=== PATIENT | female | born 1950 | race Caucasian/White ===

== ENCOUNTER 2020-06-02 14:26 | Outpatient (CLI) | payer MEDICARE, SELFPAY ==
--- NOTE | ~2020-06-02 | MM_ITS ---
EXAMINATION: MM screening [facility] BI w jose juan HISTORY: Screening mammogram TECHNIQUE: Craniocaudal and mediolateral oblique 3-D tomosynthesis images were obtained and synthetic 2-D images were generated. CAD analysis was submitted and interpreted. COMPARISON: 05/19/2019, 05/05/2019, 10/03/2016, 07/28/2015 BREAST PARENCHYMAL COMPOSITION: There are scattered areas of fibroglandular density. FINDINGS: There is no evidence of suspicious mass, calcification, or architectural distortion to sugg est malignancy in either breast. There has been no suspicious interval change. IMPRESSION: 1. No mammographic evidence of malignancy. 2. Recommend routine screening mammography in one year. BI-RADS Category 1: Negative Reviewed, dictated and finalized at location A.
== END 2020-06-02 14:27 | disposition home or self-care (01) ==
PROVIDERS: PCP Nurse Practitioner Family; Visit Provider Nurse Practitioner Family
DX: Z12.31 Encounter for screening mammogram for malignant neoplasm of breast (principal)
CPT/HCPCS: 77063; 77067

== ENCOUNTER 2020-10-05 09:13 | Outpatient (CLI) | payer MEDICARE, SELFPAY ==
--- NOTE | ~2020-10-05 | DEXA_ITS ---
Bone Density Report Name: Rosa Elena Fisher Age: 69 Sex: Female Ethnicity: White Date of : 1950 Indication: postmenopausal; height loss; Referring Provider: Peyton, Desiree Wallis Study: Bone densitometry was performed. Exam Date: October 05, 2020 Accession number: [id number] Bone Density: Region BMD T-score Z-score Classification AP Spine (L1-L4) 0.729 -2.9 -0.8 Osteoporosis Femoral Neck (Left) 0.504 -3.1 -1.3 Osteoporosis Total Hip (Left) 0.584 -2.9 -1.4 Osteoporosis Total Hip Bilateral Avg 0.593 -2.9 -1.4 Osteoporosis Femoral Neck (Right) 0.540 -2.8 -1.0 Osteoporosis Total Hip (Right) 0.600 -2.8 -1.3 Osteoporosis World Health Organization criteria for BMD impression classify patients as: Normal (T-score at or above -1.0), Osteopenia (T-score between -1.0 and -2.5), or Osteoporosis (T-score at or below -2.5). 10-year Fracture Risk: FRAX not reported because: Some T-score for Spine Total or Hip Total or Femoral Neck at or below -2.5 Clinical Information Provided by Patient: Smokes Has used the following medications: Calcium Patient maximum height was 66 Menopause Age: 50 Drinks caffeinated beverages Onset of menses at age 11 Number of children 2 Impression: The patient has osteoporosis, based on the Left Femoral Neck T-score. The patient has risk factors, including: smoking. Discussion: INCREASED RISK OF FRACTURE. BONE DENSITY IS UNDESIRABLY LOW AT ONE OR MORE SKELETAL SITES, CONSISTENT WITH POSTMENOPAUSAL OSTEOPOROSIS. This patient's lowest T-score meets the World Health Organization's (WHO) criteria for osteoporosis at one or more sites (T-score -2.5 or below). In untreated patients, the risk of osteoporotic fracture increases approximately two-fold for each 1.0 SD decrease in T-score. Low bone density is not the only risk factor for fracture; also consider factors such as patient's age, frailty or poor health, risk of falling, risk of injury, previous osteoporotic fracture, family history of osteoporosis, cigarette smoking, low body weight, etc. Not everyone with low bone mineral density has osteoporosis; osteomalacia and other metabolic bone disorders should also be considered. Patients who have osteoporosis should be evaluated for specific diseases and conditions (secondary causes) that may cause or contribute to bone loss. The [place] [employer] Endocrinologists (AACE) and National Osteoporosis Foundation (NOF) recommend pharmacologic intervention for all postmenopausal women whose T-score is in this range. The patient should follow a healthful lifestyle (good nutrition with adequate calcium and vitamin D, and appropriate weight-bearing exercise). Follow-Up: Consider a repeat BMD and Vertebral Fracture Assessment (VFA) exam in 2 years or sooner if medically necessary, to reassess this patien
== END 2020-10-05 09:14 | disposition home or self-care (01) ==
PROVIDERS: PCP Nurse Practitioner Family; Visit Provider Nurse Practitioner Family
DX: Z13.820 Encounter for screening for osteoporosis (principal); M81.0 Age-related osteoporosis without current pathological fracture
CPT/HCPCS: 77080

== ENCOUNTER 2020-10-07 01:51 | Outpatient (CLI) | payer MEDICARE, SELFPAY ==
[2020-10-07 21:19] LABS: SARS-CoV-2 RNA PCR Negative
== END 2020-10-07 01:52 | disposition home or self-care (01) ==
LOC: ANHCOVIDDT 01:52
PROVIDERS: PCP Nurse Practitioner Family; Visit Provider Internal Medicine Gastroenterology
DX: Z01.812 Encounter for preprocedural laboratory examination (principal); Z20.828 Contact with and (suspected) exposure to other viral communicable diseases
CPT/HCPCS: 87635; C9803; U0003

== ENCOUNTER 2020-10-11 01:26 | Day surgery (SDC) | payer MEDICARE, SELFPAY ==
[2020-10-06 11:51] VITALS: BMI 23.5
[2020-10-11 08:36] VITALS: BP 122/54; PULSE 77; RESP 21; TEMP 36.2; O2SAT 98; BMI 22.9
[2020-10-11] MEDS: LACTATED RINGERS 1,000 ML 150 ML IV CONT (08:45)
[2020-10-11 08:49] LABS: Glucose Point of Care 190 (65-105)
--- NOTE | 2020-10-11 08:55 | WPDGICN ---
Assessment and Plan Assessment and plan (1) Positive colorectal cancer screening using Cologuard test: Code(s): R19.5 - Other fecal abnormalities Status: Acute Assessment and Plan: [facility] guard test was positive, for this reason colonoscopy will be performed today. GI Consult Note Consult date/time: 10/11/20 08:55 HPI: Rosa Elena Fisher is a 69 year old female Seen in evaluation at the request of MANAGER PHARMACEUTICAL Desiree Todd. patient recently found to have positive colo guard test. for this reason patient presents for screening colonoscopy. Her current weight appetite bowel movements are normal. She denies abdominal pain. She has had no bleeding. Her family history is no known history of colon or rectal disease. Review of Systems Review of Systems: All systems reviewed & are unremarkable except as noted in HPI and below PMFSH Family History Family History (System 01/12/20 @ 09:47 by Ginger Tello) Father Diabetes mellitus Hypertension Family history of alcoholism Social History Social History (System 01/12/20 @ 09:47 by Ginger Tello) Smoking packs per day: 6 Smoking cigarettes per day: 120.0 Years smoked: 30 Smoking pack-years: 180.00 Smoking status: Light tobacco smoker Tobacco type: cigarettes Second hand tobacco smoke exposure: No Alcohol intake: never Substance use: never Substance use type: does not use Living arrangements: alone Spiritual care concerns: No Meds Home Medications and Allergies Home Medications Medication Instructions Recorded Confirmed Type aspirin 81 mg PO DAILY 10/06/20 10/06/20 History empagliflozin [Jardiance] 25 mg PO DAILY 10/06/20 10/06/20 History exenatide microspheres [Bydureon 2 mg SUBCUT WEEKLY 10/06/20 10/06/20 History BCise] insulin aspart U-100 [Novolog 20 unit SUBCUT DAILY 10/06/20 10/06/20 History Flexpen U-100 Insulin] simvastatin 40 mg PO DAILY 10/06/20 10/06/20 History sitagliptin-metformin [Janumet XR] 1 tablet PO BID 10/06/20 10/06/20 History Allergies Allergy/AdvReac Type Severity Reaction Status Date / Time Penicillins Allergy Intermediate Hives Verified 10/11/20 08:35 Sulfa (Sulfonamide Allergy Intermediate Hives Verified 10/11/20 08:35 Antibiotics) tree nut Allergy Intermediate Hives Verified 10/11/20 08:35 walnut Allergy Intermediate Hives Verified 10/11/20 08:35 Vital Signs Vital Signs - 24 hr 10/11/20 08:36 Temperature 97.1 F L Pulse Rate 77 Respiratory Rate 21 H Blood Pressure 122/54 L Pulse Oximetry 98 Exam Narrative: Exam Narrative: Physical exam reveals patient to be alert. Vital signs stable. HEENT exam unremarkable. Patient is anicteric. Lungs are clear to auscultation and percussion. Heart is without murmur or extra sounds. Abdominal exam bowel sounds are present soft nontender with no organomegaly. Digital external rectal exam is normal.
--- NOTE | 2020-10-11 08:55 | WPDANESEPPF ---
Anes - Initial Pre Proc Eval Procedure: Operation Date: 10/11/20 10:00 Proposed Procedures p Colonoscopy - Fredis Kennedy MD Date/Time: 10/11/20 08:55 Surgeon: Fredis Kennedy MD Pre Op Diagnosis: positive cologuard Patient Data Age: 69 Gender: F Height: 1.68 m Weight: 64.6 kg Last Vital Signs Temp 36.2 C L 10/11/20 08:36 Pulse 77 10/11/20 08:36 Resp 21 H 10/11/20 08:36 BP 122/54 L 10/11/20 08:36 Pulse Ox 98 10/11/20 08:36 Allergies Allergy/AdvReac Type Severity Reaction Status Date / Time Penicillins Allergy Intermediate Hives Verified 10/11/20 08:35 Sulfa (Sulfonamide Allergy Intermediate Hives Verified 10/11/20 08:35 Antibiotics) tree nut Allergy Intermediate Hives Verified 10/11/20 08:35 walnut Allergy Intermediate Hives Verified 10/11/20 08:35 Home Medications Medication Instructions Recorded Confirmed Type aspirin 81 mg PO DAILY 10/06/20 10/06/20 History empagliflozin [Jardiance] 25 mg PO DAILY 10/06/20 10/06/20 History exenatide microspheres [Bydureon 2 mg SUBCUT WEEKLY 10/06/20 10/06/20 History BCise] insulin aspart U-100 [Novolog 20 unit SUBCUT DAILY 10/06/20 10/06/20 History Flexpen U-100 Insulin] simvastatin 40 mg PO DAILY 10/06/20 10/06/20 History sitagliptin-metformin [Janumet XR] 1 tablet PO BID 10/06/20 10/06/20 History Laboratory Tests 10/11/20 08:44 POC Capillary Glucose 190 mg/dl H mg/dl (65-105) Patient hx anesthesia problems: none Family hx anesthesia problems: none PMFSH Past Medical History Medical History (Updated 10/11/20 @ 08:58 by Mack Angelo MD) Diabetes DVT (deep venous thrombosis) Hypercholesterolemia Family History Family History (System 01/12/20 @ 09:47 by Ginger Tello) Father Diabetes mellitus Hypertension Family history of alcoholism Social History Social History (System 01/12/20 @ 09:47 by Ginger Tello) Smoking packs per day: 6 Smoking cigarettes per day: 120.0 Years smoked: 30 Smoking pack-years: 180.00 Smoking status: Light tobacco smoker Tobacco type: cigarettes Second hand tobacco smoke exposure: No Alcohol intake: never Substance use: never Substance use type: does not use Living arrangements: alone Spiritual care concerns: No Anes - Eval Final PreProcedure Day of Procedure 10/11/20 08:55 Patient weight: normal Heart: regular rate and rhythm Lungs: clear to auscultation and normal air movement Airway: Mallampati scale class II Neurological: alert and oriented Last oral intake: >/= 8 hours ASA classification: III Emergent: no Anesthetic plan: proceed Anesthesia type and monitoring: general GIVS Informed Consent: The patient's anesthetic plan and its attendant risks and benefits were discussed with the patient/family/POA. Questions were solicited and answers provided to the satisfaction of the patient/family/POA.
[2020-10-11 09:56] VITALS: BP 102/53; PULSE 80; RESP 13; O2SAT 97
[2020-10-11 10:06] VITALS: BP 115/59; PULSE 78; RESP 21; O2SAT 99
[2020-10-11 10:06] LABS: Glucose Point of Care 168 (65-105)
[2020-10-11 10:16] VITALS: BP 115/65; PULSE 75; RESP 15; O2SAT 100
== END 2020-10-11 10:30 | disposition home or self-care (01) ==
PROVIDERS: PCP Nurse Practitioner Family; Visit Provider Internal Medicine Gastroenterology
PROC: 0DJD8ZZ Inspection of Lower Intestinal Tract, Via Natural or Artificial Opening Endoscopic (ICD-10-PCS; CPT 45378; principal; 2020-10-11 10:00)
DX: Z12.11 Encounter for screening for malignant neoplasm of colon (principal); K64.8 Other hemorrhoids; R19.5 Other fecal abnormalities; E11.9 Type 2 diabetes mellitus without complications; E78.00 Pure hypercholesterolemia, unspecified; F17.210 Nicotine dependence, cigarettes, uncomplicated; Z79.84 Long term (current) use of oral hypoglycemic drugs; Z79.82 Long term (current) use of aspirin; Z79.4 Long term (current) use of insulin; Z86.718 Personal history of other venous thrombosis and embolism
CPT/HCPCS: G0121; J2704; J7120

== ENCOUNTER 2021-02-22 11:47 | Outpatient (CLI) | payer MEDICARE, OTHER, SELFPAY | END 2021-02-22 11:48 | disposition home or self-care (01) | LOC: ANHAUDIO 11:50 | PROVIDERS: PCP Nurse Practitioner Family; Visit Provider Nurse Practitioner Family | DX: H90.3 Sensorineural hearing loss, bilateral (principal) | CPT/HCPCS: 92557; 92567 ==

== ENCOUNTER 2021-06-04 14:57 | Outpatient (CLI) | payer MEDICARE, OTHER, SELFPAY ==
--- NOTE | ~2021-06-04 | MM_ITS ---
EXAMINATION: MM screening [facility] [place] BI w jose juan HISTORY: Screening mammogram TECHNIQUE: Craniocaudal and mediolateral oblique 3-D tomosynthesis images were obtained and synthetic 2-D images were generated. CAD analysis was submitted and interpreted. COMPARISON: 06/02/2020, 05/19/2019, 05/05/2019 BREAST PARENCHYMAL COMPOSITION: There are scattered areas of fibroglandular density. FINDINGS: Scattered benign-appearing calcifications are present. There is no evidence of suspicious m ass, calcification, or architectural distortion to suggest malignancy in either breast. There has bee n no suspicious interval change. IMPRESSION: 1. No mammographic evidence of malignancy. 2. Recommend routine screening mammography in one year. BI-RADS Category 2: Benign finding(s). Reviewed, dictated and finalized at location A.
== END 2021-06-04 14:58 | disposition home or self-care (01) ==
PROVIDERS: PCP Nurse Practitioner Family; Visit Provider Nurse Practitioner Family
DX: Z12.31 Encounter for screening mammogram for malignant neoplasm of breast (principal)
CPT/HCPCS: 77063; 77067

== ENCOUNTER 2022-01-07 09:05 | Emergency (ER) | payer MEDICARE, OTHER, SELFPAY ==
--- NOTE | ~2022-01-07 | XR_ITS ---
EXAMINATION: XR hand RT min 3V INDICATION: Right hand pain TECHNIQUE: Three views of the right hand are obtained. COMPARISON: None available FINDINGS: Deformity of the fifth metacarpal has the appearance of healed fracture. No acute fracture is identified. 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 The soft tissues are unremarkable. IMPRESSION: 1. No acute osseous abnormality. Reviewed, dictated and finalized at location A. [employer]ATOR
[2022-01-07 09:09] VITALS: BP 147/41; PULSE 72; RESP 20; TEMP 36.5; O2SAT 97
--- NOTE | 2022-01-07 10:19 | ED.GENADULT ---
HPI - General Adult General Chief complaint: Extremity Injury, Upper Stated complaint: R hand injury Time Seen by Provider: 01/07/22 09:25 Source: patient and RN notes reviewed Mode of arrival: ambulatory Limitations: no limitations History of Present Illness HPI narrative: Patient is 71-year-old female who presents to emergency department for evaluation of right hand pain noting that she tripped fell yesterday injuring the right hand also noted mild left knee pain on arrival she is in the room nondistressed pain is worse with activity and movement localized to the second through fourth MCP joints she denies any decreased range of motion or strength does note bruising and swelling has not taken anything for her symptoms Related Data Home Medications Medication Instructions Recorded Confirmed aspirin 81 mg PO DAILY 10/06/20 10/06/20 empagliflozin [Jardiance] 25 mg PO DAILY 10/06/20 10/06/20 exenatide microspheres [Bydureon 2 mg SUBCUT WEEKLY 10/06/20 10/06/20 BCise] insulin aspart U-100 [Novolog 20 unit SUBCUT DAILY 10/06/20 10/06/20 Flexpen U-100 Insulin] simvastatin 40 mg PO DAILY 10/06/20 10/06/20 sitagliptin-metformin [Janumet XR] 1 tablet PO BID 10/06/20 10/06/20 Allergies Allergy/AdvReac Type Severity Reaction Status Date / Time Penicillins Allergy Intermediate Hives Verified 01/07/22 09:12 Sulfa (Sulfonamide Allergy Intermediate Hives Verified 01/07/22 09:12 Antibiotics) tree nut Allergy Intermediate Hives Verified 01/07/22 09:12 walnut Allergy Intermediate Hives Verified 01/07/22 09:12 Review of Systems Review of Systems: CONSTITUTIONAL: Denies fever, chills MUSCULOSKELETAL: Denies any decreased range of motion or strength NEUROLOGIC: Denies numbness, or weakness. [facility] Past Medical History Medical History Diabetes DVT (deep venous thrombosis) Hypercholesterolemia Family History Family History (System 01/12/20 @ 09:47 by Ginger Tello) Father Diabetes mellitus Hypertension Family history of alcoholism Social History Social History Smoking packs per day: 6 Smoking cigarettes per day: 120.0 Years smoked: 30 Smoking pack-years: 180.00 Smoking status: Light tobacco smoker Tobacco type: cigarettes Second hand tobacco smoke exposure: No Alcohol intake: never Substance use: never Substance use type: does not use Spiritual care concerns: No Exam Narrative: GENERAL: Well-appearing, well-nourished, and in no acute distress. HEAD: Normocephalic, atraumatic. EYES: PERRLA and EOMI. ENT: Nares clear, no rhinorrhea or epistaxis. Mucous membranes moist. EXTREMITIES: Normal range of motion. No edema. Bruising over the second through fourth MCP joints of the right hand no other deformities noted SKIN: Warm, dry, no rash. NEURO: No focal deficits. Alert and oriented x3. Neurovascularly intact PSYCH: Normal mood and affect. Course Course Emergency Course: Patient presented with hand injury negative radiographs Danial wrap applied will be discharged home with outpatient follow-up given indications for return ABCs and vital signs intact Vital Signs Vital signs: Vital Signs Temperature 97.7 F 01/07/22 09:09 Pulse Rate 72 01/07/22 09:09 Respiratory Rate 20 01/07/22 09:09 Blood Pressure 147/41 H 01/07/22 09:09 Pulse Oximetry 97 01/07/22 09:09 Temperature 97.7 F 01/07/22 09:09 Pulse Rate 72 01/07/22 09:09 Respiratory Rate 20 01/07/22 09:09 Blood Pressure 147/41 H 01/07/22 09:09 Pulse Oximetry 97 01/07/22 09:09 Medical Decision Making MDM Narrative Medical decision making narrative: Patients injury or pain is consistent with musculoskeletal etiology. No signs of neurological or vascular compromise on exam. Compartments and tisues are soft without signs of compartment syndrome. Pain is felt appropriate for further evaluation
== END 2022-01-07 10:32 | disposition home or self-care (01) ==
PROVIDERS: Emergency Provider Emergency Medicine; PCP Nurse Practitioner Family
DX: S60.221A Contusion of right hand, initial encounter (principal); E11.9 Type 2 diabetes mellitus without complications; E78.00 Pure hypercholesterolemia, unspecified; Z86.718 Personal history of other venous thrombosis and embolism; Z79.82 Long term (current) use of aspirin; Z79.4 Long term (current) use of insulin; F17.210 Nicotine dependence, cigarettes, uncomplicated; W01.0XXA Fall on same level from slipping, tripping and stumbling without subsequent striking against object, initial encounter
CPT/HCPCS: 73130; 99283

== ENCOUNTER 2022-07-03 14:55 | Outpatient (CLI) | payer MEDICARE, OTHER, SELFPAY ==
--- NOTE | ~2022-07-03 | MM_ITS ---
EXAMINATION: MM screening [facility] BI w jose juan HISTORY: Screening mammogram TECHNIQUE: Craniocaudal and mediolateral oblique 3-D tomosynthesis images were obtained and synthetic 2-D images were generated. CAD analysis was submitted and interpreted. COMPARISON: 06/04/2021, 06/02/2020, 05/05/2019 BREAST PARENCHYMAL COMPOSITION: The breasts are heterogeneously dense, which may obscure small masses . FINDINGS: There is no suspicious mass, calcification, or architectural distortion to suggest malignan cy in either breast. There has been no suspicious interval change. IMPRESSION: 1. No mammographic evidence of malignancy. 2. Recommend routine screening mammography in one year. BI-RADS Category 1: Negative Reviewed, dictated and finalized at location A.
== END 2022-07-03 14:56 | disposition home or self-care (01) ==
PROVIDERS: PCP Nurse Practitioner Family; Visit Provider Nurse Practitioner Family
DX: Z12.31 Encounter for screening mammogram for malignant neoplasm of breast (principal)
CPT/HCPCS: 77063; 77067

== ENCOUNTER 2023-08-20 13:31 | Outpatient (CLI) | payer MEDICARE, OTHER, SELFPAY ==
--- NOTE | ~2023-08-20 | MM_ITS ---
EXAMINATION: MM screening [facility] BI w jose juan HISTORY: Screening mammogram TECHNIQUE: Craniocaudal and mediolateral oblique 3-D tomosynthesis images were obtained and synthetic 2-D images were generated. CAD analysis was submitted and interpreted. COMPARISON: 07/03/2022, 06/04/2021, 06/02/2020 bilateral screening mammogram examinations BREAST PARENCHYMAL COMPOSITION: The breasts are heterogeneously dense, which may obscure small masses . FINDINGS: There is no evidence of suspicious mass, calcification, or architectural distortion to sugg est malignancy in either breast. There has been no suspicious interval change. IMPRESSION: 1. No mammographic evidence of malignancy. 2. Recommend routine screening mammography in one year. BI-RADS Category 1: Negative Reviewed, dictated and finalized at location A.
== END 2023-08-20 13:32 | disposition home or self-care (01) ==
LOC: ANHIMG 13:34
PROVIDERS: PCP Nurse Practitioner Family; Visit Provider Nurse Practitioner Family
DX: Z12.31 Encounter for screening mammogram for malignant neoplasm of breast (principal)
CPT/HCPCS: 77063; 77067

== ENCOUNTER 2024-04-12 16:38 | Emergency (ER) | payer MEDICARE, OTHER, SELFPAY ==
[2024-04-12 16:58] VITALS: BP 117/49; PULSE 67; RESP 18; TEMP 36.7; O2SAT 97
--- NOTE | 2024-04-12 17:06 | ED.SKABFB ---
HPI - Skin/Abscess/Foreign Bdy General Chief complaint: Skin/Abscess/Foreign Body Stated complaint: left foot and toe swollen Source: patient Mode of arrival: ambulatory Limitations: no limitations History of Present Illness HPI narrative: 73-year-old female with history of diabetes presented for complaint of wound to the left great toe. She is accompanied by daughter who states the staff at [facility] noted the toe to be red and swollen with some yellow pus, and the foot has some swelling to the ankle. Plans to establish with a cell manager. Reports normal sensation in feet. Related Data Home Medications Medication Instructions Recorded Confirmed aspirin 81 mg tablet,delayed 81 mg PO DAILY 10/06/20 04/12/24 release empagliflozin 25 mg tablet 25 mg PO DAILY 10/06/20 04/12/24 (Jardiance) insulin aspart U-100 100 unit/mL 20 unit subcut DAILY 10/06/20 04/12/24 (3 mL) subcutaneous pen (Novolog FlexPen U-100 Insulin aspart) simvastatin 40 mg tablet 40 mg PO DAILY 10/06/20 04/12/24 sitagliptin phos 50 mg-metformin 1 tablet PO BID 10/06/20 04/12/24 ER 1,000 mg tablet,extend rel 24h mp (Janumet XR) donepezil 10 mg tablet mg 04/12/24 insulin glargine 100 unit/mL (3 unit subcut 04/12/24 mL) subcutaneous pen (Lantus Solostar U-100 Insulin) losartan 25 mg tablet mg 04/12/24 memantine 10 mg tablet mg 04/12/24 Allergies Allergy/AdvReac Type Severity Reaction Status Date / Time Penicillins Allergy Intermediate Hives Verified 04/12/24 17:08 Sulfa (Sulfonamide Allergy Intermediate Hives Verified 04/12/24 17:08 Antibiotics) tree nut Allergy Intermediate Hives Verified 04/12/24 17:08 walnut Allergy Intermediate Hives Verified 04/12/24 17:08 Review of Systems Review of Systems: CONSTITUTIONAL: Denies body aches, fever, chills, or sweats. CARDIOVASCULAR: Denies chest pain, palpitations, or edema. RESPIRATORY: Denies cough or dyspnea. GASTROINTESTINAL: Denies abdominal pain, nausea, vomiting, or diarrhea. SKIN: Reports redness and swelling to the left great toe MUSCULOSKELETAL: Denies back pain, joint pain, or myalgia. NEUROLOGIC: Denies headache, numbness, tingling, or weakness. [facility] Past Medical History Medical History Diabetes DVT (deep venous thrombosis) Hypercholesterolemia Family History Family History Father Diabetes mellitus Hypertension Family history of alcoholism Social History Social History (Updated 04/12/24 @ 17:31 by Oralia Pittman APRN) Smoking packs per day: 0.25 Smoking cigarettes per day: 5.0 Years smoked: 30 Smoking pack-years: 7.50 Smoking status: Light tobacco smoker Tobacco type: cigarettes Second hand tobacco smoke exposure: No Alcohol intake: never Substance use: never Substance use type: does not use Living arrangements: alone Spiritual care concerns: No Comments At time of signature, I have reviewed and agree with nursing past medical, surgical, social and family history unless otherwise noted. Please see nursing chart for further information. There is no relevant family history pertinent to the presenting complaint Exam Narrative: GENERAL: Well-appearing ENT: Mucous membranes moist. Oropharynx without edema, erythema or lesions. CHEST: Clear to auscultation. HEART: Regular rate and rhythm. SKIN: Warm, dry. Left great toe with paronychia to lateral/distal aspect of nail, erythema and swelling extending the lateral aspect of the toe, mild tenderness. No callus. Sensation intact. No ingrown nail noted. NEURO: Alert and oriented x3. Course Course Emergency Course: Patient is aware of diagnosis, understands and agrees to treatment plan. Anticipatory guidance given. Patient agrees to follow-up as directed and is aware of reasons to seek care at the emergency department. Portions of this record may have
== END 2024-04-12 17:28 | disposition home or self-care (01) ==
PROVIDERS: Emergency Provider Nurse Practitioner Family; PCP Family Medicine
DX: L03.032 Cellulitis of left toe (principal); F17.210 Nicotine dependence, cigarettes, uncomplicated; E11.9 Type 2 diabetes mellitus without complications; Z79.4 Long term (current) use of insulin; Z79.84 Long term (current) use of oral hypoglycemic drugs; E78.00 Pure hypercholesterolemia, unspecified; Z86.718 Personal history of other venous thrombosis and embolism; Z79.82 Long term (current) use of aspirin
CPT/HCPCS: 99213; G0463

== ENCOUNTER 2024-06-25 09:27 | Emergency (ER) | payer MEDICARE, OTHER, SELFPAY ==
[2024-06-25] VITALS (15 sets, daily range): BP systolic 105–110; BP diastolic 42–63; PULSE 62–68; RESP 13–18; TEMP 36.6–37.2; O2SAT 94–100
--- NOTE | ~2024-06-25 | CT_ITS ---
EXAMINATION: CT brain wo con DATE: 06/25/2024 10:47 INDICATION: Weakness. TECHNIQUE: Computed tomography (CT) of the head was performed without intravenous contrast. The mA wa s adjusted according to patient size. Iterative reconstruction technique was employed. The dose-lengt h product was 605.33 mGy-cm. COMPARISON: None FINDINGS: There is no intracranial hemorrhage, acute infarction, or abnormal intracranial mass lesion . There are scattered areas of low attenuation in the cerebral white matter. The ventricles are sindy l in size. There are likely changes of ocular lens replacement surgeries. There is mucosal thickening in the paranasal sinuses. There are small bilateral mastoid effusions. IMPRESSION: 1. Mild nonspecific cerebral white matter disease, which likely represents chronic small vessel ische marguerite disease. Reviewed, dictated and finalized at location A. IMPRESSION: 1. Mild nonspecific cerebral white matter disease, which likely represents caseworker protective services karol small vessel ischemic disease.
--- NOTE | ~2024-06-25 | XR_ITS ---
EXAMINATION: XR chest 1V DATE: 06/25/2024 10:54 INDICATION: Cough. Weakness. TECHNIQUE: A single frontal view of the chest was obtained. COMPARISON: Chest 2 views 03/04/2014 FINDINGS: There are airspace opacities in the lower lung zones with volume loss, consistent with atel ectasis versus scarring. No pleural effusion or pneumothorax. The heart size is normal. There are sut ure anchors in right humeral head. IMPRESSION: 1. Atelectasis versus scarring in the lower lung zones. Reviewed, dictated and finalized at location A.
--- NOTE | 2024-06-25 09:37 | PC.NURSE ---
Per family, patient was found on the floor this morning by staff at facility. unsure of injury. patient denies fall
--- NOTE | 2024-06-25 09:49 | ED.GENADULT ---
HPI - General Adult General Chief complaint: Weakness Stated complaint: increased weakness, COVID+ 8/ Time Seen by Provider: 06/25/24 09:37 History of Present Illness HPI narrative: 73 y/o female presents via ems from assisted living with increased weakness and falls that started yesterday. associated cough and sneezing. patient tested + for covid yesterday. patient has had a decrease in appetite. patient had a ground level fall today but denies pain. fall was unwitnessed. no other complaints. Onset (ago): day(s) (2) Associated symptoms: confusion, malaise and weakness Related Data Home Medications Medication Instructions Recorded Confirmed aspirin 81 mg tablet,delayed 81 mg PO DAILY 10/06/20 04/12/24 release empagliflozin 25 mg tablet 25 mg PO DAILY 10/06/20 04/12/24 (Jardiance) insulin aspart U-100 100 unit/mL 20 unit subcut DAILY 10/06/20 04/12/24 (3 mL) subcutaneous pen (Novolog FlexPen U-100 Insulin aspart) simvastatin 40 mg tablet 40 mg PO DAILY 10/06/20 04/12/24 sitagliptin phos 50 mg-metformin 1 tablet PO BID 10/06/20 04/12/24 ER 1,000 mg tablet,extend rel 24h mp (Janumet XR) donepezil 10 mg tablet mg 04/12/24 insulin glargine 100 unit/mL (3 unit subcut 04/12/24 mL) subcutaneous pen (Lantus Solostar U-100 Insulin) losartan 25 mg tablet mg 04/12/24 memantine 10 mg tablet mg 04/12/24 Allergies Allergy/AdvReac Type Severity Reaction Status Date / Time Penicillins Allergy Intermediate Hives Verified 06/25/24 10:18 Sulfa (Sulfonamide Allergy Intermediate Hives Verified 06/25/24 10:18 Antibiotics) tree nut Allergy Intermediate Hives Verified 06/25/24 10:18 walnut Allergy Intermediate Hives Verified 06/25/24 10:18 Review of Systems Review of Systems: All systems reviewed & are unremarkable except as noted in HPI and below Constitutional: Constitutional: Reports fatigue and Denies fever(s) Neurologic: Reports confusion PMFSH Past Medical History Medical History Diabetes DVT (deep venous thrombosis) Hypercholesterolemia Family History Family History Father Diabetes mellitus Hypertension Family history of alcoholism Social History Social History (Updated 04/12/24 @ 17:31 by Oralia Pittman APRN) Smoking packs per day: 0.25 Smoking cigarettes per day: 5.0 Years smoked: 30 Smoking pack-years: 7.50 Smoking status: Light tobacco smoker Tobacco type: cigarettes Second hand tobacco smoke exposure: No Alcohol intake: never Substance use: never Substance use type: does not use Living arrangements: alone Spiritual care concerns: No Exam Const: General: no acute distress and alert Orientation/consciousness: patient oriented x3 HENMT: Head: normal to inspection Ears: external ears normal Eyes: Conjunctivae: conjunctivae normal EOM: EOMs intact bilaterally Neck: Neck: normal visual inspection Chest: Chest palpation & inspection: normal inspection of the chest Resp: Effort & Inspection: normal respiratory effort Cardio: Rate: regular rate GI: GI Palp: Yes Soft to palpation and No Tenderness to palpation present (GI) Back/Spine/Pelvis: Back: no CVA tenderness Skin: General skin exam: normal color Neuro: General: patient oriented x3 and moves all extremities Extrem: General: normal to inspection Course Course Emergency Course: labs, cxr, ct brain, iv fluids Reevaluation(s) Reevaluation #1: patient feeling better. Date: 06/25/24 Time: 11:33 Vital Signs Vital signs: Vital Signs Temperature 37.1 C 06/25/24 09:24 Pulse Rate 66 06/25/24 09:24 Respiratory Rate 13 06/25/24 09:24 Blood Pressure 109/47 L 06/25/24 09:24 Pulse Oximetry 97 06/25/24 09:24 Oxygen Delivery Room Air 06/25/24 09:24 Temperature 37.1 C 06/25/24 09:24 Pulse Rate 66 06/25/24 09:24 Respiratory Rate 13
--- NOTE | 2024-06-25 09:54 | ECG_ITS ---
Test Date: 2024-06-25 10:11:37 Measurements Intervals [place] Rate: 66 P: 11 FL: 227 QRS: 39 QRSD: 93 T: 30 QT: 411 QTc: 431 Interpretive Statements SINUS RHYTHM WITH FIRST DEGREE AV BLOCK POOR R-WAVE PROGRESSION ABNORMAL ECG No previous ECG available for comparison Electronically Signed On 06-25-2024 11:36:38 CDT by Renzo Paniagua M.D.
[2024-06-25] MEDS: SODIUM CHLORIDE 0.9% IV 1,000 ML 999 ML IV CONT (10:18)
[2024-06-25 10:21] LABS: Basophils Percent Auto 0.4 % (0.2-1.2); Eosinophils Percent Auto 0.3 % (0-4.4); Hemoglobin 10.5 g/dL (12.0-15.0); Immature Granulocyte Absolute 0.05 K/mm3 (0.00-0.031); Immature Granulocyte Percent A 0.5 % (0-0.5); Lymphocytes Absolute Auto 1.04 K/mm3 (0.9-3.2); Lymphocytes Percent Auto 9.4 % (18.3-44.2); Mean Corpuscular HGB Conc 31.8 g/dl (32-36); Mean Corpuscular Hemoglobin 27.6 pg (26-34); Mean Corpuscular Volume 86.8 fl (80-100); Mean Platelet Volume 11.6 fl (7.4-10.4); Monocytes Percent Auto 9.4 % (2.6-8.5); Neutrophils Absolute Auto 8.9 K/mm3 (1.3-6.7); Platelet Count Result 256 k/mm3 (150-375); White Blood Count 11.1 K/mm3 (4.5-10.0)
[2024-06-25 10:35] LABS: Alanine Aminotransferase 20 U/L (6-35); Albumin Level 4.2 g/dL (3.5-5.1); Alkaline Phosphatase 76 U/L (38-126); Anion Gap 6 mmol/L (4-12); Aspartate Amino Transferase 26 U/L (14-36); Bilirubin,Total 0.3 mg/dL (0.2-1.3); Blood Urea Nitrogen 16 mg/dL (7-17); Calcium 9.1 mg/dL (8.4-10.2); Carbon Dioxide 27 mmol/L (22-30); Chloride 105 mmol/L (98-107); Estimated CRCL calculation 66 ml/min; Estimated Glomerular Filt Rate > 60; Glucose 145 mg/dL (65-110); Magnesium 2.2 mg/dL (1.6-2.3); Sodium 138 mmol/L (137-145)
[2024-06-25 10:52] LABS: Troponin I < 0.012 ng/mL (0.000-0.034)
[2024-06-25 11:46] LABS: Add Urine Microscopic? NO; Appearance Urine Clear (Clear); Bilirubin Urine Negative (Negative); Blood Urine Negative (Negative); Color Urine Yellow (Yellow); Glucose Urine UA 3+ mg/dL (Negative); Ketones Urine Negative (Negative); Leukocyte Esterase Ur Negative LEU/UL (Negative); Nitrate Urine Negative (Negative); Protein Urine Negative (Negative); Specific Grav Ur 1.039 (1.001-1.035)
--- NOTE | 2024-06-25 12:03 | PC.NURSE ---
Discussed transport home after discharge with daughter. Daughter is concerned with weakness and after fluids finish infusing we will attempt to walk the patient around and ensure that she will be capable to ambulate to the car and from the car upon discharge. patient daughter also voiced questions about getting a walker or wheelchair for temporary help while the patient is sick and feeling weak. Care coordination contacted and will be coming to the room to talk with the patient and family member.
--- NOTE | 2024-06-25 14:25 | PCCCNOTE ---
CC called to the ED for resources to DME equipment. Pt's daughter, , given a list of providers. She denied any further needs.
== END 2024-06-25 13:26 ==
PROVIDERS: Emergency Provider Nurse Practitioner Family; PCP Family Medicine
DX: U07.1 COVID-19 (principal); R53.1 Weakness; E11.9 Type 2 diabetes mellitus without complications; E78.00 Pure hypercholesterolemia, unspecified; F17.210 Nicotine dependence, cigarettes, uncomplicated; Z86.718 Personal history of other venous thrombosis and embolism; Z79.82 Long term (current) use of aspirin; Z79.4 Long term (current) use of insulin; Z79.84 Long term (current) use of oral hypoglycemic drugs; Z79.899 Other long term (current) drug therapy
CPT/HCPCS: 36415; 70450; 71045; 80053; 81003; 83735; 84484; 85025; 93005; 96360; 99284; J7030

== ENCOUNTER 2024-11-16 08:36 | Inpatient (IN) | payer MEDICARE, OTHER, SELFPAY ==
[2024-11-16] VITALS (20 sets, daily range): BP systolic 103–124; BP diastolic 42–82; PULSE 76–84; RESP 14–19; TEMP 36.4–37.4; O2SAT 92–100; BMI 25.7
--- NOTE | ~2024-11-16 | CT_ITS ---
EXAMINATION: CT brain wo con DATE: 11/16/2024 09:30 INDICATION: Altered mental status. TECHNIQUE: Computed tomography (CT) of the head was performed without intravenous contrast. The mA wa s adjusted according to patient size. Iterative reconstruction technique was employed. The dose-lengt h product was 681.00 mGy-cm. COMPARISON: Head CT 06/25/2024 FINDINGS: There are scattered areas of low attenuation in the cerebral white matter, which is within normal limits for the patient's age. There is no intracranial hemorrhage, acute infarction, or abnorm al intracranial mass lesion. The ventricles are normal in size. There are likely changes of ocular le ns replacement surgeries. There are trace bilateral mastoid effusions. The paranasal sinuses are rocío r. IMPRESSION: 1. Stable mild nonspecific cerebral white matter disease, which likely represents chronic small vesse l ischemic disease. Reviewed, dictated and finalized at location A. SOFTWARE TESTER IMPRESSION: 1. Stable mild nonspecific cerebral white matter disease, which likely represen ts chronic small vessel ischemic disease.
--- NOTE | ~2024-11-16 | XR_ITS ---
EXAMINATION: XR chest 2V DATE: 11/16/2024 09:33 INDICATION: Weakness. TECHNIQUE: Frontal and lateral views of the chest were obtained. COMPARISON: Chest single view 06/25/2024 FINDINGS: There is mild atelectasis versus scarring in the lower lung zones. No pleural effusion or p neumothorax. The heart size is normal. There are suture anchors in right humeral head. IMPRESSION: 1. Stable mild atelectasis versus scarring in the lower lung zones. Reviewed, dictated and finalized at location A. L INSTALLER
--- NOTE | 2024-11-16 08:50 | ECG_ITS ---
Test Date: 2024-11-16 08:57:07 Measurements Intervals [place] Rate: 86 P: 52 WI: 209 QRS: 66 QRSD: 93 T: 31 QT: 373 QTc: 446 Interpretive Statements SINUS RHYTHM POSSIBLE INFERIOR MYOCARDIAL INFARCTION , PROBABLY OLD [30 ms Q WAVE IN II/aVF] Compared to ECG 06/25/2024 10:11:37 Myocardial infarct finding now present First degree AV block no longer present Poor R-wave progression no longer present Electronically Signed On 11-16-2024 14:51:45 CHOPPER GUN OPERATOR by Edna Rivas M.D.
[2024-11-16 09:04] LABS: Basophils Absolute Auto 0.1 K/mm3 (0.0-0.1); Basophils Percent Auto 0.5 % (0.2-1.2); Eosinophils Percent Auto 0.3 % (0-4.4); Hematocrit 33.5 % (37.0-47.0); Hemoglobin 10.4 g/dL (12.0-15.0); Immature Granulocyte Absolute 0.06 K/mm3 (0.00-0.031); Immature Granulocyte Percent A 0.5 % (0-0.5); Lymphocytes Absolute Auto 1.34 K/mm3 (0.9-3.2); Mean Corpuscular Hemoglobin 26.7 pg (26-34); Mean Corpuscular Volume 86.1 fl (80-100); Mean Platelet Volume 11.6 fl (7.4-10.4); Monocytes Absolute Auto 1.2 K/mm3 (0.1-0.6); Monocytes Percent Auto 10.1 % (2.6-8.5); Neutrophils Absolute Auto 9.4 K/mm3 (1.3-6.7); Neutrophils Percent Auto 77.6 % (45.5-73.1); Platelet Count Result 234 k/mm3 (150-375); Red Blood Count 3.89 M/mm3 (4.2-5.4); Red Cell Distribution Width 16.1 % (11.5-14.5); White Blood Count 12.2 K/mm3 (4.5-10.0)
--- NOTE | 2024-11-16 09:14 | ED_ITS ---
HPI - Weakness General Chief complaint: Weakness <Aguilar Gates PA-C - Last Filed: 11/16/24 17:15> Stated complaint: weakness, increased AMS <Aguilar Gates PA-C - Last Filed: 11/16/24 17:15> Time Seen by Provider: 11/16/24 08:54 <Aguilar Gates PA-C - Last Filed: 11/16/24 17:15> Source: patient <Aguilar Gates PA-C - Last Filed: 11/16/24 17:15> Mode of arrival: ambulatory <Aguilar Gates PA-C - Last Filed: 11/16/24 17:15> Limitations: no limitations <Aguilar Gates PA-C - Last Filed: 11/16/24 17:15> History of Present Illness HPI Narrative: This is a 74-year-old female who presents to the ED with her daughter via private vehicle from [facility] for chief complaint of increased weakness over the past couple of days. Nursing facility staff for reporting patient has lethargy and disorientation above her baseline dementia. Reports that she is alert oriented x2 which is standard for her but she has been a little bit more confused lately. Daughter reports the staff stated she had been doing strange things such as sitting in their break room and responding questions inappropriately. States that yesterday and today she became much more weak and was having trouble getting out of bed. States that she is normally ambulatory without assistance and a little more mentally sharp. Daughter notes that she has had urinary incontinence that has been increasing and they are concerned for possible UTI/dehydration. Patient has no complaints although history from patient is quite limited due to dementia. <Aguilar Gates PA-C - Last Filed: 11/16/24 17:15> Related Data Home medications: Home Medications ?Medication ?Instructions ?Recorded ?Confirmed ?Last Taken ?Type aspirin 81 mg tablet,delayed 81 mg PO DAILY 10/06/20 11/16/24 11/15/24 History release empagliflozin 25 mg tablet 25 mg PO BID 10/06/20 11/16/24 11/15/24 History (Jardiance) insulin aspart U-100 100 unit/mL 2 unit subcut DAILY 10/06/20 11/16/24 11/15/24 History (3 mL) subcutaneous pen (Novolog FlexPen U-100 Insulin aspart) simvastatin 40 mg tablet 40 mg PO DAILY 10/06/20 11/16/24 11/15/24 History sitagliptin phos 50 mg-metformin 1 tablet PO BID 10/06/20 11/16/24 11/15/24 History ER 1,000 mg tablet,extend rel 24h mp (Janumet XR) donepezil 10 mg tablet 10 mg PO DAILY 04/12/24 11/16/24 11/15/24 History insulin glargine 100 unit/mL (3 See Rx Instructions subcut HS 04/12/24 11/16/24 11/15/24 History mL) subcutaneous pen (Lantus Solostar U-100 Insulin) losartan 25 mg tablet 25 mg PO DAILY 04/12/24 11/16/24 11/16/24 History memantine 10 mg tablet 10 mg PO BID 04/12/24 11/16/24 11/15/24 History <Aguilar Gates PA-C - Last Filed: 11/16/24 17:15> Allergies/Adverse reactions: Allergies Allergy/AdvReac Type Severity Reaction Status Date / Time Penicillins Allergy Intermediate Hives Verified 11/16/24 08:38 Sulfa (Sulfonamide Allergy Intermediate Hives Verified 11/16/24 08:38 Antibiotics) tree nut Allergy Intermediate Hives Verified 11/16/24 08:38 walnut Allergy Intermediate Hives Verified 11/16/24 08:38 <Aguilar Gates PA-C - Last Filed: 11/16/24 17:15> Review of Systems 2 Review of Systems: All systems as dictated in HPI <Aguilar Gates PA-C - Last Filed: 11/16/24 17:15> [facility] Past Medical History Medical History: Medical History Dementia Hyperlipidemia Hypertension Insulin dependent type 2 diabetes mellitus <Aguilar Gates PA-C - Last Filed: 11/16/24 17:15> Surgical History Surgical History: Surgical History History of tubal ligation History of vein stripping History of cataract extraction <Aguilar Gates PA-C - Last Filed: 11/16/24 17:15> Family History Family History: Family History Father Diabetes mellitus Hypertension Family history of alcoholism <Aguilar Gates PA-C - Last Filed: 11/16/24 17:15> Social History Social History: Social History Social History: Surrogate medical decision maker: Jennifer Robertson, daughter. Code status: Full code. Smoking packs per day: 0.25 Smoking cigarettes per day: 5.0 Years smoked: 30 Smoking pack-years: 7.50 Smoking status: Never smoker Tobacco type: cigarettes Second hand tobacco smoke exposure: No Alcohol intake: never Substance use: never Substance use type: does not use Do You Feel Safe in your Home?: Yes Lack of Transportation: No Lack of Food: Never True Current Housing: I Have Housing Concerned About Future Housing: No Difficulty Paying Gas/Electric Bills: No Difficulty Paying for Meds: No Currently Unemployed: No Education: Don't Know Difficulty w/ Childcare or Family Care: No [place] [facility] [facility] Additional living arrangements comments: [facility] in [place]. Spiritual care concerns: No <Aguilar Gates PA-C - Last Filed: 11/16/24 17:15> Exam 2 Narrative: GENERAL: Appears elderly and frail HEAD: Normocephalic, atraumatic. EYES: PERRLA and EOMI. ENT: Nares clear, no rhinorrhea or epistaxis. Mucous membranes moist. Oropharynx without tonsillar hypertrophy exudate or other lesions. NECK: Supple. No adenopathy or masses. CHEST: No respiratory distress. Clear to auscultation. No wheezes rales or rhonchi HEART: Regular rate and rhythm. No murmur heard. Normal peripheral pulses. ABDOMEN: Soft, nontender, nondistended, normal active bowel sounds. MSK: Normal range of motion. No edema. SKIN: Warm, dry, no rash. NEURO: Alert and oriented x2. No focal deficits. PSYCH: Normal mood and affect. <Aguilar Gates PA-C - Last Filed: 11/16/24 17:15> Course CURRICULUM AND ASSESSMENT DIRECTOR/PA Physician Supervision Patient's HPI, Exam, and MDM were reviewed and I agreed with the workup and disposition done in the emergency department by the MLP. I was available for consultation, but was not directly involved with patient's care nor did I evaluate the patient. <Edmundo Rosas MD - Last Filed: 11/16/24 16:53> Vital Signs Vital signs: Vital Signs Temperature 97.5 F L 11/16/24 08:38 Pulse Rate 83 11/16/24 08:38 Respiratory Rate 16 11/16/24 08:38 Blood Pressure 116/50 L 11/16/24 08:38 Pulse Oximetry 99 11/16/24 08:38 Oxygen Delivery Room Air 11/16/24 08:38 Temperature 97.5 F L 11/16/24 08:38 Pulse Rate 78 11/16/24 12:01 Respiratory Rate 15 11/16/24 12:01 Blood Pressure 122/59 L 11/16/24 12:01 Pulse Oximetry 100 11/16/24 11:32 Oxygen Delivery Room Air 11/16/24 15:47 <Aguilar Gates PA-C - Last Filed: 11/16/24 17:15> Vital Signs Temperature 97.5 F L 11/16/24 08:38 Pulse Rate 83 11/16/24 08:38 Respiratory Rate 16 11/16/24 08:38 Blood Pressure 116/50 L 11/16/24 08:38 Pulse Oximetry 99 11/16/24 08:38 Oxygen Delivery Room Air 11/16/24 08:38 Temperature 97.5 F L 11/16/24 08:38 Pulse Rate 78 11/16/24 12:01 Respiratory Rate 15 11/16/24 12:01 Blood Pressure 122/59 L 11/16/24 12:01 Pulse Oximetry 100 11/16/24 11:32 Oxygen Delivery Room Air 11/16/24 15:47 <Edmundo Rosas MD - Last Filed: 11/16/24 16:53> MDM - Weakness MDM Narrative Medical decision making narrative: This is a 4-year-old female who presents to the ED from assisted living for increased weakness and altered mental status. Vitals are normal. Exam remarkable for the above. Lab work shows elevated white count of 12.2 with mild anemia with hemoglobin of 10.4. CMP shows elevated glucose at 2:52 a.m. but is otherwise unremarkable. Urinalysis is showing nitrite positive UTI, culture is pending. Viral swabs are negative. Chest x-ray and head CT are unremarkable. Patient will be admitted for IV antibiotics and rehydration in the setting of acute UTI causing potential disorientation. Started on Rocephin here. Family is understanding and agreeable with this plan. Discussed with Dr. Jaeger who agrees to admit the patient to medical floor for obs <Aguilar Gates PA-C - Last Filed: 11/16/24 17:15> Lab Data Result diagrams: 11/16/24 08:59 11/16/24 08:59 <Aguilar Gates PA-C - Last Filed: 11/16/24 17:15> Labs: Lab Results 11/16/24 11/16/24 11/16/24 Range/Units 08:59 09:04 09:22 WBC 12.2 H (4.5-10.0) K/mm3 RBC 3.89 L (4.2-5.4) M/mm3 Hgb 10.4 L (12.0-15.0) g/dL Hct 33.5 L (37.0-47.0) % MCV 86.1 (80-100) fl MCH 26.7 (26-34) pg MCHC 31.0 L (32-36) g/dl RDW 16.1 H (11.5-14.5) % Plt Count 234 (150-375) k/mm3 MPV 11.6 H (7.4-10.4) fl Immature Gran % (Auto) 0.5 (0-0.5) % Neut % (Auto) 77.6 H (45.5-73.1) % Lymph % (Auto) 11.0 L (18.3-44.2) % Wilkinson % (Auto) 10.1 H (2.6-8.5) % Eos % (Auto) 0.3 (0-4.4) % Baso % (Auto) 0.5 (0.2-1.2) % Lymph # (Auto) 1.34 (0.9-3.2) K/mm3 Wilkinson # (Auto) 1.2 H (0.1-0.6) K/mm3 Eos # (Auto) 0.0 (0-0.3) K/mm3 Baso # (Auto) 0.1 (0.0-0.1) K/mm3 Abs Immat Gran (auto) 0.06 H (0.00-0.031) K/mm3 Absolute Neuts (auto) 9.4 H (1.3-6.7) K/mm3 Absolute Nucleated RBC 0.000 (0.0-0.012) K/mm3 Nucleated RBC % 0.0 (0.0-0.2) % Sodium 137 (137-145) mmol/L Potassium 4.3 (3.4-5.0) mmol/L Chloride 106 (98-107) mmol/L Carbon Dioxide 24 (22-30) mmol/L Anion Gap 7 (4-12) mmol/L BUN 12 (7-17) mg/dL Creatinine 0.60 L (0.7-1.0) mg/dL Estim Creat Clear Calc 65 ml/min Estimated GFR > 60 (59 - ) Glucose 252 H (65-110) mg/dL Hemoglobin A1c 7.7 H (<5.7) % Calcium 8.9 (8.4-10.2) mg/dL Total Bilirubin 0.5 (0.2-1.3) mg/dL AST 25 (14-36) U/L ALT 23 (6-35) U/L Alkaline Phosphatase 88 (38-126) U/L Total Protein 7.0 (6.3-8.2) g/dL Albumin 4.0 (3.5-5.1) g/dL Urine Color Yellow (Yellow) Urine Appearance Clear (Clear) Urine pH 5.0 (5.0-9.0) Ur Specific Tiff 1.034 (1.001-1.035) Urine Protein Trace (Negative) mg/dL Urine Glucose (UA) 3+ H (Negative) mg/dL Urine Ketones Negative (Negative) mg/dL Ur Blood (Man) 2+ H (Negative) Urine Nitrate Positive H (Negative) Urine Bilirubin Negative (Negative) Urine Urobilinogen 0.2 (<2.0) mg/dL Add Ur Microanalysis Reviewed Leukocyte Esterase Rfl Negative (Negative) MEAGHAN/UL Urine RBC 6-10 H (0-2) /hpf Urine WBC 21-50 H (0-3) /hpf Ur Squamous Epith Cells None seen (Few) /hpf Urine Bacteria 4+ H /hpf Urine Casts 0-2 Influenza A (RT-PCR) Negative (Negative) Influenza B (RT-PCR) Negative (Negative) RSV (RT-PCR) Negative (Negative) SARS-CoV-2 RNA (RT-PCR) Negative (Negative) <Aguilar Gates PA-C - Last Filed: 11/16/24 17:15> Lab Results 11/16/24 11/16/24 11/16/24 Range/Units 08:59 09:04 09:22 WBC 12.2 H (4.5-10.0) K/mm3 RBC 3.89 L (4.2-5.4) M/mm3 Hgb 10.4 L (12.0-15.0) g/dL Hct 33.5 L (37.0-47.0) % MCV 86.1 (80-100) fl MCH 26.7 (26-34) pg MCHC 31.0 L (32-36) g/dl RDW 16.1 H (11.5-14.5) % Plt Count 234 (150-375) k/mm3 MPV 11.6 H (7.4-10.4) fl Immature Gran % (Auto) 0.5 (0-0.5) % Neut % (Auto) 77.6 H (45.5-73.1) % Lymph % (Auto) 11.0 L (18.3-44.2) % Wilkinson % (Auto) 10.1 H (2.6-8.5) % Eos % (Auto) 0.3 (0-4.4) % Baso % (Auto) 0.5 (0.2-1.2) % Lymph # (Auto) 1.34 (0.9-3.2) K/mm3 Wilkinson # (Auto) 1.2 H (0.1-0.6) K/mm3 Eos # (Auto) 0.0 (0-0.3) K/mm3 Baso # (Auto) 0.1 (0.0-0.1) K/mm3 Abs Immat Gran (auto) 0.06 H (0.00-0.031) K/mm3 Absolute Neuts (auto) 9.4 H (1.3-6.7) K/mm3 Absolute Nucleated RBC 0.000 (0.0-0.012) K/mm3 Nucleated RBC % 0.0 (0.0-0.2) % Sodium 137 (137-145) mmol/L Potassium 4.3 (3.4-5.0) mmol/L Chloride 106 (98-107) mmol/L Carbon Dioxide 24 (22-30) mmol/L Anion Gap 7 (4-12) mmol/L BUN 12 (7-17) mg/dL Creatinine 0.60 L (0.7-1.0) mg/dL Estim Creat Clear Calc 65 ml/min Estimated GFR > 60 (59 - ) Glucose 252 H (65-110) mg/dL Hemoglobin A1c 7.7 H (<5.7) % Calcium 8.9 (8.4-10.2) mg/dL Total Bilirubin 0.5 (0.2-1.3) mg/dL AST 25 (14-36) U/L ALT 23 (6-35) U/L Alkaline Phosphatase 88 (38-126) U/L Total Protein 7.0 (6.3-8.2) g/dL Albumin 4.0 (3.5-5.1) g/dL Urine Color Yellow (Yellow) Urine Appearance Clear (Clear) Urine pH 5.0 (5.0-9.0) Ur Specific Tiff 1.034 (1.001-1.035) Urine Protein Trace (Negative) mg/dL Urine Glucose (UA) 3+ H (Negative) mg/dL Urine Ketones Negative (Negative) mg/dL Ur Blood (Man) 2+ H (Negative) Urine Nitrate Positive H (Negative) Urine Bilirubin Negative (Negative) Urine Urobilinogen 0.2 (<2.0) mg/dL Add Ur Microanalysis Reviewed Leukocyte Esterase Rfl Negative (Negative) MEAGHAN/UL Urine RBC 6-10 H (0-2) /hpf Urine WBC 21-50 H (0-3) /hpf Ur Squamous Epith Cells None seen (Few) /hpf Urine Bacteria 4+ H /hpf Urine Casts 0-2 Influenza A (RT-PCR) Negative (Negative) Influenza B (RT-PCR) Negative (Negative) RSV (RT-PCR) Negative (Negative) SARS-CoV-2 RNA (RT-PCR) Negative (Negative) <Edmundo Rosas MD - Last Filed: 11/16/24 16:53> Discharge Plan Discharge Clinical Impression: Acute UTI <Aguilar Gates PA-C - Last Filed: 11/16/24 17:15> Patient Disposition: Still a Patient <Aguilar Gates PA-C - Last Filed: 11/16/24 17:15> Condition: Stable <Aguilar Gates PA-C - Last Filed: 11/16/24 17:15>
[2024-11-16 09:15] LABS: Alanine Aminotransferase 23 U/L (6-35); Alkaline Phosphatase 88 U/L (38-126); Anion Gap 7 mmol/L (4-12); Aspartate Amino Transferase 25 U/L (14-36); Bilirubin,Total 0.5 mg/dL (0.2-1.3); Blood Urea Nitrogen 12 mg/dL (7-17); Calcium 8.9 mg/dL (8.4-10.2); Carbon Dioxide 24 mmol/L (22-30); Chloride 106 mmol/L (98-107); Estimated CRCL calculation 65 ml/min; Estimated Glomerular Filt Rate > 60; Glucose 252 mg/dL (65-110); Potassium 4.3 mmol/L (3.4-5.0); Sodium 137 mmol/L (137-145)
[2024-11-16 09:22] LABS: Add Urine Microscopic? YES; Appearance Urine Clear (Clear); Bacteria Urine 4+ /hpf; Bilirubin Urine Negative (Negative); Blood Urine 2+ (Negative); Color Urine Yellow (Yellow); Glucose Urine UA 3+ mg/dL (Negative); Ketones Urine Negative (Negative); Leukocyte Esterase Ur Negative LEU/UL (Negative); Need Manual Microscopic Reviewed; Nitrate Urine Positive (Negative); Non Pathogenic Casts 0-2; Protein Urine Trace mg/dL (Negative); Specific Grav Ur 1.034 (1.001-1.035); Squamous Epithelial Cell Urine None Seen /hpf (Few); Urobilinogen Urine 0.2 mg/dL (<2.0); WBC Urine 21-50 /hpf (0-3)
[2024-11-16 10:14] LABS: Influenza A QL RT-PCR Negative (Negative); Influenza B QL RT-PCR Negative (Negative); RSV RNA, RT-PCR Negative (Negative); SARS-CoV-2 RNA PCR Negative (Negative)
[2024-11-16] MEDS: SODIUM CHLORIDE 0.9% IV 1,000 ML 999 ML IV CONT (10:30)
--- NOTE | 2024-11-16 12:50 | P.HP_ITS ---
H&P: HPI History of Present Illness Date/Time: 11/16/24 12:50 Chief Complaint: Weakness and lethargy. Narrative: This is a 74-year-old female with dementia, hypertension, hyperlipidemia, and type 2 diabetes mellitus who presented to the emergency department via EMS from a long term facility for evaluation of weakness and lethargy. She was sent to the ER today for evaluation of increasing confusion and lethargy for the last couple of days. Staff at her facility report that she has been wandering into their break room and answering questions inappropriately and she has also required more assistance. Today she had difficulties getting out of bed and she was sent in for evaluation. Daughter notes the patient has had urinary incontinence and is concerned for possible urinary tract infection. The patient herself voices no complaints at the time of my evaluation she denies fever, cold and flu symptoms, chest pain, shortness a breath, cough, abdominal pain, back pain, nausea, vomiting, diarrhea, and dysuria. In the ED: She was afebrile arrival with stable vital signs. Labs were significant for a WBC count of 12.2, hemoglobin 10.4, glucose 125. Urinalysis was positive for 3+ glucose, 2+ blood, and nitrates. 6 to 10 RBC, 21 to 50 WBC, and 4+ bacteria were seen on microscopy. Respiratory panel was negative. Head CT showed stable findings and nothing acute. Chest x-ray was pretty unremarkable. S he was given ceftriaxone 1 g and is being admitted in this setting for further treatment. Review of Systems Review of Systems: Limited due to her dementia. Negative except for as per HPI. [facility] Past Medical History Medical History Dementia Hyperlipidemia Hypertension Insulin dependent type 2 diabetes mellitus Surgical History Surgical History History of tubal ligation History of vein stripping History of cataract extraction Family History Family History Father Diabetes mellitus Hypertension Family history of alcoholism Social History Social History Social History: Surrogate medical decision maker: Jennifer Armendarizjoana, daughter. Code status: Full code. Smoking packs per day: 0.25 Smoking cigarettes per day: 5.0 Years smoked: 30 Smoking pack-years: 7.50 Smoking status: Never smoker Tobacco type: cigarettes Second hand tobacco smoke exposure: No Alcohol intake: never Substance use: never Substance use type: does not use Do You Feel Safe in your Home?: Yes Lack of Transportation: No Lack of Food: Never True Current Housing: I Have Housing Concerned About Future Housing: No Difficulty Paying Gas/Electric Bills: No Difficulty Paying for Meds: No Currently Unemployed: No Education: Don't Know Difficulty w/ Childcare or Family Care: No Living arrangements: halfway village Additional living arrangements comments: [facility] in [place]. Spiritual care concerns: No Meds Home Medications and Allergies Home Medications ?Medication ?Instructions ?Recorded ?Confirmed ?Type aspirin 81 mg tablet,delayed 81 mg PO DAILY 10/06/20 11/16/24 History release empagliflozin 25 mg tablet 25 mg PO BID 10/06/20 11/16/24 History (Jardiance) insulin aspart U-100 100 unit/mL 2 unit subcut DAILY 10/06/20 11/16/24 History (3 mL) subcutaneous pen (Novolog FlexPen U-100 Insulin aspart) simvastatin 40 mg tablet 40 mg PO DAILY 10/06/20 11/16/24 History sitagliptin phos 50 mg-metformin 1 tablet PO BID 10/06/20 11/16/24 History ER 1,000 mg tablet,extend rel 24h mp (Janumet XR) donepezil 10 mg tablet 10 mg PO DAILY 04/12/24 11/16/24 History insulin glargine 100 unit/mL (3 See Rx Instructions subcut HS 04/12/24 11/16/24 History mL) subcutaneous pen (Lantus Solostar U-100 Insulin) losartan 25 mg tablet 25 mg PO DAILY 04/12/24 11/16/24 History memantine 10 mg tablet 10 mg PO BID 04/12/24 11/16/24 History ascorbate calcium (vitamin C) 500 500 mg PO BID #14 tabs 06/25/24 11/16/24 Rx mg tablet Allergies Allergy/AdvReac Type Severity Reaction Status Date / Time Penicillins Allergy Intermediate Hives Verified 11/16/24 08:38 Sulfa (Sulfonamide Allergy Intermediate Hives Verified 11/16/24 08:38 Antibiotics) tree nut Allergy Intermediate Hives Verified 11/16/24 08:38 walnut Allergy Intermediate Hives Verified 11/16/24 08:38 Vital Signs Vital Signs - 24 hr 11/16/24 08:38 11/16/24 09:01 11/16/24 09:16 Temperature 97.5 F L Pulse Rate 83 82 81 Respiratory Rate 16 15 16 Blood Pressure 116/50 L 121/54 L 123/58 L Pulse Oximetry 99 98 100 Oxygen Delivery Room Air 11/16/24 09:36 11/16/24 09:46 11/16/24 10:01 Temperature Pulse Rate 83 80 84 Respiratory Rate 18 18 19 Blood Pressure 109/48 L 103/52 L 106/58 L Pulse Oximetry 95 99 96 Oxygen Delivery 11/16/24 10:34 11/16/24 10:45 11/16/24 10:46 Temperature Pulse Rate 78 80 81 Respiratory Rate 14 16 18 Blood Pressure 122/58 L Pulse Oximetry 94 98 Oxygen Delivery 11/16/24 11:02 11/16/24 11:03 11/16/24 11:15 Temperature Pulse Rate 81 82 80 Respiratory Rate 19 18 19 Blood Pressure 106/51 L Pulse Oximetry 100 100 95 Oxygen Delivery 11/16/24 11:16 11/16/24 11:31 11/16/24 11:32 Temperature Pulse Rate 81 78 77 Respiratory Rate 18 15 17 Blood Pressure 116/82 124/58 L Pulse Oximetry 96 100 Oxygen Delivery 11/16/24 11:46 11/16/24 11:47 11/16/24 12:00 Temperature Pulse Rate 78 76 80 Respiratory Rate 17 14 17 Blood Pressure 120/57 L Pulse Oximetry Oxygen Delivery 11/16/24 12:01 Temperature Pulse Rate 78 Respiratory Rate 15 Blood Pressure 122/59 L Pulse Oximetry Oxygen Delivery Exam Narrative: General: Nontoxic-appearing female in the semi-Vuong position in bed. Weight: 72.5 kg. BMI: 25.8. HEENT: PERRL, EOMI. Sclera anicteric. Tacky mucous membranes. Neck: Supple. Respiratory: Lungs are clear to auscultation bilaterally. Cardiovascular: Regular rate and rhythm with S1-S2. Gastrointestinal: Abdomen is soft, nontender, and nondistended with positive bowel sounds. No guarding or rebound tenderness. Skin: Warm and dry. No rash or lesions on limited exam. Extremities: No cyanosis, clubbing, or edema. Radial and pedal pulses intact. Neurological: Alert to name and date of . Cranial nerves 2-12 are grossly intact. Speech is clear. No facial asymmetry. No gross focal deficits to casual conversation. Psychiatric: Cooperative with appropriate mood and flat affect. H&P: Results Labs Labs: Short CBC 11/16/24 Range/Units 08:59 WBC 12.2 H (4.5-10.0) K/mm3 Hgb 10.4 L (12.0-15.0) g/dL Hct 33.5 L (37.0-47.0) % Plt Count 234 (150-375) k/mm3 BMP 11/16/24 08:59 Sodium 137 Potassium 4.3 Chloride 106 Carbon Dioxide 24 BUN 12 Creatinine 0.60 L Glucose 252 H Calcium 8.9 Liver Function 11/16/24 Range/Units 08:59 Total Bilirubin 0.5 (0.2-1.3) mg/dL AST 25 (14-36) U/L ALT 23 (6-35) U/L Alkaline Phosphatase 88 (38-126) U/L Albumin 4.0 (3.5-5.1) g/dL Urine 11/16/24 Range/Units 09:04 Urine Color Yellow (Yellow) Urine Appearance Clear (Clear) Urine pH 5.0 (5.0-9.0) Ur Specific [place] 1.034 (1.001-1.035) Urine Protein Trace (Negative) mg/dL Urine Glucose (UA) 3+ H (Negative) mg/dL Imaging Head CT 11/16/24 09:31 IMPRESSION: 1. Stable mild nonspecific cerebral white matter disease, which likely represents chronic small vessel ischemic disease. Chest X-Ray 11/16/24 09:35 IMPRESSION: 1. Stable mild atelectasis versus scarring in the lower lung zones. Assessment and Plan Assessment and plan (1) Urinary tract infection: Code(s): N39.0 - Urinary tract infection, site not specified Status: Acute (2) Normocytic anemia: Code(s): D64.9 - Anemia, unspecified Status: Acute (3) Dementia: Code(s): F03.90 - Unspecified dementia, unspecified severity, without behavioral disturbance, psychotic disturbance, mood disturbance, and anxiety Status: Acute (4) Insulin dependent type 2 diabetes mellitus: Code(s): E11.9 - Type 2 diabetes mellitus without complications; Z79.4 - intermediate (current) use of insulin Status: Acute (5) Hypertension: Code(s): I10 - Essential (primary) hypertension Status: Acute Plan The patient presented to the emergency department for evaluation of increasing confusion, weakness, and lethargy over the past couple of days as detailed in HPI. Labs, imaging, EKG, and all reports were personally reviewed. She has urinary tract infection has been started on ceftriaxone, pending urine culture. I suspect her increasing confusion is related to the underlying infection; her neurologic exam is nonfocal. If no improvement over the next couple of days, a further workup can be pursued. Check iron studies, B12, and folate for evaluation of normocytic anemia. Blood pressures were reviewed and they are stable. Continue basal insulin and check hemoglobin A1c; her random glucose was 252. Initiate sliding scale insulin, Accu-Cheks, and hypoglycemic protocol. Vital signs were reviewed and they are stable. Her home medications will be reviewed and resumed as appropriate. Findings and treatment plan were discussed with the patient. Questions were solicited and answered to satisfaction. The patient's medical management will be taken over by the hospitalist team in a.m. Quality VTE Prophylaxis VTE prophylaxis: pharmacologic ordered The patient has been admitted under observation status. Hospitalist [facility] Advance Care Plan I have confirmed that the patient's Advanced Care Plan is present, code status is documented, or surrogate decision maker is listed in patient medical record.: Yes Medication Reconciliation I have utilized all available resources to obtain, update and review the patients current medications (includes all prescriptions, OTC, herbals, cannabis, and nutritional supplements).: Yes
[2024-11-16 14:12] LABS: Hemoglobin A1C 7.7 % (<5.7)
[2024-11-16 17:42] LABS: Glucose Point of Care 149 mg/dl (65-105)
[2024-11-16] MEDS: SODIUM CHLORIDE 0.9% IV 1,000 ML 75 ML IV CONT (18:19)
[2024-11-16] MEDS: MEMANTINE 10 MG TABLET PO (18:22)
[2024-11-16] MEDS: EMPAGLIFLOZIN 25 MG TABLET PO (18:22)
[2024-11-16] MEDS: metFORMIN HCL XR 500 MG TAB.SR.24H 1000 MG PO (18:22)
[2024-11-16] MEDS: SITagliptin PHOSPHATE 50 MG TABLET PO (18:23)
[2024-11-16] MEDS: ASCORBIC ACID 500 MG TABLET PO (18:23)
[2024-11-16 19:51] LABS: Glucose Point of Care 127 mg/dl (65-105)
[2024-11-16] MEDS: INSULIN GLARGINE (*BKC) 100 UNITS/ML 12 UNITS SUB-Q (20:59)
[2024-11-17 06:00] VITALS: BP 146/56; PULSE 76; RESP 14; TEMP 36.8; O2SAT 92
[2024-11-17 06:30] LABS: Hematocrit 30.1 % (37.0-47.0); Hemoglobin 9.5 g/dL (12.0-15.0); Mean Corpuscular HGB Conc 31.6 g/dl (32-36); Mean Corpuscular Hemoglobin 26.8 pg (26-34); Mean Corpuscular Volume 84.8 fl (80-100); Mean Platelet Volume 10.6 fl (7.4-10.4); Platelet Count Result 205 k/mm3 (150-375); Red Blood Count 3.55 M/mm3 (4.2-5.4); Red Cell Distribution Width 16.1 % (11.5-14.5)
[2024-11-17 06:50] LABS: Iron 11 ug/dL (37-170)
[2024-11-17 06:55] LABS: Anion Gap 2 mmol/L (4-12); Blood Urea Nitrogen 12 mg/dL (7-17); Calcium 8.3 mg/dL (8.4-10.2); Carbon Dioxide 24 mmol/L (22-30); Chloride 112 mmol/L (98-107); Estimated CRCL calculation 77 ml/min; Estimated Glomerular Filt Rate > 60; Glucose 82 mg/dL (65-110); Potassium 3.8 mmol/L (3.4-5.0); Sodium 138 mmol/L (137-145)
[2024-11-17 06:59] LABS: Percent Iron Saturation 3 % (20-50)
[2024-11-17 07:22] LABS: Thyroid Stimulating Hormone Reflex 0.541 uIU/mL (0.465-4.68)
[2024-11-17 07:30] LABS: Glucose Point of Care 91 mg/dl (65-105)
[2024-11-17 08:04] LABS: Folic Acid > 20.0 ng/mL (2.76->20)
[2024-11-17] MEDS: SIMVASTATIN 20 MG TABLET 40 MG PO (08:53)
[2024-11-17] MEDS: ASPIRIN 81 MG ENTERIC TABLET PO (08:54)
[2024-11-17] MEDS: SITagliptin PHOSPHATE 50 MG TABLET PO ×2 (08:54→16:40)
[2024-11-17] MEDS: ACETAMINOPHEN 325 MG TABLET 650 MG PO (08:54)
[2024-11-17] MEDS: ASCORBIC ACID 500 MG TABLET PO ×2 (08:54→16:40)
[2024-11-17] MEDS: MEMANTINE 10 MG TABLET PO ×2 (08:54→16:40)
[2024-11-17] MEDS: DONEPEZIL HCL 10 MG TABLET PO (08:54)
[2024-11-17] MEDS: metFORMIN HCL XR 500 MG TAB.SR.24H 1000 MG PO ×2 (08:54→16:40)
[2024-11-17] MEDS: EMPAGLIFLOZIN 25 MG TABLET PO ×2 (08:54→16:40)
[2024-11-17] MEDS: LOSARTAN POTASSIUM 25 MG TABLET PO (08:54)
[2024-11-17] MEDS: INSULIN GLARGINE (*BKC) 100 UNITS/ML 10 UNITS SUB-Q (08:56)
[2024-11-17] MEDS: ENOXAPARIN 40 MG/0.4 ML SYRINGE SUB-Q (08:56)
[2024-11-17] MEDS: IRON SUCROSE COMPLEX 400 MG, IRON SUCROSE COMPLEX 100 MG in SODIUM CHLORIDE 0.9% IV 250 ML 78 MG IVPB (08:57)
--- NOTE | 2024-11-17 10:16 | PC.NURSE ---
Pt's daughter, , called wanting an update. Upon returning her call, I informed her of pt's vitals and lab results and answered her questions. She stated that she would be visiting later in the day and wanted further updates at that time.
--- NOTE | 2024-11-17 11:17 | PM.IMPN ---
Progress Note: A&P Assessment and Plan (1) Urinary tract infection: Code(s): N39.0 - Urinary tract infection, site not specified Status: Acute (2) Normocytic anemia: Code(s): D64.9 - Anemia, unspecified Status: Acute (3) Dementia: Code(s): F03.90 - Unspecified dementia, unspecified severity, without behavioral disturbance, psychotic disturbance, mood disturbance, and anxiety Status: Acute (4) Insulin dependent type 2 diabetes mellitus: Code(s): E11.9 - Type 2 diabetes mellitus without complications; Z79.4 - senior care (current) use of insulin Status: Acute (5) Hypertension: Code(s): I10 - Essential (primary) hypertension Status: Acute Plan UTI Monitor urine culture Continue Rocephin. Iron deficiency anemia Ferritin 15.5, i-STAT 3, hemoglobin 9.5. Occult blood stool ordered. Start IV iron 500/1000mg Monitor. Hyperlipidemia Continue home medications. Hypertension Continue home medications. Insulin-dependent type 2 diabetes Continue sliding scale insulin with Accu-Cheks and adjust with clinical course. Dementia Baseline patient is alert oriented x1. Monitor DVT prophylaxis subQ Lovenox. Subjective Date/time seen: 11/17/24 11:17 Interval history: Patient comfortable at bedside Review of Systems Review of Systems: Limited due to her dementia. Negative except for as per HPI. Exam Narrative: General: Nontoxic-appearing female in the semi-Vuong position in bed. Weight: 72.5 kg. BMI: 25.8. HEENT: PERRL, EOMI. Sclera anicteric. Tacky mucous membranes. Neck: Supple. Respiratory: Lungs are clear to auscultation bilaterally. Cardiovascular: Regular rate and rhythm with S1-S2. Gastrointestinal: Abdomen is soft, nontender, and nondistended with positive bowel sounds. No guarding or rebound tenderness. Skin: Warm and dry. No rash or lesions on limited exam. Extremities: No cyanosis, clubbing, or edema. Radial and pedal pulses intact. Neurological: Alert to name and date of . Cranial nerves 2-12 are grossly intact. Speech is clear. No facial asymmetry. No gross focal deficits to casual conversation. Psychiatric: Cooperative with appropriate mood and flat affect. Objective Data Vital Signs Vital Signs: Vital Signs - 24 hr 11/16/24 11:31 11/16/24 11:32 11/16/24 11:46 Temperature Pulse Rate 78 77 78 Respiratory Rate 15 17 17 Blood Pressure 124/58 L 120/57 L Pulse Oximetry 96 100 Oxygen Delivery 11/16/24 11:47 11/16/24 12:00 11/16/24 12:01 Temperature Pulse Rate 76 80 78 Respiratory Rate 14 17 15 Blood Pressure 122/59 L Pulse Oximetry Oxygen Delivery 11/16/24 15:47 11/16/24 20:50 11/17/24 06:00 Temperature 99.3 F 98.2 F Pulse Rate 80 76 Respiratory Rate 17 14 Blood Pressure 117/42 L 146/56 H Pulse Oximetry 92 92 Oxygen Delivery Room Air 11/17/24 08:00 Temperature Pulse Rate Respiratory Rate Blood Pressure Pulse Oximetry Oxygen Delivery Room Air Intake/Output Intake/Output: Intake & Output 11/14/24 11/15/24 11/16/24 11/17/24 23:59 23:59 23:59 23:59 Intake Total 1840 60 Output Total 300 Balance 1840 -240 Meds/Results Medications: Active Medications Generic Name Dose Route Start Last Admin Trade Name Freq PRN Reason Stop Dose Admin Acetaminophen 650 mg 11/16/24 13:14 11/17/24 08:54 Acetaminophen 325 Mg Tablet PO 650 mg Q6H PRN Administration Mild Pain (1-3) or Fever Ascorbic Acid 500 mg 11/16/24 17:00 11/17/24 08:54 Ascorbic Acid 500 Mg Tablet PO 500 mg BID MATTHEW Administration Aspirin 81 mg 11/17/24 09:00 11/17/24 08:54 Aspirin 81 Mg Enteric Tablet PO 81 mg DAILY MATTHEW Administration Dextrose 12.5 gm 11/16/24 13:14 Dextrose 50% 25 Gm/50 Ml Syringe IV PUSH PRN PRN Hypoglycemia Protocol Donepezil HCl 10 mg 11/17/24 09:00 11/17/24 08:54 Donepezil Hcl 10 Mg Tablet PO 10 mg DAILY MATTHEW Administration Empagliflozin 25 mg 11/16/24 17:00 11/17/24 08:54 Empagliflozin 25 Mg Tablet PO 25 mg BID MATTHEW Administration Enoxaparin Sodium 40 mg 11/17/24 09:00 11/17/24 08:56 Enoxaparin 40 Mg/0.4 Ml Syringe SUB-Q 40 mg DAILY MATTHEW Administration Glucagon 1 mg 11/16/24 13:14 Glucagon For Inj 1 Mg Vial IM PRN PRN Hypoglycemia Protocol Glucose 15 gm 11/16/24 13:14 Glucose Oral Gel 15 Gm Of Glucse In 37.5 Gm Tube PO PRN PRN Hypoglycemia Protocol Ceftriaxone Sodium 1 gm in 50 mls @ 100 mls/hr 11/17/24 09:00 11/17/24 08:56 Rocephin 1 Gm/Ns 50 Ml IVPB 100 mls/hr Q24H MATTHEW Administration Dextrose 1,000 mls @ 100 mls/hr 11/16/24 13:14 Dextrose 5% 1,000 Ml IVPB PRN PRN Hypoglycemia Protocol Iron Sucrose 400 mg/ Iron 275 mls @ 78.571 mls/hr 11/17/24 09:00 11/17/24 08:57 Sucrose 100 mg/ Sodium IVPB 11/17/24 12:29 0 mls/hr Chloride ONCE ONE Infusion Insulin Aspart 1 - 3 units 11/16/24 21:00 11/16/24 21:00 Insulin Aspart (*Bkc) 100 Units/Ml SUB-Q Not Given HS MATTHEW Protocol Insulin Aspart 3 - 6 units 11/16/24 17:00 11/17/24 07:55 Insulin Aspart (*Bkc) 100 Units/Ml SUB-Q Not Given TIDWM MATTHEW Protocol Insulin Glargine 12 units 11/16/24 21:00 11/16/24 20:59 Insulin Glargine (*Bkc) 100 Units/Ml SUB-Q 12 units HS MATTHEW Administration Insulin Glargine 10 units 11/17/24 09:00 11/17/24 08:56 Insulin Glargine (*Bkc) 100 Units/Ml SUB-Q 10 units QAM MATTHEW Administration Losartan Potassium 25 mg 11/17/24 09:00 11/17/24 08:54 Losartan Potassium 25 Mg Tablet PO 25 mg DAILY MATTHEW Administration Memantine 10 mg 11/16/24 17:00 11/17/24 08:54 Memantine 10 Mg Tablet PO 10 mg BID MATTHEW Administration Metformin HCl 1,000 mg 11/16/24 17:00 11/17/24 08:54 Metformin Hcl Xr 500 Mg Tab.Sr.24h PO 1,000 mg BID MATTHEW Administration Ondansetron HCl 4 mg 11/16/24 10:09 Ondansetron Inj 4 Mg/2 Ml Vial IV PUSH Q4H PRN Nausea Simvastatin 40 mg 11/17/24 09:00 11/17/24 08:53 Simvastatin 20 Mg Tablet PO 40 mg DAILY MATTHEW Administration Sitagliptin Phosphate 50 mg 11/16/24 17:00 11/17/24 08:54 Sitagliptin Phosphate 50 Mg Tablet PO 50 mg BID MATTHEW Administration Radiology Results: ITS Impressions Head CT 11/16/24 09:31 IMPRESSION: 1. Stable mild nonspecific cerebral white matter disease, which likely represents chronic small vessel ischemic disease. Chest X-Ray 11/16/24 09:35 IMPRESSION: 1. Stable mild atelectasis versus scarring in the lower lung zones. Labs Labs: Laboratory Results - last 24 hr 11/16/24 11/16/24 11/16/24 08:59 17:40 19:18 WBC RBC Hgb Hct MCV MCH MCHC RDW Plt Count MPV Sodium Potassium Chloride Carbon Dioxide Anion Gap BUN Creatinine Estim Creat Clear Calc Estimated GFR Glucose POC Capillary Glucose 149 H 127 H Hemoglobin A1c 7.7 H Calcium Iron TIBC % Saturation Ferritin Vitamin B12 Folate TSH (Reflex) 11/17/24 11/17/24 06:13 07:18 WBC 8.0 RBC 3.55 L Hgb 9.5 L Hct 30.1 L MCV 84.8 MCH 26.8 MCHC 31.6 L RDW 16.1 H Plt Count 205 MPV 10.6 H Sodium 138 Potassium 3.8 Chloride 112 H Carbon Dioxide 24 Anion Gap 2 L BUN 12 Creatinine 0.50 L Estim Creat Clear Calc 77 Estimated GFR > 60 Glucose 82 POC Capillary Glucose 91 Hemoglobin A1c Calcium 8.3 L Iron 11 L TIBC 347 % Saturation 3 L Ferritin 15.50 Vitamin B12 231.0 L Folate > 20.0 H TSH (Reflex) 0.541 Quality VTE Prophylaxis VTE prophylaxis: pharmacologic ordered
[2024-11-17 11:44] LABS: Glucose Point of Care 103 mg/dl (65-105)
[2024-11-17 14:00] VITALS: BP 103/44; PULSE 62; RESP 15; TEMP 36.3; O2SAT 93
[2024-11-17 16:29] LABS: Glucose Point of Care 194 mg/dl (65-105)
[2024-11-17 20:25] VITALS: BP 121/91; PULSE 76; RESP 18; TEMP 37.3; O2SAT 92
[2024-11-17 21:25] LABS: Glucose Point of Care 166 mg/dl (65-105)
[2024-11-17] MEDS: INSULIN GLARGINE (*BKC) 100 UNITS/ML 12 UNITS SUB-Q (21:37)
[2024-11-18 05:05] VITALS: BP 116/55; PULSE 66; RESP 20; TEMP 36.2; O2SAT 97
[2024-11-18 07:03] LABS: Basophils Percent Auto 0.7 % (0.2-1.2); Eosinophils Absolute Auto 0.2 K/mm3 (0-0.3); Eosinophils Percent Auto 2.7 % (0-4.4); Hematocrit 31.5 % (37.0-47.0); Immature Granulocyte Absolute 0.03 K/mm3 (0.00-0.031); Immature Granulocyte Percent A 0.5 % (0-0.5); Lymphocytes Absolute Auto 1.67 K/mm3 (0.9-3.2); Lymphocytes Percent Auto 27.8 % (18.3-44.2); Mean Corpuscular HGB Conc 31.7 g/dl (32-36); Mean Corpuscular Hemoglobin 26.9 pg (26-34); Mean Corpuscular Volume 84.7 fl (80-100); Mean Platelet Volume 11.2 fl (7.4-10.4); Monocytes Absolute Auto 0.9 K/mm3 (0.1-0.6); Monocytes Percent Auto 14.7 % (2.6-8.5); Neutrophils Absolute Auto 3.2 K/mm3 (1.3-6.7); Neutrophils Percent Auto 53.6 % (45.5-73.1); Platelet Count Result 194 k/mm3 (150-375); Red Blood Count 3.72 M/mm3 (4.2-5.4); Red Cell Distribution Width 16.1 % (11.5-14.5)
[2024-11-18 07:55] LABS: Alanine Aminotransferase 30 U/L (6-35); Albumin Level 3.4 g/dL (3.5-5.1); Alkaline Phosphatase 84 U/L (38-126); Anion Gap 3 mmol/L (4-12); Aspartate Amino Transferase 40 U/L (14-36); Bilirubin,Total 0.3 mg/dL (0.2-1.3); Blood Urea Nitrogen 10 mg/dL (7-17); Calcium 8.8 mg/dL (8.4-10.2); Carbon Dioxide 25 mmol/L (22-30); Chloride 112 mmol/L (98-107); Estimated CRCL calculation 77 ml/min; Estimated Glomerular Filt Rate > 60; Glucose 78 mg/dL (65-110); Magnesium 2.2 mg/dL (1.6-2.3); Potassium 3.7 mmol/L (3.4-5.0); Sodium 140 mmol/L (137-145)
[2024-11-18 08:10] LABS: Glucose Point of Care 80 mg/dl (65-105)
[2024-11-18] MEDS: SIMVASTATIN 20 MG TABLET 40 MG PO (09:22)
[2024-11-18] MEDS: ASPIRIN 81 MG ENTERIC TABLET PO (09:22)
[2024-11-18] MEDS: EMPAGLIFLOZIN 25 MG TABLET PO ×2 (09:22→16:56)
[2024-11-18] MEDS: LOSARTAN POTASSIUM 25 MG TABLET PO (09:22)
[2024-11-18] MEDS: SITagliptin PHOSPHATE 50 MG TABLET PO ×2 (09:22→16:56)
[2024-11-18] MEDS: MEMANTINE 10 MG TABLET PO ×2 (09:22→16:56)
[2024-11-18] MEDS: metFORMIN HCL XR 500 MG TAB.SR.24H 1000 MG PO ×2 (09:22→16:56)
[2024-11-18] MEDS: ENOXAPARIN 40 MG/0.4 ML SYRINGE SUB-Q (09:23)
[2024-11-18] MEDS: DONEPEZIL HCL 10 MG TABLET PO (09:23)
[2024-11-18] MEDS: ASCORBIC ACID 500 MG TABLET PO ×2 (09:23→16:56)
[2024-11-18] MEDS: IRON SUCROSE COMPLEX 400 MG, IRON SUCROSE COMPLEX 100 MG in SODIUM CHLORIDE 0.9% IV 250 ML 78.57 MG IVPB (11:30)
[2024-11-18 11:46] LABS: Glucose Point of Care 163 mg/dl (65-105)
[2024-11-18 14:00] VITALS: BP 120/54; PULSE 67; RESP 16; TEMP 36.2; O2SAT 95
--- NOTE | 2024-11-18 14:14 | PM.IMPN ---
Progress Note: A&P Assessment and Plan (1) Urinary tract infection: Code(s): N39.0 - Urinary tract infection, site not specified Status: Acute (2) Normocytic anemia: Code(s): D64.9 - Anemia, unspecified Status: Acute (3) Dementia: Code(s): F03.90 - Unspecified dementia, unspecified severity, without behavioral disturbance, psychotic disturbance, mood disturbance, and anxiety Status: Acute (4) Insulin dependent type 2 diabetes mellitus: Code(s): E11.9 - Type 2 diabetes mellitus without complications; Z79.4 - alf (current) use of insulin Status: Acute (5) Hypertension: Code(s): I10 - Essential (primary) hypertension Status: Acute Plan UTI Urine culture growing E coli Continue Rocephin. Iron deficiency anemia Ferritin 15.5, i-STAT 3, hemoglobin 10 Occult blood stool ordered. Start IV iron 1000/1000mg Monitor. Hyperlipidemia Continue home medications. Hypertension Continue home medications. Insulin-dependent type 2 diabetes Continue sliding scale insulin with Accu-Cheks and adjust with clinical course. Dementia Baseline patient is alert oriented x1. Monitor DVT prophylaxis subQ Lovenox. Subjective Date/time seen: 11/18/24 14:14 Interval history: Patient comfortable at bedside Urine culture positive for E coli awaiting sensitivity Review of Systems Review of Systems: Limited due to her dementia. Negative except for as per HPI. Exam Narrative: General: Nontoxic-appearing female in the semi-Vuong position in bed. Weight: 72.5 kg. BMI: 25.8. HEENT: PERRL, EOMI. Sclera anicteric. Tacky mucous membranes. Neck: Supple. Respiratory: Lungs are clear to auscultation bilaterally. Cardiovascular: Regular rate and rhythm with S1-S2. Gastrointestinal: Abdomen is soft, nontender, and nondistended with positive bowel sounds. No guarding or rebound tenderness. Skin: Warm and dry. No rash or lesions on limited exam. Extremities: No cyanosis, clubbing, or edema. Radial and pedal pulses intact. Neurological: Alert to name and date of . Cranial nerves 2-12 are grossly intact. Speech is clear. No facial asymmetry. No gross focal deficits to casual conversation. Psychiatric: Cooperative with appropriate mood and flat affect. Objective Data Vital Signs Vital Signs: Vital Signs - 24 hr 11/17/24 20:25 11/18/24 05:05 Temperature 99.1 F 97.1 F L Pulse Rate 76 66 Respiratory Rate 18 20 Blood Pressure 121/91 H 116/55 L Pulse Oximetry 92 97 Intake/Output Intake/Output: Intake & Output 11/15/24 11/16/24 11/17/24 11/18/24 23:59 23:59 23:59 23:59 Intake Total 1840 670 980 Output Total 1200 500 Balance 1840 -530 480 Meds/Results Medications: Active Medications Generic Name Dose Route Start Last Admin Trade Name Freq PRN Reason Stop Dose Admin Acetaminophen 650 mg 11/16/24 13:14 11/17/24 08:54 Acetaminophen 325 Mg Tablet PO 650 mg Q6H PRN Administration Mild Pain (1-3) or Fever Ascorbic Acid 500 mg 11/16/24 17:00 11/18/24 09:23 Ascorbic Acid 500 Mg Tablet PO 500 mg BID MATTHEW Administration Aspirin 81 mg 11/17/24 09:00 11/18/24 09:22 Aspirin 81 Mg Enteric Tablet PO 81 mg DAILY MATTHEW Administration Dextrose 12.5 gm 11/16/24 13:14 Dextrose 50% 25 Gm/50 Ml Syringe IV PUSH PRN PRN Hypoglycemia Protocol Donepezil HCl 10 mg 11/17/24 09:00 11/18/24 09:23 Donepezil Hcl 10 Mg Tablet PO 10 mg DAILY MATTHEW Administration Empagliflozin 25 mg 11/16/24 17:00 11/18/24 09:22 Empagliflozin 25 Mg Tablet PO 25 mg BID MATTHEW Administration Enoxaparin Sodium 40 mg 11/17/24 09:00 11/18/24 09:23 Enoxaparin 40 Mg/0.4 Ml Syringe SUB-Q 40 mg DAILY MATTHEW Administration Glucagon 1 mg 11/16/24 13:14 Glucagon For Inj 1 Mg Vial IM PRN PRN Hypoglycemia Protocol Glucose 15 gm 11/16/24 13:14 Glucose Oral Gel 15 Gm Of Glucse In 37.5 Gm Tube PO PRN PRN Hypoglycemia Protocol Ceftriaxone Sodium 1 gm in 50 mls @ 100 mls/hr 11/17/24 09:00 11/18/24 09:23 Rocephin 1 Gm/Ns 50 Ml IVPB 100 mls/hr Q24H MATTHEW Administration Dextrose 1,000 mls @ 100 mls/hr 11/16/24 13:14 Dextrose 5% 1,000 Ml IVPB PRN PRN Hypoglycemia Protocol Iron Sucrose 400 mg/ Iron 275 mls @ 78.571 mls/hr 11/18/24 11:00 Sucrose 100 mg/ Sodium IVPB 11/18/24 14:29 Chloride ONCE ONE Insulin Aspart 1 - 3 units 11/16/24 21:00 11/17/24 21:36 Insulin Aspart (*Bkc) 100 Units/Ml SUB-Q Not Given HS MATTHEW Protocol Insulin Aspart 3 - 6 units 11/16/24 17:00 11/18/24 09:26 Insulin Aspart (*Bkc) 100 Units/Ml SUB-Q Not Given TIDWM MATTHEW Protocol Insulin Glargine 12 units 11/16/24 21:00 11/17/24 21:37 Insulin Glargine (*Bkc) 100 Units/Ml SUB-Q 12 units HS MATTHEW Administration Insulin Glargine 10 units 11/17/24 09:00 11/17/24 08:56 Insulin Glargine (*Bkc) 100 Units/Ml SUB-Q 10 units QAM MATTHEW Administration Losartan Potassium 25 mg 11/17/24 09:00 11/18/24 09:22 Losartan Potassium 25 Mg Tablet PO 25 mg DAILY MATTHEW Administration Memantine 10 mg 11/16/24 17:00 11/18/24 09:22 Memantine 10 Mg Tablet PO 10 mg BID MATTHEW Administration Metformin HCl 1,000 mg 11/16/24 17:00 11/18/24 09:22 Metformin Hcl Xr 500 Mg Tab.Sr.24h PO 1,000 mg BID MATTHEW Administration Ondansetron HCl 4 mg 11/16/24 10:09 Ondansetron Inj 4 Mg/2 Ml Vial IV PUSH Q4H PRN Nausea Simvastatin 40 mg 11/17/24 09:00 11/18/24 09:22 Simvastatin 20 Mg Tablet PO 40 mg DAILY MATTHEW Administration Sitagliptin Phosphate 50 mg 11/16/24 17:00 11/18/24 09:22 Sitagliptin Phosphate 50 Mg Tablet PO 50 mg BID MATTHEW Administration Radiology Results: ITS Impressions Head CT 11/16/24 09:31 IMPRESSION: 1. Stable mild nonspecific cerebral white matter disease, which likely represents chronic small vessel ischemic disease. Chest X-Ray 11/16/24 09:35 IMPRESSION: 1. Stable mild atelectasis versus scarring in the lower lung zones. Labs Labs: Laboratory Results - last 24 hr 11/17/24 11/17/24 11/18/24 16:26 20:30 06:37 WBC 6.0 RBC 3.72 L Hgb 10.0 L Hct 31.5 L MCV 84.7 MCH 26.9 MCHC 31.7 L RDW 16.1 H Plt Count 194 MPV 11.2 H Immature Gran % (Auto) 0.5 Neut % (Auto) 53.6 Lymph % (Auto) 27.8 [place] % (Auto) 14.7 H Eos % (Auto) 2.7 Baso % (Auto) 0.7 Lymph # (Auto) 1.67 [place] # (Auto) 0.9 H Eos # (Auto) 0.2 Baso # (Auto) 0.0 Abs Immat Gran (auto) 0.03 Absolute Neuts (auto) 3.2 Absolute Nucleated RBC 0.000 Nucleated RBC % 0.0 Sodium 140 Potassium 3.7 Chloride 112 H Carbon Dioxide 25 Anion Gap 3 L BUN 10 Creatinine 0.50 L Estim Creat Clear Calc 77 Estimated GFR > 60 Glucose 78 POC Capillary Glucose 194 H 166 H Calcium 8.8 Magnesium 2.2 Total Bilirubin 0.3 AST 40 H ALT 30 Alkaline Phosphatase 84 Total Protein 7.0 Albumin 3.4 L 11/18/24 11/18/24 08:02 11:18 WBC RBC Hgb Hct MCV MCH MCHC RDW Plt Count MPV Immature Gran % (Auto) Neut % (Auto) Lymph % (Auto) [place] % (Auto) Eos % (Auto) Baso % (Auto) Lymph # (Auto) [place] # (Auto) Eos # (Auto) Baso # (Auto) Abs Immat Gran (auto) Absolute Neuts (auto) Absolute Nucleated RBC Nucleated RBC % Sodium Potassium Chloride Carbon Dioxide Anion Gap BUN Creatinine Estim Creat Clear Calc Estimated GFR Glucose POC Capillary Glucose 80 163 H Calcium Magnesium Total Bilirubin AST ALT Alkaline Phosphatase Total Protein Albumin Quality VTE Prophylaxis VTE prophylaxis: pharmacologic ordered
[2024-11-18 16:48] LABS: Glucose Point of Care 106 mg/dl (65-105)
[2024-11-18 18:20] LABS: IFOB Positive Control Positive; Immunochemical Fecal Occult Bl Negative (N)
[2024-11-18 20:50] VITALS: BP 120/43; PULSE 76; RESP 18; TEMP 36.3; O2SAT 92
[2024-11-18 21:18] LABS: Glucose Point of Care 202 mg/dl (65-105)
[2024-11-18] MEDS: INSULIN GLARGINE (*BKC) 100 UNITS/ML 12 UNITS SUB-Q (21:30)
[2024-11-18] MEDS: INSULIN ASPART (*BKC) 100 UNITS/ML SUB-Q (21:30)
[2024-11-19 05:25] VITALS: BP 122/54; PULSE 69; RESP 18; TEMP 35.7; O2SAT 96
[2024-11-19 07:41] LABS: Glucose Point of Care 106 mg/dl (65-105)
[2024-11-19 07:52] LABS: Basophils Absolute Auto 0.1 K/mm3 (0.0-0.1); Basophils Percent Auto 0.6 % (0.2-1.2); Eosinophils Absolute Auto 0.2 K/mm3 (0-0.3); Eosinophils Percent Auto 2.9 % (0-4.4); Hematocrit 32.1 % (37.0-47.0); Hemoglobin 9.9 g/dL (12.0-15.0); Immature Granulocyte Absolute 0.06 K/mm3 (0.00-0.031); Immature Granulocyte Percent A 0.7 % (0-0.5); Lymphocytes Absolute Auto 1.66 K/mm3 (0.9-3.2); Lymphocytes Percent Auto 20.3 % (18.3-44.2); Mean Corpuscular HGB Conc 30.8 g/dl (32-36); Mean Corpuscular Hemoglobin 26.7 pg (26-34); Mean Corpuscular Volume 86.5 fl (80-100); Mean Platelet Volume 11.6 fl (7.4-10.4); Monocytes Absolute Auto 1.1 K/mm3 (0.1-0.6); Monocytes Percent Auto 13.2 % (2.6-8.5); Neutrophils Absolute Auto 5.1 K/mm3 (1.3-6.7); Neutrophils Percent Auto 62.3 % (45.5-73.1); Nucleated Red Blood Cells Perc 0.2 % (0.0-0.2); Platelet Count Result 230 k/mm3 (150-375); Red Blood Count 3.71 M/mm3 (4.2-5.4); Red Cell Distribution Width 16.1 % (11.5-14.5); White Blood Count 8.2 K/mm3 (4.5-10.0)
[2024-11-19 08:05] LABS: Alanine Aminotransferase 29 U/L (6-35); Albumin Level 3.3 g/dL (3.5-5.1); Alkaline Phosphatase 83 U/L (38-126); Anion Gap 4 mmol/L (4-12); Aspartate Amino Transferase 36 U/L (14-36); Bilirubin,Total 0.2 mg/dL (0.2-1.3); Blood Urea Nitrogen 8 mg/dL (7-17); Calcium 8.9 mg/dL (8.4-10.2); Carbon Dioxide 24 mmol/L (22-30); Chloride 112 mmol/L (98-107); Estimated CRCL calculation 77 ml/min; Estimated Glomerular Filt Rate > 60; Glucose 98 mg/dL (65-110); Magnesium 2.1 mg/dL (1.6-2.3); Sodium 140 mmol/L (137-145)
[2024-11-19] MEDS: metFORMIN HCL XR 500 MG TAB.SR.24H 1000 MG PO (08:42)
[2024-11-19] MEDS: ASPIRIN 81 MG ENTERIC TABLET PO (08:42)
[2024-11-19] MEDS: ASCORBIC ACID 500 MG TABLET PO (08:42)
[2024-11-19] MEDS: MEMANTINE 10 MG TABLET PO (08:42)
[2024-11-19] MEDS: DONEPEZIL HCL 10 MG TABLET PO (08:42)
[2024-11-19] MEDS: LOSARTAN POTASSIUM 25 MG TABLET PO (08:42)
[2024-11-19] MEDS: SIMVASTATIN 20 MG TABLET 40 MG PO (08:42)
[2024-11-19] MEDS: SITagliptin PHOSPHATE 50 MG TABLET PO (08:42)
[2024-11-19] MEDS: EMPAGLIFLOZIN 25 MG TABLET PO (08:42)
[2024-11-19] MEDS: INSULIN GLARGINE (*BKC) 100 UNITS/ML 10 UNITS SUB-Q (08:45)
[2024-11-19] MEDS: ENOXAPARIN 40 MG/0.4 ML SYRINGE SUB-Q (08:48)
[2024-11-19 11:23] LABS: Glucose Point of Care 165 mg/dl (65-105)
--- NOTE | 2024-11-19 12:06 | PM.DS ---
DS: Admitting Diagnosis Discharge Date 11/19/24 Admitting Diagnosis Weakness and lethargy. DS: Discharge Diagnosis Discharge Diagnosis (1) Acute UTI: Code(s): N39.0 - Urinary tract infection, site not specified Status: Acute (2) Normocytic anemia: Code(s): D64.9 - Anemia, unspecified Status: Acute DS: Summary Hospital Course Hospital Course: This is a 74-year-old female who presents to the ED with her daughter via private vehicle from [facility] for chief complaint of increased weakness over the past couple of days. Nursing facility staff for reporting patient has lethargy and disorientation above her baseline dementia. Reports that she is alert oriented x2 which is standard for her but she has been a little bit more confused lately. Daughter reports the staff stated she had been doing strange things such as sitting in their break room and responding questions inappropriately. States that yesterday and today she became much more weak and was having trouble getting out of bed. States that she is normally ambulatory without assistance and a little more mentally sharp. Daughter notes that she has had urinary incontinence that has been increasing and they are concerned for possible UTI/dehydration. Patient was started on Rocephin and urine culture obtained. Urine culture grew E coli pansensitive. Latoyan was on Rocpehin and discharged on Cipro for 2 more days. mental state is at baseline, Alert and oriented x1. PT/OT evaluated and patient was discharged to Assisted living facility. F/u with PCP in 3-5 days. Time Spent with Patient Time attestation: Total time spent providing and/or coordinating discharge services: DS: Data Data Completed and Pending Labs on day of discharge: Labs from last 24 hours 11/19/24 11/19/24 11/19/24 11:18 07:34 07:14 WBC 8.2 RBC 3.71 L Hgb 9.9 L Hct 32.1 L MCV 86.5 MCH 26.7 MCHC 30.8 L RDW 16.1 H Plt Count 230 MPV 11.6 H Immature Gran % (Auto) 0.7 H Neut % (Auto) 62.3 Lymph % (Auto) 20.3 [place] % (Auto) 13.2 H Eos % (Auto) 2.9 Baso % (Auto) 0.6 Lymph # (Auto) 1.66 [place] # (Auto) 1.1 H Eos # (Auto) 0.2 Baso # (Auto) 0.1 Abs Immat Gran (auto) 0.06 H Absolute Neuts (auto) 5.1 Absolute Nucleated RBC 0.020 H Nucleated RBC % 0.2 Sodium 140 Potassium 4.0 Chloride 112 H Carbon Dioxide 24 Anion Gap 4 BUN 8 Creatinine 0.50 L Estim Creat Clear Calc 77 Estimated GFR > 60 Glucose 98 POC Capillary Glucose 165 H 106 H Calcium 8.9 Magnesium 2.1 Total Bilirubin 0.2 AST 36 ALT 29 Alkaline Phosphatase 83 Total Protein 7.0 Albumin 3.3 L Stl Occult Blood (IFOB) 11/18/24 11/18/24 11/18/24 20:51 17:57 16:42 WBC RBC Hgb Hct MCV MCH MCHC RDW Plt Count MPV Immature Gran % (Auto) Neut % (Auto) Lymph % (Auto) [place] % (Auto) Eos % (Auto) Baso % (Auto) Lymph # (Auto) [place] # (Auto) Eos # (Auto) Baso # (Auto) Abs Immat Gran (auto) Absolute Neuts (auto) Absolute Nucleated RBC Nucleated RBC % Sodium Potassium Chloride Carbon Dioxide Anion Gap BUN Creatinine Estim Creat Clear Calc Estimated GFR Glucose POC Capillary Glucose 202 H 106 H Calcium Magnesium Total Bilirubin AST ALT Alkaline Phosphatase Total Protein Albumin Stl Occult Blood (IFOB) Negative Discharge Plan Discharge Attending physician on discharge: Mayelin Lilly Discharging Clinician: Mayelin Lilly Anticipated Discharge Date/Time: 11/19/24 11:57 Patient Disposition: [facility] Activity: as tolerated Diet: as tolerated Patient Instructions: Antibiotic Form Patient Language: Amharic Stand Alone Forms: General Discharge Information Discharge Medications: New ciprofloxacin HCl 250 mg tablet 250 mg PO Q12H 2 Days Qty: 4 0RF Continued donepezil 10 mg tablet 10 mg PO DAILY losartan 25 mg tablet 25 mg PO DAILY memantine 10 mg tablet 10 mg PO BID insulin glargine [Lantus Solostar U-100 Insulin] 100 unit/mL (3 mL) insulin pen See Rx Instructions SUBCUT HS Rx Instructions: 12 subcutaneously bedtime; 10 units subcutaneously at breakfast aspirin 81 mg tablet,delayed release (DR/EC) 81 mg PO DAILY simvastatin 40 mg tablet 40 mg PO DAILY insulin aspart U-100 [Novolog FlexPen U-100 Insulin] 100 unit/mL (3 mL) insulin pen 2 unit SUBCUT DAILY Rx Instructions: with breakfast and lunch Janumet XR 50-1,000 mg tablet, ER multiphase 24 hr 1 tablet PO BID Jardiance 25 mg tablet 25 mg PO BID ascorbate calcium (vitamin C) 500 mg tablet 500 mg PO BID Qty: 14 0RF Date of admission: 11/18/24 09:53 Primary Care Provider: Artemio,[facility] Admitting Provider: Jeff Jaeger Attending physician on admission: Jeff Jaeger Condition: Stable
--- NOTE | 2024-11-19 14:16 | PC.NURSE ---
RN gave report to JORDAN Aragon at [facility]. Alecia had no questions about the plan was informed a copy of discharge will be going with the pt as well.
--- OUTSIDE RECORDS SUMMARY | 2024-11-23 09:20 | XMS_ITS | Encounter Summary ---
Author Organization [facility] Address [address] [facility][note 3] [address] [place] [address] Care Team Providers Care Community Outreach Director Name Role Phone Desiree Todd CORPORATE DEVELOPMENT INTERN Primary Care Provider + Reason for Visit * Reason Onset Date Comments Med Refill 06/16/2023 Encounter Details Date Type Department Care Team (Late st Contact Info) Description 06/16/2023 Telephone [facility] Specialists [facility] [id number] [place] [address] [address], [place] [address] [place], [place] [id number] [place] [address] [address], [place] [address] Med Refill Social History Tobacco Use Types Packs/Day Years Used Date Smoking Tobacco: Every Day Smokeless Tobacco: Never Comments Unknown Sex and Gender Information Value Date Recorded Sex Assigned at Not on file Legal Sex Female 3:23 PM CDT Gender Identity Not on file Sexual Orientation Straight 07/15/2024 9: 50 AM CDT documented as of this encounter Ordered Prescriptions Prescription Sig Dispense Quantity Refills Last Filled Start Date End Date donepeziL (ARICEPT) 10 mg tabletIndications: Mild to Moderate Alzheimer's Type Dementia Take 1 tablet (10 mg total) by mouth nightly 90 tablet 06/19/2023 3 memantine (NAMENDA) 10 mg tabletIndications: Moderate to Severe Alzheimer's Type Dementia Take 1 tablet (10 mg total) by mouth 2 (two) times a day 180 tablet 06/19/2023 3 documented in this encounter Miscellaneous Notes * Telephone Encounter - Kate Chaparro - 06/19/2023 12:04 PM CDT LV: 12/17/22 NV: 07/09/23 Noted daughter in c/o patient following up on previous call Explained to her that script was sent today for both Donepezil and Memantine by CY * Addendum Note - Kaylynn Nam II, MD - 06/19/2023 10:43 AM CDTAddended by: KAYLYNN NAM on: 06/19/2023 10:43 AM Modules accepted: Orders * Telephone Encounter - Jung Abdul - 06/18/2023 2:57 PM CDT Follow Up Call Caller/Ph#: /[phone] Reason for call: The patient's daughter called the office stating that the pharmacy didn't receive any rx's for the patient. She is requesting a call back and to have the rx's sent. The patient is out of the medication as of today. * Telephone Encounter - Ana Sosa CMA - 06/16/2023 9:30 AM CDT Spoke with patients daughter informed her I will send a [address] [facility] patients followup visit she verbalized her understanding * Telephone Encounter - Jung Abdul - 06/16/2023 8:24 AM CDT Refill Request LV: 12/17/22 CMY NV: 07/09/23 CMY The office has received a request for the prescription(s) listed below: Requestor: /[phone] Rx(s): donepeziL (ARICEPT) 10 mg tablet Sig: Take 1 tablet (10 mg total) by mouth nightly memantine (NAMENDA) 10 mg tablet Sig: Take 1 tablet (10 mg total) by mouth 2 (two) times a day Out of Rx(s): yes day: rx Pharm/Ph#: [phone] documented in this encounter Plan of Treatment Not on file documented as of this encounter Visit Diagnoses Not on filedocumented in this encounter Discontinued Medications Medication Sig Discontinue Reason Start Date End Da te donepeziL (ARICEPT) 10 mg tabletIndications:Mild to Moderate Alzheimer's Type Dementia Take 1 tablet (10 mg total) by mouth nightly Reorder 12/17/2022 06/19/2023 memantine (NAMENDA) 10 mg tabletIndications:Modera te to Severe Alzheimer's Type Dementia Take 1 tablet (10 mg total) by mouth 2 (two) times a day Reorder 12/17/2022 06/19/2023 documented as of this encounter Care Teams Community Outreach Director Relationship Specialty Start Date End Date Desiree Todd NP [address] [facility] [place] [address] PCP - General Nurse Practitioner 08/29/21 07/14/24 documented as of this encounter
--- OUTSIDE RECORDS SUMMARY | 2024-11-23 09:20 | XMS_ITS | Encounter Summary ---
Author Organization [facility] Address [address] [facility] [address] [place] [address] Care Team Providers Care Semiconductor Wafers Saw Operator Name Role Phone Desiree Todd ENGLISH DRAWER Primary Care Provider + Reason for Visit * Reason Onset Date Comments New Patient Appointment 08/29/2021 Encounter Details Date Type Department Care Team (Late st Contact Info) Description 08/29/2021 Telephone [place] [facility] [address] [facility] [address] [address] [place] [address] [facility] [address] [place] [address] New Patient Appointment Social History Tobacco Use Types Packs/Day Years Used Date Smoking Tobacco: Never Assessed Comments Unknown Sex and Gender Information Value Date Recorded Sex Assigned at Not on file Legal Sex Female 3:23 PM CDT Gender Identity Not on file Sexual Orientation Straight 07/15/2024 9: 50 AM CDT documented as of this encounter Miscellaneous Notes * Telephone Encounter - Ashanti Santamaria - 08/29/2021 4:32 PM CDT This encounter was created in error. documented in this encounter Plan of Treatment Not on file documented as of this encounter Visit Diagnoses Not on filedocumented in this encounter Care Teams Semiconductor Wafers Saw Operator Relationship Specialty Start Date End Date Desiree Todd, MATT [address] [facility] [place] [address] PCP - General Nurse Practitioner 08/29/21 07/14/24 documented as of this encounter
--- OUTSIDE RECORDS SUMMARY | 2024-11-23 09:20 | XMS_ITS | Encounter Summary ---
Author Organization [facility] Address [address] [place] [address] Care Team Providers Care Application Systems Engineer Name Role Phone Desiree Todd PROPELLANT ASSEMBLER Primary Care Provider + Reason for Referral * MRI/CAT/PET Scan (Routine) - Closed Specialty Diagnoses / Procedures Referred By Contac t Referred To Contact Radiology Diagnoses Alzheimer's disease (HCC) Procedures [place] [address] [address] [address] Phone: tel: fax: [address] [phone] Referral ID Status Reason Start Date Expiration Date Visits Re quested Visits Authorized [id number] Closed 10/24/2021 11/23/2022 1 1 NG MACHINE OPERATOR Reason for Visit * MRI/CAT/PET Scan (Routine) - Closed Specialty Diagnoses / Procedures Referred By Contac t Referred To Contact Radiology Diagnoses Alzheimer's disease (HCC) Procedures [place] [address] [address] [address] Phone: tel: fax: [address] [phone] Referral ID Status Reason Start Date Expiration Date Visits Re quested Visits Authorized [id number] Closed 10/24/2021 11/23/2022 1 1 Encounter Details Date Type Department Care Team (Latest Contact Info) Description 11/06/2021 8:32 AM FUSING MACHINE OPERATOR - 11/06/2021 11:59 PM FUSING MACHINE OPERATOR Hospital Encounter [facility] MRI [address] [place] [address] Alzheimer's disease (HCC) Discharge Disposition: Discharge to home or self care Social History Tobacco Use Types Packs/Day Years Used Date Smoking Tobacco: Every Day Smokeless Tobacco: Never Comments Unknown Sex and Gender Information Value Date Recorded Sex Assigned at Not on file Legal Sex Female 3:23 PM CDT Gender Identity Not on file Sexual Orientation Straight 07/15/2024 9: 50 AM CDT documented as of this encounter Medications at Time of Discharge alendronate (FOSAMAX) 70 mg tablet alendronate 70 mg tablet aspirin 81 MG oral suspension losartan (COZAAR) 25 mg tablet 09/18/2021 simvastatin (ZOCOR) 40 mg tablet 09/18/2021 donepeziL (ARICEPT) 5 mg tablet Take 1 tablet (5 mg total) by mouth nightly 30 tablet 5 10/24/2021 2 insulin aspart (NovoLOG) 100 unit/mL (3 mL) pen for injection 3 Units Once a day at Lunch. 4 SITagliptin-metf ormin (Janumet XR) 50-1,000 mg tablet, ER multiphase 24 hr Janumet XR 50 mg-1,000 mg tablet,extended release 2 documented as of this encounter Discharge Disposition Disposition Code Departure Means Destination Discharge to home or self care documented in this encounter Plan of Treatment Not on file documented as of this encounter Procedures Procedure Name Priority Date/Time Associated Diagnosis Comments MRI BRAIN WO CONTRAST Schedule Routine, Read Routine (OP Routine) 11/06/2021 9:46 AM FUSING MACHINE OPERATOR Alzheimer's disease (HCC) documented in this encounter Results * MRI Brain WO Contrast (11/06/2021 9:46 AM FUSING MACHINE OPERATOR) Anatomical Region Laterality Modality Head and Neck N/A Magnetic Resonan ce 11/06/2021 12:3 6 PM FUSING MACHINE OPERATOR Narrative 11/06/2021 12:44 PM FUSING MACHINE OPERATOR EXAM DESCRIPTION: ?? MRI BRAIN WO CONTRAST REASON FOR STUDY: ?? Memory Loss ?? Memory impairment x several years, worsening x 3-4 months ?? TECHNIQUE: Multiplanar imaging includes non-contrasted T1, T2, FLAIR, and diffusion with ADC map sequences. Additional sequence(s) sensitive to blood products. Images stored on PACS. ? COMPARISON: ?? None available FINDINGS: CEREBRUM: ?? No hemorrhage, edema, or mass effect. ?? WHITE MATTER: ?? Minimal nonspecific white matter FLAIR hyperintensity likely related to chronic microvascular ischemia which is within normal limits for expected age related change. POSTERIOR FOSSA: ?? Brainstem and cerebellum appear unremarkable. DIFFUSION IMAGING: ?? No recent infarction. EXTRAAXIAL SPACES: ?? No extra-axial fluid collection or mass. ?? No hydrocephalus. BRAIN VOLUME: ?? Mild cerebral volume loss. PITUITARY: ?? Unremarkable. VASCULATURE: ?? No flow disturbance identified. ORBITS: ?? No significant abnormality. PARANASAL SINUSES AND MASTOIDS: ?? No significant sinus disease. ??Trace bilateral mastoid effusions, reactive/inflammatory with no definite middle ear fluid present. OTHER: ?? No other significant finding. IMPRESSION: ?? 1. ?? No acute intracranial abnormality or significant white matter disease for age. ?? 2. ?? Mild diffuse cerebral volume loss with subjective predilection for the parietal and temporal lobes. THIS IS AN ELECTRONICALLY VERIFIED FINAL REPORT 11/06/2021 12:44 PM - Electronically signed by ??Omar Vasquez M.D. AG D: ??11/06/2021 12:44 PM T: Report ID: [id number] Reading Location: ??[id number] Procedure Note Omar Vasquez MD - 11/06/2021 EXAM DESCRIPTION: MRI BRAIN WO CONTRAST REASON FOR STUDY: Memory Loss Memory impairment x several years, worsening x 3-4 months TECHNIQUE: Multiplanar imaging includes non-contrasted T1, T2, FLAIR, and diffusion with ADC map sequences. Additional sequence(s) sensitive toblood products. Images stored on PACS. COMPARISON: None available FINDINGS: CEREBRUM: No hemorrhage, edema, or mass effect. WHITE MATTER: Minimal nonspecific white matter FLAIR hyperintensitylikely related to chronic microvascular ischemia which is within normal limitsfor expected age related change. POSTERIOR FOSSA: Brainstem and cerebellum appear unremarkable. DIFFUSION IMAGING: No recent infarction. EXTRAAXIAL SPACES: No extra-axial fluid collection or mass. No hydrocephalus. BRAIN VOLUME: Mild cerebral volume loss. PITUITARY: Unremarkable. VASCULATURE: No flow disturbance identified. ORBITS: No significant abnormality. PARANASAL SINUSES AND MASTOIDS: No significant sinus disease. Trace bilateral mastoid effusions, reactive/inflammatory with no definite middleear fluid present. OTHER: No other significant finding. IMPRESSION: 1. No acute intracranial abnormality or significant white matter diseasefor age. 2. Mild diffuse cerebral volume loss with subjective predilection forthe parietal and temporal lobes. THIS IS AN ELECTRONICALLY VERIFIED FINAL REPORT 11/06/2021 12:44 PM - Electronically signed by Omar Vasquez M.D. AG T: Report ID: [id number] Reading Location: [place] [address] Yossi Nam II, MD IMG MRI PROCEDURES Final Res ult documented in this encounter Visit Diagnoses Diagnosis Alzheimer's disease (HCC) Alzheimer's disease documented in this encounter Care Teams Application Systems Engineer Relationship Specialty Start Date End Date Desiree Todd NP [address] [place] [address] [place] [address] PCP - General Nurse Practitioner 08/29/21 07/14/24 documented as of this encounter
--- OUTSIDE RECORDS SUMMARY | 2024-11-23 09:20 | XMS_ITS | Referral Summary ---
Author Organization [facility] Physician Office Building [address] [place] [id number] Care Team Providers Care Client Business Manager Name Role Phone Kvng Ulloa MD Primary Care Provider [phone] Encounters Date Type Department Care Team Description 10/26/2024 Orders Only [facility] Diabetes and Endocrinology [address] [place] [phone] Mary Alice Muro NP Type 2 diabetes mellitus with hyperglycemia, with long-term current use of insulin (HCC) (Primary Dx) 10/20/2024 11:27 AM JOB MOLDER - 10/20/2024 11:59 PM JOB MOLDER Hospital Encounter [address] [address] Type 2 diabetes mellitus with hyperglycemia, with long-term current use of insulin (HCC); Hypertension associated with type 2 diabetes mellitus (HCC); Hyperlipidemia associated with type 2 diabetes mellitus (HCC) Discharge Disposition: Discharge to home or self care 10/20/2024 Telephone [facility] Diabetes and Endocrinology [address] [place] [phone] Mary Alice Muro NP 10/20/2024 12:15 PM JOB MOLDER Lab [facility] Outpatient Lab at [address] [phone] Hyperlipidemia associated with type 2 diabetes mellitus (HCC) (Primary Dx); Bilateral hearing loss; Essential hypertension 10/20/2024 11:30 AM JOB MOLDER Office Visit [facility] Diabetes and Endocrinology [address] [place] [phone] Mary Alice Muro, TACK CLEANER Type 2 diabetes mellitus with hyperglycemia, with long-term current use of insulin (HCC) (Primary Dx); Hypertension associated with type 2 diabetes mellitus (HCC); Hyperlipidemia associated with type 2 diabetes mellitus (HCC) from Last 3 Months Allergies Active Allergy Reactions Criticality Noted Date Comments Tree Nut Hives,Itching,Rash,Swelling Medium 10/24/20 21 [place] Rash Medium 10/24/2021 Medications simvastatin (ZOCOR) 40 mg tablet 1 Active losartan (COZAAR) 25 mg tablet 1 Active aspirin 81 MG oral suspension Acti ve alendronate (FOSAMAX) 70 mg tablet alendronate 70 mg tablet Active Dexcom G6 Director Of Career Resources misc USE DIRECTED TO MONITOR GLUCOSE 2 Active Dexcom G6 Sensor device USE DIRECTED TO TEST GLUCOSE 2 Active Dexcom G6 Transmitter device as directed 2 Active BD Elva 2nd Gen Pen Needle 32 gauge x 5/32 needle USE DIRECTED WITH LANTUS AND NOVOLOG 3 Active donepeziL (ARICEPT) 10 mg tabletIndication s:Mild to Moderate Alzheimer's Type Dementia Take 1 tablet (10 mg total) by mouth nightly 90 tablet 3 4 Active memantine (NAMENDA) 10 mg tabletIndication s:Moderate to Severe Alzheimer's Type Dementia Take 1 tablet (10 mg total) by mouth 2 (two) times a day 60 tablet 3 4 Active carbamide peroxide (Ear Drops, carbamide peroxide,) 6.5 % otic solution INSTILL 5 DROPS INTO AFFECTED right EAR(S) BY OTIC ROUTE 2 TIMES PER DAY for 10 days Active influenza quadrivalent [id number] (FLULAVAL,FLUARI X,FLUZONE) 60 mcg (15 mcg x 4)/0.5 mL syringe Active pneumococcal 23-valent (Pneumovax-23) 25 mcg/0.5 mL vaccine ADM 0.5ML IM UTD Active sod picosulf-mag ox-citric ac (Clenpiq) 10 mg-3.5 gram- 12 gram/160 mL solution Active triamcinolone (KENALOG) 0.1 % cream APPLY A THIN LAYER TO THE AFFECTED AREA(S) BY TOPICAL ROUTE 2 TIMES PER DAY to areas on arms/legs Active empagliflozin (JARDIANCE) 25 mg tabletIndication s:Type 2 diabetes mellitus with hyperglycemia, with long-term current use of insulin ([facility]) Take 1 tablet (25 mg total) by mouth virtual classroom manager before breakfast 90 tablet 2 4 Active Janumet XR 50-1,000 mg tablet, ER multiphase 24 hrIndications:Ty pe 2 diabetes mellitus with hyperglycemia, with long-term current use of insulin ([facility]) Take 50-1,000 mg by mouth 2 (two) times a day 180 tablet 2 4 Active insulin aspart (NovoLOG) 100 unit/mL (3 mL) pen for injectionIndicat ions:Type 2 diabetes mellitus with hyperglycemia, with long-term current use of insulin ([facility]) Inject 3 Units under the skin 2 (two) times a day with meals 15 mL 6 4 Active LANTUS 100 unit/mL (3 mL) pen for injectionIndicat ions:Type 2 diabetes mellitus with hyperglycemia, with long-term current use of insulin ([facility]) Inject 14 Units under the skin virtual classroom manager before breakfast 15 mL 6 4 Active zinc acetate (Galzin) 25 mg (zinc) capsule Take 1 capsule by mouth daily Active Active Problems Problem Noted Date Diagnosed Date Hypertension associated with type 2 diabetes rayray osman 10/19/2024 Assessment & Plan (10/20/2024 11:54 AM JOB MOLDER): Chronic problem. Controlled on current losartan 25mg daily. Will update labs. Verified that she uses mychart. Aware to check results/results letter in [employer]. Will contact by phone if needed. Hyperlipidemia associated with type 2 diabetes chapo guerin 10/19/2024 Assessment & Plan (10/20/2024 11:53 AM JOB MOLDER): Chronic problem. No labs on file. Currently taking Simvastatin 40mg daily Will update labs. Verified that she uses mychart. Aware to check results/results letter in [employer]. Will contact by phone if needed. COVID-19 09/29/2023 Dyslipidemia 05/10/2022 Type 2 diabetes mellitus 05/10/2022 Assessment & Plan (10/20/2024 12:10 PM JOB MOLDER): Chronic problem. A1c near goal but worsened from 6.6% 07/15/24 to now 7.3%. Reviewed Dexcom download with Rosa Elena & daughter. Will add breakfast at 2 units & decrease lunch/dinner to 2 units to make it easier to dose. Current medications: Janumet XR 50-1000mg twice daily with meals Jardiance 25mg daily Lantus 14 units every morning Novolog 2 units before each meal DM eye exam: never. To call to schedule. Will update labs. Verified that she uses [facility]. Aware to check results/results letter in [facility]. Will contact by phone if needed. Discussed with Rosa Elena Fisher: Strive for regular exercise (30min most days) and diet (get at least 4-5 servings of fruit and veggies daily, avoid processed foods, increase lean protein intake and decrease carb portions as well as fruit juices, regular soda & desserts). Watch carbs and simple sugars. Check the blood sugar: Dexcom G6. Check the feet daily for skin breakdown and infection. Assessment & Plan (07/15/2024 12:37 PM CDT): Chronic, with some hypoglycemia and hyperglycemia in the evening. Goal of treatment is glucoses in the range of 120 to 160, in a patient with the main Avoiding any hypoglycemia is of paramount importance. Medications adjusted as follows : Stop Lantus at night Lantus, 14 units in the morning only Novolog 3 units before Lunch and before dinner Continue Jardiance 25 mg daily and Janumet twice a day Continue CGM with Dexcom Alzheimer's disease 12/03/2021 Overview (07/15/2024): seeing neuro [facility] Memory impairment 08/28/2021 Bilateral hearing loss 02/05/2021 Osteoporosis 10/04/2020 Impacted cerumen of right ear 01/11/2020 Hyperlipidemia 01/11/2020 Fatigue 01/11/2020 Essential hypertension 01/11/2020 Resolved Problems Problem Noted Date Diagnosed Date Resolved Date Type 2 diabetes mellitus wit hout complication ([facility]) 06/15/2021 10/19/2024 Type 1 diabetes mellitus 01/11/2020 Immunizations Name Administration Dates Next Due Influenza, Quadrivalent, Hig h Dose, Preservative Free, Intrr 07/17/2021 Influenza, Quadrivalent, Spl it, Preservative Free, Intramuscular 08/23/2020 Influenza, Trivalent, High D ose, Split, Preservative Free, Intramuscular 09/13/2019 Influenza, Unspecified 09/09/2022,09/13/2019 Pneumococcal Polysaccharide PPV23 03/14/2021, Sars-CoV-2, Unspecified 08/24/2021,02/06/2021, Tdap 01/12/2020 ZOSTER Recombinant 12/25/2020,12/07/2020, 020 Social History Tobacco Use Types Packs/Day Years Used Date Smoking Tobacco: Former Cigarettes Smokeless Tobacco: Never Tobacco Cessation:Counseling Given: Not Answered AUDIT-C Answer Date Recorded Q1: How often do you have a drink containing alcohol? Never 07/15/2024 Q2: How many drinks containi ng alcohol do you have on a typical day when you are drinking? Patient does not drink Q3: How often do you have si x or more drinks on one occasion? Never 07/15/2024 PHQ-2 Answer Date Recorded PHQ-2 Total Score (If total score is 3 or more points, staff should administer the PHQ-9) 0 07/15/2024 Comments Unknown Sex and Gender Information Value Date Recorded Sex Assigned at Not on file Legal Sex Female 3:23 PM CDT Gender Identity Not on file Sexual Orientation Straight 07/15/2024 9: 50 AM CDT Last Filed Vital Signs Vital Sign Reading Time Taken Comments Blood Pressure 104/64 10/20/2024 11:27 AM JOB MOLDER Pulse 70 10/20/2024 11:27 AM JOB MOLDER Temperature - - Respiratory Rate 16 10/20/2024 11:27 AM JOB MOLDER Oxygen Saturation 96% 01/14/2024 10:16 AM JOB MOLDER Inhaled Oxygen Concentration - - Weight 68.5 kg (151 lb) 10/20/2024 11:27 AM JOB MOLDER Height 165.1 cm (5' 5 ) 10/20/2024 11:27 AM JOB MOLDER Body Mass Index 25.13 10/20/2024 11:27 AM JOB MOLDER Plan of Treatment Not on file Procedures Procedure Name Priority Date/Time Associated Diagnosis Comments EGFR Routine 10/20/2024 12:22 PM JOB MOLDER Type 2 diabetes mellitus with hyperglycemia, with long-term current use of insulin (HCC) Hypertension associated with type 2 diabetes mellitus (HCC) LIPID PANEL Routine 10/20/2024 12:22 PM JOB MOLDER Type 2 diabetes mellitus with hyperglycemia, with long-term current use of insulin (HCC) Hyperlipidemia associated with type 2 diabetes mellitus (HCC) COMPREHENSIVE METABOLIC PANEL Routine 10/20/2024 12:22 PM JOB MOLDER Type 2 diabetes mellitus with hyperglycemia, with long-term current use of insulin (HCC) Hypertension associated with type 2 diabetes mellitus (HCC) POCT GLUCOSE Routine 10/20/2024 11:31 AM JOB MOLDER Type 2 diabetes mellitus with hyperglycemia, with long-term current use of insulin (HCC) POCT HEMOGLOBIN A1C Routine 10/20/2024 1 1:31 AM JOB MOLDER Type 2 diabetes mellitus with hyperglycemia, with long-term current use of insulin (HCC) from Last 3 Months Results * eGFR (10/20/2024 12:22 PM JOB MOLDER) [facility] eGFR >90 >=60 mL/min/1. 73 m2 Comment: Interpretive Data Reference Interval Normal ?>/= 90 mL/min/1.73m2 Mildly decreased* ? 60 - 89 mL/min/1.73m2 Mildly to moderately decreased ?45 - 59 mL/min/1.73m2 Moderately to severely decreased ??30 - 44 mL/min/1.73m2 Severely decreased ?15 - 29 mL/min/1.73m2 Kidney Failure ?< 15 ??mL/min/1.73m2 *Relative to young adult level Estimated glomerular filtration rate is determined by the 2020 CKD-EPI equation recommended by the National Kidney Foundation (A Unifying Approach to GFR Estimation: Recommendations of the NKF-ASK Task Force on Reassessing the Inclusion of Race in Diagnosing Kidney Disease, JASN 2020). The CKD-EPI equation should not be used for patients with unstable renal function and has not been validated in children and those over 70. Current interpretive data was last reviewed 2021. Blood 10/20/2024 12:2 2 PM JOB MOLDER 10/20/2024 8:10 PM JOB MOLDER us Mary Alice Muro NP LAB BLOOD ORDERABLES [place] Result [facility] [id number] [place] [address] * (ABNORMAL) Lipid panel (10/20/2024 12:22 PM JOB MOLDER) Cholesterol 138 30 - 199 mg/dL Comment: Interpretive Data Ages < or = 19 years ??Acceptable: ? <170 mg/dL ??Borderline high: ??170-199 mg/dL ??High: ? >or= 200 mg/dL Ages > or = 20 years ??Desirable: ?<200 mg/dL ??Borderline high: ??200-239 mg/dL ??High: ? >or= 240 mg/dL Literature References: 1. Expert Panel on Integrated Guidelines for Cardiovascular Health and Risk Reduction in Children and Adolescents. Pediatrics 2011;128:S213 2. NCEP Expert Panel. Circulation 2004;110:227 Current Interpretive Data was last revised on 2018. Triglycerides 162(H) <=149 mg/dL [facility] Comment: Interpretive Data Ages < or = 9 years ??Acceptable: ? <75 mg/dL ??Borderline high: ??75-99 mg/dL ??High: ? >or= 100 mg/dL Ages 10 to 20 years ??Acceptable: ? <90 mg/dL ??Borderline high: ??90-129 mg/dL ??High: ? >or= 130 mg/dL Ages > or = 20 years ??Desirable: ?<150 mg/dL ??Borderline high: ??150-199 mg/dL ??High: ? 200-499 mg/dL ?Very high: ?? >or= 499 mg/dL Literature References: 1. Expert Panel on Integrated Guidelines for Cardiovascular Health and Risk Reduction in Children and Adolescents. Pediatrics 2011;128:S213 2. NCEP Expert Panel. Circulation 2004;110:227 Current Interpretive Data was last revised on 2018. HDL 63 >=40 mg/dL [facility] Comment: Interpretive Data Ages < or = 19 years ??Acceptable: ? >45 mg/dL ??Borderline low: ?? 40-45 mg/dL ??Low: ? <40 mg/dL Ages > or = 20 years ??Desirable: ?>or= 60 mg/dL ??Low: ? <40 mg/dL Literature References: 1. Expert Panel on Integrated Guidelines for Cardiovascular Health and Risk Reduction in Children and Adolescents. Pediatrics 2011;128:S213 2. NCEP Expert Panel. Circulation 2004;110:227 Current Interpretive Data was last revised on 2018. LDL, calculated 48 <=129 mg/dL [facility] Comment: Interpretive Data Ages < or = 19 years ??Acceptable: ? <110 mg/dL ??Borderline high: ??110-129 mg/dL ??High: ?>or= 130 mg/dL Ages > or = 20 years ??Optimal: ? <100 mg/dL ??Near optimal: ?100-129 mg/dL ??Borderline high: ?? 130-159 mg/dL ??High: ?>160 mg/dL Calculated using the Carbone LDL-C estimating equation. This equation was implemented on 2024. Prior to this date LDL-C was estimated using the Friedewald equation. Literature References: 1. Expert Panel on Integrated Guidelines for Cardiovascular Health and Risk Reduction in Children and Adolescents. Pediatrics 2011;128:S213 2. NCEP Expert Panel. Circulation 2004;110:227 3. Raf Weir et al. EDGAR Cardiol. 2019March 24;5(5):540-548. doi: 10.1001/jamacardio.2020.0013 Current Interpretive Data was last revised on 2024. Non-HDL Cholesterol 75 mg/dL [facility] Comment: Interpretive Data Ages < or = 19 years ??Acceptable: ?<120 mg/dL ??Borderline high: ??120-144 mg/dL ??High: ?>145 mg/dL Ages > or = 20 years ??When triglycerides are >200 mg/dL, Non-HDL cholesterol is a secondary target of ? therapy with treatment goals that are 30 mg/dL greater than the LDL cholesterol target. ? Literature References: 1. Expert Panel on Integrated Guidelines for Cardiovascular Health and Risk Reduction in Children and Adolescents. Pediatrics 2011;128:S213 2. NCEP Expert Panel. Circulation 2004;110:227 Current Interpretive Data was last revised on 2018. Chol/HDL ratio 2 [facility] Blood 10/20/2024 12:2 2 PM JOB MOLDER 10/20/2024 8:10 PM JOB MOLDER us Mary Alice Muro TACK CLEANER LAB BLOOD ORDERABLES [place] Result [facility] [id number] [place] [address] * Comprehensive metabolic panel (10/20/2024 12:22 PM JOB MOLDER) Sodium 140 135 - 145 mmol/L Potassium, pl 4.7 3.3 - 4.9 mmol/L [facility] Chloride 101 97 - 110 mmol/L [facility] CO2 24 22 - 32 mmol/L [facility] Anion gap 15 2 - 15 mmol/L [facility] BUN 15 6 - 25 mg/dL [facility] Creatinine 0.60 0.60 - 1.10 mg/dL [facility] Glucose 146 70 - 199 mg/dL [facility] Comment: Interpretive Data Fasting glucose >/= 126 mg/dl is diagnostic for diabetes. ?? Fasting is defined as no caloric intake for at least 8 hours. Fasting glucose between 100 mg/dl to 125 mg/dl is diagnostic of prediabetes. In a patient with classic symptoms of hyperglycemia or hyperglycemic crisis, a random glucose >/= 200 mg/dl is diagnostic for diabetes. In the absence of unequivocal hyperglycemia, results should be confirmed by repeat testing. The classification and Diagnosis of Diabetes Diabetes Care 2021; 46: S19-S40. Current interpretive data was last revised 2022. Calcium 9.9 8.5 - 10.3 mg/dL [facility] Bilirubin, total 0.2 0.1 - 1.2 mg/dL [facility] Protein, pl 7.7 6.5 - 8.5 g/dL [facility] Albumin 4.2 3.5 - 5.0 g/dL [facility] Alk phos 99 40 - 130 Units/L [facility] ALT 26 7 - 45 Units/L [facility] AST 33 10 - 45 Units/L [facility] Blood 10/20/2024 12:2 2 PM JOB MOLDER 10/20/2024 8:10 PM JOB MOLDER Mary Alice Muro NP LAB BLOOD ORDERABLES Sandra l Result [facility] [id number] Department [place] [address] * (ABNORMAL) POCT hemoglobin A1c (10/20/2024 11:31 AM JOB MOLDER) Hemoglobin A1C, POC 7.3 4.0 - 5.6 % Blood 10/20/2024 11:3 1 AM JOB MOLDER Mary Alice Muro NP POINT OF CARE TEST ORDERA BLES Final Result * (ABNORMAL) POCT glucose (10/20/2024 11:31 AM JOB MOLDER) Glucose Blood, POC 179 mg/dL Blood 10/20/2024 11:3 1 AM JOB MOLDER Mary Alice Muro TACK CLEANER POINT OF CARE TEST ORDERA BLES Final Result from Last 3 Months Insurance MEDICARE [employer] Care Teams Client Business Manager Relationship Specialty Start Date End Date Kvng Ulola MD [facility] [phone] PCP - General Family Medicine 07/15/24
--- OUTSIDE RECORDS SUMMARY | 2024-11-23 09:20 | XMS_ITS | Encounter Summary ---
Author Organization [facility] Address [address] [place] [address] Care Team Providers Care Supervisor Laundry Name Role Phone Desiree Todd ATHLETIC COACH Primary Care Provider + Encounter Details Date Type Department Care Team (Late st Contact Info) Description 11/30/2021 Tele[place] [facility] [place] [facility] [address] [address] [place] [address] [place] [address] [facility] [address] [place], [place] [id number] Social History Tobacco Use Types Packs/Day Years Used Date Smoking Tobacco: Every Day Smokeless Tobacco: Never Comments Unknown Sex and Gender Information Value Date Recorded Sex Assigned at Not on file Legal Sex Female 3:23 PM CDT Gender Identity Not on file Sexual Orientation Straight 07/15/2024 9: 50 AM CDT documented as of this encounter Miscellaneous Notes * Telephone Encounter - Jung Abdul - 11/30/2021 11:[address] Nam prepared a letter for the patient and her dtr and it was given to the daughter before they left the office per daughter. CHING MACHINE SET UP OPERATOR documented in this encounter Plan of Treatment Not on file documented as of this encounter Visit Diagnoses Not on filedocumented in this encounter Care Teams Supervisor Laundry Relationship Specialty Start Date End Date Desiree Todd NP [address] [place] [address] PCP - General Nurse Practitioner 08/29/21 07/14/24 documented as of this encounter
--- OUTSIDE RECORDS SUMMARY | 2024-11-23 09:20 | XMS_ITS | Encounter Summary ---
Author Organization [facility] Healthcare Address [address] [place] [address] Care Team Providers Care Calibration Specialist Name Role Phone Kvng Ulloa MD Primary Care Provider [phone] Encounter Details Date Type Department Care Team (Latest Contact Info) Description 10/20/2024 11:27 AM KEY SANDER - 10/20/2024 11:59 PM [facility] Hospital Encounter [address] [id number] Type 2 diabetes mellitus with hyperglycemia, with long-term current use of insulin (HCC); Hypertension associated with type 2 diabetes mellitus (HCC); Hyperlipidemia associated with type 2 diabetes mellitus (HCC) Discharge Disposition: Discharge to home or self care Social History Tobacco Use Types Packs/Day Years Used Date Smoking Tobacco: Former Cigarettes Smokeless Tobacco: Never AUDIT-C Answer Date Recorded Q1: How often [...] mg tablet aspirin 81 MG oral suspension BD Elva 2nd Gen Pen Needle 32 gauge x needle USE DIRECTED WITH LANTUS AND NOVOLOG 06/15/2023 carbamide peroxide (Ear Drops, carbamide peroxide,) 6.5 % otic solution INSTILL 5 DROPS INTO AFFECTED right EAR(S) BY OTIC ROUTE 2 TIMES PER DAY for 10 days Dexcom G6 Recorder Gravity Prospecting misc USE DIRECTED TO MONITOR GLUCOSE 03/12/2022 Dexcom G6 Sensor device USE DIRECTED TO TEST GLUCOSE 05/06/2022 Dexcom G6 Transmitter device as directed 03/12/2022 empagliflozin (JARDIANCE) 25 mg tabletIndications: Type 2 diabetes mellitus with hyperglycemia, with long-term current use of insulin (HCC) Take 1 tablet (25 mg total) by mouth lead engineer before breakfast 90 tablet 2 07/15/2024 influenza quadrivalent [id number] (FLULAVAL,FLUARIX, FLUZONE) 60 mcg (15 mcg x 4)/0.5 mL syringe insulin aspart (NovoLOG) 100 unit/mL (3 mL) pen for injectionIndicatio ns:Type 2 diabetes mellitus with hyperglycemia, with long-term current use of insulin ([facility]) Inject 3 Units under the skin 2 (two) times a day with meals 15 mL 6 07/15/2024 Janumet XR 50-1,000 mg tablet, ER multiphase 24 hrIndications:Type 2 diabetes mellitus with hyperglycemia, with long-term current use of insulin (HCC) Take 50-1,000 mg by mouth 2 (two) times a day 180 tablet 2 07/15/2024 LANTUS 100 unit/mL (3 mL) pen for injectionIndicatio ns:Type 2 diabetes mellitus with hyperglycemia, with long-term current use of insulin ([facility]) Inject 14 Units under the skin lead engineer before breakfast 15 mL 6 07/16/2024 losartan (COZAAR) 25 mg tablet 09/18/2021 pneumococcal 23-valent (Pneumovax-23) 25 mcg/0.5 mL vaccine ADM 0.5ML IM UTD simvastatin (ZOCOR) 40 mg tablet 09/18/2021 sod picosulf-mag ox-citric ac (Clenpiq) 10 mg-3.5 gram- 12 gram/160 mL solution triamcinolone (KENALOG) 0.1 % cream APPLY A THIN LAYER TO THE AFFECTED AREA(S) BY TOPICAL ROUTE 2 TIMES PER DAY to areas on arms/legs zinc acetate (Galzin) 25 mg (zinc) capsule Take 1 capsule by mouth daily documented as of this encounter Discharge Disposition Disposition Code Departure Means Destination Discharge to home or self care documented in this encounter Miscellaneous Notes * Result Encounter Note - Mary Alice Muro NP - 10/20/2024 11:59 PM KEY SANDER Dear Rosa Elena Fisher, The lab results were faxed to Dr Ulloa also. Please check your [employer] account; in the letters section. Your recent test results have been sent to your [employer] account. If any questions, please call. Thank you, Jaxon Bates SANDER * Result Encounter Note - Mary Alice Muro NP - 10/20/2024 11:59 PM KEY SANDER Please mail 10/20/24 lab result letter. Per chart: was not viewed in [employer]. Thank you Mary Alice SANDER documented in this encounter Plan of Treatment Not on file documented as of this encounter Procedures Procedure Name Priority Date/Time Associated Diagnosis Comments EGFR Routine 10/20/2024 12:22 PM KEY SANDER Type 2 diabetes mellitus with hyperglycemia, with long-term current use of insulin (HCC) Hypertension associated with type 2 diabetes mellitus (HCC) LIPID PANEL Routine 10/20/2024 12:22 PM KEY SANDER Type 2 diabetes mellitus with hyperglycemia, with long-term current use of insulin (HCC) Hyperlipidemia associated with type 2 diabetes mellitus (HCC) COMPREHENSIVE METABOLIC PANEL Routine 10/20/2024 12:22 PM KEY SANDER Type 2 diabetes mellitus with hyperglycemia, with long-term current use of insulin (HCC) Hypertension associated with type 2 diabetes mellitus (HCC) documented in this encounter Results * eGFR (10/20/2024 12:22 PM KEY SANDER) eGFR >90 >=60 mL/min/1. 73 m2 Comment: [...] reviewed 2021. Blood 10/20/2024 12:2 2 PM KEY SANDER 10/20/2024 8:10 PM KEY SANDER us Mary Alice Muro ADMISSIONS [facility] BLOOD ORDERABLES Sandra l Result YASEMIN [id number] Department [place] [address] * (ABNORMAL) Lipid panel (10/20/2024 12:22 PM KEY SANDER) Cholesterol 138 30 - 199 mg/dL Comment: [...] mg/dL ??High: ?>160 mg/dL Calculated using the Raf LDL-C estimating equation. This equation was implemented on 2024. Prior to this date LDL-C was estimated using the Friedewald equation. Literature References: 1. Expert Panel on Integrated Guidelines for Cardiovascular Health and Risk Reduction in Children and Adolescents. Pediatrics 2011;128:S213 2. NCEP Expert Panel. Circulation 2004;110:227 3. Raf Weir et al. EDGAR Cardiol. 2020 March 24;5(5):540-548. doi: 10.1001/jamacardio.2020.0013 Current Interpretive Data was last revised on 2024. Non-HDL Cholesterol 75 mg/dL YASEMIN OSWALD Comment: Interpretive Data Ages [...] CERNER CH Blood 10/20/2024 12:2 2 PM KEY SANDER 10/20/2024 8:10 PM KEY SANDER us Mary Alice Muro ADMISSIONS [facility] [place] [id number] [address] Department [place] [address] * Comprehensive metabolic panel (10/20/2024 12:22 PM KEY SANDER) Sodium 140 135 - 145 mmol/L Potassium, pl 4.7 3.3 - 4.9 mmol/L C[facility] Chloride 101 97 - 110 mmol/L [facility] CO2 24 22 - 32 mmol/L [facility] Anion gap 15 2 - 15 mmol/L [facility] BUN 15 6 - 25 mg/dL [facility] Creatinine 0.60 0.60 - 1.10 mg/dL C[facility] Glucose 146 70 - 199 mg/dL CERN[facility] Comment: Interpretive Data Fasting glucose >/= 126 [...] 2022. Calcium 9.9 8.5 - 10.3 mg/dL [facility] Bilirubin, total 0.2 0.1 - 1.2 mg/dL [facility] Protein, pl 7.7 6.5 - 8.5 g/dL [facility] Albumin 4.2 3.5 - 5.0 g/dL [facility] Alk phos 99 40 - 130 Units/L [facility] ALT 26 7 - 45 Units/L [facility] AST 33 10 - 45 Units/L [facility] Blood 10/20/2024 12:2 2 PM KEY SANDER 10/20/2024 8:10 PM KEY SANDER Mary Alice Muro ADMISSIONS [facility] BLOOD ORDERABLES Sandra l Result YASEMIN OSWALD [address] Department [place] [address] documented in this encounter Visit Diagnoses Diagnosis Type 2 diabetes mellitus with hyperglycemia, with long-term current use of insulin (HCC) Hypertension associated with type 2 diabetes mellitus (HCC) Hyperlipidemia associated with type 2 diabetes mellitus (HCC) documented in this encounter Care Teams Calibration Specialist Relationship Specialty Start Date End Date Kvng Ulloa MD [address] [place] [address] PCP - General Family Medicine 07/15/24 documented as of this encounter
--- OUTSIDE RECORDS SUMMARY | 2024-11-23 09:20 | XMS_ITS | Encounter Summary ---
Author Organization [facility] Healthcare Address [address] [place] [address] Care Team Providers Care Certified Registered Nurse Practitioner Name Role Phone Kvng Ulloa MD Primary Care Provider Encounter Details Date Type Department Care Team (Late st Contact Info) Description 10/26/2024 Orders Only [facility] Medical Group Diabetes and Endocrinology [facility] [place] [address] Mary Alice Muro, MACHINE STAMPER [address] [facility] [address] [place] [address] Type 2 diabetes mellitus with hyperglycemia, with long-term current use of insulin (HCC) (Primary Dx) Social History Tobacco Use Types Packs/Day Years [...] AM CDT documented as of this encounter Plan of Treatment Scheduled Orders Name Type Priority Associated Diagnoses Orde r Schedule Albumin Creatinine Ratio, Urine Lab Routine Type 2 diabetes mellitus with hyperglycemia, with long-term current use of insulin (HCC) Expected: 2024, Expires: 10/26/2025 documented as of this encounter Visit Diagnoses Diagnosis Type 2 diabetes mellitus with hyperglycemia, with long-term current use of insulin (HCC)- Primary documented in this encounter Care Teams Certified Registered Nurse Practitioner Relationship Specialty Start Date End Date Kvng Ulloa MD [address] [place] [place] [address] PCP - General Family Medicine 07/15/24 documented as of this encounter
--- OUTSIDE RECORDS SUMMARY | 2024-11-23 09:20 | XMS_ITS | Encounter Summary ---
Author Organization [facility] Address [address] [facility] [facility] [address] [place] [address] Care Team Providers Care Spanish Interpreter Name Role Phone Desiree Todd NP Primary Care Provider + Reason for Visit * Reason Comments Alzheimer's Disease Encounter Details Date Type Department Care Team (Late st Contact Info) Description 05/30/2022 2:15 PM CDT Office Visit [facility] Specialists [facility] [id number] [place] [address] [address], [place] [address] [place], [place] [id number] [place] [address] [address] [place] [address] Alzheimer's disease (HCC) (Primary Dx) Social History Tobacco Use Types Packs/Day Years Used Date Smoking Tobacco: Every Day Smokeless Tobacco: Never Comments Unknown Sex and Gender Information Value Date Recorded Sex Assigned at Not on file Legal Sex Female 3:23 PM CDT Gender Identity Not on file Sexual Orientation Straight 07/15/2024 9: 50 AM CDT documented as of this encounter Last Filed Vital Signs Vital Sign Reading Time Taken Comments Blood Pressure 100/46 05/30/2022 2:21 PM CDT Pulse 81 05/30/2022 2:21 PM CDT Temperature - - Respiratory Rate 16 05/30/2022 2:21 PM CDT Oxygen Saturation - - Inhaled Oxygen Concentration - - Weight 72.3 kg (159 lb 6.4 oz) 05/30/2022 2:21 P M CDT Height 165.1 cm (5' 5 ) 05/30/2022 2:21 PM CDT Body Mass Index 26.53 05/30/2022 2:21 PM CDT documented in this encounter Ordered Prescriptions Prescription Sig Dispense Quantity Refills Last Filled Start Date End Date memantine (NAMENDA) 5 mg tabletIndications: Moderate to Severe Alzheimer's Type Dementia Take 1 tablet (5 mg total) by mouth 2 (two) times a day 180 tablet 1 05/30/2022 3 donepeziL (ARICEPT) 10 mg tabletIndications: Mild to Moderate Alzheimer's Type Dementia Take 1 tablet (10 mg total) by mouth nightly 90 tablet 1 05/30/2022 3 documented in this encounter Progress Notes * Yossi Nam II, MD - 05/30/2022 2:15 PM CDT Subjective: Patient ID: Rosa Elena Fisher is a 71 y.o. female with dementia of the Alzheimer's type. HPI The patient returns today for re-evaluation and follow-up. She is accompanied by her daughter. She has now moved to independent living and during that phase where she was moving to that facility she felt a little down and depressed but this is no longer an issue. She is socially active she remains physically active. Her daughter does not feel that she has progressed. She remains independent in her self-care and gait she has a good appetite she sleeps well at night when she wakes up in the morning she feels refreshed. No incontinence of bladder or bowel is reported no falls have been reported.There is no stomach upset diarrhea headache or agitation to report no side effects from memantine or donepezil is reported. There are no new physical or new neurological symptoms to report. She is doing well and her daughter agrees. Review of Systems Constitutional: Negative for activity change and fever. HENT: Negative for hearing loss, tinnitus and trouble swallowing. Eyes: Negative for visual disturbance. Respiratory: Negative for cough. Cardiovascular: Negative for palpitations. Gastrointestinal: Negative for constipation. Neurological: Negative. Negative for dizziness, tremors, seizures, syncope, facial asymmetry, speech difficulty, weakness, light-headedness, numbness and headaches. Psychiatric/Behavioral: Negative for agitation, behavioral problems and dysphoric mood. Objective: Neurological Exam Mental Status Awake and alert. Oriented only to person, place and time. Recalls 3 of 3 objects immediately. At 3 minutes recalls 2 of 3 objects. Recalls 3 of 3 objects with prompting. Speech is normal. Language isfluent with no aphasia. Difficulty spelling words backwards. 3/5 spelling the word world in reverse. Cranial Nerves CN II: Visual allen full to confrontation. CN III, IV, : Extraocular movements intact bilaterally. Normal lids and orbits bilaterally. Pupils equal round and reactive to light bilaterally. CN V: Facial sensation is normal. CN VII: Full and symmetric facial movement. CN VIII: Hearing is normal. CN IX, X: Palate elevates symmetrically. Normal gag reflex. CN XI: Shoulder shrug strength is normal. CN XII: Tongue midline without atrophy or fasciculations. Motor Strength is 5/5 throughout all four extremities. Sensory Sensation is intact to light touch, pinprick, vibration and proprioception in all four extremities. Reflexes Deep tendon reflexes are 2+ and symmetric in all four extremities. Coordination [id number], rapid alternating movements and [id number]-[id number] normal bilaterally without dysmetria. Gait Casual gait is normal including stance, stride, and arm swing. Physical Exam Constitutional: General: She is awake. Appearance: She is well-developed. HENT: Head: Normocephalic and atraumatic. Eyes: General: Lids are normal. Extraocular Movements: Extraocular movements intact. Conjunctiva/sclera: Conjunctivae normal. Pupils: Pupils are equal, round, and reactive to light. Cardiovascular: Rate and Rhythm: Normal rate and regular rhythm. Pulmonary: Effort: Pulmonary effort is normal. Abdominal: Palpations: Abdomen is soft. Musculoskeletal: General: Normal range of motion. Cervical back: Normal range of motion. Right lower leg: No edema. Left lower leg: No edema. Skin: General: Skin is warm. Neurological: Mental Status: She is alert. Coordination: Coordination is intact. Deep Tendon Reflexes: Strength normal and reflexes are normal and symmetric. Psychiatric: Speech: Speech normal. Assessment/Plan: Dementia of the Alzheimer's type the condition has not progressed she will continue with current doses of donepezil 10 mg at bedtime and memantine 5 mg twice a day with a follow-up planned in 6 months. Medications Current Outpatient Medications: ??? alendronate (FOSAMAX) 70 mg tablet, alendronate 70 mg tablet, Disp: , Rfl: ??? aspirin 81 MG oral suspension, , Disp: , Rfl: ??? Bydureon BCise 2 mg/0.85 mL auto-injector, , Disp: , Rfl: ??? Dexcom G6 Shactor misc, USE DIRECTED TO MONITOR GLUCOSE, Disp: , Rfl: ??? Dexcom G6 Sensor device, USE DIRECTED TO TEST GLUCOSE, Disp: , Rfl: ??? Dexcom G6 Transmitter device, as directed, Disp: , Rfl: ??? donepeziL (ARICEPT) 10 mg tablet, Take 1 tablet (10 mg total) by mouth nightly, Disp: 90 tablet, Rfl: 1 ??? insulin aspart (NovoLOG) 100 unit/mL (3 mL) pen for injection, Novolog Flexpen U-100 Insulin aspart 100 unit/mL (3 mL) subcutaneous, Disp: , Rfl: ??? Janumet XR 50-1,000 mg tablet, ER multiphase 24 hr, , Disp: , Rfl: ??? LANTUS 100 unit/mL (3 mL) pen for injection, , Disp: , Rfl: ??? losartan (COZAAR) 25 mg tablet, , Disp: , Rfl: ??? memantine (NAMENDA) 5 mg tablet, Take 1 tablet (5 mg total) by mouth 2 (two) times a day, Disp:60 tablet, Rfl: 5 ??? simvastatin (ZOCOR) 40 mg tablet, , Disp: , Rfl: History History reviewed. No pertinent family history. Active Ambulatory Problems Diagnosis Date Noted ??? Alzheimer's disease, unspecified (HCC) 02/21/2022 Resolved Ambulatory Problems Diagnosis Date Noted ??? No Resolved Ambulatory Problems Past Medical History: Diagnosis Date ??? Diabetes mellitus (HCC) ??? Hypertension Social History Tobacco Use ??? Smoking status: Current Every Day Smoker ??? Smokeless tobacco: Never Used Substance and Sexual Activity ??? Drug use: None ??? Sexual activity: None Alcohol Use: Not on file documented in this encounter Plan of Treatment Not on file documented as of this encounter Visit Diagnoses Diagnosis Alzheimer's disease (HCC)- Primary Alzheimer's disease documented in this encounter Discontinued Medications Medication Sig Discontinue Reason Start Date End Da te donepeziL (ARICEPT) 10 mg tabletIndications:Mild to Moderate Alzheimer's Type Dementia Take 1 tablet (10 mg total) by mouth nightly Reorder 11/29/2021 05/30/2022 memantine (NAMENDA) 5 mg tabletIndications:Modera te to Severe Alzheimer's Type Dementia Take 1 tablet (5 mg total) by mouth 2 (two) times a day Reorder 02/21/2022 05/30/2022 documented as of this encounter Historical Medications * This list may reflect changes made after this encounter. Dexcom G6 Transmitter device as directed 03/12/2022 Dexcom G6 Sensor device USE DIRECTED TO TEST GLUCOSE 05/06/2022 Dexcom G6 Shactor misc USE DIRECTED TO MONITOR GLUCOSE 03/12/2022 Janumet XR 50-1,000 mg tablet, ER multiphase 24 hr 04/13/2022 07/15/20 2 4 LANTUS 100 unit/mL (3 mL) pen for injection Twice a day. Morning & Night. 10 Units am & Units pm 05/10/2022 4 added in this encounter Care Teams Spanish Interpreter Relationship Specialty Start Date End Date Desiree Todd NP [address] [facility] [place] [address] PCP - General Nurse Practitioner 08/29/21 07/14/24 documented as of this encounter
--- OUTSIDE RECORDS SUMMARY | 2024-11-23 09:20 | XMS_ITS | Encounter Summary ---
Author Organization [facility] Healthcare Address [address] [place] [address] Care Team Providers Care Statistical Methods Professor Name Role Phone Desiree Todd CREDIT DIRECTOR Primary Care Provider + Reason for Visit * Reason Onset Date Comments Med Refill 09/17/2023 Encounter Details Date Type Department Care Team (Late st Contact Info) Description 09/17/2023 Telephone [facility] Specialists [facility] [id number] [place] [address] [place], [place] [id number] [place] [address] Med Refill Social History Tobacco Use [...] Filled Start Date End Date memantine (NAMENDA) 10 mg tabletIndications: Moderate to Severe Alzheimer's Type Dementia Take 1 tablet (10 mg total) by mouth 2 (two) times a day 180 tablet 1 09/19/2023 4 donepeziL (ARICEPT) 10 mg tabletIndications: Mild to Moderate Alzheimer's Type Dementia Take 1 tablet (10 mg total) by mouth nightly 90 tablet 1 09/19/2023 4 documented in this encounter Miscellaneous Notes * Addendum Note - Neena Feliciano MA - 09/19/2023 10:23 AM CDTAddended by: NEENA FELICIANO on: 09/19/2023 10:23 AM Modules accepted: Orders * Telephone Encounter - Neena Feliciano MA - 09/19/2023 10:12 AM CDT Last Office Visit: 07/09/2023 (NAMENDA) Next Office Visit: 01/14/2024 Last Refill: 07/09/2023 Quantity: 180 Refills:1 Last Office Visit: 07/09/2023 (ARICEPT) Next Office Visit: 01/14/2024 Last Refill: Quantity: 90 Refills: 1 * Telephone Encounter - Jung Abdul - 09/17/2023 2:52 PM CDT Refill Request The office has received a request for the information listed below. The previous rx's are no longerin the system of [facility]. Requestor: [phone] Rx(s): donepeziL (ARICEPT) 10 mg tablet Sig: Take 1 tablet (10 mg total) by mouth nightly memantine (NAMENDA) 10 mg tablet Sig: Take 1 tablet (10 mg total) by mouth 2 (two) times a day Out of Rx(s): day rx: rx Pharmacy/Ph#: [facility] documented in this encounter Plan of Treatment Not on file documented as of this encounter Visit Diagnoses Diagnosis Alzheimer's disease (HCC)- Primary Alzheimer's disease documented in this encounter Discontinued Medications Medication Sig Discontinue Reason Start Date End Da te donepeziL (ARICEPT) 10 mg tabletIndications:Mild to Moderate Alzheimer's Type Dementia Take 1 tablet (10 mg total) by mouth nightly Reorder 07/09/2023 09/19/2023 memantine (NAMENDA) 10 mg tabletIndications:Modera te to Severe Alzheimer's Type Dementia Take 1 tablet (10 mg total) by mouth 2 (two) times a day Reorder 07/09/2023 09/19/2023 documented as of this encounter Care Teams Statistical Methods Professor Relationship Specialty Start Date End Date Desiree Todd NP [address] [place] [address] PCP - General Nurse Practitioner 08/29/21 07/14/24 documented as of this encounter
--- OUTSIDE RECORDS SUMMARY | 2024-11-23 09:20 | XMS_ITS | Clinical Summary ---
Author Organization [facility] Physician Office Building [address] [place] [id number] Care Team Providers Care Director Camp Name Role Phone Kvng Ulloa MD Primary Care Provider [phone] Allergies Active Allergy Reactions Criticality Noted Date Comments Tree Nut Hives,Itching,Rash,Swelling Medium 10/24/20 21 Echola Rash Medium 10/24/2021 Medications simvastatin (ZOCOR) 40 mg tablet 1 Active losartan (COZAAR) 25 mg tablet 1 Active aspirin 81 MG oral suspension Acti ve alendronate (FOSAMAX) 70 mg tablet alendronate 70 mg tablet Active Dexcom G6 On Call Pharmacy Technician misc USE DIRECTED TO MONITOR GLUCOSE 2 [...] DAY for 10 days Active influenza quadrivalent [id number] (FLULAVAL,FLUARI X,FLUZONE) 60 mcg (15 mcg x [...] 1 tablet (25 mg total) by mouth stage manager before breakfast 90 tablet 2 4 [...] hyperglycemia, with long-term current use of insulin ([facility]) Inject 3 Units under the skin 2 (two) times a day with meals 15 mL 6 4 Active LANTUS 100 unit/mL (3 mL) pen for injectionIndicat ions:Type 2 diabetes mellitus with hyperglycemia, with long-term current use of insulin ([facility]) Inject 14 Units under the skin stage manager before breakfast 15 mL 6 4 Active zinc acetate (Galzin) 25 mg (zinc) capsule Take 1 capsule by mouth daily Active Active Problems Problem Noted Date Diagnosed Date Hypertension associated with type 2 diabetes rayray litus 10/19/2024 Assessment & Plan (10/20/2024 11:54 AM ENERGY OPERATIONS VICE PRESIDENT): Chronic problem. Controlled on current losartan 25mg daily. Will update labs. Verified that she uses [employer]. Aware to check results/results letter in mychart. Will contact by phone if needed. Hyperlipidemia associated with type 2 diabetes chapo guerin 10/19/2024 Assessment & Plan (10/20/2024 11:53 AM ENERGY OPERATIONS VICE PRESIDENT): Chronic problem. No labs on file. Currently taking Simvastatin 40mg daily Will update labs. Verified that she uses mychart. Aware to check results/results letter in [employer]. Will contact by phone if needed. COVID-19 09/29/2023 Dyslipidemia 05/10/2022 Type 2 diabetes mellitus 05/10/2022 Assessment & Plan (10/20/2024 12:10 PM ENERGY OPERATIONS VICE PRESIDENT): Chronic problem. A1c near goal but worsened [...] mychart. Aware to check results/results letter in [employer]. Will contact by phone if needed. Discussed with Rosa Elena Washington Phillip: Strive for regular exercise (30min most days) [...] Alzheimer's disease 12/03/2021 Overview (07/15/2024): seeing neuro [facility] Memory impairment 08/28/2021 Bilateral hearing loss 02/05/2021 Osteoporosis 10/04/2020 Impacted cerumen of right ear 01/11/2020 Hyperlipidemia 01/11/2020 Fatigue 01/11/2020 Essential hypertension 01/11/2020 Resolved Problems Problem Noted Date Diagnosed Date Resolved Date Type 2 diabetes mellitus wit hout complication (CMS/HCC) 06/15/2021 10/19/2024 Type 1 diabetes mellitus 01/11/2020 Encounters Date Type Department Care Team Description 10/26/2024 Orders Only [facility] Medical [facility] Diabetes and Endocrinology [address] [place] [phone] Mary Alice Muro NP Type 2 diabetes mellitus with hyperglycemia, with long-term current use of insulin (HCC) (Primary Dx) 10/20/2024 12:15 PM ENERGY OPERATIONS VICE PRESIDENT Lab [facility] Outpatient Lab at [address] [phone] Hyperlipidemia associated with type 2 diabetes mellitus (HCC) (Primary Dx); Bilateral hearing loss; Essential hypertension 10/20/2024 11:30 AM ENERGY OPERATIONS VICE PRESIDENT Office Visit [facility] Diabetes and Endocrinology [address] [place] [phone] Mary Alice Muro NP Type 2 diabetes mellitus with hyperglycemia, with long-term current use of insulin (HCC) (Primary Dx); Hypertension associated with type 2 diabetes mellitus (HCC); Hyperlipidemia associated with type 2 diabetes mellitus (HCC) 10/20/2024 11:27 AM ENERGY OPERATIONS VICE PRESIDENT - 10/20/2024 11:59 PM ENERGY OPERATIONS VICE PRESIDENT Hospital Encounter [address] [address] Type 2 diabetes mellitus with hyperglycemia, with long-term current use of insulin (HCC); Hypertension associated with type 2 diabetes mellitus (HCC); Hyperlipidemia associated with type 2 diabetes mellitus (HCC) Discharge Disposition: Discharge to home or self care 10/20/2024 Telephone [facility] Medical [facility] Diabetes and Endocrinology [address] [place] [phone] Schleeper, Mary Alice R., HAT FINISHER from Last 3 Months Immunizations Name Administration Dates Next Due Influenza, Quadrivalent, Hig h Dose, Preservative Free, Intrr 07/17/2021 Influenza, Quadrivalent, Spl it, Preservative Free, Intramuscular 08/23/2020 Influenza, Trivalent, High D ose, Split, Preservative Free, Intramuscular 09/13/2019 Influenza, Unspecified 09/09/2022,09/13/2019 Pneumococcal Polysaccharide PPV23 03/14/2021, Sars-CoV-2, Unspecified 08/24/2021,02/06/2021, Tdap 01/12/2020 ZOSTER Recombinant 12/25/2020,12/07/2020, 020 Medical History Medical History Date Comments Hypertension Diabetes mellitus (HCC) Social History Tobacco Use Types Packs/Day Years [...] Orientation Straight 07/15/2024 9: 50 AM CDT Obstetrics History Last Filed Vital Signs Vital Sign Reading Time Taken Comments Blood Pressure 104/64 10/20/2024 11:27 AM ENERGY OPERATIONS VICE PRESIDENT Pulse 70 10/20/2024 11:27 AM ENERGY OPERATIONS VICE PRESIDENT Temperature - - Respiratory Rate 16 10/20/2024 11:27 AM ENERGY OPERATIONS VICE PRESIDENT Oxygen Saturation 96% 01/14/2024 10:16 AM ENERGY OPERATIONS VICE PRESIDENT Inhaled Oxygen Concentration - - Weight 68.5 kg (151 lb) 10/20/2024 11:27 AM ENERGY OPERATIONS VICE PRESIDENT Height 165.1 cm (5' 5 ) 10/20/2024 11:27 AM ENERGY OPERATIONS VICE PRESIDENT Body Mass Index 25.13 10/20/2024 11:27 AM ENERGY OPERATIONS VICE PRESIDENT Plan of Treatment Health Maintenance Due Date Last Done Comments Albumin Creatinine Ratio, Urine 1950 Breast Cancer Screening-Mammogram 1950 Colon Cancer Screening-Colonoscopy 1950 Hepatitis C Screening 1950 Osteoporosis Screening-Bone Density Scan 1950 Dilated Eye Exam 1950 Hepatitis B Screening 1968 Well Visit 65+ 2015 Pneumococcal vaccine 65+ (2 of 2 - PCV) 03/14/2022 03/14/2021, 10/17/2020 Covid-19 Vaccine (2023-2 5 season) 2024 09/28/2021, 08/24/2021, 02/06/2021, Additional history exists Influenza Vaccine (#1) 2024 , 07/17/2021, 08/23/2020, Additional history exists Hemoglobin A1C 04/19/2025 10/20/2024, 07/15/2024 Depression Screening 07/15/2025 07/15/2024 Fall Risk Assessment 07/15/2025 07/15/2024, 07/09/2023, 12/17/2022 Foot Exam 10/20/2025 10/20/2024 Lipid Panel 10/20/2025 10/20/2024 eGFR 10/20/2025 10/20/2024 DTaP/Tdap/Td Vaccine (2 - Td or Tdap) 01/12/2030 01/12/2020 Zoster Vaccine Completed 12/25/2020, 11/24, 10/27/2020 Procedures Procedure Name Priority Date/Time Associated Diagnosis Comments EGFR Routine 10/20/2024 12:22 PM ENERGY OPERATIONS VICE PRESIDENT Type 2 diabetes mellitus with hyperglycemia, with long-term current use of insulin (HCC) Hypertension associated with type 2 diabetes mellitus (HCC) LIPID PANEL Routine 10/20/2024 12:22 PM ENERGY OPERATIONS VICE PRESIDENT Type 2 diabetes mellitus with hyperglycemia, with long-term current use of insulin (HCC) Hyperlipidemia associated with type 2 diabetes mellitus (HCC) COMPREHENSIVE METABOLIC PANEL Routine 10/20/2024 12:22 PM ENERGY OPERATIONS VICE PRESIDENT Type 2 diabetes mellitus with hyperglycemia, with long-term current use of insulin (HCC) Hypertension associated with type 2 diabetes mellitus (HCC) POCT GLUCOSE Routine 10/20/2024 11:31 AM ENERGY OPERATIONS VICE PRESIDENT Type 2 diabetes mellitus with hyperglycemia, with long-term current use of insulin (HCC) POCT HEMOGLOBIN A1C Routine 10/20/2024 1 1:31 AM ENERGY OPERATIONS VICE PRESIDENT Type 2 diabetes mellitus with hyperglycemia, with long-term current use of insulin ([facility]) from Last 3 Months Results * eGFR (10/20/2024 12:22 PM ENERGY OPERATIONS VICE PRESIDENT) [facility] eGFR >90 >=60 mL/min/1. 73 m2 Comment: [...] of Race in Diagnosing Kidney Disease, JASN 202). The CKD-EPI equation should not be used for patients with unstable renal function and has not been validated in children and those over 70. Current interpretive data was last reviewed 2021. Blood 10/20/2024 12:2 2 PM ENERGY OPERATIONS VICE PRESIDENT 10/20/2024 8:10 PM ENERGY OPERATIONS VICE PRESIDENT us Mary Alice Muro HAT FINISHER LAB BLOOD ORDERABLES Sandra washington Result [facility] [address] [facility] Department [place] [address] * (ABNORMAL) Lipid panel (10/20/2024 12:22 PM ENERGY OPERATIONS VICE PRESIDENT) Cholesterol 138 30 - 199 mg/dL Comment: [...] NCEP Expert Panel. Circulation 2004;110:227 3. Raf Aparicio al. EDGAR Cardiol. 2020 March 24;5(5):540-548. doi: [...] revised on 2018. Chol/HDL ratio 2 CERNER Blood 10/20/2024 12:2 2 PM ENERGY OPERATIONS VICE PRESIDENT 10/20/2024 8:10 PM ENERGY OPERATIONS VICE PRESIDENT us Mary Alice Muro HAT FINISHER LAB BLOOD ORDERABLES Sandra washington Result [facility] [address] Department [place] [address] * Comprehensive metabolic panel (10/20/2024 12:22 PM ENERGY OPERATIONS VICE PRESIDENT) Sodium 140 135 - 145 mmol/L Potassium, pl 4.7 3.3 - 4.9 mmol/L [facility] Chloride 101 97 - 110 mmol/L [facility] CO2 24 22 - 32 mmol/L [facility] Anion gap 15 2 - 15 mmol/L [facility] BUN 15 6 - 25 mg/dL [facility] Creatinine 0.60 0.60 - 1.10 mg/dL [facility] Glucose 146 70 - 199 mg/dL [facility] Comment: Interpretive Data Fasting glucose >/= 126 [...] CERNER CH Blood 10/20/2024 12:2 2 PM ENERGY OPERATIONS VICE PRESIDENT 10/20/2024 8:10 PM ENERGY OPERATIONS VICE PRESIDENT us Mary Alice Muro HAT FINISHER LAB BLOOD ORDERABLES Sandra l Result [facility] [address] [address] Department [place] [address] * (ABNORMAL) POCT hemoglobin A1c (10/20/2024 11:31 AM ENERGY OPERATIONS VICE PRESIDENT) Hemoglobin A1C, POC 7.3 4.0 - 5.6 % Blood 10/20/2024 11:3 1 AM ENERGY OPERATIONS VICE PRESIDENT us Mary Alice Muro NP POINT OF CARE TEST ORDERA BLES Final Result * (ABNORMAL) POCT glucose (10/20/2024 11:31 AM ENERGY OPERATIONS VICE PRESIDENT) Glucose Blood, POC 179 mg/dL Blood 10/20/2024 11:3 1 AM ENERGY OPERATIONS VICE PRESIDENT us Mary Alice Muro NP POINT OF CARE TEST ORDERA BLES Final Result from Last 3 Months Insurance MEDICARE FOR LIFE Care Teams Director Camp Relationship Specialty Start Date End Date Kvng Ulloa MD 9 [facility] DEPT FAMILY MEDICINE [place] [id number] PCP - General Family Medicine 07/15/24
--- OUTSIDE RECORDS SUMMARY | 2024-11-23 09:20 | XMS_ITS | Encounter Summary ---
Author Organization [facility] Healthcare Address [address] [place] [address] Care Team Providers Care Occupational Health Physician Name Role Phone Kvng Ulloa MD Primary Care Provider [phone] Encounter Details Date Type Department Care Team (Late st Contact Info) Description 10/20/2024 Telephone [facility] Medical Group Diabetes and Endocrinology [facility] [place] [address] Mary Alice Muro, CRYOGENICS ENGINEER [address] [facility] [address] [place] [address] Social History Tobacco Use Types Packs/Day Years [...] encounter Miscellaneous Notes * Telephone Encounter - Joanie Chatman MA - 10/20/2024 12:22 PM CST Pt was in to see Mary Alice today and requested that her office note be faxed to [facility]. Office note faxed through faxcom to [phone] ALS WRITER documented in this encounter Plan of Treatment Not on file documented as of this encounter Visit Diagnoses Not on filedocumented in this encounter Care Teams Occupational Health Physician Relationship Specialty Start Date End Date Kvng Ulloa MD [address] [facility] [place] [address] PCP - General Family Medicine 07/15/24 documented as of this encounter
--- OUTSIDE RECORDS SUMMARY | 2024-11-23 09:20 | XMS_ITS | Encounter Summary ---
Author Organization [facility] Medical Group Address [address] [facility] [address] [place] [address] Care Team Providers Care Buyer Agent Name Role Phone Desiree Todd NP Primary Care Provider + Reason for Visit * Reason Comments Alzheimer's Disease Encounter Details Date Type Department Care Team (Late st Contact Info) Description 07/09/2023 10:15 AM CDT Office Visit [facility] Specialists [facility] [id number] [place] [address] [address], [place] [address] [place], [place] [id number] [place] [address] [address], [place] [address] Alzheimer's disease (HCC) (Primary Dx) Social History Tobacco Use Types Packs/Day Years Used Date Smoking Tobacco: Every Day Smokeless Tobacco: Never Tobacco Cessation:Ready to Q uit: Not Asked; Counseling Given: Not Answered Comments Unknown Sex and Gender Information Value Date Recorded Sex Assigned at Not on file Legal Sex Female 3:23 PM CDT Gender Identity Not on file Sexual Orientation Straight 07/15/2024 9: 50 AM CDT documented as of this encounter Last Filed Vital Signs Vital Sign Reading Time Taken Comments Blood Pressure 110/60 07/09/2023 10:09 AM CDT Pulse 77 07/09/2023 10:09 AM CDT Temperature - - Respiratory Rate 17 07/09/2023 10:09 AM CDT Oxygen Saturation 96% 07/09/2023 10:09 AM CDT Inhaled Oxygen Concentration - - Weight 73.5 kg (162 lb 0.6 oz) 07/09/2023 10:09 AM CDT Height 165.1 cm (5' 5 ) 07/09/2023 10:09 AM CDT Body Mass Index 26.96 07/09/2023 10:09 AM CDT documented in this encounter Ordered Prescriptions Prescription Sig Dispense Quantity Refills Last Filled Start Date End Date memantine (NAMENDA) 10 mg tabletIndications: Moderate to Severe Alzheimer's Type Dementia Take 1 tablet (10 mg total) by mouth 2 (two) times a day 180 tablet 1 07/09/2023 3 donepeziL (ARICEPT) 10 mg tabletIndications: Mild to Moderate Alzheimer's Type Dementia Take 1 tablet (10 mg total) by mouth nightly 90 tablet 1 07/09/2023 3 documented in this encounter Progress Notes * Yossi Nam II, MD - 07/09/2023 10:15 AM CDT Subjective: Patient ID: Rosa Elena Fisher is a 72 y.o. female with a dementia of the Alzheimer's type. Memory Loss The patient is seen today for re-evaluation and follow-up. The patient is accompanied by her daughter. The patient has since been moved to assisted living in [facility]. The patient has no complaints she feels that she is doing well. The daughter indicates that the patient has progressed and hashad a further decline in overall cognitive function. She is to be reminded to change her clothes orreminded to take a shower. Her memory loss continues to progress. No incontinence of bladder or bowel is reported at this time. No aggressive behavior or agitated behavior has been reported. No hallucinations have been reported. No new health issues are reported as well. Review of Systems Constitutional: Negative for activity [...] Status Awake and alert. Oriented only to person. Recalls 3 of 3 objects immediately. At 3 minutes recalls 0 of 3 objects. Recalls 0 of 3 objects with prompting. Unable to copy figure. Speech is normal. Ableto name objects, name parts of objects, repeat, read and write. Unable to follow commands. Difficulty spelling words backwards. MMSE score: 13. Does not know name of the hospital and what floor. She knows she is in [place] but thought she was in [place]. Does not know month date or year, or day of the week. She thinks it is winter. Unableto spell world backwards.. Cranial Nerves CN II: Visual allen full [...] and symmetric in all four extremities. Coordination Cmdhns-[id number], rapid alternating movements and tkmw-[id number] normal bilaterally without dysmetria. Gait Casual gait is normal including stance, stride, and arm swing. Physical Exam Vitals reviewed. Constitutional: General: She is awake. Appearance: Normal appearance. HENT: Head: Normocephalic and atraumatic. Nose: Nose normal. Eyes: General: Lids are normal. Extraocular Movements: Extraocular movements intact. Pupils: Pupils are equal, round, and reactive to light. Cardiovascular: Rate and Rhythm: Normal rate and regular rhythm. Pulmonary: Effort: Pulmonary effort is normal. Abdominal: Palpations: Abdomen is soft. Musculoskeletal: Cervical back: Normal range of motion. Right lower leg: No edema. Left lower leg: No edema. Skin: General: Skin is warm. Findings: No rash. Neurological: Mental Status: She is alert. Motor: Motor strength is normal. Coordination: Coordination is intact. Deep Tendon Reflexes: Reflexes are normal and symmetric. Psychiatric: Speech: Speech normal. Assessment/Plan: 1. Alzheimer's disease the patient's condition has continued to progress. On her last visit her MMSE was 19/30 today it was 13/30. The patient will be maintained on donepezil 10 mg per day and memantine 10 mg b.i.d. I did discuss the new medication Lecanumab with the patient's daughter unfortunately she would not be a candidate for this medication. She was encouraged to remain physically and socially active. She will be seen on follow-up in 6 months. Medications Current Outpatient Medications: alendronate (FOSAMAX) 70 mg tablet, alendronate 70 mg tablet, Disp: , Rfl: aspirin 81 MG oral suspension, , Disp: , Rfl: BD Elva 2nd Gen Pen Needle 32 gauge x 5/32 needle, USE DIRECTED WITH LANTUS AND NOVOLOG, Disp: , Rfl: Dexcom G6 Network Security Administrator misc, USE DIRECTED TO MONITOR GLUCOSE, Disp: , Rfl: Dexcom G6 Sensor device, USE DIRECTED TO TEST GLUCOSE, Disp: , Rfl: Dexcom G6 Transmitter device, as directed, Disp: , Rfl: donepeziL (ARICEPT) 10 mg tablet, Take 1 tablet (10 mg total) by mouth nightly, Disp: 90 tablet, Rfl: 0 insulin aspart (NovoLOG) 100 unit/mL (3 mL) pen for injection, Novolog Flexpen U-100 Insulin [id number] unit/mL (3 mL) subcutaneous, Disp: , Rfl: Jardiance 10 mg tablet, Take 1 tablet (10 mg total) by mouth every morning, Disp: , Rfl: LANTUS 100 unit/mL (3 mL) pen for injection, , Disp: , Rfl: losartan (COZAAR) 25 mg tablet, , Disp: , Rfl: memantine (NAMENDA) 10 mg tablet, Take 1 tablet (10 mg total) by mouth 2 (two) times a day, Disp: 180 tablet, Rfl: 0 simvastatin (ZOCOR) 40 mg tablet, , Disp: , Rfl: Bydureon BCise 2 mg/0.85 mL auto-injector, , Disp: , Rfl: Janumet XR 50-1,000 mg tablet, ER multiphase 24 hr, , Disp: , Rfl: History History reviewed. No pertinent family history. Active Ambulatory Problems Diagnosis Date Noted Alzheimer's disease, unspecified (HCC) 02/21/2022 Resolved Ambulatory Problems Diagnosis Date Noted No Resolved Ambulatory Problems Past Medical History: Diagnosis Date Diabetes mellitus (HCC) Hypertension Social History Tobacco Use Smoking status: Every Day Smokeless tobacco: Never Substance and Sexual Activity Drug use: None Sexual activity: None Alcohol Use: Not on file T ADMINISTRATOR documented in this encounter Plan of Treatment Not on file documented as of this encounter Visit Diagnoses Diagnosis Alzheimer's disease (HCC)- Primary Alzheimer's disease documented in this encounter Discontinued Medications Medication Sig Discontinue Reason Start Date End Da te memantine (NAMENDA) 10 mg tabletIndications:Modera te to Severe Alzheimer's Type Dementia Take 1 tablet (10 mg total) by mouth 2 (two) times a day Reorder 06/19/2023 07/09/2023 donepeziL (ARICEPT) 10 mg tabletIndications:Mild to Moderate Alzheimer's Type Dementia Take 1 tablet (10 mg total) by mouth nightly Reorder 06/19/2023 07/09/2023 documented as of this encounter Historical Medications * This list may reflect changes made after this encounter. BD Elva 2nd Gen Pen Needle 32 gauge x /32 needle USE DIRECTED WITH LANTUS AND NOVOLOG 06/15/2023 Jardiance 10 mg tablet Take 2.5 tablets (25 mg total) by mouth every morning 06/21/2023 07/15/2024 added in this encounter Care Teams Buyer Agent Relationship Specialty Start Date End Date eDsiree Todd NP 9 [facility] [place] [address] PCP - General Nurse Practitioner 08/29/21 07/14/24 documented as of this encounter
--- OUTSIDE RECORDS SUMMARY | 2024-11-23 09:20 | XMS_ITS | Encounter Summary ---
Author Organization [facility] Medical Group Address [address] [facility] [address] [place] [address] Care Team Providers Care Manufacturing Applications Engineer Name Role Phone Desiree Todd FEATHER CURLING MACHINE OPERATOR Primary Care Provider + Reason for Visit * Reason Comments Alzheimer's Disease Encounter Details Date Type Department Care Team (Late st Contact Info) Description 02/21/2022 11:00 AM CDT Office Visit [facility] [place] [facility] Specialists [facility] [address] [place] [address] [address], [place] [address] [place], [place] [id number] [place] [address] [address] [place] [address] Alzheimer's disease, unspecified (HCC) Social History Tobacco Use Types Packs/Day [...] Sign Reading Time Taken Comments Blood Pressure 120/58 02/21/2022 10:50 AM CDT Pulse 72 02/21/2022 10:50 AM CDT Temperature - - Respiratory Rate 12 02/21/2022 10:50 AM CDT Oxygen Saturation - - Inhaled Oxygen Concentration - - Weight 66 kg (145 lb 8.1 oz) 02/21/2022 10:50 AM CDT Height 157.5 cm (5' 2 ) 02/21/2022 10:50 AM CDT Body Mass Index 26.61 02/21/2022 10:50 AM CDT documented in this encounter Ordered Prescriptions Prescription Sig Dispense Quantity Refills Last Filled Start Date End Date memantine (NAMENDA) 5 mg tabletIndications: Moderate to Severe Alzheimer's Type Dementia Take 1 tablet (5 mg total) by mouth 2 (two) times a day 60 tablet 5 02/21/2022 05/30/2022 documented in this encounter Progress Notes * Yossi Nam II, MD - 02/21/2022 11:00 AM CDT Subjective: Patient ID: Rosa Elena Fisher is a 71 y.o. female with dementia of the Alzheimer's type. HPI The patient is seen today for a follow-up accompanied by her daughter. She is here for an earlier than scheduled follow-up. Sometime in December she had left her residence because she thought she wasgoing for an appointment that was not until the next day they found her she was 2 hours away from her residence. They also noted that she may have been forgetting to take her medications. They are moving her to a usp facility at this time and she is happy about going to that usp community. She otherwise has no other complaints. The daughter reports that she has good days and she hasbad days. No side effects from donepezil is reported she is currently on 10 mg per day and she has good appetite and denies abdominal pain diarrhea or constipation. Review of Systems Constitutional: Negative for activity change and fever. HENT: Negative for hearing loss, tinnitus and trouble swallowing. Eyes: Negative for visual disturbance. Respiratory: Negative for cough. Cardiovascular: Negative for palpitations. Gastrointestinal: Negative for constipation. Musculoskeletal: Negative for gait problem. Neurological: Negative. Negative for dizziness, tremors, seizures, syncope, facial asymmetry, speech difficulty, weakness, light-headedness, numbness and headaches. Psychiatric/Behavioral: Negative for agitation, behavioral problems and dysphoric mood. Objective: Neurological Exam Mental Status Awake and alert. Oriented only to person. Recalls 3 of 3 objects immediately. At 3 minutes recalls 1 of 3 objects. Recalls 1 of 3 objects with prompting. Speech is normal. Follows three-step commands. Difficulty spelling words backwards. The patient was unable to spell the word world backwards. Three-stage command was intact she did not know she was in [place] miguel could not give me the name of the hospital she was in or what floor she was in but she knew she was in a doctor's office. She knew it was January 2022 but did not know the date the day of the week. She knew it was spring.. Cranial Nerves CN II: Visual allen full [...] and symmetric in all four extremities. Coordination Aovxti-sl-zphe, rapid alternating movements and puph-ew-iypt normal bilaterally without dysmetria. Gait Casual gait is normal including stance, stride, and arm swing. Physical Exam Vitals reviewed. Constitutional: General: She is awake. Appearance: Normal appearance. She is well-developed. HENT: Head: Normocephalic and [...] Dementia of the Alzheimer's type the condition is progressing she will continue with donepezil 10 mg per day and she will be started on memantine 5 mg b.i.d. and if tolerated titrated to a dose of 10mg b.i.d. the potential side effects of headache agitation allergies stomach upset diarrhea and constipation were discussed. She will keep her appointment is scheduled for May of 2022. Medications Current Outpatient Medications: ??? alendronate (FOSAMAX) 70 mg tablet, alendronate 70 mg tablet, Disp: , Rfl: ??? aspirin 81 MG oral suspension, , Disp: , Rfl: ??? Bydureon BCise 2 mg/0.85 mL auto-injector, , Disp: , Rfl: ??? donepeziL (ARICEPT) 10 mg tablet, Take 1 tablet (10 mg total) by mouth nightly, Disp: 90 tablet, Rfl: 1 ??? insulin aspart (NovoLOG) 100 unit/mL (3 mL) pen for injection, Novolog Flexpen U-100 Insulin aspart 100 unit/mL (3 mL) subcutaneous, Disp: , Rfl: ??? losartan (COZAAR) 25 mg tablet, , Disp: , Rfl: ??? simvastatin (ZOCOR) 40 mg tablet, , Disp: , Rfl: History History reviewed. No pertinent family history. Active Ambulatory Problems Diagnosis Date Noted ??? No Active Ambulatory Problems Resolved Ambulatory Problems Diagnosis Date Noted ??? No Resolved Ambulatory Problems Past Medical History: Diagnosis Date ??? Diabetes mellitus (HCC) ??? Hypertension Social History Socioeconomic History ??? Marital status: Spouse name: Not on file ??? Number of children: Not on file ??? Years of education: Not on file ??? Highest education level: Not on file Occupational History ??? Not on file Tobacco Use ??? Smoking status: Current Every Day Smoker ??? Smokeless tobacco: Never Used Substance and Sexual Activity ??? Alcohol use: Not on file ??? Drug use: Not on file ??? Sexual activity: Not on file Other Topics Concern ??? Not on file Social History Narrative ??? Not on file Social Determinants of Health Financial Resource Strain: Not on file Food Insecurity: Not on file Transportation Needs: Not on file Physical Activity: Not on file Stress: Not on file Social Connections: Not on file Intimate Partner Violence: Not on file Housing Stability: Not on file documented in this encounter Plan of Treatment Not on file documented as of this encounter Visit Diagnoses Diagnosis Alzheimer's disease, unspecified (HCC) documented in this encounter Discontinued Medications Medication Sig Discontinue Reason Start Date End Da te SITagliptin-metformin (Janumet XR) 50-1,000 mg tablet, ER multiphase 24 hr Janumet XR 50 mg-1,000 mg tablet,extended release Alternate therapy 02/21/2022 documented as of this encounter Historical Medications * This list may reflect changes made after this encounter. Medication Sig Dispense Quantity Refills Last Filled Start D ate End Date Bydureon BCise 2 mg/0.85 mL auto-injector 01/09/2022 07/15/2024 added in this encounter Care Teams Manufacturing Applications Engineer Relationship Specialty Start Date End Date Desiree Todd NP [address] [facility] [place] [address] PCP - General Nurse Practitioner 08/29/21 07/14/24 documented as of this encounter
--- OUTSIDE RECORDS SUMMARY | 2024-11-23 09:20 | XMS_ITS | Encounter Summary ---
Author Organization [facility] Healthcare Address [address] [place] [address] Care Team Providers Care Agency Legal Counsel Name Role Phone Desiree Todd NP Primary Care Provider + Reason for Referral * Consultation (Routine) - Closed Specialty Diagnoses / Procedures Referred By Contac t Referred To Contact Endocrinology Diagnoses Alzheimer's disease (HCC) Yossi Nam II, MD [address] [place] [address] Phone: tel: fax: Sav Akins MD [address] [place], [place] [id number] Phone: tel: fax: Referral ID Status Reason Start Date Expiration Date V isits Requested Visits Authorized [id number] Closed Specialty Services Required 01/14/2024 02/12/2025 1 1 Question Answer Please select the performing region: [facility] Medical Group [[id number]] Please select the performing department: [facility] [[id number]] To provider: SAV AKINS [[id number]] # of visits: 1 Comments Wants to be seen in [place] BOTOMIST SUPERVISOR/INSTRUCTOR Reason for Visit * Reason Comments Alzheimer's disease (HCC) Encounter Details Date Type Department Care Team ([facility] Contact Info) Description 01/14/2024 10:15 AM PHLEBOTOMIST SUPERVISOR/INSTRUCTOR Office [place] [facility] [id number] [place] [phone] [place] [address] [facility] [address] [place] [address] Alzheimer's disease (HCC) (Primary Dx) Social History [...] Sign Reading Time Taken Comments Blood Pressure 120/50 01/14/2024 10:16 AM PHLEBOTOMIST SUPERVISOR/INSTRUCTOR Pulse 71 01/14/2024 10:16 AM PHLEBOTOMIST SUPERVISOR/INSTRUCTOR Temperature - - Respiratory Rate 17 01/14/2024 10:16 AM PHLEBOTOMIST SUPERVISOR/INSTRUCTOR Oxygen Saturation 96% 01/14/2024 10:16 AM PHLEBOTOMIST SUPERVISOR/INSTRUCTOR Inhaled Oxygen Concentration - - Weight 70.5 kg (155 lb 8.6 oz) 01/14/2024 10:16 AM PHLEBOTOMIST SUPERVISOR/INSTRUCTOR Height 165.1 cm (5' 5 ) 01/14/2024 10:16 AM PHLEBOTOMIST SUPERVISOR/INSTRUCTOR Body Mass Index 25.88 01/14/2024 10:16 AM PHLEBOTOMIST SUPERVISOR/INSTRUCTOR documented in this encounter Ordered Prescriptions Prescription Sig Dispense Quantity Refills Last Filled Start Date End Date donepeziL (ARICEPT) 10 mg tabletIndications: Mild to Moderate Alzheimer's Type Dementia Take 1 tablet (10 mg total) by mouth nightly 90 tablet 3 01/14/2024 memantine (NAMENDA) 10 mg tabletIndications: Moderate to Severe Alzheimer's Type Dementia Take 1 tablet (10 mg total) by mouth 2 (two) times a day 180 tablet 3 01/14/2024 4 documented in this encounter Progress Notes * Yossi Nam II, MD - 01/14/2024 10:15 AM CST Subjective: Patient ID: Rosa Elena Fisher is a 73 y.o. female with dementia of the Alzheimer's type. HPI The patient is seen for her scheduled follow-up visit. She was accompanied by her daughter. She is living in assisted living. The patient has no complaints. She indicates that she sleeps well her appetite is good. Her daughter reports that she is requiring more care she needs to be reminded to takea shower staff has to make sure that she is changing her clothes on a regular basis. So far there is no incontinence of bladder or bowel. She is otherwise independent in her gait. She is active in social activities at assisted living. She remains on memantine and donepezil without any side effects.There is no stomach upset diarrhea or loss of appetite there has been no reports of syncope there is no reports of agitation hallucinations paranoid ideations or wandering. Review of Systems Constitutional: Negative for activity [...] figure. Speech is normal. Ableto name objects, repeat, read and write. Follows one-step commands. MMSE score: 7. Disoriented to place and time. Unable to spell words correctly. Unable to do serial 7s. Cranial Nerves CN III, IV, : Extraocular movements intact bilaterally. Pupils equal round and reactive to light bilaterally. Physical Exam Vitals reviewed. Constitutional: General: She is awake. Appearance: Normal appearance. HENT: Head: Normocephalic and atraumatic. Nose: Nose normal. Eyes: Extraocular Movements: Extraocular movements intact. Pupils: Pupils [...] rash. Neurological: Mental Status: She is alert. Psychiatric: Speech: Speech normal. Assessment/Plan: 1. Dementia of the Alzheimer's type the condition is slowly progressing she will continue with memantine and donepezil and will be seen for a follow-up in 1 year. The patient's daughter has been instructed to call the office if there are new neurological issues that develop. All questions and concerns were answered on this visit. The daughter agrees with the current treatment plan. Medications Current Outpatient Medications: alendronate (FOSAMAX) 70 mg tablet, alendronate 70 mg tablet, Disp: , Rfl: aspirin 81 MG oral suspension, , Disp: , Rfl: BD Elva 2nd Gen Pen Needle 32 gauge x 5/32 needle, USE DIRECTED WITH LANTUS AND NOVOLOG, Disp: , Rfl: Dexcom G6 Unarmed Security Guard misc, USE DIRECTED TO MONITOR GLUCOSE, Disp: , Rfl: Dexcom G6 Sensor device, USE DIRECTED TO TEST GLUCOSE, Disp: , Rfl: Dexcom G6 Transmitter device, as directed, Disp: , Rfl: donepeziL (ARICEPT) 10 mg tablet, Take 1 tablet (10 mg total) by mouth nightly, Disp: 90 tablet, Rfl: 1 insulin aspart (NovoLOG) 100 unit/mL (3 mL) pen for injection, Novolog Flexpen U-100 Insulin slpsuj076 unit/mL (3 mL) subcutaneous, Disp: , Rfl: Janumet XR 50-1,000 mg tablet, ER multiphase 24 hr, , Disp: , Rfl: Jardiance 10 mg tablet, Take 1 tablet (10 mg total) by mouth every morning, Disp: , Rfl: LANTUS 100 unit/mL (3 mL) pen for injection, , Disp: , Rfl: losartan (COZAAR) 25 mg tablet, , Disp: , Rfl: memantine (NAMENDA) 10 mg tablet, Take 1 tablet (10 mg total) by mouth 2 (two) times a day, Disp: 180 tablet, Rfl: 1 simvastatin (ZOCOR) 40 mg tablet, , Disp: , Rfl: Bydureon BCise 2 mg/0.85 mL auto-injector, , Disp: , Rfl: History History reviewed. [...] activity: None Alcohol Use: Not on file BOTOMIST SUPERVISOR/INSTRUCTOR documented in this encounter Plan of Treatment Scheduled Referrals Name Type Priority Associated Diagnoses Order Schedule Ambulatory referral to Endocrinology Outpatient Referral Routine Alzheimer's disease (HCC) Expected: 01/28/2024 (Approximate), Expires: 01/14/2025 documented as of this encounter Visit Diagnoses Diagnosis Alzheimer's disease (HCC)- Primary Alzheimer's disease documented in this encounter Discontinued Medications Medication Sig Discontinue Reason Start Date End Da te donepeziL (ARICEPT) 10 mg tabletIndications:Mild to Moderate Alzheimer's Type Dementia Take 1 tablet (10 mg total) by mouth nightly Reorder 09/19/2023 01/14/2024 memantine (NAMENDA) 10 mg tabletIndications:Modera te to Severe Alzheimer's Type Dementia Take 1 tablet (10 mg total) by mouth 2 (two) times a day Reorder 09/19/2023 01/14/2024 documented as of this encounter Care Teams Agency Legal Counsel Relationship Specialty Start Date End Date Desiree Todd NP [address] [facility] [place] [address] PCP - General Nurse Practitioner 08/29/21 07/14/24 documented as of this encounter
--- OUTSIDE RECORDS SUMMARY | 2024-11-23 09:20 | XMS_ITS | Encounter Summary ---
Author Organization [facility] Healthcare Address [address] [place] [address] Care Team Providers Care Painter Spring Name Role Phone Kvng Ulloa MD Primary Care Provider [phone] Reason for Visit * Reason Comments Diabetes Type 2 * Consultation (Routine) - Closed Specialty Diagnoses / Procedures Referred By Contac t Referred To Contact Endocrinology Diagnoses Alzheimer's disease ([place] [address] [address] Phone: tel: [place]: [place] [address] [address] Phone: tel: fax: Referral ID Status Reason Start Date Expiration Date V isits Requested Visits Authorized [id number] Closed Specialty Services Required 01/14/2024 02/12/2025 1 1 Encounter Details Date Type Department Care Team (Late st Contact Info) Description 07/15/2024 10:00 AM CDT Office Visit [facility] [address] [place] [address] [place] [phone] [place] [id number] [address] Type 2 diabetes mellitus with hyperglycemia, with long-term current use of insulin (HCC) (Primary Dx) Social History Tobacco Use Types Packs/Day Years Used Date Smoking Tobacco: Every Day Smokeless Tobacco: Never AUDIT-C Answer Date Recorded [...] Sign Reading Time Taken Comments Blood Pressure 100/64 07/15/2024 9:55 AM CDT Pulse 74 07/15/2024 9:55 AM CDT Temperature - - Respiratory Rate 16 07/15/2024 9:55 AM CDT Oxygen Saturation - - Inhaled Oxygen Concentration - - Weight 69.8 kg (153 lb 12.8 oz) 07/15/2024 9:55 AM CDT Height 165.1 cm (5' 5 ) 07/15/2024 9:55 AM CDT Body Mass Index 25.59 07/15/2024 9:55 AM CDT documented in this encounter Patient Instructions * Patient Instructions* Quintin Akins MD - 07/15/2024 10:00 AM CDT Stop Lantus at night Take Lantus, 14 units in the morning only Take Novolog 3 units before Lunch and before dinner Stay on Jardiance 25 mg daily and Janumet twice a day documented in this encounter Ordered Prescriptions Prescription Sig Dispense Quantity Refills Last Filled Start Date End Date insulin aspart (NovoLOG) 100 unit/mL (3 mL) pen for injectionIndicatio ns:Type 2 diabetes mellitus with hyperglycemia, with long-term current use of insulin (HCC) Inject 3 Units under the skin 2 (two) times a day with meals 15 mL 6 07/15/2024 Janumet XR 50-1,000 mg tablet, ER multiphase 24 hrIndications:Type 2 diabetes mellitus with hyperglycemia, with long-term current use of insulin ([facility]) Take 50-1,000 mg by mouth 2 (two) times a day 180 tablet 2 07/15/2024 empagliflozin (JARDIANCE) 25 mg tabletIndications: Type 2 diabetes mellitus with hyperglycemia, with long-term current use of insulin ([facility]) Take 1 tablet (25 mg total) by mouth software technician before breakfast 90 tablet 2 07/15/2024 LANTUS 100 unit/mL (3 mL) pen for injectionIndicatio ns:Type 2 diabetes mellitus with hyperglycemia, with long-term current use of insulin ([facility]) Inject 14 Units under the skin software technician before breakfast Twice a day. Morning & Night. 10 Units am & Units pm 15 mL 6 07/15/2024 documented in this encounter Progress Notes * Quintin Akins MD - 07/15/2024 10:00 AM CDT Images from the original note were not included. Subjective/Objective Patient ID: Rosa Elena Fisher is a 73 y.o. female. Chief Complaint Diabetes Type 2 HPI New DM patient to the office. Consult requested by Yossi Nam II, MD for Diabetes Type 2 Diabetes complications and/or comorbidity includes : dementia She comes with her daughter, main care connector. She lives in assisted living, [facility] in [place], [place] Hba1c : Lab Results Component Value Date HGBA1C 6.6 07/15/2024 Current DM medications: Lantus, 10 units am and 8 units hs Novolog, 3 units with L only Janumet XR 50-1000 mg bid Jardiance 25 mg daily . BG monitoring : DEXCOM G6 CGM data from DEXCOM analyzed and interpreted , as follows : lower readings at night . Goes off andher daughter has to call Hypoglycemic events : was happening at night. Physical activity routine: Minimal, Dietary habits : lives in assisted living, eats 3 meals, B and L is the largest meal, light D , butsnacking in the afternoon. Assessment/Plan Diagnoses and all orders for this visit: Type 2 diabetes mellitus with hyperglycemia, with long-term current use of insulin (HCC) (E11.65, Z79.4) (Primary) Assessment & Plan: Chronic, with some hypoglycemia and hyperglycemia in [...] twice a day Continue CGM with Dexcom Orders: - Ambulatory referral to Endocrinology - POCT hemoglobin A1c - POCT glucose - LANTUS 100 unit/mL (3 mL) pen for injection; Inject 14 Units under the skin software technician before breakfast Twice a day. Morning & Night. 10 Units am & Units pm - empagliflozin (JARDIANCE) 25 mg tablet; Take 1 tablet (25 mg total) by mouth software technician beforebreakfast - Janumet XR 50-1,000 mg tablet, ER multiphase 24 hr; Take 50-1,000 mg by mouth 2 (two) times a day - insulin aspart (NovoLOG) 100 unit/mL (3 mL) pen for injection; Inject 3 Units under the skin 2 (two) times a day with meals documented in this encounter Miscellaneous Notes * Assessment & Plan Note - Quintin Akins MD - 07/15/2024 10:36 AM CDTAssociated Problem(s): Type 2 diabetes mellitus (HCC) Chronic, with some hypoglycemia and hyperglycemia in [...] twice a day Continue CGM with Dexcom documented in this encounter Plan of Treatment Not on file documented as of this encounter Procedures Procedure Name Priority Date/Time Associated Diagnosis Comments POCT HEMOGLOBIN A1C Routine 07/15/2024 9 :54 AM CDT Type 2 diabetes mellitus with hyperglycemia, with long-term current use of insulin ([facility]) POCT GLUCOSE Routine 07/15/2024 9:54 AM CDT Type 2 diabetes mellitus with hyperglycemia, with long-term current use of insulin ([facility]) documented in this encounter Results * (ABNORMAL) POCT glucose (07/15/2024 9:54 AM CDT) Glucose Blood, POC 187 mg/dL Comment:None Blood 07/15/2024 9:54 AM CDT Result Sergey Akins MD POINT OF CARE TEST ORDERABLES Fi nal Result * (ABNORMAL) POCT hemoglobin A1c (07/15/2024 9:54 AM CDT) Hemoglobin A1C, POC 6.6 4.0 - 5.6 % Comment:None Capillary blood 07/15/2024 9 :54 AM CDT Result Sergey Akins MD POINT OF CARE TEST ORDERABLES Fi nal Result documented in this encounter Visit Diagnoses Diagnosis Type 2 diabetes mellitus with hyperglycemia, with long-term current use of insulin ([facility])- Primary documented in this encounter Discontinued Medications Medication Sig Discontinue Reason Start Date End Da te Bydureon BCise 2 mg/0.85 mL auto-injector Patient Discharge 01/09/2022 07/15/2024 Jardiance 10 mg tablet Take 2.5 tablets (25 mg total) by mouth every morning 06/21/2023 07/15/2024 insulin aspart (NovoLOG) 100 unit/mL (3 mL) pen for injection 3 Units Once a day at Lunch. Reorder 07/15/2024 LANTUS 100 unit/mL (3 mL) pen for injection Twice a day. Morning & Night. 10 Units am & Units pm Reorder 05/10/2022 07/15/2024 Janumet XR 50-1,000 mg tablet, ER multiphase 24 hr Reorder 04/13/2022 07/15/2024 documented as of this encounter Historical Medications * This list may reflect changes made after this encounter. triamcinolone (KENALOG) 0.1 % cream APPLY A THIN LAYER TO THE AFFECTED AREA(S) BY TOPICAL ROUTE 2 TIMES PER DAY to areas on arms/legs sod picosulf-mag ox-citric ac (Clenpiq) 10 mg-3.5 gram- 12 gram/160 mL solution pneumococcal 23-valent (Pneumovax-23) 25 mcg/0.5 mL vaccine ADM 0.5ML IM UTD influenza quadrivalent [id number] (FLULAVAL,FLUARIX, FLUZONE) 60 mcg (15 mcg x 4)/0.5 mL syringe carbamide peroxide (Ear Drops, carbamide peroxide,) 6.5 % otic solution INSTILL 5 DROPS INTO AFFECTED right EAR(S) BY OTIC ROUTE 2 TIMES PER DAY for 10 days added in this encounter Orders Outpatient Referral Count Last Ordered Date Fir st Ordered Date AMB REFERRAL TO ENDOCRINOLOGY 1 07/15/2024 documented in this encounter Care Teams Painter Spring Relationship Specialty Start Date End Date Kvng Ulloa MD [address] [facility] [place] [address] PCP - General Family Medicine 07/15/24 documented as of this encounter
--- OUTSIDE RECORDS SUMMARY | 2024-11-23 09:20 | XMS_ITS | Encounter Summary ---
Author Organization [facility] Address [address] [place] [address] Care Team Providers Care Spray Painter Name Role Phone Unavailable Primary Care Provider Unavailabl e Reason for Visit * Reason Onset Date Comments New Patient Appointment 08/24/2021 Encounter Details Date Type Department Care Team (Late st Contact Info) Description 08/24/2021 Telephone [facility] [address] [facility] [place] [address] [place] [address] [place] [address] [address] [place], [place] [id number] New Patient Appointment Social History Tobacco Use Types Packs/Day Years Used Date Smoking Tobacco: Never Assessed Comments Unknown Sex and Gender Information Value Date Recorded Sex Assigned at Not on file Legal Sex Female 3:23 PM CDT Gender Identity Not on file Sexual Orientation Straight 07/15/2024 9: 50 AM CDT documented as of this encounter Miscellaneous Notes * Telephone Encounter - Ladarius Conn - 08/28/2021 10:09 AM CDT Pt declined to schedule appt Pt states [facility] is [place]. Pt is requesting a neurologist in [place] Records faxed back to PCP informing * Telephone Encounter - Ashanti Santamaria - 08/24/2021 3:29 PM CDT Received records referring patient to neuro for memory Records scanned Called patient lmom To return call Mailed new patient referred letter documented in this encounter Plan of Treatment Not on file documented as of this encounter Visit Diagnoses Not on filedocumented in this encounter
--- OUTSIDE RECORDS SUMMARY | 2024-11-23 09:20 | XMS_ITS | Encounter Summary ---
Author Organization [facility] Address [address] [place] [address] Care Team Providers Care Maternity Floor Supervisor Name Role Phone Desiree Todd NP Primary Care Provider + Reason for Referral * MRI/CAT/PET Scan (Routine) - Closed Specialty Diagnoses / Procedures Referred By Contac t Referred To Contact Radiology Diagnoses Alzheimer's disease (HCC) Procedures MRI [place] [address] [address] Phone: tel: fax: [address] [address] Referral ID Status Reason Start Date Expiration Date Visits Re quested Visits Authorized [id number] Closed 10/24/2021 11/23/2022 1 1 GER CHEMISTRY Reason for Visit * Reason Comments Memory Loss Encounter Details Date Type Department Care Team (Late st Contact Info) Description 10/24/2021 3:00 PM MANAGER CHEMISTRY Office Visit [facility] [address], [place] [address] [place] [address] [address] Alzheimer's disease (HCC) (Primary Dx) Social [...] Reading Time Taken Comments Blood Pressure 120/58 10/24/2021 2:51 PM MANAGER CHEMISTRY Pulse 76 10/24/2021 2:51 PM MANAGER CHEMISTRY Temperature - - Respiratory Rate 12 10/24/2021 2:51 PM MANAGER CHEMISTRY Oxygen Saturation - - Inhaled Oxygen Concentration - - Weight 63.4 kg (139 lb 12.4 oz) 10/24/2021 2:51 PM MANAGER CHEMISTRY Height 157.5 cm (5' 2 ) 10/24/2021 2:51 PM MANAGER CHEMISTRY Body Mass Index 25.56 10/24/2021 2:51 PM MANAGER CHEMISTRY documented in this encounter Ordered Prescriptions Prescription Sig Dispense Quantity Refills Last Filled Start Date End Date donepeziL (ARICEPT) 5 mg tablet Take 1 tablet (5 mg total) by mouth nightly 30 tablet 5 10/24/2021 2 documented in this encounter Progress Notes * Yossi Nam II, MD - 10/24/2021 3:00 PM CST [facility] Neurology Rosa Elena Fisher CONSULTATION 10/24/2021 OV: Consultation at the request of Desiree Todd NP for an opinion regarding memory loss. I have personally taken a history, examined the patient and determined the assessment and plan as outlined below. Chief Complaint. Chief Complaint Patient presents with ??? Memory Loss HPI. Patient is a 70 y.o. female patient of Desiree Edge NP This patient is seen for evaluation of memory loss. She is accompanied by her daughter . The daughter provides most of the medical history and she indicates that there may have been some memory issues over the past 2-3 years but it has become more prominent over the past 3-6 months. The patient can go into a room and forget what she went into that room for. She has more difficulty operating the remote control on the television set. She gets the days confused the dates confused. She has for gotten her appointments. She can be told 1 thing and several minutes later forget what she was told. She has had difficulty with directions when driving in addition she has had issues with managing her finances she has over paid her bills she has difficulty transferring money from 1 account to the other. All this came on gradually without any triggers. Other than the memory loss there have been no other complaints. I have reviewed the notes of her referring primary care provider including her the blood work. She is not complaining of any trouble sleeping. There is no loss of appetite thereis no incontinence of bladder or bowel she is independent in her self-care and gait. There is no headache blindness double vision slurred speech dysphagia hearing loss tinnitus vertigo paralysis sensory loss gait disturbance or other systemic complaints. Past Medical History: Diagnosis Date ??? Diabetes mellitus (HCC) ??? Hypertension No past surgical history on file. HOME MEDICATIONS : alendronate (FOSAMAX) 70 mg tablet aspirin 81 MG oral suspension insulin aspart (NovoLOG) 100 unit/mL (3 mL) pen for injection losartan (COZAAR) 25 mg tablet simvastatin (ZOCOR) 40 mg tablet SITagliptin-metformin (Janumet XR) 50-1,000 mg tablet, ER multiphase 24 hr Allergies Allergen Reactions ??? Tree Nut Hives, Itching, Rash and Swelling ??? Gentry Rash Social History Tobacco Use ??? Smoking status: Current Every Day Smoker ??? Smokeless tobacco: Never Used Substance Use Topics ??? Alcohol use: Not on file Family History: This is positive for diabetes and heart disease Review of Systems Constitutional: Negative for chills, decreased appetite, diaphoresis, fever, malaise/fatigue, nightsweats, weight gain and weight loss. HENT: Negative for congestion, hearing loss, hoarse voice, nosebleeds, sore throat and tinnitus. Eyes: Negative for blurred vision, double vision and visual halos. Cardiovascular: Negative for chest pain, claudication, dyspnea on exertion, irregular heartbeat, near-syncope, palpitations and syncope. Respiratory: Negative for cough, shortness of breath, sleep disturbances due to breathing and snoring. Endocrine: Negative for cold intolerance, heat intolerance, polydipsia, polyphagia and polyuria. Hematologic/Lymphatic: Negative for adenopathy and bleeding problem. Does not bruise/bleed easily. Skin: Negative for rash. Musculoskeletal: Negative for back pain, falls, joint pain, joint swelling, muscle cramps, muscle weakness, myalgias, neck pain and stiffness. Gastrointestinal: Negative for abdominal pain, bowel incontinence, constipation, diarrhea, dysphagia, jaundice, nausea and vomiting. Genitourinary: Negative for bladder incontinence, decreased libido, dysuria, flank pain, frequency,hematuria, hesitancy and incomplete emptying. Neurological: Negative for aphonia, brief paralysis, difficulty with concentration, disturbances incoordination, excessive daytime sleepiness, dizziness, focal weakness, headaches, light-headedness,loss of balance, numbness, paresthesias, seizures, sensory change, tremors, vertigo and weakness. Psychiatric/Behavioral: Positive for memory loss. Negative for altered mental status, depression, hallucinations, substance abuse and suicidal ideas. The patient does not have insomnia and is not nervous/anxious. Allergic/Immunologic: Negative for environmental allergies and HIV exposure. Physical Exam Vitals reviewed. Constitutional: Appearance: Normal appearance. She is well-developed. HENT: Head: Normocephalic and atraumatic. Eyes: Extraocular Movements: EOM normal. Conjunctiva/sclera: Conjunctivae normal. Pupils: Pupils are equal, [...] is warm. Neurological: Mental Status: She is alert and oriented to person, place, and time. Coordination: Ekftyi-Xhyl-Lxxlpm Test normal. Gait: Gait is intact. Deep Tendon Reflexes: Strength normal. Reflex Scores: Tricep reflexes are 1+ on the right side and 1+ on the left side. Bicep reflexes are 1+ on the right side and 1+ on the left side. Brachioradialis reflexes are 1+ on the right side and 1+ on the left side. Patellar reflexes are 1+ on the right side and 1+ on the left side. Achilles reflexes are 1+ on the right side and 1+ on the left side. Psychiatric: Speech: Speech normal. Neurologic Exam Mental Status Oriented to person, place, and time. Oriented to person. Disoriented to city and area. Disoriented to year, day and season. Oriented to month and date. Registration: recalls 3 of 3 objects. Recall at 5 minutes: recalls 1 of 3 objects. Follows 3 step commands. Attention: decreased. Concentration: decreased. Speech: speech is normal Level of consciousness: alert Able to name object. Able to read. Able to repeat. Able to write. Normal comprehension. 1/5 serial 7. Unable to copy the Burden figure. MMSE 19/30 Impaired abstract thinking. She knew mike was the current president but could not remember who came before Mike. Cranial Nerves CN II Visual allen full to confrontation. CN III, IV, Pupils are equal, round, and reactive to light. Extraocular motions are normal. Right pupil: Shape: regular. Reactivity: brisk. Left pupil: Shape: regular. Reactivity: brisk. CN III: no CN III palsy CN : no CN palsy Nystagmus: none Diplopia: none Ophthalmoparesis: none CN V Facial sensation intact. CN VII Facial expression full, symmetric. CN VIII CN VIII normal. Hearing: intact CN IX, X CN IX normal. CN X normal. Palate: asymmetric CN XI CN XI normal. Right sternocleidomastoid strength: normal Left sternocleidomastoid strength: normal CN XII CN XII normal. Tongue: not atrophic Motor Exam Muscle bulk: normal Overall muscle tone: normal Right arm pronator drift: absent Left arm pronator drift: absent Right leg tone: normal Left leg tone: normal Strength Strength 5/5 throughout. Sensory Exam Light touch normal. Pinprick normal. Gait, Coordination, and Reflexes Gait Gait: normal Coordination Finger to nose coordination: normal Tremor Resting tremor: absent Intention tremor: absent Action tremor: absent Reflexes Right brachioradialis: 1+ Left brachioradialis: 1+ Right biceps: 1+ Left biceps: 1+ Right triceps: 1+ Left triceps: 1+ Right patellar: 1+ Left patellar: 1+ Right achilles: 1+ Left achilles: 1+ Right automatic lehr operator: 1+ Left automatic lehr operator: 1+ Right plantar: normal Left plantar: normal Right ankle clonus: absent Left ankle clonus: absent Impression and Recommendations. Patient presents with memory loss I suspect she has early dementia of the Alzheimer's type. B12 folate methylmalonic acid T4 TSH will be requested. MRI of the brain without contrast will be requested. She will be started on donepezil 5 mg at bedtime with the heavy is meal of the day the side effects of stomach upset diarrhea and loss of appetite were discussed. Follow-up is planned in 1 month once the tests are completed I will be in touch with the patient's daughter with the results of her tests. All questions were answered the patient and daughter agrees with the current plan of treatment. Yossi Nam MD GER CHEMISTRY documented in this encounter Plan of Treatment Not on file documented as of this encounter Results * MRI Brain WO Contrast (11/06/2021 9:46 AM MANAGER CHEMISTRY) Anatomical Region Laterality Modality Head and Neck N/A Magnetic Resonan ce 11/06/2021 12:3 6 PM MANAGER CHEMISTRY Narrative 11/06/2021 12:44 PM MANAGER CHEMISTRY EXAM DESCRIPTION: ?? MRI BRAIN WO CONTRAST [...] D: ??11/06/2021 12:44 PM T: Report ID: [id number] Reading Location: ??[id number] Procedure Note Omar Vasquez MD - 11/06/2021 [...] - Electronically signed by Omar Vasquez M.D. T: Report ID: [id number] Reading Location: [id number] Yossi Nam II, MD IM MRI PROCEDURES Final Res ult * Folate (10/24/2021 3:42 PM MANAGER CHEMISTRY) Folic acid 17.5 >=5.0 ng/mL YASEMIN Comment:Hemolysis present. R esults may be affected. Blood 10/24/2021 3:42 PM MANAGER CHEMISTRY 10/24/2021 8:49 PM MANAGER CHEMISTRY us Yossi Nam II, MD LAB BLOOD ORDERABLES Final R esult Performing Organization Address [facility] Co de Phone Number YASEMIN OSWALD [phone] [facility] [employer] [place] [address] * Vitamin B12 (10/24/2021 3:42 PM MANAGER CHEMISTRY) Vitamin B12 633 230 - 1,250 pg/mL [facility] Blood 10/24/2021 3:42 PM MANAGER CHEMISTRY 10/24/2021 8:49 PM MANAGER CHEMISTRY Yossi Nam II, MD LAB BLOOD ORDERABLES Final R esult Performing Organization Address [facility] de Phone Number YASEMIN [phone] [place] [address] * TSH reflex to free T4 (10/24/2021 3:42 PM MANAGER CHEMISTRY) Pathologist [facility] TSH 0.85 0.30 - 4.20 mcIUnit/mL [facility] Blood 10/24/2021 3:42 PM MANAGER CHEMISTRY 10/24/2021 8:49 PM MANAGER CHEMISTRY Yossi Nam II, MD LAB BLOOD ORDERABLES Final [facility] Performing Organization Address [facility] de Phone Number YASEMIN [address] [address] [facility] [employer] [place] [address] * Methylmalonic acid, serum (10/24/2021 3:42 PM MANAGER CHEMISTRY) Pathologist [facility] MMA 0.17 <=0.40 nmol/mL [facility] Comment: ADDITIONAL INFORMATION This test was developed and its performance characteristics determined by [facility] in a manner consistent with CLIA requirements. This test has not been cleared or approved by the U.S. Food and Drug Administration. Test Performed by: [facility] - [address] [address] Notary Public: Kirk Juarez M.D. Ph.D.; CLIA# [id number] Blood 10/24/2021 3:42 PM MANAGER CHEMISTRY 10/24/2021 8:49 PM MANAGER CHEMISTRY us Yossi Nam II, MD LAB BLOOD ORDERABLES Final R esult Performing Organization Address City/State/ZIP Co ok Phone Number YASEMIN [phone] [address] [facility] [place] [address] documented in this encounter Visit Diagnoses Diagnosis Alzheimer's disease (HCC)- Primary Alzheimer's disease Alzheimer's disease (HCC) Alzheimer's disease documented in this encounter Historical Medications * This list may reflect changes made after this encounter. alendronate (FOSAMAX) 70 mg tablet alendronate 70 mg tablet aspirin 81 MG oral suspension losartan (COZAAR) 25 mg tablet 09/18/2021 simvastatin (ZOCOR) 40 mg tablet 09/18/2021 insulin aspart (NovoLOG) 100 unit/mL (3 mL) pen for injection 3 Units Once a day at Lunch. 4 SITagliptin-metf ormin (Janumet XR) 50-1,000 mg tablet, ER multiphase 24 hr Janumet XR 50 mg-1,000 mg tablet,extended release 2 added in this encounter Care Teams Maternity Floor Supervisor Relationship Specialty Start Date End Date Desiree Todd NP [address] [place] [address] PCP - General Nurse Practitioner 08/29/21 07/14/24 documented as of this encounter
--- OUTSIDE RECORDS SUMMARY | 2024-11-23 09:20 | XMS_ITS | Encounter Summary ---
Author Organization [facility] Address [address] [place] [address] Care Team Providers Care Reimbursement Spec Name Role Phone Desiree Todd CINDER BLOCK MAKER Primary Care Provider + Encounter Details Date Type Department Care Team (Late st Contact Info) Description 10/24/2021 3:45 PM RN X RAY Lab [facility] [id number] [place] [address] Yossi Nam II, MD [address] [place] [address] [address], [place] [address] Alzheimer's disease (HCC) Discharge Disposition: Discharge to [...] AM CDT documented as of this encounter Discharge Disposition Disposition Code Departure Means Destination Discharge to home or self care documented in this encounter Plan of Treatment Not on file documented as of this encounter Procedures Procedure Name Priority Date/Time Associated Diagnosis Comments THYROID FUNCTION CASCADE Routine 10/24/2021 3:42 PM RN X RAY Alzheimer's disease (HCC) METHYLMALONIC ACID, SERUM Routine 10/24/2021 3:42 PM RN X RAY Alzheimer's disease (HCC) FOLATE Routine 10/24/2021 3:42 PM RN X RAY Alzheimer's disease (HCC) VITAMIN B12 Routine 10/24/2021 3:42 PM RN X RAY Alzheimer's disease (HCC) documented in this encounter Results * Methylmalonic acid, serum (10/24/2021 3:42 PM RN X RAY) Pathologist [facility] MMA 0.17 <=0.40 nmol/mL [facility] Comment: ADDITIONAL INFORMATION This test was developed and its performance characteristics determined by [facility] in a manner consistent with CLIA requirements. This test has not been cleared or approved by the U.S. Food and Drug Administration. Test Performed by: [place] [address] Dietitian Assistant: Kirk Juarez M.D. Ph.D.; CLIA# [id number] Blood 10/24/2021 3:42 PM RN X RAY 10/24/2021 8:49 PM RN X RAY Yossi Nam II, MD LAB BLOOD ORDERABLES Final R esult Performing Organization Address [facility] Co de Phone Number YASEMIN [phone] [place] [address] * TSH reflex to free T4 (10/24/2021 3:42 PM RN X RAY) Pathologist [facility] TSH 0.85 0.30 - 4.20 mcIUnit/mL [facility] Blood 10/24/2021 3:42 PM RN X RAY 10/24/2021 8:49 PM RN X RAY Yossi Nam II, MD LAB BLOOD ORDERABLES Final R esult Performing Organization Address [facility] Co de Phone Number [facility] [address] [facility] [place] [address] * Vitamin B12 (10/24/2021 3:42 PM RN X RAY) Vitamin B12 633 230 - 1,250 pg/mL [facility] Blood 10/24/2021 3:42 PM RN X RAY 10/24/2021 8:49 PM RN X RAY Yossi Nam II, MD LAB BLOOD ORDERABLES Final R esult Performing Organization Address City/[facility] Co de Phone Number [facility] [address] [facility] [employer] [place], [place] [id number] * Folate (10/24/2021 3:42 PM RN X RAY) Folic acid 17.5 >=5.0 ng/mL [facility] Comment:Hemolysis present. R esults may be affected. Blood 10/24/2021 3:42 PM RN X RAY 10/24/2021 8:49 PM RN X RAY Yossi Nam II, MD LAB BLOOD ORDERABLES Final R esult Performing Organization Address [facility] Co de Phone Number [facility] [phone] [place] [address] documented in this encounter Visit Diagnoses Diagnosis Alzheimer's disease (HCC) Alzheimer's disease documented in this encounter Care Teams Reimbursement Spec Relationship Specialty Start Date End Date Desiree Todd NP [address] [place] [address] PCP - General Nurse Practitioner 08/29/21 07/14/24 documented as of this encounter
--- OUTSIDE RECORDS SUMMARY | 2024-11-23 09:20 | XMS_ITS | Encounter Summary ---
Author Organization [facility] Address [address] [facility] [address] [place] [address] Care Team Providers Care Patient Support Representative Name Role Phone Desiree Todd NP Primary Care Provider + Reason for Visit * Reason Comments Alzheimer's Disease Encounter Details Date Type Department Care Team (Late st Contact Info) Description 12/17/2022 2:15 PM BELLSTAFF Office Visit [facility] [address] [facility] [address] [address] [place] [address] [facility] [address] [address] Alzheimer's disease (HCC) (Primary Dx) [...] Sign Reading Time Taken Comments Blood Pressure 108/60 12/17/2022 2:05 PM BELLSTAFF Pulse 71 12/17/2022 2:05 PM BELLSTAFF Temperature - - Respiratory Rate 17 12/17/2022 2:05 PM BELLSTAFF Oxygen Saturation 95% 12/17/2022 2:05 PM BELLSTAFF Inhaled Oxygen Concentration - - Weight 69 kg (152 lb 1.9 oz) 12/17/2022 2:05 PM BELLSTAFF Height 165.1 cm (5' 5 ) 12/17/2022 2:05 PM BELLSTAFF Body Mass Index 25.31 12/17/2022 2:05 PM BELLSTAFF documented in this encounter Ordered Prescriptions Prescription Sig Dispense Quantity Refills Last Filled Start Date End Date memantine (NAMENDA) 10 mg tabletIndications: Moderate to Severe Alzheimer's Type Dementia Take 1 tablet (10 mg total) by mouth 2 (two) times a day 180 tablet 1 12/17/2022 3 donepeziL (ARICEPT) 10 mg tabletIndications: Mild to Moderate Alzheimer's Type Dementia Take 1 tablet (10 mg total) by mouth nightly 90 tablet 1 12/17/2022 3 documented in this encounter Progress Notes * Yossi Nam II, MD - 12/17/2022 2:15 PM CST Subjective: Patient ID: Rosa Elena Fisher is a 72 y.o. female with dementia of the Alzheimer's type. Memory Loss The patient returns today for re-evaluation and follow-up. The patient is accompanied by her daughter she is since been moved to assisted living because she needs to be reminded to eat and her medications have to be dispense for her. She otherwise feels that there are no complaints but definitely she has progressed because of the changes described above. She is on memantine 5 mg b.i.d. donepezil 10 mg per day without any side effects. She denies feeling depressed. She tells me she takes walks in the facility that she socially active. She has no other physical complaints such as headache loss of vision double vision slurred speech dysphagia hearing loss tinnitus vertigo paralysis or sensory loss. There are no other physical complaints. There is a family history of Alzheimer's disease. Review of Systems Constitutional: Negative for activity [...] Recalls 1 of 3 objects with prompting. Unable to copy figure. Speech is normal. Ableto name objects, name parts of objects, repeat, read and write. Follows three-step commands. 3/5 spelling world backwards. MMSE score: 19. She did not know the day of the week, month, year, date. She knows it's winter. She did not know the name of the hospital. She knows she is in [place]. She did not know the city. She knows she is on the first floor.. Cranial Nerves CN II: Visual allen full [...] and symmetric in all four extremities. Coordination Cdbbjp-be-[id number], rapid alternating movements and ftzv-vn-holq normal bilaterally without dysmetria. Gait Casual gait [...] of the Alzheimer's type the condition has progressed I will increase memantine to 10 mg b.i.d. and continue with donepezil 10 mg per day with a follow-up planned in 6 months. She was encouraged to remain physically socially and mentally active. Medications Current Outpatient Medications: alendronate (FOSAMAX) 70 mg tablet, alendronate 70 mg tablet, Disp: , Rfl: aspirin 81 MG oral suspension, , Disp: , Rfl: Bydureon BCise 2 mg/0.85 mL auto-injector, , Disp: , Rfl: Dexcom G6 [employer]ence [employer] Teacher misc, USE DIRECTED TO MONITOR GLUCOSE, Disp: , Rfl: Dexcom G6 Sensor device, USE DIRECTED TO TEST GLUCOSE, Disp: , Rfl: Dexcom G6 Transmitter device, as directed, Disp: , Rfl: insulin aspart (NovoLOG) 100 unit/mL (3 mL) pen for injection, Novolog Flexpen U-100 Insulin avqtei546 unit/mL (3 mL) subcutaneous, Disp: , Rfl: Janumet XR 50-1,000 mg tablet, ER multiphase 24 hr, , Disp: , Rfl: LANTUS 100 unit/mL (3 mL) pen for injection, , Disp: , Rfl: losartan (COZAAR) 25 mg tablet, , Disp: , Rfl: memantine (NAMENDA) 5 mg tablet, Take 1 tablet (5 mg total) by mouth 2 (two) times a day, Disp: 180tablet, Rfl: 1 simvastatin (ZOCOR) 40 mg tablet, , Disp: , Rfl: donepeziL (ARICEPT) 10 mg tablet, Take 1 tablet (10 mg total) by mouth nightly, Disp: 90 tablet, Rfl: 1 History History reviewed. No pertinent family history. Active Ambulatory Problems Diagnosis Date Noted Alzheimer's disease, unspecified (HCC) 02/21/2022 Resolved Ambulatory Problems Diagnosis Date Noted No Resolved Ambulatory Problems Past Medical History: Diagnosis Date Diabetes mellitus (HCC) Hypertension Social History Tobacco Use Smoking status: Every Day Smokeless tobacco: Never Substance and Sexual Activity Drug use: None Sexual activity: None Alcohol Use: Not on file STAFF documented in this encounter Plan of Treatment Not on file documented as of this encounter Visit Diagnoses Diagnosis Alzheimer's disease (HCC)- Primary Alzheimer's disease documented in this encounter Discontinued Medications Medication Sig Discontinue Reason Start Date End Da te memantine (NAMENDA) 5 mg tabletIndications:Modera te to Severe Alzheimer's Type Dementia Take 1 tablet (5 mg total) by mouth 2 (two) times a day Dose adjustment 05/30/2022 12/17/2022 donepeziL (ARICEPT) 10 mg tabletIndications:Mild to Moderate Alzheimer's Type Dementia Take 1 tablet (10 mg total) by mouth nightly Reorder 05/30/2022 12/17/2022 documented as of this encounter Care Teams Patient Support Representative Relationship Specialty Start Date End Date Desiree Todd NP [address] [facility] [place] [address] PCP - General Nurse Practitioner 08/29/21 07/14/24 documented as of this encounter
--- OUTSIDE RECORDS SUMMARY | 2024-11-23 09:20 | XMS_ITS | Encounter Summary ---
Author Organization [facility] Healthcare Address [address] [place] [address] Care Team Providers Care Drier Take Off Tender Name Role Phone Kvng Ulloa MD Primary Care Provider [phone] Reason for Visit * Reason Onset Date Comments Forms/questionnaires 08/17/2024 Home Care D elivered Encounter Details Date Type Department Care Team (Late st Contact Info) Description 08/17/2024 Telephone [facility] [id number] [place] [id number] [place] [id number] [place] [address] Forms/questionnaires (Home Care [facility]) Social History Tobacco Use Types Packs/Day Years [...] Telephone Encounter - Joanie Chatman MA - 08/25/2024 10:47 AM CDT Form faxed to [facility] along with last office note through faxcom to [phone]. Medical records request also received from [facility]. Office note faxed along with this request through faxcom to [phone]. informed and offered a Dexcom G6 sample. She agreed and stated she will be in today to pick it up. Dexcom G6 sample placed at the front end alignment specialist in the [place] office ready for sampler pickup. * Telephone Encounter - Mary Alice Muro NP - 08/25/2024 9:17 AM CDT signed * Telephone Encounter - Joanie Chatman MA - 08/25/2024 7:28 AM CDT Form was placed in [facility] Rx folder in [facility]. Dr. Akins out of the office. Next appt with Mary Alice on 11/03/24. Form completed and placed on Mary Alice's desk for review and signature. * Telephone Encounter - Jung Abdul - 08/24/2024 9:39 AM CDT Follow Up Call Caller: /daughter Reason: The patient's daughter called the office about the previous task and I don't see the paperwork in the patient's chart. The caller is requesting a call back from the office. * Telephone Encounter - Luz Elena Chaparro - 08/19/2024 10:16 AM CDT Incoming Call Caller: Sanju/[facility] Reason: On 08/09 physician order form for diabetic supplies was fax over and Sanju calling to checkj the status of form. * Telephone Encounter - Luz Elena Chaparro - 08/17/2024 2:22 PM CDT Incoming Call NINA: 07/15/24 FR NOV: 11/03/24 DS Caller: Patient daughter /[phone] Reason:daughter called office stated that [facility] fax over paper work request for patient medical records, provider note, are doctor order for patient Dexcom in order for patient get sensor. stated that if doctor has any question please contact her. documented in this encounter Plan of Treatment Not on file documented as of this encounter Visit Diagnoses Not on filedocumented in this encounter Care Teams Drier Take Off Tender Relationship Specialty Start Date End Date Kvng Ulloa MD [address] [facility] [place] [address] PCP - General Family Medicine 07/15/24 documented as of this encounter
--- OUTSIDE RECORDS SUMMARY | 2024-11-23 09:20 | XMS_ITS | Encounter Summary ---
Author Organization [facility] Address [address] [facility] [address] [place] [address] Care Team Providers Care Active Directory Administrator Name Role Phone Desiree Todd NP Primary Care Provider + Reason for Visit * Reason Comments Alzheimer's Disease Encounter Details Date Type Department Care Team (Late st Contact Info) Description 11/29/2021 2:15 PM OFFLINE CUTTER [facility] [address] [facility] [address], [place] [address] [place] [address] [facility] [address], [place] [address] Alzheimer's disease (HCC) (Primary Dx) [...] Sign Reading Time Taken Comments Blood Pressure 130/68 11/29/2021 2:20 PM OFFLINE CUTTER Pulse 72 11/29/2021 2:20 PM OFFLINE CUTTER Temperature - - Respiratory Rate 12 11/29/2021 2:20 PM OFFLINE CUTTER Oxygen Saturation - - Inhaled Oxygen Concentration - - Weight 64.7 kg (142 lb 8.4 oz) 11/29/2021 2:20 P M OFFLINE CUTTER Height 157.5 cm (5' 2 ) 11/29/2021 2:20 PM OFFLINE CUTTER Body Mass Index 26.07 11/29/2021 2:20 PM OFFLINE CUTTER documented in this encounter Ordered Prescriptions Prescription Sig Dispense Quantity Refills Last Filled Start Date End Date donepeziL (ARICEPT) 10 mg tabletIndications: Mild to Moderate Alzheimer's Type Dementia Take 1 tablet (10 mg total) by mouth nightly 90 tablet 1 11/29/2021 2 documented in this encounter Progress Notes * Yossi Nam II, MD - 11/29/2021 2:15 PM CST Subjective: Patient ID: Rosa Elena Fisher is a 71 y.o. female with dementia of the Alzheimer's type. HPI The patient is seen today for re-evaluation and follow-up. The patient is accompanied by her daughter. The patient underwent an MRI of the brain that showed no acute structural brain abnormalities. There is atrophy predominantly of the temporal and parietal lobes and microvascular disease. I personally independently reviewed the films and showed the films to the family. B12 folate methylmalonic acid TSH and reflex T4 were within normal limits. She is tolerating donepezil 5 mg per day. She has good appetite no stomach upset no diarrhea. The condition has not progressed. There are no other complaints. The patient is still living independently in her own home. She is independent in her self-care and gait. The daughter is requesting a letter for her to appear in court with her mother to help her answer questions regarding her finances. A letter has been generated. Review of Systems Constitutional: Negative for activity [...] objects with prompting. Speech is normal. Language is fluent with no aphasia. Difficulty spelling words backwards. 2/5 spelling world backwards. The patient did not know what city and state she was in she had no idea what the date day of the week or month was. She knew it was 2021. She did not know what hospital she was in. . Cranial Nerves CN III, IV, : Extraocular [...] are 2+ and symmetric in all four extremities with downgoing toes bilaterally. Coordination Etgdke-lb-wtsu, rapid alternating movements and sgal-oy-hkiu normal bilaterally without dysmetria. Gait Casual gait [...] Assessment/Plan: Dementia of the Alzheimer's type the patient is tolerating donepezil 5 mg per day. The dose will befurther increased to 10 mg per day and the patient re- evaluated in 6 months. Medications Current Outpatient Medications: ??? alendronate (FOSAMAX) 70 mg tablet, alendronate 70 mg tablet, Disp: , Rfl: ??? aspirin 81 MG oral suspension, , Disp: , Rfl: ??? donepeziL (ARICEPT) [...] 40 mg tablet, , Disp: , Rfl: ??? SITagliptin-metformin (Janumet XR) 50-1,000 mg tablet, ER multiphase 24 hr, Janumet XR 50 mg-1,000 mg tablet,extended release, Disp: , Rfl: History History reviewed. No [...] on file Housing Stability: Not on file INE CUTTER documented in this encounter Plan of Treatment Not on file documented as of this encounter Visit Diagnoses Diagnosis Alzheimer's disease (HCC)- Primary Alzheimer's disease documented in this encounter Discontinued Medications Medication Sig Discontinue Reason Start Date End Da te donepeziL (ARICEPT) 5 mg tablet Take 1 tablet (5 mg total) by mouth nightly Dose adjustment 10/24/2021 11/29/2021 documented as of this encounter Care Teams Active Directory Administrator Relationship Specialty Start Date End Date Desiree Todd NP [address] [facility] [place] [place] [address] PCP - General Nurse Practitioner 08/29/21 07/14/24 documented as of this encounter
--- OUTSIDE RECORDS SUMMARY | 2024-11-23 09:20 | XMS_ITS | Encounter Summary ---
Author Organization [facility] Healthcare Address [address] [place] [address] Care Team Providers Care Aircraft Machinist Name Role Phone Kvng Ulloa MD Primary Care Provider [phone] Reason for Visit * Reason Comments Diabetes Type 2 Encounter Details Date Type Department Care Team (Late st Contact Info) Description 10/20/2024 11:30 AM SUPERVISOR CIGAR[employer]PARTMENT Office Visit [facility] Diabetes and Endocrinology [address] [place] [phone] [place] [id number] [facility] [address] [place] [address] Type 2 diabetes mellitus with hyperglycemia, with long-term current use of insulin (HCC) (Primary Dx); Hypertension associated with type 2 diabetes mellitus (HCC); Hyperlipidemia associated with type 2 diabetes mellitus (HCC) Social History Tobacco Use Types [...] Comments Blood Pressure 104/64 10/20/2024 11:27 AM SU[employer]OR [employer]IGAR[employer] DEPARTMENT Pulse 70 10/20/2024 11:27 AM [employer]MENT Temperature - - Respiratory Rate 16 10/20/2024 11:27 AM SUPER[employer]AR[employer] DEPARTMENT Oxygen Saturation - - Inhaled Oxygen Concentration - - Weight 68.5 kg (151 lb) 10/20/2024 11:27 AM [employer] DE[employer]MENT Height 165.1 cm (5' 5 ) 10/20/2024 11:27 AM [employer]OR [employer]IGAR[employer] DEPARTMENT Body Mass Index 25.13 10/20/2024 11:27 AM SUPER[employer]OR [employer]AR[employer] DEPARTMENT documented in this encounter Patient Instructions * Patient Instructions* Mary Alice Muro NP - 10/20/2024 11:30 AM SUPERVISOR [employer] DEPARTMENT Please stop at the lab before leaving today. Check your mychart next week for results/letter with explanation. Please call to get a diabetic eye exam scheduled. Reviewed Dexcom download with Rosa Elena & daughter. Will add breakfast at 2 units & decrease lunch/dinner to 2 units to make it easier to dose. Current medications: Janumet XR 50-1000mg twice daily with meals Jardiance 25mg daily Lantus 14 units every morning Novolog 2 units before each meal [employer]MENT [employer]MENT [employer] documented in this encounter Progress Notes * Mary Alice Muro NP - 10/20/2024 11:30 AM CST Images from the original note were not included. [facility] Diabetes Follow Up Visit Subjective/Objective Patient ID: Rosa Elena Fisher is a 73 y.o. female who comes in today to our Endocrinology clinic to follow up for DM management. Chief Complaint Diabetes Type 2 HPI Diabetes complications and/or comorbidity include: T2DM dx'd in her 40s, dementia, HTN, HLD Lives in [facility] ([facility] living in [place], [place]). Current medications: Janumet XR 50-1000mg twice daily with meals Jardiance 25mg daily Lantus 14 units every morning Novolog 3 units with lunch and dinner Reviewed Dexcom download with Rosa Elena & chris. Will add BK at 2 units & decrease LN/DN to 2 units to make it easier to dose. Dietary habits: 3 meals/day. Does snack during day. Different snacks offered by [facility] living facility. Exercise routine: does occasionally attend exercise classes. Walks around her building. Home CBG monitoring results: Dexcom G6. No hypoglycemia. 07/15/24 download comparison: ave BO=172, 0% very high, 20% high, 80% TIR, 0% low. BG Average: 164 mg/dl with: 5% very high 32% high 62% in target range 1% low. Overnight pattern: flat, in range Postprandial pattern: postprandial rises. Neuropathy: no complaints. Last foot exam: Today Statin therapy: Yes. Simvastatin 40mg. Last lipid panel: none on record LDL=n/a, TG=n/a. Nephropathy: On NINA-I / ARB???s: Yes. Losartan 25mg. Last MA: none on record (n/a). Last creat/GFR: none on record GFR=n/a, CR=n/a. Retinopathy: Date of last eye examination: none on record. Wt Readings from Last 3 Encounters: 10/20/24 68.5 kg (151 lb) 07/15/24 69.8 kg (153 lb 12.8 oz) 01/14/24 70.5 kg (155 lb 8.6 oz) Labs: Last A1c: Recent Labs Lab Units 10/20/24 1131 HEMOGLOBIN A1C POC % 7.3 Component Latest Ref Rng 07/15/2024 Hgb A1C, POC 4.0 - 5.6 % 6.6 No results found for: MICROALBUR , [id number] No results found for: ALBCREATRATU No results found for: MALBCRTRAT Lipid profile within the last year: No results found for: CHOL No results found for: TRIG No results found for: HDL No results found for: LDLCALC Vitals: 10/20/24 1127 BP: 104/64 BP Location: Right arm Patient Position: Sitting Pulse: 70 Resp: 16 Weight: 68.5 kg (151 lb) Height: 165.1 cm (5' 5 ) Physical Exam Vitals and nursing note reviewed. Constitutional: Appearance: Normal appearance. She is well-developed and normal weight. HENT: Head: Normocephalic. Right Ear: Hearing normal. Left Ear: Hearing normal. Eyes: General: Lids are normal. Gaze aligned appropriately. Neck: Thyroid: No thyromegaly. Trachea: Trachea and phonation normal. No tracheal deviation. Cardiovascular: Rate and Rhythm: Normal rate and regular rhythm. No extrasystoles are present. Pulses: Dorsalis pedis pulses are 2+ on the right side and 2+ on the left side. Posterior tibial pulses are 2+ on the right side and 2+ on the left side. Heart sounds: Normal heart sounds, S1 normal and S2 normal. No murmur heard. Pulmonary: Effort: Pulmonary effort is normal. Breath sounds: Normal breath sounds and air entry. Feet: Right Foot: Monofilament exam: normal. Protective Sensation: 6 sites tested. 6 sites sensed. Skin Integrity: Positive for dry skin. Negative for ulcer, blister, skin breakdown, erythema, warmth or callus. Left Foot: Monofilament exam: normal. Protective Sensation: 6 sites tested. 6 sites sensed. Skin Integrity: Positive for dry skin. Negative for ulcer, blister, skin breakdown, erythema, warmth or callus. Skin: General: Skin is warm and dry. Neurological: Mental Status: She is alert and oriented to person, place, and time. Mental status is at baseline. Psychiatric: Mood and Affect: Mood normal. Behavior: Behavior is cooperative. Assessment/Plan Diagnoses and all orders for this visit: Type 2 diabetes mellitus with hyperglycemia, with long-term current use of insulin (HCC) (Primary) Assessment & Plan: Chronic problem. A1c near goal but worsened [...] mychart. Aware to check results/results letter in [employer].Will contact by phone if needed. Discussed with Rosa Elena Fisher: Strive for regular exercise (30min most days) and diet (get at least 4-5 servings of fruit and veggies daily, avoid processed foods, increase lean protein intake and decrease carb portions as well asfruit juices, regular soda & desserts). Watch carbs and simple sugars. Check the blood sugar: Dexcom G6. Check the feet daily for skin breakdown and infection. Orders: - Albumin Creatinine Ratio, Urine; Future - Comprehensive metabolic panel; Future - Lipid panel; Future - POCT hemoglobin A1c - POCT glucose Hypertension associated with type 2 diabetes mellitus (HCC) Assessment & Plan: Chronic problem. Controlled on current losartan 25mg daily. Will update labs. Verified that she uses mychart. Aware to check results/results letter in [employer].Will contact by phone if needed. Orders: - Comprehensive metabolic panel; Future Hyperlipidemia associated with type 2 diabetes mellitus (HCC) Assessment & Plan: Chronic problem. No labs on file. Currently taking Simvastatin 40mg daily Will update labs. Verified that she uses mychart. Aware to check results/results letter in [employer].Will contact by phone if needed. Orders: - Lipid panel; Future Mary Alice Muro NP [employer] documented in this encounter Miscellaneous Notes * Assessment & Plan Note - Mary Alice Muro NP - 10/20/2024 11:53 AM SUPERVISOR [employer] DEPARTMENT Associated Problem(s): Type 2 diabetes mellitus (HCC) Chronic problem. A1c near goal but worsened from 6.6% 07/15/24 to now 7.3%. Reviewed Dexcom downloadwith Rosa Elena & daughter. Will add breakfast [...] mychart. Aware to check results/results letter in mychart.Will contact by phone if needed. Discussed with Rosa Elena Fisher: Strive for regular exercise (30min most days) and diet (get at least 4-5 servings of fruit and veggies daily, avoid processed foods, increase lean protein intake and decrease carb portions as well asfruit juices, regular soda & desserts). Watch carbs and simple sugars. Check the blood sugar: Dexcom G6. Check the feet daily for skin breakdown and infection. [employer]PARTMENT [employer] DEPARTMENT [employer] DE[employer]MENT * Assessment & Plan Note - Mary Alice Muro NP - 10/20/2024 11:53 AM SUPERVISOR [employer]AR[employer] DEPARTMENT Associated Problem(s): Hypertension associated with type 2 diabetes mellitus (HCC) Chronic problem. Controlled on current losartan 25mg daily. Will update labs. Verified that she uses mychart. Aware to check results/results letter in [employer].Will contact by phone if needed. [employer] DEPARTMENT [employer] DEPARTMENT [employer] DEPARTMENT * Assessment & Plan Note - Mary Alice Muro NP - 10/20/2024 11:53 AM SUPERVISOR [employer]AR[employer] DEPARTMENT Associated Problem(s): Hyperlipidemia associated with type 2 diabetes mellitus (HCC) Chronic problem. No labs on file. Currently taking Simvastatin 40mg daily Will update labs. Verified that she uses mychart. Aware to check results/results letter in mychart.Will contact by phone if needed. [employer] * Addendum Note - Nadeem Sandoval - 10/20/2024 11:30 AM CSTAddended by: NADEEM SANDOVAL on: 10/20/2024 12:22 PM Modules accepted: Orders [employer] * Addendum Note - Rosalia Salcido. - 10/20/2024 11:30 AM CSTAddended by: ROSALIA SALCIDO on: 10/20/2024 12:33 PM Modules accepted: Orders [employer] documented in this encounter Plan of Treatment Not on file documented as of this encounter Procedures Procedure Name Priority Date/Time Associated Diagnosis Comments POCT HEMOGLOBIN A1C Routine 10/20/2024 1 1:31 AM SU[employer] DEPARTMENT Type 2 diabetes mellitus with hyperglycemia, with long-term current use of insulin (HCC) POCT GLUCOSE Routine 10/20/2024 11:31 AM SUPERVISOR [employer] DEPARTMENT Type 2 diabetes mellitus with hyperglycemia, with long-term current use of insulin (HCC) documented in this encounter Results * Comprehensive metabolic panel (10/20/2024 12:22 PM SUPER[employer]OR [employer] DEPARTMENT) Sodium 140 135 - 145 mmol/L Potassium, [...] [facility] Blood 10/20/2024 12:2 2 PM [employer] DEPARTMENT 10/20/2024 8:10 PM [employer]PER[employer] DEPARTMENT us Mary Alice Muro DIRECTOR EMERGENCY LAB BLOOD ORDERABLES [place] [id number] [facility] Department of Laboratories [place] [phone] * (ABNORMAL) Lipid panel (10/20/2024 12:22 PM SUPERVISOR [employer] DEPARTMENT) Cholesterol 138 30 - 199 mg/dL Comment: [...] revised on 2018. Triglycerides 162(H) <=149 mg/dL [facility]ERNER [facility] Comment: Interpretive Data Ages [...] last revised on 2018. Chol/HDL ratio 2 YASEMIN OSWALD Blood 10/20/2024 12:2 2 PM SUPER[employer]OR [employer] DEPARTMENT 10/20/2024 8:10 PM [employer] DEPARTMENT us Mary Alice Muro NP LAB BLOOD ORDERABLES Sandra l Result YASEMIN OSWALD [address] [address] Department [place] [address] * (ABNORMAL) POCT glucose (10/20/2024 11:31 AM SUPERVISOR [employer]AR[employer] DEPARTMENT) Glucose Blood, POC 179 mg/dL Blood 10/20/2024 11:3 1 AM SU[employer] DEPARTMENT us Mary Alice Muro DIRECTOR EMERGENCY POINT OF CARE TEST ORDERA BLES Final Result * (ABNORMAL) POCT hemoglobin A1c (10/20/2024 11:31 AM SUPERVISOR [employer]AR[employer] DEPARTMENT) Hemoglobin A1C, POC 7.3 4.0 - 5.6 % Blood 10/20/2024 11:3 1 AM SUPER[employer]OR [employer] DEPARTMENT us Mary Alice Muro DIRECTOR EMERGENCY POINT OF CARE TEST ORDERA BLES Final Result documented in this encounter Visit Diagnoses Diagnosis Type 2 diabetes mellitus with hyperglycemia, with long-term current use of insulin (HCC)- Primary Hypertension associated with type 2 diabetes mellitus (HCC) Hyperlipidemia associated with type 2 diabetes mellitus (HCC) documented in this encounter Historical Medications * This list may reflect changes made after this encounter. zinc acetate (Galzin) 25 mg (zinc) capsule Take 1 capsule by mouth daily added in this encounter Care Teams Aircraft Machinist Relationship Specialty Start Date End Date Kvng Ulloa MD [address] [place] [address] PCP - General Family Medicine 07/15/24 documented as of this encounter
--- OUTSIDE RECORDS SUMMARY | 2024-11-23 09:20 | XMS_ITS | Encounter Summary ---
Author Organization [facility] Healthcare Address [address] [place] [address] Care Team Providers Care Public Relations Senior Associate Name Role Phone Kvng Ulloa MD Primary Care Provider [phone] Encounter Details Date Type Department Care Team (Late st Contact Info) Description 10/20/2024 12:15 PM MANGLE CATCHER Lab [facility] Outpatient Lab at [address] [phone] Hyperlipidemia associated with type 2 diabetes mellitus (HCC) (Primary Dx); Bilateral hearing loss; Essential hypertension Social History Tobacco Use Types Packs/Day Years [...] as of this encounter Plan of Treatment Not on file documented as of this encounter Visit Diagnoses Diagnosis Hyperlipidemia associated with type 2 diabetes mellitus (HCC)- Primary Bilateral hearing loss Unspecified hearing loss Essential hypertension Unspecified essential hypertension documented in this encounter Care Teams Public Relations Senior Associate Relationship Specialty Start Date End Date Kvng Ulloa MD [address] [place] [place] [address] PCP - General Family Medicine 07/15/24 documented as of this encounter
--- OUTSIDE RECORDS SUMMARY | 2024-11-23 09:20 | XMS_ITS | Encounter Summary ---
Author Organization [facility] Healthcare Address [address] [place] [address] Care Team Providers Care Director Of Acquisitions Name Role Phone Desiree Todd MANAGER ORACLE Primary Care Provider + Reason for Visit * Reason Onset Date Comments Left Message 03/15/2024 Encounter Details Date Type Department Care Team (Late st Contact Info) Description 03/15/2024 Telephone [facility] Specialists [facility] [address] [place] [phone] [place], [place] [id number] [place] [phone] Left Message Social History Tobacco Use Types Packs/Day Years [...] Date End Date memantine (NAMENDA) 10 mg tabletIndications:M oderate to Severe Alzheimer's Type Dementia Take 1 tablet (10 mg total) by mouth 2 (two) times a day 60 tablet 3 03/16/2024 documented in this encounter Miscellaneous Notes * Telephone Encounter - Luz Elena Chaparro - 03/15/2024 11:43 AM CDT Refill Request NINA: 01/14/24 NOV: 01/24/25 Caller: Patient daughter/ Reason:refill Out of Rx(s): Memantine day rx: Pharmacy/Ph: [facility] /[phone] Patient has no more refill per documented in this encounter Plan of Treatment Not on file documented as of this encounter Visit Diagnoses Diagnosis Alzheimer's disease (HCC) Alzheimer's disease documented in this encounter Discontinued Medications Medication Sig Discontinue Reason Start Date End Da te memantine (NAMENDA) 10 mg tabletIndications:Modera te to Severe Alzheimer's Type Dementia Take 1 tablet (10 mg total) by mouth 2 (two) times a day Reorder 01/14/2024 03/16/2024 documented as of this encounter Care Teams Director Of Acquisitions Relationship Specialty Start Date End Date Desiree Todd NP [address] [facility] [place] [address] PCP - General Nurse Practitioner 08/29/21 07/14/24 documented as of this encounter
--- OUTSIDE RECORDS SUMMARY | 2024-11-23 09:20 | XMS_ITS | Data Portability ---
Author Organization ID - [facility] [place], Main Office Address [address] [place] [address] Care Team Providers Care Shuttlecock Assembler Name Role Phone KVNG ULLOA Primary Care Provider Assessment Encounter Date Assessment Date Assessment LastModified by Organization Details LastModified Time 08/06/2023 08/06/2023 Gladys Wise Sustainability Engineer of nursing staff at [place]. Not available 08/06/2023 11:06:27 Plan of Treatment Reminders Order Date Submit Date Provider Last Modified By Organization Details Last Modified Time Details Appointments None recorded. Lab None recorded. 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 [address], [place], [address], 09:17:57 Procedures None recorded. Surgeries None recorded. Imaging MAMMO, screening, digital, bilateral - last was 10/11/20 *Please call pt to schedule* [address] Radiology, [address] [facility] [address], [place], [address], 3 12:13:04 DEXA - *Please call pt to schedule* [address], [address], [place], [address], 3 09:20:14 LDCT, chest, for lung cancer screening - *Please call pt to schedule* [address] Imaging, [address] Kemar Esparza, [address] [address], [place], [address], 4 09:18:33 MAMMO, screening, bilateral 2023 024 [email or web address] [address] [facility], [address] , [place], [address], 4 09:29:59 Medication Orders Lantus Solostar U-100 Insulin 100 unit/mL (3 mL) subcutaneou s pen 2022 023 [facility], [address] [place] [address], [address], 3 10:54:30 Novolog FlexPen U-100 Insulin aspart 100 unit/mL (3 mL) subcutaneou s [address], [address] [place] [address], [address], 4 14:20:09 Novolog FlexPen U-100 Insulin aspart 100 unit/mL (3 mL) subcutane s [address], [address] [place] [address], [address], 4 14:20:09 losartan 25 mg tablet 2023 024 [facility], [address] [place] [address], [address], 4 14:53:54 nicotine 14 mg/24 hr daily transdermal patch 2023 024 [facility], [address] [place] [address], [address], 4 14:55:14 simvastatin 40 mg tablet 2023 024 [facility], [address] [place] [address], [address], 4 14:53:55 Adult Low Dose Aspirin 81 mg tablet,gabriele yed release 2023 024 [facility], [address] [place] [address], [address], 4 14:53:56 cephalexin 500 mg capsule 2023 024 [email or web address] [facility], [address] [place] [address], [address], 4 09:18:18 Lantus Solostar U-100 Insulin 100 unit/mL (3 mL) subcutaneou s pen 2023 024 [facility], [address] [place] [address], [address], 4 14:53:54 Novolog FlexPen U-100 Insulin aspart 100 unit/mL (3 mL) subcutaneou s 2023 024 [facility], [address] [place] [address], [address], 4 14:24:41 Janumet 50 mg-1,000 mg tablet 2023 024 [facility], [address] [place] [address], [address], 4 14:53:56 Jardiance 25 mg tablet 2023 024 [facility], [address] [place] [address], [address], 4 14:53:53 losartan 25 mg tablet 2023 024 [facility], [address] [place] [address], [address], 4 09:16:48 nicotine 14 mg/24 hr daily transdermal patch 2023 024 [facility], [address] [place] [address], [address], 4 09:16:49 Lantus Solostar U-100 Insulin 100 unit/mL (3 mL) subcutaneou s pen 2023 024 [facility], [address] [place] [address], [address], 4 09:16:49 Novolog FlexPen U-100 Insulin aspart 100 unit/mL (3 mL) subcutaneou s 2023 024 [facility], [address] [place] [address], [address], 4 09:16:49 Janumet 50 mg-1,000 mg tablet 2023 024 [facility], [address] [place] [address], [address], 4 09:16:48 Jardiance 25 mg tablet 2023 024 [facility], [address] [place] [address], [address], 4 09:16:50 simvastatin 40 mg tablet 2023 024 [facility], [address] [place] [address], [address], 4 09:16:50 Adult Low Dose Aspirin 81 mg tablet,gabriele yed release 2023 024 [facility], [address] [place] [address], [address], 4 09:16:49 Patient TargetsNo targets recorded. Patient Instructions Encounter Date Encounter Id Patient Instructions Last Modified By Organization Details Last Modified Time 08/06/2023 [id number] Fu in 3 months f or dm Fu in 6 mo for labs, dm, alz, seeing endo and neuro. Not available 08/06/2023 11:07:43 11/05/2023 [id number] 11/05/23 pt ederr Lu mascorro. Encouraged her to schedule with heena for Dec. Has endo in Dec . Not available 11/05/2023 11:16:40 01/20/2024 [id number] dementia rating scale-2* [email or web address] Not available 01/20/2024 16:08:57 alcohol misuse* [email or web address] Not available 01/20/2024 16:08:57 multi-dimensiona l health assessment questionnaire* [email or web address] Not available 01/20/2024 16:08:57 depression screening* [email or web address] Not available 01/20/2024 16:08:57 Personalized Hea lt Plan and Screening Recommendations Advance Directives - Do you have one? Yes Advance Directives - Do we have your advance directive on file in your health record? Primary Prevention/Interven tion (prevents or decreases the chance of common diseases from occurring) Smoking Risk: Alcohol Misuse Screening: Negative Weight: Appropriate continue your current weight loss efforts Physical activity: Appropriate physical activity minimum of 10-20 minutes of activity that causes mild breathlessness/day Nutrition: Good Fall Risk (screened today): Low Vaccines Pneumococcal: Ordered Recommended today Recommended today, but you have declined No further needed Influenza: Chronic Disease Risks Stroke: Low Risk Intermediate Risk I have no recommendations Act leticia diagnosis, Continue current treatment plan Heart Attack: Low risk Intermediate Risk I have no recommendations Act leticia diagnosis, Continue current treatment plan Clogging of the Arteries: Low risk Intermediate Risk I have no recommendations Act leticia diagnosis, Continue current treatment plan Diabetes: Low Risk Intermediate Risk Secondary Prevention/Interven tion (detects treatable diseases before they may cause symptoms, disability, or ) Breast Cancer Screening with mammogram: Cervical/Uterine/Ov oscar Cancer Screening: Osteoporosis Screening: Your next DEXA in: Ordered Recomme nded today Date Screening Last Performed: Colon Cancer Screening: Date Screening Last Performed: Eye Disease Screening: Ordered Recommended today Dementia Risk: Depression Screening: Negative [email or web address] Not available 01/20/2024 15:18:39 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 [email or web address] [place] [address] [facility] [address], [place], [address], 06/27/2024 14:31:41 06/25/20 24 06/25/2024 XR, chest No observ ation record ed. [email or web address] [place] [address] [facility] [address], [place], [address], 06/27/2024 14:31:53 Result Notes None recorded. Problems Name Problem SNOMED Code Status Onset Date Resolution Date Notes Provider Name and Address Organization Details Recorded Time Impacted cerumen in right ear 264903443123 9103 Active 2019 Not Available [facility] 3 17:47:57 Tobacco user 488112686 Active 2019 Not Available [facility] 3 17:47:57 Immunizati on due 908031009 Active 2019 Not Available [facility] 3 17:47:57 Alzheimer' s disease 32703483 Active 2021 seeing neuro [facility] Not Available [facility] 3 17:47:58 Dyslipidem ia 249866103 Active 2021 Not Available [facility] 3 17:47:58 Memory impairment 909446008 Active 2020 Not Available [facility] 3 17:47:58 Type 2 diabetes mellitus 09011524 Active 2021 Not Available [facility] 3 17:47:58 Uncontroll ed type 2 diabetes mellitus 576589841 Active 2020 Not Available [facility] 3 17:47:58 Hyperlipid emia 34617763 Active 2019 Not Available [facility] 3 17:47:58 Essential hypertensi on 30527913 Active 2019 Not Available [facility] 3 17:47:58 Osteoporos is 88933974 Active 2019 Not Available [facility] 3 17:47:58 Diabetes mellitus 59212315 Active 2019 Not Available [facility] 3 17:47:58 Fatigue 66067564 Active 2019 Not Available [facility] 3 17:47:58 Bilateral hearing loss 35949767 Active 2020 Not Available [facility] 3 17:47:58 Well controlled type 2 diabetes mellitus 101233235 Active 2022 Not Available [facility] 3 17:47:58 Type 1 diabetes mellitus 65176656 Active 2022 Not Available [facility] 3 17:47:58 COVID-19 979794802 Active 2022 Not Available [facility] 3 17:47:58 Hypertensi ve disorder 77243646 Active 2023 Kvng Ulloa MD [address], [address], [place], [address] , [employer] [facility] 4 14:38:14 Type 2 diabetes mellitus without complicati on 956322095 Active 2023 Kvng Ulloa MD [address], [address], [place], [address] , [employer] [facility] 4 14:38:25 Dementia 32909342 Active 2023 Kvng Ulloa MD [address], [address], [place], [address] , [employer] [facility] 4 14:38:58 Impaired mobility 43530785 Active 2023 Kvng Ulloa MD [address], [address], [place], [address] , [employer] [facility] 4 14:39:53 Smoker 02716158 Active 2023 Kvng Ulloa MD [address], [place], [address] , [employer] 14:40:53 Cellulitis of right foot 602307373588 73142 Active 2023 Kvng Ulloa MD [address], [place], [address] , [employer] 14:58:24 Ulcer of foot 50282446 Active 2023 Kvng Ulloa MD [address], [place], [address] , [employer] 14:51:26 Problem Notes None recorded. Procedures Surgical History Date Name Laterality Status Provider Name and Address Organization Details Recorded Time 06/21/20 24 Smoking Cessation completed Kvng Ulloa MD [address], [place], [address], [employer] 06/21/2024 09:25:11 01/20/20 24 Medicare Wellness CPT Code, subsequent completed February JORDAN [facility] 01/20/2024 15:05:55 01/20/20 24 Smoking Cessation completed Kvng Ulloa MD [address], [place], [address], [employer] 01/20/2024 14:54:05 10/11/20 20 Date of Last Colonoscopy completed Not Available [facility] 01/22/2023 21:48:18 Rotator cuff surgery completed Not Available [facility] 01/22/2023 21:48:18 Unlisted px femur/knee completed Not Available [facility] 01/22/2023 21:48:18 Cataract Surgery completed Not Available [facility] 01/22/2023 21:48:18 Imaging Results Imaging Date Name Status LastModified by Organiz ation Details LastModified Time 06/25/2024 CT, brain, w/o contrast completed [address], [place], [address], 06/27/2024 14:31:41 06/25/2024 XR, chest completed [email or web address] [facility] [address] [facility] [address], [place], [address], 06/27/2024 14:31:53 Procedure Notes None recorded. Medical Equipment None Reported. Allergies Allergen ID Allergen Name Allergen Category Reaction Reaction Severity Criticality Documentation Date Start Date Code Code System Note Provider Name and Address Organization Details Recorded Time 77752 walnut allergeni c extract food Not available Not available Not available 01/22/2023 26307 0 RxNorm Not Available [facility] 21:49:40 03418 Medicinal product containin g penicilli n and acting as antibacte rial agent (product) medicatio n rash moderate Not available 01/22/2023 39744 05 SNOMED Not Available [facility] 21:49:41 Medications Name Sig Start Date Stop Date Status Note LastModified by Organization Details LastModified Time nicotine 14 mg/24 hr daily transderm al patch Apply 1 patch every day by transder mal route as directed for 90 days. 2023 active Not Available Not Available Not Avai lable donepezil 5 mg tablet 01/02 completed Not Available Not Available Not Available Vitamin C 500 mg tablet TAKE 1 TABLET TWICE DAILY active Not Available Not Available No t Available donepezil 10 mg tablet Take 1 tablet every day by oral route. active Not Available Not Available No t Available FreeStyle Lancets 28 gauge 07/05 completed Not Available Not Available Not Available alendrona te 70 mg tablet Take 1 tablet every week by oral route. active Not Available Not Available No t Available Diflucan 150 mg tablet Take 1 tablet every day by oral route. 04/12 completed Not Available Not Available Not Available acetamino phen 300 mg-codein e 30 mg tablet TAKE 1 TABLET BY MOUTH EVERY 6 HOURS NEEDED FOR PAIN 07/22 completed Not Available Not Available Not Available aspirin 81 mg tablet,de layed release Take 1 tablet every day by oral route. active Not Available Not Available No t Available triamcino lone acetonide 0.1 % topical cream APPLY A THIN LAYER TO THE AFFECTED AREA(S) BY TOPICAL ROUTE 2 TIMES PER DAY to areas on arms/leg s 01/20 completed Not Available Not Available Not Available simvastat in 40 mg tablet TAKE 1 TABLET BY MOUTH EVERY DAY active Not Available Not Available No t Available losartan 100 mg-hydroc hlorothia zide 25 mg tablet Take 1 tablet every day by oral route. 06/13 completed Not Available Not Available Not Available nicotine (polacril ex) 4 mg gum Chew 1 piece of gum every 2 hours by oral route as needed. active Not Available Not Available No t Available cephalexi n 500 mg capsule TAKE 1 CAPSULE BY MOUTH EVERY 8 HOURS FOR 7 DAYS 06/21 completed Not Available Not Available Not Available losartan 25 mg tablet TAKE 1 TABLET BY MOUTH EVERY DAY active Not Available Not Available No t Available nicotine 21 mg/24 hr daily transderm al patch Apply 1 patch every day by transder mal route. active Not Available Not Available No t Available Ear Drops (carbamid e peroxide) 6.5 % INSTILL 5 DROPS INTO AFFECTED right EAR(S) BY OTIC ROUTE 2 TIMES PER DAY for 10 days active Not Available Not Available No t Available Vitamin D2 1,250 mcg (50,000 unit) capsule Take by oral route. 03/14 completed Not Available Not Available Not Available Galzin 25 mg (zinc) capsule TAKE 1 CAPSULE BY MOUTH DAILY active Not Available Not Available No t Available Pneumovax -23 25 mcg/0.5 mL injection syringe ADM 0.5ML IM UTD active Not Available Not Available No t Available Novolog FlexPen U-100 Insulin aspart 100 unit/mL (3 mL) subcutane ous Inject 3 units SC with lunch. active Not Available Not Available No t Available Restasis 0.05 % eye drops in a dropperet te 12/17 completed [address] Not Available Not Available Not Available memantine 10 mg tablet 1 tab po bid active Not Available Not Available No t Available memantine 5 mg tablet 1 tab po daily 05/02 completed Not Available Not Available Not Available aspirin 81 mg 03/14 completed Not Available Not Available Not Available Novolog FlexPen U-100 Insulin Inject 3 units SC with lunch 01/27 completed Not Available Not Available Not Available Janumet 50 mg-1,000 mg tablet Take 1 tablet twice a day by oral route as directed for 90 days. 2023 active Not Available Not Available Not Avai lable Sure Comfort Pen Needle 31 gauge x 5/16 01/02 completed Not Available Not Available Not Available Calcium 600 + D(3) 600 mg-10 mcg (400 unit) tablet Take 1 tablet every day by oral route. 11/07 completed Not Available Not Available Not Available FreeStyle Lite Strips Use to test blood glucose fasting and AC/HS 07/05 completed Not Available Not Available Not Available Lantus Solostar U-100 Insulin 100 unit/mL (3 mL) subcutane ous pen INJECT 10 UNITS SUBCUTAN EOUSLY IN THE MORNING AND 12 UNITS AT BEDTIME. active Not Available Not Available No t Available Lantus Solostar U-100 Insulin sun cutaneou sly 35 units every evening 03/14 completed patient stopped around november 2020 Not Available Not Available Not Available FreeStyle [place] Lite kit 07/05 completed Not Available Not Available Not Available cholecalc iferol (vitamin D3) 50 mcg (2,000 unit) tablet 03/14 completed Not Available Not Available Not Available Vitamin D3 50 mcg (2,000 unit) capsule Take 1 capsule every day by oral route. 01/02 completed Not Available Not Available Not Available Janumet XR 50 mg-1,000 mg tablet,ex tended release 1 tab po bid active Not Available Not Available No t Available Janumet XR 50mg daily 11/05 completed Not Available Not Available Not Available Jardiance 10 mg tablet Take 1 tablet every day by oral route in the morning for 90 days. 01/20 completed Not Available Not Available Not Available Jardiance 25 mg tablet Take 1 tablet every day by oral route. active Not Available Not Available No t Available Shingrix (PF) 50 mcg/0.5 mL intramusc ular suspensio n, kit ADM 0.5ML IM UTD 12/07 completed Not Available Not Available Not Available Bydureon BCise 2 mg/0.85 mL subcutane ous auto-inje ctor Inject 2 mg every week by subcutan eous route. 02/14 completed Not Available Not Available Not Available Clenpiq 10 mg-3.5 gram-12 gram/160 mL oral solution active Not Available Not Available Not Available Dexcom G6 Sensor device APPLY EVERY 10 DAYS active Not Available Not Available No t Available Dexcom G6 Bulb Sorter USE DIRECTED TO MONITOR GLUCOSE active Not Available Not Available No t Available Dexcom G6 Transmitt er device USE DIRECTED active Not Available Not Available No t Available BD Elva 2nd Gen Pen Needle 32 gauge x 5/32 USE DIRECTED WITH LANTUS AND NOVOLOG active Not Available Not Available No t Available Fluzone High-Dose (PF) 180 mcg/0.5 mL intramusc ular syringe ADM 0.5ML IM UTD 04/12 completed Not Available Not Available Not Available Fluzone Quad (PF) 60 mcg (15 mcg x 4)/0.5 mL IM syringe active Not Available Not Available Not Available Neuriva Plus Brain Performan ce 01/02 completed 1 po daily Not Available Not Available Not Available Paxlovid 300 mg (150 mg x 2)-100 mg tablets in a dose pack TK 2 NIRMATRE LVIR TS AND 1 RITONAVI R T TOGETHER PO TWICE DAILY UNTIL ALL TAKEN 09/22 completed Not Available Not Available Not Available Vitals Date Recorded Body height Body mass index (BMI) Body weight Body temperature Heart rate Respiratory rate Oxygen saturation Oxygen saturation in Arterial blood by Pulse oximetry Systolic blood pressure Diastolic blood pressure Provider Name and Address Organization Details Last Updated DateTime 3 167.64 cm 26.7 kg/m2 22718.4 9 g 96.6 [degF] 69 /min 20 /min 98 % 98 % 158 mm[Hg] 88 mm[Hg] Desiree Preston RN [facility] [employer] 3 10:31:42 Date Recorded Systolic blood pressure Diastolic blood pressure Provider Name and Address Organization Details Last Updated DateTime 08/06/2023 118 mm[Hg] 88 mm[Hg] Desiree Todd NP [address] [facility] [facility] [address], [place], [address], [facility] [employer] 08/06/2023 11:02:07 Date Recorded Body height Body mass index (BMI) Body weight Body temperature Heart rate Respiratory rate Oxygen saturation Oxygen saturation in Arterial blood by Pulse oximetry Systolic blood pressure Diastolic blood pressure Provider Name and Address Organization Details Last Updated DateTime 3 167.64 cm 25.9 kg/m2 25275.2 3 g 95.7 [degF] 67 /min 20 /min 95 % 95 % 136 mm[Hg] 70 mm[Hg] Desiree Preston RN [facility] [employer] [facility] 3 11:32:24 Date Recorded Body height Body mass index (BMI) Body weight Body temperature Respiratory rate Heart rate Oxygen saturation Oxygen saturation in Arterial blood by Pulse oximetry Systolic blood pressure Diastolic blood pressure Provider Name and Address Organization Details Last Updated DateTime 3 167.64 cm 25.2 kg/m2 52930.5 1 g 96 [degF] 20 /min 65 /min 94 % 94 % 130 mm[Hg] 68 mm[Hg] Desiree Preston RN [facility] [employer] [facility] 3 10:42:18 Date Recorded Body height Body mass index (BMI) Body weight Body temperature Respiratory rate Heart rate Oxygen saturation Oxygen saturation in Arterial blood by Pulse oximetry Systolic blood pressure Diastolic blood pressure Provider Name and Address Organization Details Last Updated DateTime 4 167.64 cm 25.1 kg/m2 76968.2 2 g 97.9 [degF] 20 /min 86 /min 96 % 96 % 110 mm[Hg] 62 mm[Hg] Alphonso Vasques [facility] [employer] [facility] 4 14:33:06 Date Recorded Body height Body mass index (BMI) Body weight Body temperature Heart rate Respiratory rate Oxygen saturation Oxygen saturation in Arterial blood by Pulse oximetry Systolic blood pressure Diastolic blood pressure Provider Name and Address Organization Details Last Updated DateTime 4 167.64 cm 24.4 kg/m2 04020.8 g 98.1 [degF] 76 /min 16 /min 98 % 98 % 122 mm[Hg] 78 mm[Hg] Alphonso [facility] [employer] [facility] 4 09:07:01 Social History Question Answer Notes LastModified by Organizat ion Details LastModified Time Tobacco Smoking Status Current Every Day Smoker Not Available [facility] 01/22/2023 21:48:13 Do You Have An Advance Directive? Yes Information not available 08/06/2023 What Is Your Level Of Alcohol Consumption? None [id number] Information not available 01/22/2023 Are You Blind Or Do You Have Difficulty Seeing? No [id number] Information not available 01/22/2023 Is Blood Transfusion Acceptable In An Emergency? Yes Information not available 08/06/2023 What Is Your Level Of Caffeine Consumption? Heavy [id number] Information not available 01/22/2023 How Much Tobacco Do You Chew? None [id number] Information not available 01/22/2023 What Is Your Code Status? Full Code Information not available 08/06/2023 In The 14 Days Before Symptom Onset, Have You Had Close Contact With A Laboratory-confi rmed COVID-19 While That Case Was Ill? No [id number] Information not available 01/22/2023 In The 14 Days Before Symptom Onset, Have You Had Close Contact With A Person Who Is Under Investigation For COVID-19 While That Person Was Ill? No [id number] Information not available 01/22/2023 Are You Deaf Or Do You Have Serious Difficulty Hearing? No [id number] Information not available 01/22/2023 What Type Of Diet Are You Following? REGULAR [id number] Information not available 01/22/2023 Which Illicit Or Recreational Drugs Have You Used? None [id number] Information not available 01/22/2023 Do You Or Have You Ever Used E-cigarettes Or Vape? Never Used Electronic Cigarettes [id number] Information not available 01/22/2023 What Is Your Occupation? Retired [id number] Information not available 01/22/2023 How Many Days Of Moderate To Strenuous Exercise, Like A Brisk Walk, Did You Do In The Last 7 Days? 7 Information not available 08/06/2023 On Those Days That You Engage In Moderate To Strenuous Exercise, How Many Minutes, On Average, Do You Exercise? 20 Information not available 08/06/2023 Have There Been Any Changes To Your Family Or Social Situation? No [id number] Information not available 01/22/2023 Do You Use Insect Repellent Routinely? Yes [id number] Information not available 01/22/2023 [facility] available 08/06/2023 Do You Have A Medical Power Of Explosive Ordnance Handler? Yes Jennifer Robertson Information not available 08/06/2023 What Was The Date Of Your Most Recent Tobacco Screening? 01/20/2024 [email or web address] Information not available 01/20/2024 Do You Have Any Pets? No Information not available 08/06/2023 What Is Your Relationship Status? [id number] Information not available 01/22/2023 Do You Use Your Seat Belt Or Car Seat Routinely? Yes [id number] Information not available 01/22/2023 Do You Have Smoke And Carbon Monoxide Detectors In Your Home? Yes Information not available 08/06/2023 Are You Passively Exposed To Smoke? No [id number] Information not available 01/22/2023 Do You Or Have You Ever Used Smokeless Tobacco? Never Used Smokeless Tobacco MIGRATION.92098 [id number] Information not available 01/22/2023 Are There Any Smokers In Your House? Yes MIGRATION.75151 78066 Information not available 01/22/2023 How Much Tobacco Do You Smoke? 0.5 PPD MIGRATION.84209 86738 Information not available 01/22/2023 Do You Participate In Social Media? No MIGRATION.22307 78264 Information not available 01/22/2023 What Types Of Sporting Activities Do You Participate In? Walk Information not available 08/06/2023 Do You Feel Stressed (tense, Restless, Nervous, Or Anxious, Or Unable To Sleep At Night)? [id number] Information not available 08/06/2023 Do You Use Any Illicit Or Recreational Drugs? No MIGRATION.08700 76105 Information not available 01/22/2023 Do You Use Sunscreen Routinely? Yes MIGRATION.85943 36512 Information not available 01/22/2023 Has Tobacco Cessation Counseling Been Provided? No MIGRATION.44597 86910 Information not available 01/22/2023 How Many Years Have You Smoked Tobacco? 20 MIGRATION.54021 92528 Information not available 01/22/2023 Have You Recently Traveled Abroad? No MIGRATION.60049 34332 Information not available 01/22/2023 Do You Have Any Dietary Restrictions? No MIGRATION.47530 10300 Information not available 01/22/2023 Sex: Female Functional Status Question Answer Note LastModified by Organizat ion Details LastModified Time Do you have difficulty walking or climbing stairs? No MIGRATION.[id number] 026 Information not available 01/22/2023 Do you have transportation difficulties? No MIGRATION.[id number] 026 Information not available 01/22/2023 Are you able to walk? YESWOREST MIGRATION.[id number] 026 Information not available 01/22/2023 Do you have difficulty doing errands alone? No MIGRATION.[id number] 026 Information not available 01/22/2023 Are you able to care for yourself? Yes MIGRATION.[id number] 026 Information not available 01/22/2023 Do you have difficulty dressing or bathing? No MIGRATION.4212890 026 Information not available 01/22/2023 What is your exercise level? Moderate Walk Information not available 08/06/2023 Mental Status Question Answer Note LastModified by Organizat ion Details LastModified Time Do you have difficulty concentrating, remembering or making decisions? Yes short term MIGRATION.[id number] 026 Information not available 01/22/2023 Family History Nothing Reported. Medical History Condition Response KIDNEY STONES Y DIABETES, TYPE Y DEMENTIA Y ANEMIA/BLOOD DISORDER Y Gynecological History Statement/Question Response Date of Last Mammogram 08/20/2023 Date of Last Colonoscopy 10/11/2020 Obstetrics History GPAL:G 0 P 0 0 0 0 Immunizations Vaccine Type Date Status Note Provider Nam e and Address Organization Details Recorded Time SARS-COV-2 (COVID-19) vaccine, UNSPECIFIED 1 completed Not Available [facility] 10/06/2023 17:47:58 pneumococcal polysaccharide PPV23 1 completed Not Available [facility] 10/06/2023 17:47:58 SARS-COV-2 (COVID-19) vaccine, UNSPECIFIED 1 completed Not Available [facility] 10/06/2023 17:47:58 SARS-COV-2 (COVID-19) vaccine, UNSPECIFIED 1 completed Not Available [facility] 10/06/2023 17:47:58 zoster recombinant 1 completed Not Available [facility] 10/06/2023 17:47:58 influenza, unspecified formulation 2 completed Not Available [facility] 10/06/2023 17:47:58 Influenza, high-dose, quadrivalent, PF 1 completed Not Available [facility] 10/06/2023 17:47:58 Influenza, split virus, quadrivalent, preservative 0 completed Not Available [facility] 10/06/2023 17:47:58 Influenza, high-dose, quadrivalent, PF 9 completed Not Available [facility] 10/06/2023 17:47:58 Tdap 0 completed Not Available [facility] 10/06/2023 17:47:58 Past Encounters Encounter ID Performer Location Encounter Start Date Encounter Closed Date Diagnosis/Indication Diagnosis SNOMED-CT Code Diagnosis ICD10 Code [id number] [facility] Kike Enriquez [address] [place] [address] 02/20/2021 00:00:00 02/20/2021 10:25:01 [id number] [facility] [place] [address] [facility] [place] [address] 03/14/2021 00:00:00 03/14/2021 09:02:27 [id number] [facility] [place] [address] [place] [address] 06/13/2021 00:00:00 06/13/2021 08:42:26 [id number] [facility] [place] [address] [facility] [place] [address] 06/21/2021 00:00:00 06/21/2021 11:50:[id number] [facility] [place] [address] [facility] [place] [address] 08/28/2021 00:00:00 08/28/2021 10:42:17 [id number] [facility] [place] [address] [facility] [place] [address] 01/02/2022 00:00:00 01/02/2022 10:07:35 [id number] [facility] [place] [address] [place] [address] 01/03/2022 00:00:00 01/03/2022 14:52:03 [id number] [facility] [place] [address] [place] [address] 04/03/2022 00:00:00 04/03/2022 08:56:55 [id number] [facility] [place] [address] [place] [address] 05/10/2022 00:00:00 05/10/2022 14:19:27 [id number] [facility] [place] [address] [address] 06/14/2022 00:00:00 06/14/2022 13:59:34 [id number] [facility] [place] [address] [place] [address] 07/05/2022 00:00:00 07/05/2022 15:55:53 [id number] [facility] [place] [address] [place] [address] 07/16/2022 00:00:00 07/17/2022 11:51:41 [id number] [facility] [place] [address] [address] 11/07/2022 00:00:00 11/07/2022 16:31:52 [id number] [facility] [place] [address] [place] [address] 01/15/2023 00:00:00 01/15/2023 19:04:25 [id number] [facility] [place] [address] [place] [address] 01/21/2023 00:00:00 01/21/2023 13:39:18 [id number] Nova Pereyra MD [facility] [place] [address] [place] [address] 02/14/2023 15:30:45 02/14/2023 16:39:13 Well controlled type 2 diabetes mellitus 706136059 E11.9 Dyslipidemia 856650321 E 78.5 [id number] Kvng Ulloa MD [address] [address] 06/30/2023 09:31:12 06/30/2023 10:42:10 [id number] Nova Pereyra MD [facility] [place] [address] [place] [address] 07/01/2023 13:48:11 07/01/2023 15:20:45 Well controlled type 2 diabetes mellitus 652642760 E11.9 [id number] Desiree Todd NP [address] [address] 08/06/2023 10:14:20 08/06/2023 11:17:14 Alzheimer's disease 19059679 G30.9 Hyperlipidemia 95639074 E78.5 Diabetes mellitus 883908 09 E11.9 Osteoporosis 66296555 M8 1.0 Essential hypertension 80339042 I10 Tobacco user 919052962 Z 72.0 Screening for malignant neoplasm of breast 459906608 Z12.39 [id number] Desiree Todd NP [address] [address] 09/24/2023 11:22:38 09/24/2023 15:15:03 Osteoporosis 52794436 M81.0 Essential hypertension 96527533 I10 Hyperlipidemia 31605228 E78.5 Alzheimer's disease 2692 9004 G30.9 Tobacco user 940784934 Z 72.0 Diabetes mellitus 783763 09 E11.9 [id number] Desiree Todd NP [address] [address] 11/05/2023 10:22:38 11/05/2023 11:19:47 Osteoporosis 74308465 M81.0 Essential hypertension 90112775 I10 Hyperlipidemia 93753635 E78.5 Alzheimer's disease 2692 9004 G30.9 Tobacco user 356181333 Z 72.0 Diabetes mellitus 910027 09 E11.9 Type 2 per betes mellitus 76109937 E11.9 [id number] Kvng Ulloa MD [address] [address] 01/20/2024 14:27:31 01/20/2024 16:12:01 Hypertensive disorder 56001898 I10 Hyperlipidemia 87961396 E78.5 Type 2 per betes mellitus without complication 041180638 E11.9 Dementia 51872905 F03.93 Impaired mobility 378382 05 Z74.09 Bilateral hearing loss 31637929 H91.93 Smoker 78303652 F17.200 Cellulitis of right foot [id number] 0805033 L03.115 Adult heal th examination 380324832 Z00.00 Screening for disorder 621254440 Z13.9 [id number] Kvng Ulloa MD [address] [address] 06/21/2024 09:00:13 06/21/2024 09:31:24 Hypertensive disorder 37636327 I10 Hyperlipidemia 50090274 E78.5 Type 2 per betes mellitus without complication 796065675 E11.9 Dementia 27651443 F03.93 Impaired mobility 291651 05 Z74.09 Bilateral hearing loss 21519560 H91.93 Smoker 02955048 F17.200 Cellulitis of right foot 5866845343 6697862 L03.115 Screening mammography 24 079107 Z12.31 Health Concerns Section Related Observation LastModified by Organization Detai ls LastModified Time None Recorded Concern Status LastModified by Organization Details LastModified Time None Recorded Advance Directives Directive Y: Payers Encounter Date Sequence Insurance Name Policy Number Policy Louis Covered Member ID Louis Member ID Guarantor Name 08/06/2023 1 [place] Rosa Elena Lucia Phillip [id number] Rosa Elena Lucia Phillip 08/06/2023 2 WPS - FOR LIFE (SECONDARY TO MEDICARE) Rosa Elena Phillip [id number] Rosa Elena Lucia Phillip 09/24/2023 1 [place] Rosa Elena Lucia Phillip [id number] Rosa Elena Lucia Phillip 09/24/2023 2 WPS - FOR LIFE (SECONDARY TO MEDICARE) Rosa Elena Phillip [id number] Rosa Elena Fisher 11/05/2023 1 [place] Rosa Elena Fisher [id number] Rosa Elena Fisher 11/05/2023 2 WPS - FOR LIFE (SECONDARY TO MEDICARE) Rosa Elena Fisher [id number] Rosa Elena Fisher 01/20/2024 1 [place] Rosa Elena Fisher [id number] Rosa Elena Fisher 01/20/2024 2 WPS - FOR LIFE (SECONDARY TO MEDICARE) Rosa Elena Fisher [id number] Rosa Elena Fisher 06/21/2024 1 [place] Rosa Elena Fisher [id number] Rosa Elena Fisher 06/21/2024 2 WPS - FOR LIFE (SECONDARY TO MEDICARE) Rosa Elena Fisher [id number] Rosa Elena Fishre Notes Date Note Type Note Provider Name and Address Organization Details Recorded Time 08/06/2023 text/html Here For 6 mo fu DM- Has been running 200-300 fasting in the morning. Trying to wean the lantus to effective dose. [place] needing fixed dose.lipid- eats at dining centeralzheimers- stable. Weight dropping, not eating all the time.osteoporosis- hasn't been on vit d and calcium since DOD stopped carrying.HTN- stableTobacco- Mammogram 07/03/22, mammogram scheduled 10/20/23.DEXA- unsure last. Not on vit d or calcium currently.Colonosc opy- 10/11/20 fu in 10 years. Desiree Todd NP [address] [facility], [facility] [address], [place], [address], [place] 08/06/2023 11:15:37 09/24/2023 text/html Here with Daught er for check up on meds. Daughter present. Type II dm-osteoporosis- vit d and calcium. Due for dexa.HTN- good.Lipid- eats at dining center at living facility.Alzheimer 's- forgetful. Daughter states about the same.Tobacco- still smoking Rosa Elena states she is feeling good.Over the past couple weeks has morning lantus to 10 units in morning and 12 untis at night.Hovers around 150 level.Has been spiking throughout the day- would get 200-300 units right before eating.Rosa Elena is no longer getting the Novolog 10 units tid with meals. Desiree Todd NP [address], [place], [address], [facility] 09/24/2023 15:11:14 11/05/2023 text/html Here with Daught er for check up on meds. Daughter present. Type II dm- Currently- Lantus 10 units in the morning and 12 units in the evening. Add on Novolog 5 units sq at lunchtime for preprandial blood sugar over 200, but hold if pt not eating. Has been having blood sugars around 150s. Dinner time running 280-350. Daughter interested in adding a similar dose of Novlog at dinner time.osteoporosis- vit d and calcium. Due for dexa.HTN- good.Lipid- eats at dining center at living facility.Alzheimer 's- forgetful. Daughter states about the same.Tobacco- still smoking- daughter aware she will not stop. Rosa Elena states she is feeling good. Desiree Todd NP [address] [facility], [place], [address], [facility] 11/05/2023 11:17:03 01/20/2024 text/html Pt is here with her daughter for f/u on her meds and chronic conditions. Pt lives in an assisted living facility and family helps her with appointments. Pt is also due for MAWV and wants to get it done today. Pt is feeling overall well. Denies any problem with meds. Pt is f/u with Neuro for her dementia and is on meds by them. Kvng Ulloa MD [address], [place], [address], [facility] 01/20/2024 16:10:21 06/21/2024 text/html Pt is here with her daughter for f/u on her meds and chronic conditions. Pt lives in an assisted living facility and family helps her with appointments. Pt has not gone for LDCT chest yet. Pt is feeling overall well. Denies any problem with meds. Pt is f/u with Neuro for her dementia and is on meds by them. Kvng Ulloa MD [address], [facility] [address], [place], [address], [place] [facility] 06/21/2024 09:25:40 OBGyn Episode No OBEpisode recorded.
--- OUTSIDE RECORDS SUMMARY | 2024-11-23 14:09 | XMS_ITS | Clinical Summary ---
Author Organization [facility] [address] [place] [address] Care Team Providers Care Media Law Faculty Member Name Role Phone Kvng Ulloa MD Primary Care Provider [phone] Allergies Active Allergy Reactions Criticality Noted Date Comments Tree Nut Hives,Itching,Rash,Swelling Medium 10/24/20 21 [place] Rash Medium 10/24/2021 Medications simvastatin (ZOCOR) 40 mg tablet 1 Active losartan (COZAAR) 25 mg tablet 1 Active aspirin 81 MG oral suspension Acti ve alendronate (FOSAMAX) 70 mg tablet alendronate 70 mg tablet Active Dexcom G6 Student Life Dean misc USE DIRECTED TO MONITOR GLUCOSE 2 [...] DAY for 10 days Active influenza quadrivalent [id number] (FLULAVAL,FLUARI X,FLUZONE) 60 mcg (15 mcg x [...] 1 tablet (25 mg total) by mouth structural designer before breakfast 90 tablet 2 4 Active [...] hyperglycemia, with long-term current use of insulin ([facility]) Inject 3 Units under the skin 2 (two) times a day with meals 15 mL 6 4 Active LANTUS 100 unit/mL (3 mL) pen for injectionIndicat ions:Type 2 diabetes mellitus with hyperglycemia, with long-term current use of insulin ([facility]) Inject 14 Units under the skin structural designer before breakfast 15 mL 6 4 Active zinc acetate (Galzin) 25 mg (zinc) capsule Take 1 capsule by mouth daily Active Active Problems Problem Noted Date Diagnosed Date Hypertension associated with type 2 diabetes rayray litus 10/19/2024 Assessment & Plan (10/20/2024 11:54 AM CRITICAL CARE PHYSICIAN ASSISTANT): Chronic problem. Controlled on current losartan 25mg daily. Will update labs. Verified that she uses [facility]. Aware to check results/results letter in mychart. Will contact by phone if needed. Hyperlipidemia associated with type 2 diabetes chapo guerin 10/19/2024 Assessment & Plan (10/20/2024 11:53 AM CRITICAL CARE PHYSICIAN ASSISTANT): Chronic problem. No labs on file. Currently taking Simvastatin 40mg daily Will update labs. Verified that she uses [facility]. Aware to check results/results letter in [facility]. Will contact by phone if needed. COVID-19 09/29/2023 Dyslipidemia 05/10/2022 Type 2 diabetes mellitus 05/10/2022 Assessment & Plan (10/20/2024 12:10 PM CRITICAL CARE PHYSICIAN ASSISTANT): Chronic problem. A1c near goal but worsened [...] mychart. Aware to check results/results letter in [facility]. Will contact by phone if needed. Discussed [...] Alzheimer's disease 12/03/2021 Overview (07/15/2024): seeing neuro [facility] Memory impairment 08/28/2021 Bilateral hearing loss 02/05/2021 Osteoporosis 10/04/2020 Impacted cerumen of right ear 01/11/2020 Hyperlipidemia 01/11/2020 Fatigue 01/11/2020 Essential hypertension 01/11/2020 Resolved Problems Problem Noted Date Diagnosed Date Resolved Date Type 2 diabetes mellitus wit hout complication (CMS/HCC) 06/15/2021 10/19/2024 Type 1 diabetes mellitus 01/11/2020 Encounters Date Type Department Care Team Description 10/26/2024 Orders Only [facility] Medical [facility] Diabetes and Endocrinology [address] [place] [address] Mary Alice Muro NP Type 2 diabetes mellitus with hyperglycemia, with long-term current use of insulin (HCC) (Primary Dx) 10/20/2024 12:15 PM CRITICAL CARE PHYSICIAN ASSISTANT Lab [facility] Medical Group Outpatient Lab at [address] [address] Hyperlipidemia associated with type 2 diabetes mellitus (HCC) (Primary Dx); Bilateral hearing loss; Essential hypertension 10/20/2024 11:30 AM CRITICAL CARE PHYSICIAN ASSISTANT Office Visit [facility] Diabetes and Endocrinology [address] [place] [address] Mary Alice Muro NP Type 2 diabetes mellitus with hyperglycemia, with long-term current use of insulin (HCC) (Primary Dx); Hypertension associated with type 2 diabetes mellitus (HCC); Hyperlipidemia associated with type 2 diabetes mellitus (HCC) 10/20/2024 11:27 AM CRITICAL CARE PHYSICIAN ASSISTANT - 10/20/2024 11:59 PM CRITICAL CARE PHYSICIAN ASSISTANT Hospital Encounter [address] [address] Type 2 diabetes mellitus with hyperglycemia, with long-term current use of insulin (HCC); Hypertension associated with type 2 diabetes mellitus (HCC); Hyperlipidemia associated with type 2 diabetes mellitus (HCC) Discharge Disposition: Discharge to home or self care 10/20/2024 Telephone [facility] Medical [facility] Diabetes and Endocrinology [address] [place] [address] Schleeper, Mary Alice R., SENIOR MATERIALS PLANNER from Last 3 Months Immunizations Name Administration [...] Comments Blood Pressure 104/64 10/20/2024 11:27 AM CRITICAL CARE PHYSICIAN ASSISTANT Pulse 70 10/20/2024 11:27 AM CRITICAL CARE PHYSICIAN ASSISTANT Temperature - - Respiratory Rate 16 10/20/2024 11:27 AM CRITICAL CARE PHYSICIAN ASSISTANT Oxygen Saturation 96% 01/14/2024 10:16 AM CRITICAL CARE PHYSICIAN ASSISTANT Inhaled Oxygen Concentration - - Weight 68.5 kg (151 lb) 10/20/2024 11:27 AM CRITICAL CARE PHYSICIAN ASSISTANT Height 165.1 cm (5' 5 ) 10/20/2024 11:27 AM CRITICAL CARE PHYSICIAN ASSISTANT Body Mass Index 25.13 10/20/2024 11:27 AM CRITICAL CARE PHYSICIAN ASSISTANT Plan of Treatment Health Maintenance Due Date [...] Diagnosis Comments EGFR Routine 10/20/2024 12:22 PM CRITICAL CARE PHYSICIAN ASSISTANT Type 2 diabetes mellitus with hyperglycemia, with long-term current use of insulin (HCC) Hypertension associated with type 2 diabetes mellitus (HCC) LIPID PANEL Routine 10/20/2024 12:22 PM CRITICAL CARE PHYSICIAN ASSISTANT Type 2 diabetes mellitus with hyperglycemia, with long-term current use of insulin (HCC) Hyperlipidemia associated with type 2 diabetes mellitus (HCC) COMPREHENSIVE METABOLIC PANEL Routine 10/20/2024 12:22 PM CRITICAL CARE PHYSICIAN ASSISTANT Type 2 diabetes mellitus with hyperglycemia, with long-term current use of insulin (HCC) Hypertension associated with type 2 diabetes mellitus (HCC) POCT GLUCOSE Routine 10/20/2024 11:31 AM CRITICAL CARE PHYSICIAN ASSISTANT Type 2 diabetes mellitus with hyperglycemia, with long-term current use of insulin (HCC) POCT HEMOGLOBIN A1C Routine 10/20/2024 1 1:31 AM CRITICAL CARE PHYSICIAN ASSISTANT Type 2 diabetes mellitus with hyperglycemia, with long-term current use of insulin ([facility]) from Last 3 Months Results * eGFR (10/20/2024 12:22 PM CRITICAL CARE PHYSICIAN ASSISTANT) [facility] eGFR >90 >=60 mL/min/1. 73 m2 Comment: [...] reviewed 2021. Blood 10/20/2024 12:2 2 PM CRITICAL CARE PHYSICIAN ASSISTANT 10/20/2024 8:10 PM CRITICAL CARE PHYSICIAN ASSISTANT us Mary Alice Muro SENIOR MATERIALS PLANNER LAB BLOOD ORDERABLES Sandra [place] Result [facility] [address] [facility] Department [place] [address] * (ABNORMAL) Lipid panel (10/20/2024 12:22 PM CRITICAL CARE PHYSICIAN ASSISTANT) Cholesterol 138 30 - 199 mg/dL Comment: [...] 2 CERNER Blood 10/20/2024 12:2 2 PM CRITICAL CARE PHYSICIAN ASSISTANT 10/20/2024 8:10 PM CRITICAL CARE PHYSICIAN ASSISTANT us Mary Alice Muro SENIOR MATERIALS PLANNER LAB BLOOD ORDERABLES Sandra washington Result [facility] [address] [address] Department [place] [address] * Comprehensive metabolic panel (10/20/2024 12:22 PM CRITICAL CARE PHYSICIAN ASSISTANT) Sodium 140 135 - 145 mmol/L Potassium, pl 4.7 3.3 - 4.9 mmol/L [facility] Chloride 101 97 - 110 mmol/L [facility] CO2 24 22 - 32 mmol/L [facility] Anion gap 15 2 - 15 mmol/L [facility] BUN 15 6 - 25 mg/dL [facility] Creatinine 0.60 0.60 - 1.10 mg/dL [facility] Glucose 146 70 - 199 mg/dL [facility] Comment: Interpretive Data Fasting glucose >/= 126 [...] CERNER CH Blood 10/20/2024 12:2 2 PM CRITICAL CARE PHYSICIAN ASSISTANT 10/20/2024 8:10 PM CRITICAL CARE PHYSICIAN ASSISTANT us Mary Alice Muro SENIOR MATERIALS PLANNER LAB BLOOD ORDERABLES Sandra l Result [facility] [address] [address] Department [place] [address] * (ABNORMAL) POCT hemoglobin A1c (10/20/2024 11:31 AM CRITICAL CARE PHYSICIAN ASSISTANT) Hemoglobin A1C, POC 7.3 4.0 - 5.6 % Blood 10/20/2024 11:3 1 AM CRITICAL CARE PHYSICIAN ASSISTANT us Mary Alice Muro NP POINT OF CARE TEST ORDERA BLES Final Result * (ABNORMAL) POCT glucose (10/20/2024 11:31 AM CRITICAL CARE PHYSICIAN ASSISTANT) Glucose Blood, POC 179 mg/dL Blood 10/20/2024 11:3 1 AM CRITICAL CARE PHYSICIAN ASSISTANT us Mary Alice Muro NP POINT OF CARE TEST ORDERA BLES Final Result from Last 3 Months Insurance MEDICARE FOR LIFE Care Teams Media Law Faculty Member Relationship Specialty Start Date End Date Kvng Ulloa MD 9 [facility] DEPT FAMILY MEDICINE [place] [place] [id number] PCP - General Family Medicine 07/15/24
--- OUTSIDE RECORDS SUMMARY | 2024-11-23 14:10 | XMS_ITS | Encounter Summary ---
Author Organization [facility] Healthcare Address [address] [place] [address] Care Team Providers Care Scientific Specialist Name Role Phone Kvng Ulloa MD Primary Care Provider [phone] Reason for Visit * Reason Comments Diabetes Type 2 * Consultation (Routine) - Closed Specialty Diagnoses / Procedures Referred By Contac t Referred To Contact Endocrinology Diagnoses Alzheimer's disease ([place] [address] [address] Phone: tel: fax: [place] [address] [address] Phone: tel: fax: Referral ID Status Reason Start Date Expiration Date V isits Requested Visits Authorized [id number] Closed Specialty Services Required 01/14/2024 02/12/2025 1 1 Encounter Details Date Type Department Care Team (Late st Contact Info) Description 07/15/2024 10:00 AM CDT Office Visit [facility] [address] [place] [address] [place] [phone] [place] [address] [address] Type 2 diabetes mellitus with [...] hyperglycemia, with long-term current use of insulin ([facility]) Take 50-1,000 mg by mouth 2 (two) times a day 180 tablet 2 07/15/2024 empagliflozin (JARDIANCE) 25 mg tabletIndications: Type 2 diabetes mellitus with hyperglycemia, with long-term current use of insulin ([facility]) Take 1 tablet (25 mg total) by mouth metal trades instructor before breakfast 90 tablet 2 07/15/2024 LANTUS 100 unit/mL (3 mL) pen for injectionIndicatio ns:Type 2 diabetes mellitus with hyperglycemia, with long-term current use of insulin ([facility]) Inject 14 Units under the skin metal trades instructor before breakfast Twice a day. Morning & [...] dementia She comes with her daughter, main healthcare insurance sales agent. She lives in assisted living, [facility] in [place], [place] Hba1c : Lab Results Component Value [...] injection; Inject 14 Units under the skin metal trades instructor before breakfast Twice a day. Morning & Night. 10 Units am & Units pm - empagliflozin (JARDIANCE) 25 mg tablet; Take 1 tablet (25 mg total) by mouth metal trades instructor beforebreakfast - Janumet XR 50-1,000 mg tablet, [...] hyperglycemia, with long-term current use of insulin ([facility]) POCT GLUCOSE Routine 07/15/2024 9:54 AM CDT Type 2 diabetes mellitus with hyperglycemia, with long-term current use of insulin ([facility]) documented in this encounter Results * (ABNORMAL) [...] hyperglycemia, with long-term current use of insulin ([facility])- Primary documented in this encounter Discontinued Medications [...] vaccine ADM 0.5ML IM UTD influenza quadrivalent [id number] (FLULAVAL,FLUARIX, FLUZONE) 60 mcg (15 mcg x [...] 07/15/2024 documented in this encounter Care Teams Scientific Specialist Relationship Specialty Start Date End Date Kvng Ulloa MD [address] [facility] [place] [address] PCP - General Family Medicine 07/15/24 documented as of this encounter
--- OUTSIDE RECORDS SUMMARY | 2024-11-23 14:10 | XMS_ITS | Encounter Summary ---
Author Organization [facility] Medical Group Address [address] [facility] [address] [place] [address] Care Team Providers Care Packer Sausage And Wiener Name Role Phone Desiree Todd ALLIANCE DIRECTOR Primary Care Provider + Reason for Visit * Reason Comments Alzheimer's Disease Encounter Details Date Type Department Care Team (Late st Contact Info) Description 02/21/2022 11:00 AM CDT Office Visit [facility] [address] [place] [address] [address] [address] [place], [place] [id number] [place] [address] [address] [address] Alzheimer's disease, unspecified (HCC) Social [...] medications. They are moving her to a [facility] facility at this time and she is happy about going to that m[facility] community. She otherwise has no other complaints. [...] she did not know she was in [place] miguel could not give me the name [...] and symmetric in all four extremities. Coordination Ixjcie-yp-zxxg, rapid alternating movements and rkim-ui-miqd normal bilaterally without dysmetria. Gait Casual gait [...] 07/15/2024 added in this encounter Care Teams Packer Sausage And Wiener Relationship Specialty Start Date End Date Desiree Todd NP [address] [facility] [place] [address] PCP - General Nurse Practitioner 08/29/21 07/14/24 documented as of this encounter
--- OUTSIDE RECORDS SUMMARY | 2024-11-23 14:10 | XMS_ITS | Encounter Summary ---
Author Organization [facility] Medical Group Address [address] [facility] [address] [place] [address] Care Team Providers Care Student Development Dean Name Role Phone Desiree Todd NP Primary Care Provider + Reason for Visit * Reason Comments Alzheimer's Disease Encounter Details Date Type Department Care Team (Late st Contact Info) Description 07/09/2023 10:15 AM CDT [facility] [address] [place] [address] [address] [address] [place], [place] [id number] [place] [address] [address], [place] [address] Alzheimer's disease (HCC) (Primary Dx) [...] since been moved to assisted living in [facility]. The patient has no complaints she feels [...] what floor. She knows she is in [place] but thought she was in [place]. Does not know month date or year, [...] and symmetric in all four extremities. Coordination Xtkfeg-ua-vygo, rapid alternating movements and blsb-yt-xsok normal bilaterally without dysmetria. Gait Casual gait [...] AND NOVOLOG, Disp: , Rfl: Dexcom G6 Integrity Manager misc, USE DIRECTED TO MONITOR GLUCOSE, Disp: , Rfl: Dexcom G6 Sensor device, USE DIRECTED TO TEST GLUCOSE, Disp: , Rfl: Dexcom G6 Transmitter device, as directed, Disp: , Rfl: donepeziL (ARICEPT) 10 mg tablet, Take 1 tablet (10 mg total) by mouth nightly, Disp: 90 tablet, Rfl: 0 insulin aspart (NovoLOG) 100 unit/mL (3 mL) pen for injection, Novolog Flexpen U-100 Insulin [id number] unit/mL (3 mL) subcutaneous, Disp: , Rfl: [...] activity: None Alcohol Use: Not on file BOOKED FOLDER AND STITCHER documented in this encounter Plan of Treatment [...] 07/15/2024 added in this encounter Care Teams Student Development Dean Relationship Specialty Start Date End Date Desiree Todd NP [address] [facility] [place] [address] PCP - General Nurse Practitioner 08/29/21 07/14/24 documented as of this encounter
--- OUTSIDE RECORDS SUMMARY | 2024-11-23 14:10 | XMS_ITS | Encounter Summary ---
Author Organization [facility] Healthcare Address [address] [place] [address] Care Team Providers Care Facepiece Line Supervisor Name Role Phone Desiree Todd FIRE AND EXPLOSION INVESTIGATOR Primary Care Provider + Reason for Visit * Reason Onset Date Comments Left Message 03/15/2024 Encounter Details Date Type Department Care Team (Late st Contact Info) Description 03/15/2024 Telephone [facility] [address] [place] [address] [place], [place] [id number] [place] [address] Left Message Social History Tobacco Use [...] Memantine day rx: Pharmacy/Ph: [facility] /[phone] Patient has no more refill per documented [...] documented as of this encounter Care Teams Facepiece Line Supervisor Relationship Specialty Start Date End Date Desiree Todd NP [address] [facility] [place] [address] PCP - General Nurse Practitioner 08/29/21 07/14/24 documented as of this encounter
--- OUTSIDE RECORDS SUMMARY | 2024-11-23 14:10 | XMS_ITS | Encounter Summary ---
Author Organization [facility] Healthcare Address [address] [place] [address] Care Team Providers Care Turbo Electric Operator Name Role Phone Kvng Ulloa MD Primary Care Provider [phone] Encounter Details Date Type Department Care Team (Late st Contact Info) Description 10/20/2024 12:15 PM COMPUTER NETWORK SUPPORT SPECIALIST Lab [facility] Medical Group Outpatient Lab at [address] [address] Hyperlipidemia associated with type 2 [...] hypertension documented in this encounter Care Teams Turbo Electric Operator Relationship Specialty Start Date End Date Kvng Ulloa MD [address] [facility] [place] [address] PCP - General Family Medicine 07/15/24 documented as of this encounter
--- OUTSIDE RECORDS SUMMARY | 2024-11-23 14:10 | XMS_ITS | Encounter Summary ---
Author Organization [facility] Medical Group Address [address] [facility] [address] [place] [address] Care Team Providers Care Boat Oar Maker Name Role Phone Desiree Todd QUALITY ASSURANCE LAB TECHNICIAN Primary Care Provider + Reason for Visit * Reason Onset Date Comments Med Refill 06/16/2023 Encounter Details Date Type Department Care Team (Late st Contact Info) Description 06/16/2023 Telephone [facility] [address] [place] [address] [address], [place] [address] Kayly[place], [place] [id number] [place] [address] [address], [place] [address] Med Refill Social History Tobacco [...] 2:57 PM CDT Follow Up Call Caller/Ph#: /[phone] Reason for call: The patient's daughter called [...] send a 30 day rx to pharmacy [facility] patients followup visit she verbalized her understanding * Telephone Encounter - Jung Abdul - 06/16/2023 8:24 AM CDT Refill Request LV: 12/17/22 CMY NV: 07/09/23 CMY The office has received a request for the prescription(s) listed below: Requestor: /[phone] Rx(s): donepeziL (ARICEPT) 10 mg tablet Sig: Take 1 tablet (10 mg total) by mouth nightly memantine (NAMENDA) 10 mg tablet Sig: Take 1 tablet (10 mg total) by mouth 2 (two) times a day Out of Rx(s): yes day: rx Pharm/Ph#: [phone] documented in this encounter Plan of Treatment [...] documented as of this encounter Care Teams Boat Oar Maker Relationship Specialty Start Date End Date Desiree Todd NP [address] [facility] [place] [address] PCP - General Nurse Practitioner 08/29/21 07/14/24 documented as of this encounter
--- OUTSIDE RECORDS SUMMARY | 2024-11-23 14:10 | XMS_ITS | Encounter Summary ---
Author Organization [facility] Medical Group Address [address] [facility] [address] [place] [address] Care Team Providers Care Mine Utility Operator Name Role Phone Desiree Todd PSYCHOLOGY INSTRUCTOR Primary Care Provider + Reason for Visit * Reason Onset Date Comments New Patient Appointment 08/29/2021 Encounter Details Date Type Department Care Team (Late st Contact Info) Description 08/29/2021 Telephone [facility] Special[facility] [address] [facility] [address], [place] [address] [place] [address] [facility] [address] [place] [address] New Patient Appointment Social History [...] on filedocumented in this encounter Care Teams Mine Utility Operator Relationship Specialty Start Date End Date Desiree Todd, MATT [address] [facility] [place] [address] PCP - General Nurse Practitioner 08/29/21 07/14/24 documented as of this encounter
--- OUTSIDE RECORDS SUMMARY | 2024-11-23 14:10 | XMS_ITS | Encounter Summary ---
Author Organization [facility] Healthcare Address [address] [place] [address] Care Team Providers Care Nuclear Reactor Operator Name Role Phone Desiree Todd SHEEP OR CALF GRADER Primary Care Provider + Encounter Details Date Type Department Care Team (Late st Contact Info) Description 10/24/2021 3:45 PM LOAN APPROVER Lab [facility] [address] [place] [address] Yossi Nam II, MD [address] [place] [address] [address], [place] [address] Alzheimer's disease (HCC) Discharge Disposition: Discharge to [...] THYROID FUNCTION CASCADE Routine 10/24/2021 3:42 PM LOAN APPROVER Alzheimer's disease (HCC) METHYLMALONIC ACID, SERUM Routine 10/24/2021 3:42 PM LOAN APPROVER Alzheimer's disease (HCC) FOLATE Routine 10/24/2021 3:42 PM LOAN APPROVER Alzheimer's disease (HCC) VITAMIN B12 Routine 10/24/2021 3:42 PM LOAN APPROVER Alzheimer's disease (HCC) documented in this encounter Results * Methylmalonic acid, serum (10/24/2021 3:42 PM LOAN APPROVER) Pathologist [facility] MMA 0.17 <=0.40 nmol/mL [facility] Comment: ADDITIONAL INFORMATION This test was developed and its performance characteristics determined by [facility] in a manner consistent with CLIA requirements. This test has not been cleared or approved by the U.S. Food and Drug Administration. Test Performed by: [place] [address] Imaging Manager: Kirk Juarez M.D. Ph.D.; CLIA# [id number] Blood 10/24/2021 3:42 PM LOAN APPROVER 10/24/2021 8:49 PM LOAN APPROVER Yossi Nam II, MD LAB BLOOD ORDERABLES Final R esult Performing Organization Address [facility] Co de Phone Number YASEMIN [address] [place] [address] * TSH reflex to free T4 (10/24/2021 3:42 PM LOAN APPROVER) Pathologist [facility] TSH 0.85 0.30 - 4.20 mcIUnit/mL [facility] Blood 10/24/2021 3:42 PM LOAN APPROVER 10/24/2021 8:49 PM LOAN APPROVER Yossi Nam II, MD LAB BLOOD ORDERABLES Final R esult Performing Organization Address [facility] Co de Phone Number [facility] [address] [address] [facility] [email or web address] [address] * Vitamin B12 (10/24/2021 3:42 PM LOAN APPROVER) Vitamin B12 633 230 - 1,250 pg/mL [facility] Blood 10/24/2021 3:42 PM LOAN APPROVER 10/24/2021 8:49 PM LOAN APPROVER Yossi Nam II, MD LAB BLOOD ORDERABLES Final R esult Performing Organization Address [facility] Co de Phone Number [facility] [address] [address] [facility] [address] [place], [place] [id number] * Folate (10/24/2021 3:42 PM LOAN APPROVER) Folic acid 17.5 >=5.0 ng/mL [facility] Comment:Hemolysis present. R esults may be affected. Blood 10/24/2021 3:42 PM LOAN APPROVER 10/24/2021 8:49 PM LOAN APPROVER Yossi Nam II, MD LAB BLOOD ORDERABLES Final R esult Performing Organization Address [facility] Co de Phone Number [facility] [address] [address] [email or web address] [address] documented in this encounter Visit Diagnoses Diagnosis Alzheimer's disease (HCC) Alzheimer's disease documented in this encounter Care Teams Nuclear Reactor Operator Relationship Specialty Start Date End Date Desiree Todd NP [address] [place] [place] [address] PCP - General Nurse Practitioner 08/29/21 07/14/24 documented as of this encounter
--- OUTSIDE RECORDS SUMMARY | 2024-11-23 14:10 | XMS_ITS | Encounter Summary ---
Author Organization [facility] Medical Group Address [address] [facility] [address] [place] [address] Care Team Providers Care Purse Seining Hand Name Role Phone Desiree Todd NP Primary Care Provider + Reason for Visit * Reason Comments Alzheimer's Disease Encounter Details Date Type Department Care Team (Late st Contact Info) Description 11/29/2021 2:15 PM SAFETY PIN ASSEMBLING MACHINE OPERATOR [facility] [address] [facility] [address], [place] [address] [place] [address] [facility] [address] [address] Alzheimer's disease (HCC) (Primary Dx) [...] Comments Blood Pressure 130/68 11/29/2021 2:20 PM SAFETY PIN ASSEMBLING MACHINE OPERATOR Pulse 72 11/29/2021 2:20 PM SAFETY PIN ASSEMBLING MACHINE OPERATOR Temperature - - Respiratory Rate 12 11/29/2021 2:20 PM SAFETY PIN ASSEMBLING MACHINE OPERATOR Oxygen Saturation - - Inhaled Oxygen Concentration - - Weight 64.7 kg (142 lb 8.4 oz) 11/29/2021 2:20 P M SAFETY PIN ASSEMBLING MACHINE OPERATOR Height 157.5 cm (5' 2 ) 11/29/2021 2:20 PM SAFETY PIN ASSEMBLING MACHINE OPERATOR Body Mass Index 26.07 11/29/2021 2:20 PM SAFETY PIN ASSEMBLING MACHINE OPERATOR documented in this encounter Ordered Prescriptions Prescription [...] four extremities with downgoing toes bilaterally. Coordination Pvfshv-uf-ejqm, rapid alternating movements and xxrp-bm-hpor normal bilaterally without dysmetria. Gait Casual gait [...] on file Housing Stability: Not on file TY PIN ASSEMBLING MACHINE OPERATOR documented in this encounter Plan of [...] documented as of this encounter Care Teams Purse Seining Hand Relationship Specialty Start Date End Date Desiree Todd NP [address] [facility] [place] [address] PCP - General Nurse Practitioner 08/29/21 07/14/24 documented as of this encounter
--- OUTSIDE RECORDS SUMMARY | 2024-11-23 14:10 | XMS_ITS | Encounter Summary ---
Author Organization [facility] Healthcare Address [address] [place] [address] Care Team Providers Care Product Safety Associate Name Role Phone Kvng Ulloa MD Primary Care Provider [phone] Encounter Details Date Type Department Care Team (Late st Contact Info) Description 10/26/[address] [facility] Medical Group Diabetes and Endocrinology Formerly named [facility] [place] [address] Mary Alice Muro, [place] [address] [facility] [address] [place] [address] Type 2 diabetes mellitus with hyperglycemia, with [...] Primary documented in this encounter Care Teams Product Safety Associate Relationship Specialty Start Date End Date Kvng Ulloa MD [address] [place] [address] PCP - General Family Medicine 07/15/24 documented as of this encounter
--- OUTSIDE RECORDS SUMMARY | 2024-11-23 14:10 | XMS_ITS | Encounter Summary ---
Author Organization [facility] Medical Group Address [address] [facility] [address] [place] [address] Care Team Providers Care Microbiology Professor Name Role Phone Desiree Todd NP Primary Care Provider + Reason for Referral * MRI/CAT/PET Scan (Routine) - Closed Specialty Diagnoses / Procedures Referred By Contac t Referred To Contact Radiology Diagnoses Alzheimer's disease (HCC) Procedures MRI [place] [address] [address] Phone: tel: fax: [address] [address] Referral ID Status Reason Start Date Expiration Date Visits Re quested Visits Authorized [id number] Closed 10/24/2021 11/23/2022 1 1 E ESTHETICIAN Reason for Visit * Reason Comments Memory Loss Encounter Details Date Type Department Care Team (Late st Contact Info) Description 10/24/2021 3:00 PM NURSE ESTHETICIAN Office Visit [facility] [address] [facility] [address], [place] [address] [place] [address] [address] Alzheimer's disease (HCC) (Primary Dx) [...] Comments Blood Pressure 120/58 10/24/2021 2:51 PM NURSE ESTHETICIAN Pulse 76 10/24/2021 2:51 PM NURSE ESTHETICIAN Temperature - - Respiratory Rate 12 10/24/2021 2:51 PM NURSE ESTHETICIAN Oxygen Saturation - - Inhaled Oxygen Concentration - - Weight 63.4 kg (139 lb 12.4 oz) 10/24/2021 2:51 PM NURSE ESTHETICIAN Height 157.5 cm (5' 2 ) 10/24/2021 2:51 PM NURSE ESTHETICIAN Body Mass Index 25.56 10/24/2021 2:51 PM NURSE ESTHETICIAN documented in this encounter Ordered Prescriptions Prescription Sig Dispense Quantity Refills Last Filled Start Date End Date donepeziL (ARICEPT) 5 mg tablet Take 1 tablet (5 mg total) by mouth nightly 30 tablet 5 10/24/2021 2 documented in this encounter Progress Notes * Yossi Nam II, MD - 10/24/2021 3:00 PM CST [facility] Neurology Rosa Elena Fisher CONSULTATION 10/24/2021 [...] Nut Hives, Itching, Rash and Swelling ??? [place] Rash Social History Tobacco Use ??? Smoking [...] oriented to person, place, and time. Coordination: Kxnxnr-Lrdp-Wpafra Test normal. Gait: Gait is intact. Deep [...] Right achilles: 1+ Left achilles: 1+ Right block hacker: 1+ Left block hacker: 1+ Right plantar: normal Left plantar: normal [...] current plan of treatment. Yossi Nam MD E ESTHETICIAN documented in this encounter Plan of Treatment Not on file documented as of this encounter Results * MRI Brain WO Contrast (11/06/2021 9:46 AM NURSE ESTHETICIAN) Anatomical Region Laterality Modality Head and Neck N/A Magnetic Resonan ce 11/06/2021 12:3 6 PM NURSE ESTHETICIAN Narrative 11/06/2021 12:44 PM NURSE ESTHETICIAN EXAM DESCRIPTION: ?? MRI BRAIN WO CONTRAST [...] D: ??11/06/2021 12:44 PM T: Report ID: [id number] Reading Location: ??[id number] Procedure Note Omar Vasquez MD - 11/06/2021 [...] by Omar Vasquez M.D. T: Report ID: [id number] Reading Location: [id number] Yossi Nam II, MD IM MRI PROCEDURES Final Res ult * Folate (10/24/2021 3:42 PM NURSE ESTHETICIAN) Folic acid 17.5 >=5.0 ng/mL [facility] Comment:Hemolysis present. R esults may be affected. Blood 10/24/2021 3:42 PM NURSE ESTHETICIAN 10/24/2021 8:49 PM NURSE ESTHETICIAN us Yossi Nam II, MD LAB BLOOD ORDERABLES Final R esult Performing Organization Address [facility] Co de Phone Number YASEMIN OSWALD [address] [address] [facility] [place] [address] * Vitamin B12 (10/24/2021 3:42 PM NURSE ESTHETICIAN) Vitamin B12 633 230 - 1,250 pg/mL [facility] Blood 10/24/2021 3:42 PM NURSE ESTHETICIAN 10/24/2021 8:49 PM NURSE ESTHETICIAN Yossi Nam II, MD LAB BLOOD ORDERABLES Final R esult Performing Organization Address [facility] de Phone Number YASEMIN [address] [place] [address] * TSH reflex to free T4 (10/24/2021 3:42 PM NURSE ESTHETICIAN) Pathologist [facility] TSH 0.85 0.30 - 4.20 mcIUnit/mL [facility] Blood 10/24/2021 3:42 PM NURSE ESTHETICIAN 10/24/2021 8:49 PM NURSE ESTHETICIAN Yossi Nam II, MD LAB BLOOD ORDERABLES Final R [facility] Performing Organization Address [facility] de Phone Number YASEMIN [address] [address] [facility] [place] [address] * Methylmalonic acid, serum (10/24/2021 3:42 PM NURSE ESTHETICIAN) Pathologist [facility] MMA 0.17 <=0.40 nmol/mL [facility] Comment: ADDITIONAL INFORMATION This test was developed and its performance characteristics determined by [facility] in a manner consistent with CLIA requirements. This test has not been cleared or approved by the U.S. Food and Drug Administration. Test Performed by: [facility] - [address] [address] Automat Car Attendant: Kirk Juarez M.D. Ph.D.; CLIA# [id number] Blood 10/24/2021 3:42 PM NURSE ESTHETICIAN 10/24/2021 8:49 PM NURSE ESTHETICIAN us Yossi Nam II, MD LAB BLOOD ORDERABLES Final R esult Performing Organization Address City/State/ZIP Co ct Phone Number YASEMIN [address] [place] [address] documented in this encounter Visit [...] 2 added in this encounter Care Teams Microbiology Professor Relationship Specialty Start Date End Date Desiree Todd NP [address] [place] [address] PCP - General Nurse Practitioner 08/29/21 07/14/24 documented as of this encounter
--- OUTSIDE RECORDS SUMMARY | 2024-11-23 14:10 | XMS_ITS | Encounter Summary ---
Author Organization [facility] Address [address] [place] [address] Care Team Providers Care Shaker Repairer Name Role Phone Desiree Todd NP Primary Care Provider + Reason for Visit * Reason Comments Alzheimer's Disease Encounter Details Date Type Department Care Team (Late st Contact Info) Description 12/17/2022 2:15 PM SPONGE FISHERMAN Office Visit [facility] [address] [facility] [address], [place] [address] [place] [address] [facility] [address], [place] [address] Alzheimer's disease (HCC) (Primary Dx) [...] Comments Blood Pressure 108/60 12/17/2022 2:05 PM SPONGE FISHERMAN Pulse 71 12/17/2022 2:05 PM SPONGE FISHERMAN Temperature - - Respiratory Rate 17 12/17/2022 2:05 PM SPONGE FISHERMAN Oxygen Saturation 95% 12/17/2022 2:05 PM SPONGE FISHERMAN Inhaled Oxygen Concentration - - Weight 69 kg (152 lb 1.9 oz) 12/17/2022 2:05 PM SPONGE FISHERMAN Height 165.1 cm (5' 5 ) 12/17/2022 2:05 PM SPONGE FISHERMAN Body Mass Index 25.31 12/17/2022 2:05 PM SPONGE FISHERMAN documented in this encounter Ordered Prescriptions Prescription [...] the hospital. She knows she is in [place]. She did not know the city. She [...] and symmetric in all four extremities. Coordination Umkltt-[id number], rapid alternating movements and zowy-vu-ogxf normal bilaterally without dysmetria. Gait Casual gait [...] auto-injector, , Disp: , Rfl: Dexcom G6 Building Construction Estimator misc, USE DIRECTED TO MONITOR GLUCOSE, Disp: , Rfl: Dexcom G6 Sensor device, USE DIRECTED TO TEST GLUCOSE, Disp: , Rfl: Dexcom G6 Transmitter device, as directed, Disp: , Rfl: insulin aspart (NovoLOG) 100 unit/mL (3 mL) pen for injection, Novolog Flexpen U-100 Insulin [id number] unit/mL (3 mL) subcutaneous, Disp: , Rfl: [...] activity: None Alcohol Use: Not on file GE FISHERMAN documented in this encounter Plan of Treatment [...] documented as of this encounter Care Teams Shaker Repairer Relationship Specialty Start Date End Date Desiree Todd NP [address] [facility] [place] [address] PCP - General Nurse Practitioner 08/29/21 07/14/24 documented as of this encounter
--- OUTSIDE RECORDS SUMMARY | 2024-11-23 14:10 | XMS_ITS | Encounter Summary ---
Author Organization [facility] Address [address] [place] [address] Care Team Providers Care Medical Dosimetrist Name Role Phone Unavailable Primary Care Provider Unavailabl e Reason for Visit * Reason Onset Date Comments New Patient Appointment 08/24/2021 Encounter Details Date Type Department Care Team (Late st Contact Info) Description 08/24/2021 Telephone [facility] [address] [facility] [address] [place] [address] [place] [address] [facility] [address] [place], [place] [id number] New Patient Appointment Social History Tobacco Use [...] Pt declined to schedule appt Pt states [facility] is a [place] drive. Pt is requesting a neurologist in [place] Records faxed back to PCP informing * [...]
--- OUTSIDE RECORDS SUMMARY | 2024-11-23 14:10 | XMS_ITS | Encounter Summary ---
Author Organization [facility] Healthcare Address [address] [place] [address] Care Team Providers Care Sewage Reticulation Drafting Officer Name Role Phone Desiree Todd CLINICAL REHABILITATION AIDE Primary Care Provider + Reason for Visit * Reason Onset Date Comments Med Refill 09/17/2023 Encounter Details Date Type Department Care Team (Late st Contact Info) Description 09/17/2023 Telephone [facility] [id number] [place] [phone] [place], [place] [id number] [place] [address] Med Refill Social History Tobacco Use [...] no longerin the system of [employer]. Requestor: [phone] Rx(s): donepeziL (ARICEPT) 10 mg tablet Sig: [...] documented as of this encounter Care Teams Sewage Reticulation Drafting Officer Relationship Specialty Start Date End Date Desiree Todd NP [address] [facility] [place] [address] PCP - General Nurse Practitioner 08/29/21 07/14/24 documented as of this encounter
--- OUTSIDE RECORDS SUMMARY | 2024-11-23 14:10 | XMS_ITS | Encounter Summary ---
Author Organization [facility] Healthcare Address [address] [place] [address] Care Team Providers Care Author'S Agent Name Role Phone Kvng Ulloa MD Primary Care Provider [phone] Reason for Visit * Reason Comments Diabetes Type 2 Encounter Details Date Type Department Care Team (Late st Contact Info) Description 10/20/2024 11:30 AM CUT OFF SAW OPERATOR PIPE BLANKS Office Visit [facility] Diabetes and Endocrinology [address] [place] [phone] [place] [address] [facility] [address] [place] [address] Type 2 diabetes mellitus with hyperglycemia, with [...] Comments Blood Pressure 104/64 10/20/2024 11:27 AM CUT OFF SAW OPERATOR PIPE BLANKS Pulse 70 10/20/2024 11:27 AM CUT OFF SAW OPERATOR PIPE BLANKS Temperature - - Respiratory Rate 16 10/20/2024 11:27 AM CUT OFF SAW OPERATOR PIPE BLANKS Oxygen Saturation - - Inhaled Oxygen Concentration - - Weight 68.5 kg (151 lb) 10/20/2024 11:27 AM CUT OFF SAW OPERATOR PIPE BLANKS Height 165.1 cm (5' 5 ) 10/20/2024 11:27 AM CUT OFF SAW OPERATOR PIPE BLANKS Body Mass Index 25.13 10/20/2024 11:27 AM CUT OFF SAW OPERATOR PIPE BLANKS documented in this encounter Patient Instructions * Patient Instructions* Mary Alice Muro NP - 10/20/2024 11:30 AM CUT OFF SAW OPERATOR PIPE BLANKS Please stop at the lab before leaving [...] morning Novolog 2 units before each meal OFF SAW OPERATOR PIPE BLANKS OFF SAW OPERATOR PIPE BLANKS OFF SAW OPERATOR PIPE BLANKS OFF SAW OPERATOR PIPE BLANKS documented in this encounter Progress Notes * Mary Alice Muro NP - 10/20/2024 11:30 AM CST Images from the original note were not included. [facility] Diabetes Follow Up Visit Subjective/Objective Patient ID: Rosa Elena Fisher is a 73 y.o. female who comes in today to our Endocrinology clinic to follow up for DM management. Chief Complaint Diabetes Type 2 HPI Diabetes complications and/or comorbidity include: T2DM dx'd in her 40s, dementia, HTN, HLD Lives in [facility] ([facility] in [place], [place]). Current medications: Janumet XR 50-1000mg twice daily with meals Jardiance 25mg daily Lantus 14 units every morning Novolog 3 units with lunch and dinner Reviewed Dexcom download with Rosa Elena & chris. Will add BK at 2 units & decrease LN/DN to 2 units to make it easier to dose. Dietary habits: 3 meals/day. Does snack during day. Different snacks offered by [facility] living facility. Exercise routine: does occasionally attend exercise classes. Walks around her building. Home CBG monitoring results: Dexcom G6. No hypoglycemia. 07/15/24 download comparison: ave SW=654, 0% very high, 20% high, 80% TIR, [...] 6.6 No results found for: MICROALBUR , [id number] No results found for: ALBCREATRATU No results [...] mychart. Aware to check results/results letter in [employer].Will contact by phone if needed. Discussed with [...] mychart. Aware to check results/results letter in [employer].Will contact by phone if needed. Orders: - Comprehensive metabolic panel; Future Hyperlipidemia associated with type 2 diabetes mellitus (HCC) Assessment & Plan: Chronic problem. No labs on file. Currently taking Simvastatin 40mg daily Will update labs. Verified that she uses mychart. Aware to check results/results letter in [employer].Will contact by phone if needed. Orders: - Lipid panel; Future Mary Alice Muro NP OFF SAW OPERATOR PIPE BLANKS documented in this encounter Miscellaneous Notes * Assessment & Plan Note - Mary Alice Muro NP - 10/20/2024 11:53 AM CUT OFF SAW OPERATOR PIPE BLANKS Associated Problem(s): Type 2 diabetes mellitus (HCC) [...] feet daily for skin breakdown and infection. OFF SAW OPERATOR PIPE BLANKS OFF SAW OPERATOR PIPE BLANKS OFF SAW OPERATOR PIPE BLANKS * Assessment & Plan Note - Mary Alice Muro NP - 10/20/2024 11:53 AM CUT OFF SAW OPERATOR PIPE BLANKS Associated Problem(s): Hypertension associated with type 2 diabetes mellitus (HCC) Chronic problem. Controlled on current losartan 25mg daily. Will update labs. Verified that she uses mychart. Aware to check results/results letter in [employer].Will contact by phone if needed. OFF SAW OPERATOR PIPE BLANKS OFF SAW OPERATOR PIPE BLANKS OFF SAW OPERATOR PIPE BLANKS * Assessment & Plan Note - Mary Alice Muro NP - 10/20/2024 11:53 AM CUT OFF SAW OPERATOR PIPE BLANKS Associated Problem(s): Hyperlipidemia associated with type 2 diabetes mellitus (HCC) Chronic problem. No labs on file. Currently taking Simvastatin 40mg daily Will update labs. Verified that she uses mychart. Aware to check results/results letter in mychart.Will contact by phone if needed. OFF SAW OPERATOR PIPE BLANKS * Addendum Note - Nadeem Sandoval - 10/20/2024 11:30 AM CSTAddended by: NADEEM SANDOVAL on: 10/20/2024 12:22 PM Modules accepted: Orders OFF SAW OPERATOR PIPE BLANKS * Addendum Note - Rosalia Salcido. - 10/20/2024 11:30 AM CSTAddended by: ROSALIA SALCIDO on: 10/20/2024 12:33 PM Modules accepted: Orders OFF SAW OPERATOR PIPE BLANKS documented in this encounter Plan of Treatment Not on file documented as of this encounter Procedures Procedure Name Priority Date/Time Associated Diagnosis Comments POCT HEMOGLOBIN A1C Routine 10/20/2024 1 1:31 AM CUT OFF SAW OPERATOR PIPE BLANKS Type 2 diabetes mellitus with hyperglycemia, with long-term current use of insulin (HCC) POCT GLUCOSE Routine 10/20/2024 11:31 AM CUT OFF SAW OPERATOR PIPE BLANKS Type 2 diabetes mellitus with hyperglycemia, with long-term current use of insulin (HCC) documented in this encounter Results * Comprehensive metabolic panel (10/20/2024 12:22 PM CUT OFF SAW OPERATOR PIPE BLANKS) Sodium 140 135 - 145 mmol/L Potassium, [...] [facility] CH Blood 10/20/2024 12:2 2 PM CUT OFF SAW OPERATOR PIPE BLANKS 10/20/2024 8:10 PM CUT OFF SAW OPERATOR PIPE BLANKS us Mary Alice Muro SENIOR JAVA DATA ARCHITECT LAB BLOOD ORDERAB[place] [address] [address] Department of Laboratories [place] [id number] * (ABNORMAL) Lipid panel (10/20/2024 12:22 PM CUT OFF SAW OPERATOR PIPE BLANKS) Cholesterol 138 30 - 199 mg/dL Comment: [...] YASEMIN OSWALD Blood 10/20/2024 12:2 2 PM CUT OFF SAW OPERATOR PIPE BLANKS 10/20/2024 8:10 PM CUT OFF SAW OPERATOR PIPE BLANKS us Mary Alice Muro NP LAB BLOOD ORDERABLES Sandra l Result YASEMIN OSWALD [address] [address] Department [place] [address] * (ABNORMAL) POCT glucose (10/20/2024 11:31 AM CUT OFF SAW OPERATOR PIPE BLANKS) Glucose Blood, POC 179 mg/dL Blood 10/20/2024 11:3 1 AM CUT OFF SAW OPERATOR PIPE BLANKS us Mary Alice Muro SENIOR JAVA DATA ARCHITECT POINT OF CARE TEST ORDERA BLES Final Result * (ABNORMAL) POCT hemoglobin A1c (10/20/2024 11:31 AM CUT OFF SAW OPERATOR PIPE BLANKS) Hemoglobin A1C, POC 7.3 4.0 - 5.6 % Blood 10/20/2024 11:3 1 AM CUT OFF SAW OPERATOR PIPE BLANKS us Mary Alice Muro SENIOR JAVA DATA ARCHITECT POINT OF CARE TEST ORDERA BLES Final [...] daily added in this encounter Care Teams Author'S Agent Relationship Specialty Start Date End Date Kvng Ulloa MD [address] [facility] [place] [address] PCP - General Family Medicine 07/15/24 documented as of this encounter
--- OUTSIDE RECORDS SUMMARY | 2024-11-23 14:10 | XMS_ITS | Referral Summary ---
Author Organization [facility] [address] [place] [phone] Care Team Providers Care Compensation/Benefits Specialist Name Role Phone Kvng Ulloa MD Primary Care Provider [phone] Encounters Date Type Department Care Team Description 10/26/2024 Orders Only [facility] Diabetes and Endocrinology [address] [place] [phone] Mary Alice Muro NP Type 2 diabetes mellitus with hyperglycemia, with long-term current use of insulin (HCC) (Primary Dx) 10/20/2024 11:27 AM PARASITOLOGIST - 10/20/2024 11:59 PM PARASITOLOGIST Hospital Encounter [address] [address] Type 2 diabetes mellitus with hyperglycemia, with long-term current use of insulin (HCC); Hypertension associated with type 2 diabetes mellitus (HCC); Hyperlipidemia associated with type 2 diabetes mellitus (HCC) Discharge Disposition: Discharge to home or self care 10/20/2024 Telephone [facility] Diabetes and Endocrinology [address] [place] [phone] Mary Alice Muro NP 10/20/2024 12:15 PM PARASITOLOGIST Lab [facility] Outpatient Lab at [address] [phone] Hyperlipidemia associated with type 2 diabetes mellitus (HCC) (Primary Dx); Bilateral hearing loss; Essential hypertension 10/20/2024 11:30 AM PARASITOLOGIST Office Visit [facility] Diabetes and Endocrinology [address] [place] [phone] Mary Alice Muro, ELECTRIC LINEMAN Type 2 diabetes mellitus with hyperglycemia, with long-term current use of insulin (HCC) (Primary Dx); Hypertension associated with type 2 diabetes mellitus (HCC); Hyperlipidemia associated with type 2 diabetes mellitus (HCC) from Last 3 Months Allergies Active Allergy Reactions Criticality Noted Date Comments Tree Nut Hives,Itching,Rash,Swelling Medium 10/24/20 21 [place] Rash Medium 10/24/2021 Medications simvastatin (ZOCOR) 40 mg tablet 1 Active losartan (COZAAR) 25 mg tablet 1 Active aspirin 81 MG oral suspension Acti ve alendronate (FOSAMAX) 70 mg tablet alendronate 70 mg tablet Active Dexcom G6 Instructor Ground Services misc USE DIRECTED TO MONITOR GLUCOSE 2 [...] DAY for 10 days Active influenza quadrivalent 5100-1630 (FLULAVAL,FLUARI X,FLUZONE) 60 mcg (15 mcg x [...] hyperglycemia, with long-term current use of insulin ([facility]) Take 1 tablet (25 mg total) by mouth aircraft painter before breakfast 90 tablet 2 4 Active Janumet XR 50-1,000 mg tablet, ER multiphase 24 hrIndications:Ty pe 2 diabetes mellitus with hyperglycemia, with long-term current use of insulin ([facility]) Take 50-1,000 mg by mouth 2 (two) times a day 180 tablet 2 4 Active insulin aspart (NovoLOG) 100 unit/mL (3 mL) pen for injectionIndicat ions:Type 2 diabetes mellitus with hyperglycemia, with long-term current use of insulin ([facility]) Inject 3 Units under the skin 2 (two) times a day with meals 15 mL 6 4 Active LANTUS 100 unit/mL (3 mL) pen for injectionIndicat ions:Type 2 diabetes mellitus with hyperglycemia, with long-term current use of insulin ([facility]) Inject 14 Units under the skin aircraft painter before breakfast 15 mL 6 4 Active zinc acetate (Galzin) 25 mg (zinc) capsule Take 1 capsule by mouth daily Active Active Problems Problem Noted Date Diagnosed Date Hypertension associated with type 2 diabetes rayray osman 10/19/2024 Assessment & Plan (10/20/2024 11:54 AM PARASITOLOGIST): Chronic problem. Controlled on current losartan 25mg daily. Will update labs. Verified that she uses mychart. Aware to check results/results letter in [employer]. Will contact by phone if needed. Hyperlipidemia associated with type 2 diabetes chapo guerin 10/19/2024 Assessment & Plan (10/20/2024 11:53 AM PARASITOLOGIST): Chronic problem. No labs on file. Currently taking Simvastatin 40mg daily Will update labs. Verified that she uses mychart. Aware to check results/results letter in [employer]. Will contact by phone if needed. COVID-19 09/29/2023 Dyslipidemia 05/10/2022 Type 2 diabetes mellitus 05/10/2022 Assessment & Plan (10/20/2024 12:10 PM PARASITOLOGIST): Chronic problem. A1c near goal but worsened [...] Will update labs. Verified that she uses [employer]. Aware to check results/results letter in [employer]. Will contact by phone if needed. Discussed [...] Alzheimer's disease 12/03/2021 Overview (07/15/2024): seeing neuro [facility] Memory impairment 08/28/2021 Bilateral hearing loss 02/05/2021 Osteoporosis 10/04/2020 Impacted cerumen of right ear 01/11/2020 Hyperlipidemia 01/11/2020 Fatigue 01/11/2020 Essential hypertension 01/11/2020 Resolved Problems Problem Noted Date Diagnosed Date Resolved Date Type 2 diabetes mellitus wit hout complication ([facility]) 06/15/2021 10/19/2024 Type 1 diabetes mellitus 01/11/2020 [...] Comments Blood Pressure 104/64 10/20/2024 11:27 AM PARASITOLOGIST Pulse 70 10/20/2024 11:27 AM PARASITOLOGIST Temperature - - Respiratory Rate 16 10/20/2024 11:27 AM PARASITOLOGIST Oxygen Saturation 96% 01/14/2024 10:16 AM PARASITOLOGIST Inhaled Oxygen Concentration - - Weight 68.5 kg (151 lb) 10/20/2024 11:27 AM PARASITOLOGIST Height 165.1 cm (5' 5 ) 10/20/2024 11:27 AM PARASITOLOGIST Body Mass Index 25.13 10/20/2024 11:27 AM PARASITOLOGIST Plan of Treatment Not on file Procedures Procedure Name Priority Date/Time Associated Diagnosis Comments EGFR Routine 10/20/2024 12:22 PM PARASITOLOGIST Type 2 diabetes mellitus with hyperglycemia, with long-term current use of insulin (HCC) Hypertension associated with type 2 diabetes mellitus (HCC) LIPID PANEL Routine 10/20/2024 12:22 PM PARASITOLOGIST Type 2 diabetes mellitus with hyperglycemia, with long-term current use of insulin (HCC) Hyperlipidemia associated with type 2 diabetes mellitus (HCC) COMPREHENSIVE METABOLIC PANEL Routine 10/20/2024 12:22 PM PARASITOLOGIST Type 2 diabetes mellitus with hyperglycemia, with long-term current use of insulin (HCC) Hypertension associated with type 2 diabetes mellitus (HCC) POCT GLUCOSE Routine 10/20/2024 11:31 AM PARASITOLOGIST Type 2 diabetes mellitus with hyperglycemia, with long-term current use of insulin (HCC) POCT HEMOGLOBIN A1C Routine 10/20/2024 1 1:31 AM PARASITOLOGIST Type 2 diabetes mellitus with hyperglycemia, with long-term current use of insulin (HCC) from Last 3 Months Results * eGFR (10/20/2024 12:22 PM PARASITOLOGIST) [facility] Signature eGFR >90 >=60 mL/min/1. 73 m2 [...] reviewed 2021. Blood 10/20/2024 12:2 2 PM PARASITOLOGIST 10/20/2024 8:10 PM PARASITOLOGIST us Mary Alice Muro NP LAB BLOOD ORDERABLES Sandra [place] Result YASEMIN OSWALD [address] Department [place] [address] * (ABNORMAL) Lipid panel (10/20/2024 12:22 PM PARASITOLOGIST) Cholesterol 138 30 - 199 mg/dL Comment: [...] CERNER CH Blood 10/20/2024 12:2 2 PM PARASITOLOGIST 10/20/2024 8:10 PM PARASITOLOGIST us Mary Alice Muro ELECTRIC LINEMAN LAB BLOOD ORDERABLES Sandra washington Result [facility] [address] [address] Department [place] [address] * Comprehensive metabolic panel (10/20/2024 12:22 PM PARASITOLOGIST) Sodium 140 135 - 145 mmol/L Potassium, pl 4.7 3.3 - 4.9 mmol/L CERNER CH Chloride 101 97 - 110 mmol/L CERNER CH CO2 24 22 - 32 mmol/L CERN[facility] CH Anion gap 15 2 - 15 mmol/L [facility] CH BUN 15 6 - 25 mg/dL CERN[facility] CH Creatinine 0.60 0.60 - 1.10 mg/dL CERNER Glucose 146 70 - 199 mg/dL [facility] Comment: Interpretive Data Fasting glucose >/= 126 [...] 2022. Calcium 9.9 8.5 - 10.3 mg/dL [facility] Bilirubin, total 0.2 0.1 - 1.2 mg/dL CERNER Protein, pl 7.7 6.5 - 8.5 g/dL [facility] Albumin 4.2 3.5 - 5.0 g/dL [facility] Alk phos 99 40 - 130 Units/L CERNER CH ALT 26 7 - 45 Units/L C[facility] CH AST 33 10 - 45 Units/L [facility] Blood 10/20/2024 12:2 2 PM PARASITOLOGIST 10/20/2024 8:10 PM PARASITOLOGIST Mary Alice Muro NP LAB BLOOD ORDERABLES Sandra l Result [facility] [address] [address] Department [place] [address] * (ABNORMAL) POCT hemoglobin A1c (10/20/2024 11:31 AM PARASITOLOGIST) Hemoglobin A1C, POC 7.3 4.0 - 5.6 % Blood 10/20/2024 11:3 1 AM PARASITOLOGIST Mary Alice Muro NP POINT OF CARE TEST ORDERA BLES Final Result * (ABNORMAL) POCT glucose (10/20/2024 11:31 AM PARASITOLOGIST) Glucose Blood, POC 179 mg/dL Blood 10/20/2024 11:3 1 AM PARASITOLOGIST Mary Alice Muro ELECTRIC LINEMAN POINT OF CARE TEST ORDERA BLES Final Result from Last 3 Months Insurance MEDICARE [employer] Care Teams Compensation/Benefits Specialist Relationship Specialty Start Date End Date Kvng Ulloa MD [facility] [phone] PCP - General Family Medicine 07/15/24
--- OUTSIDE RECORDS SUMMARY | 2024-11-23 14:10 | XMS_ITS | Encounter Summary ---
Author Organization [facility] Healthcare Address [address] [place] [address] Care Team Providers Care Credit And Collections Analyst Name Role Phone Kvng Ulloa MD Primary Care Provider [phone] Encounter Details Date Type Department Care Team (Latest Contact Info) Description 10/20/2024 11:27 AM PLUCK TRIMMER - 10/20/2024 11:59 PM [facility] Hospital Encounter [address] [id number] Type 2 diabetes mellitus with hyperglycemia, with [...] PER DAY for 10 days Dexcom G6 Costing Analyst misc USE DIRECTED TO MONITOR GLUCOSE 03/12/2022 Dexcom G6 Sensor device USE DIRECTED TO TEST GLUCOSE 05/06/2022 Dexcom G6 Transmitter device as directed 03/12/2022 empagliflozin (JARDIANCE) 25 mg tabletIndications: Type 2 diabetes mellitus with hyperglycemia, with long-term current use of insulin (HCC) Take 1 tablet (25 mg total) by mouth installer metal flooring before breakfast 90 tablet 2 07/15/2024 influenza quadrivalent [id number] (FLULAVAL,FLUARIX, FLUZONE) 60 mcg (15 mcg x 4)/0.5 mL syringe insulin aspart (NovoLOG) 100 unit/mL (3 mL) pen for injectionIndicatio ns:Type 2 diabetes mellitus with hyperglycemia, with long-term current use of insulin ([facility]) Inject 3 Units under the [...] hyperglycemia, with long-term current use of insulin ([facility]) Inject 14 Units under the skin installer metal flooring before breakfast 15 mL 6 07/16/2024 losartan [...] Alice Muro NP - 10/20/2024 11:59 PM PLUCK TRIMMER Dear Rosa Elena Fisher, The lab results were faxed to Dr Ulloa also. Please check your [employer] account; in the letters section. Your recent test results have been sent to your [employer] account. If any questions, please call. Thank you, Jaxon Bates K TRIMMER * Result Encounter Note - Mary Alice Muro NP - 10/20/2024 11:59 PM PLUCK TRIMMER Please mail 10/20/24 lab result letter. Per chart: was not viewed in [email or web address]. Thank you Mary Alice K TRIMMER documented in this encounter Plan of Treatment Not on file documented as of this encounter Procedures Procedure Name Priority Date/Time Associated Diagnosis Comments EGFR Routine 10/20/2024 12:22 PM PLUCK TRIMMER Type 2 diabetes mellitus with hyperglycemia, with long-term current use of insulin (HCC) Hypertension associated with type 2 diabetes mellitus (HCC) LIPID PANEL Routine 10/20/2024 12:22 PM PLUCK TRIMMER Type 2 diabetes mellitus with hyperglycemia, with long-term current use of insulin (HCC) Hyperlipidemia associated with type 2 diabetes mellitus (HCC) COMPREHENSIVE METABOLIC PANEL Routine 10/20/2024 12:22 PM PLUCK TRIMMER Type 2 diabetes mellitus with hyperglycemia, with long-term current use of insulin (HCC) Hypertension associated with type 2 diabetes mellitus (HCC) documented in this encounter Results * eGFR (10/20/2024 12:22 PM PLUCK TRIMMER) eGFR >90 >=60 mL/min/1. 73 m2 Comment: [...] reviewed 2021. Blood 10/20/2024 12:2 2 PM PLUCK TRIMMER 10/20/2024 8:10 PM PLUCK TRIMMER us Mary Alice Muro CARPENTER HELPER LAB BLOOD ORDERABLES Sandra l Result YASEMIN [id number] [address] [place] [address] * (ABNORMAL) Lipid panel (10/20/2024 12:22 PM PLUCK TRIMMER) Cholesterol 138 30 - 199 mg/dL Comment: [...] CERNER CH Blood 10/20/2024 12:2 2 PM PLUCK TRIMMER 10/20/2024 8:10 PM PLUCK TRIMMER us Mary Alice Muro CARPENTER HELPER LAB BLOOD [place] [address] [address] Department [place] [address] * Comprehensive metabolic panel (10/20/2024 12:22 PM PLUCK TRIMMER) Sodium 140 135 - 145 mmol/L Potassium, [...] CERNER CH Blood 10/20/2024 12:2 2 PM PLUCK TRIMMER 10/20/2024 8:10 PM PLUCK TRIMMER Mary Alice Muro CARPENTER HELPER LAB BLOOD ORDERABLES Sandra l Result YASEMIN OSWALD [id number] [address] [place] [address] documented in this encounter Visit Diagnoses Diagnosis Type 2 diabetes mellitus with hyperglycemia, with long-term current use of insulin (HCC) Hypertension associated with type 2 diabetes mellitus (HCC) Hyperlipidemia associated with type 2 diabetes mellitus (HCC) documented in this encounter Care Teams Credit And Collections Analyst Relationship Specialty Start Date End Date Kvng Ulloa MD [address] DEPT [place] [address] PCP - General Family Medicine 07/15/24 documented as of this encounter
--- OUTSIDE RECORDS SUMMARY | 2024-11-23 14:10 | XMS_ITS | Encounter Summary ---
Author Organization [facility] Address [address] [facility] [address] [place] [address] Care Team Providers Care Corporate Travel Consultant Name Role Phone Desiree Todd NP Primary Care Provider + Reason for Visit * Reason Comments Alzheimer's Disease Encounter Details Date Type Department Care Team (Late st Contact Info) Description 05/30/2022 2:15 PM CDT [facility] [address] [place] [address] [address] [address] [place], [place] [id number] [place] [address] [address] [address] Alzheimer's disease (HCC) (Primary Dx) [...] and symmetric in all four extremities. Coordination Qwfwds-to-umvb, rapid alternating movements and smtx-wj-eicj normal bilaterally without dysmetria. Gait Casual gait [...] , Disp: , Rfl: ??? Dexcom G6 Director Of Analytical Development misc, USE DIRECTED TO MONITOR GLUCOSE, Disp: [...] DIRECTED TO TEST GLUCOSE 05/06/2022 Dexcom G6 Director Of Analytical Development misc USE DIRECTED TO MONITOR GLUCOSE 03/12/2022 Janumet XR 50-1,000 mg tablet, ER multiphase 24 hr 04/13/2022 07/15/20 2 4 LANTUS 100 unit/mL (3 mL) pen for injection Twice a day. Morning & Night. 10 Units am & Units pm 05/10/2022 4 added in this encounter Care Teams Corporate Travel Consultant Relationship Specialty Start Date End Date Desiree Todd NP [address] [facility] [place] [address] PCP - General Nurse Practitioner 08/29/21 07/14/24 documented as of this encounter
--- OUTSIDE RECORDS SUMMARY | 2024-11-23 14:10 | XMS_ITS | Encounter Summary ---
Author Organization [facility] Healthcare Address [address] [place] [address] Care Team Providers Care Emergency Technician Name Role Phone Desiree Todd NP Primary Care Provider + Reason for Referral * Consultation (Routine) - Closed Specialty Diagnoses / Procedures Referred By Contac t Referred To Contact Endocrinology Diagnoses Alzheimer's disease (HCC) Yossi Nam II, MD [address] [place] [address] Phone: tel: fax: Sav Akins MD [address] [place], [place] [id number] Phone: tel: fax: Referral ID Status Reason Start Date Expiration Date V isits Requested Visits Authorized [id number] Closed Specialty Services Required 01/14/2024 02/12/2025 1 1 Question Answer Please select the performing region: [facility] Medical Group [[id number]] Please select the performing department: [facility] END[facility] [[id number]] To provider: SAV AKINS [[id number]] # of visits: 1 Comments Wants to be seen in [place] ING MACHINE OPERATOR Reason for Visit * Reason Comments Alzheimer's disease (HCC) Encounter Details Date Type Department Care Team ([facility] Contact Info) Description 01/14/2024 10:15 AM SERGING MACHINE OPERATOR Office Visit [facility] Specialists [facility] [address] [place] [address] [place] [address] [address] [place] [address] Alzheimer's disease (HCC) (Primary Dx) Social History [...] Comments Blood Pressure 120/50 01/14/2024 10:16 AM SERGING MACHINE OPERATOR Pulse 71 01/14/2024 10:16 AM SERGING MACHINE OPERATOR Temperature - - Respiratory Rate 17 01/14/2024 10:16 AM SERGING MACHINE OPERATOR Oxygen Saturation 96% 01/14/2024 10:16 AM SERGING MACHINE OPERATOR Inhaled Oxygen Concentration - - Weight 70.5 kg (155 lb 8.6 oz) 01/14/2024 10:16 AM SERGING MACHINE OPERATOR Height 165.1 cm (5' 5 ) 01/14/2024 10:16 AM SERGING MACHINE OPERATOR Body Mass Index 25.88 01/14/2024 10:16 AM SERGING MACHINE OPERATOR documented in this encounter Ordered [...] AND NOVOLOG, Disp: , Rfl: Dexcom G6 Motel Maid misc, USE DIRECTED TO MONITOR GLUCOSE, Disp: , Rfl: Dexcom G6 Sensor device, USE DIRECTED TO TEST GLUCOSE, Disp: , Rfl: Dexcom G6 Transmitter device, as directed, Disp: , Rfl: donepeziL (ARICEPT) 10 mg tablet, Take 1 tablet (10 mg total) by mouth nightly, Disp: 90 tablet, Rfl: 1 insulin aspart (NovoLOG) 100 unit/mL (3 mL) pen for injection, Novolog Flexpen U-100 Insulin [id number] unit/mL (3 mL) subcutaneous, Disp: , Rfl: [...] activity: None Alcohol Use: Not on file ING MACHINE OPERATOR documented in this encounter Plan [...] documented as of this encounter Care Teams Emergency Technician Relationship Specialty Start Date End Date Desiree Todd NP [address] [facility] DEPT [place] [address] PCP - General Nurse Practitioner 08/29/21 07/14/24 documented as of this encounter
--- OUTSIDE RECORDS SUMMARY | 2024-11-23 14:10 | XMS_ITS | Encounter Summary ---
Author Organization [facility] Healthcare Address [address] [place] [address] Care Team Providers Care Carrier Blower Name Role Phone Kvng Ulloa MD Primary Care Provider [phone] Reason for Visit * Reason Onset Date Comments Forms/questionnaires 08/17/2024 Home Care D elivered Encounter Details Date Type Department Care Team (Late st Contact Info) Description 08/17/2024 Telephone [facility] [id number] [place] [address] [place] [id number] [place] [address] Forms/questionnaires (Home Care Delivered) Social History [...] with last office note through faxcom to [phone]. Medical records request also received from Home Care Delivered. Office note faxed along with this request through faxcom to [phone]. informed and offered a Dexcom G6 sample. She agreed and stated she will be in today to pick it up. Dexcom G6 sample placed at the front office manager in the [place] office ready for quill picking machine operator. * Telephone Encounter - Mary Alice Muro NP - 08/25/2024 9:17 AM CDT signed * Telephone Encounter - Joanie Chatman MA - 08/25/2024 7:28 AM CDT Form was placed in FR Rx folder in [employer]. Dr. Akins out of the office. Next [...] FR NOV: 11/03/24 DS Caller: Patient daughter /[phone] Reason:daughter called office stated that Home Care [...] on filedocumented in this encounter Care Teams Carrier Blower Relationship Specialty Start Date End Date Kvng Ulloa MD [address] [facility] [place] [address] PCP - General Family Medicine 07/15/24 documented as of this encounter
--- OUTSIDE RECORDS SUMMARY | 2024-11-23 14:10 | XMS_ITS | Encounter Summary ---
Author Organization [facility] Address [address] [facility] [address] [place] [address] Care Team Providers Care Paint Tinter Name Role Phone Desiree Todd CLAM SHUCKING MACHINE TENDER Primary Care Provider + Encounter Details Date Type Department Care Team (Late st Contact Info) Description 11/30/2021 Telephone [facility] Specialists [facility] [address] [facility] [address] [place] [address] [place] [address] [facility] [address] [place], [place] [id number] Social History Tobacco Use Types Packs/Day Years [...] before they left the office per daughter. [employer] documented in this encounter Plan of Treatment Not on file documented as of this encounter Visit Diagnoses Not on filedocumented in this encounter Care Teams Paint Tinter Relationship Specialty Start Date End Date Desiree Todd NP [address] [place] [address] PCP - General Nurse Practitioner 08/29/21 07/14/24 documented as of this encounter
--- OUTSIDE RECORDS SUMMARY | 2024-11-23 14:10 | XMS_ITS | Encounter Summary ---
Author Organization [facility] Healthcare Address [address] [place] [address] Care Team Providers Care Quill Buncher And Sorter Name Role Phone Kvng Ulloa MD Primary Care Provider [phone] Encounter Details Date Type Department Care Team (Late st Contact Info) Description 10/20/2024 Telephone [facility] Medical Group Diabetes and Endocrinology [facility] [place] [address] Mary Alice Muro, CONTINUOUS MINING OPERATOR [address] [facility] [address] [place] [address] Social History Tobacco Use Types Packs/Day Years [...] Delivered. Office note faxed through faxcom to [phone] E DEVELOPER documented in this encounter Plan of Treatment Not on file documented as of this encounter Visit Diagnoses Not on filedocumented in this encounter Care Teams Quill Buncher And Sorter Relationship Specialty Start Date End Date Kvng Ulloa MD [address] [facility] [place] [address] PCP - General Family Medicine 07/15/24 documented as of this encounter
--- OUTSIDE RECORDS SUMMARY | 2024-11-23 14:10 | XMS_ITS | Encounter Summary ---
Author Organization [facility] Healthcare Address [address] [place] [address] Care Team Providers Care Metal Bonding Press Operator Name Role Phone Desiree Todd HAND TURNER Primary Care Provider + Reason for Referral * MRI/CAT/PET Scan (Routine) - Closed Specialty Diagnoses / Procedures Referred By Contac t Referred To Contact Radiology Diagnoses Alzheimer's disease (HCC) Procedures [place] [address] [address] [address] Phone: tel: fax: [address] [phone] Referral ID Status Reason Start Date Expiration Date Visits Re quested Visits Authorized [id number] Closed 10/24/2021 11/23/2022 1 1 AL SALES REPRESENTATIVE Reason for Visit * MRI/CAT/PET Scan (Routine) - Closed Specialty Diagnoses / Procedures Referred By Contac t Referred To Contact Radiology Diagnoses Alzheimer's disease (HCC) Procedures [place] [address] [address] [address] Phone: tel: fax: [address] [phone] Referral ID Status Reason Start Date Expiration Date Visits Re quested Visits Authorized [id number] Closed 10/24/2021 11/23/2022 1 1 Encounter Details Date Type Department Care Team (Latest Contact Info) Description 11/06/2021 8:32 AM DENTAL SALES REPRESENTATIVE - 11/06/2021 11:59 PM DENTAL SALES REPRESENTATIVE Hospital Encounter [facility] MRI [address] [place] [address] Alzheimer's disease (HCC) Discharge Disposition: Discharge to [...] Read Routine (OP Routine) 11/06/2021 9:46 AM DENTAL SALES REPRESENTATIVE Alzheimer's disease (HCC) documented in this encounter Results * MRI Brain WO Contrast (11/06/2021 9:46 AM DENTAL SALES REPRESENTATIVE) Anatomical Region Laterality Modality Head and Neck N/A Magnetic Resonan ce 11/06/2021 12:3 6 PM DENTAL SALES REPRESENTATIVE Narrative 11/06/2021 12:44 PM DENTAL SALES REPRESENTATIVE EXAM DESCRIPTION: ?? MRI BRAIN WO CONTRAST [...] D: ??11/06/2021 12:44 PM T: Report ID: [id number] Reading Location: ??[id number] Procedure Note Omar Vasquez MD - 11/06/2021 [...] Omar Vasquez M.D. AG T: Report ID: [id number] Reading Location: [place] [address] Yossi Nam II, MD IMG MRI PROCEDURES Final Res ult documented in this encounter Visit Diagnoses Diagnosis Alzheimer's disease (HCC) Alzheimer's disease documented in this encounter Care Teams Metal Bonding Press Operator Relationship Specialty Start Date End Date Desiree Todd NP [address] [place] [address] [place] [address] PCP - General Nurse Practitioner 08/29/21 07/14/24 documented as of this encounter
== END 2024-11-19 14:35 | DRG 690 ==
LOC: ANHED 09:10 → ANH3MEDSUR 11:56
PROVIDERS: Physician Assistant; Student in an Organized Health Care Education/Training Program; Admitting Provider Internal Medicine; Emergency Provider Physician Assistant; PCP Family Medicine; Visit Provider Internal Medicine
DX: N39.0 Urinary tract infection, site not specified (principal); B96.20 Unspecified Escherichia coli [E. coli] as the cause of diseases classified elsewhere; I10 Essential (primary) hypertension; D50.9 Iron deficiency anemia, unspecified; E78.5 Hyperlipidemia, unspecified; E11.9 Type 2 diabetes mellitus without complications; F03.90 Unspecified dementia, unspecified severity, without behavioral disturbance, psychotic disturbance, mood disturbance, and anxiety; R32 Unspecified urinary incontinence; Z79.4 Long term (current) use of insulin
CPT/HCPCS: 36415; 70450; 71046; 80048; 80053; 81001; 82274; 82607; 82728; 82746; 82948; 83036; 83540; 83550; 83735; 84443; 85025; 85027; 87086; 87186; 87637; 93005; 96361; 96365; 96375; 97161; 97165; 99285; A9270; G0378; J0696; J1650; J1756; J1815; J7030; J7050

== ENCOUNTER 2025-01-03 11:18 | Emergency (ER) | payer MEDICARE, OTHER, SELFPAY ==
[2025-01-03 11:41] VITALS: BP 107/46; PULSE 65; RESP 18; TEMP 36.3; O2SAT 97
--- OUTSIDE RECORDS SUMMARY | 2025-01-03 12:09 | XMS_ITS | Clinical Summary ---
Author Organization [facility] Physician Office Building [address] [place] [id number] Care Team Providers Care Career Manager Name Role Phone Kvng Ulloa MD Primary Care Provider [phone] Allergies Active Allergy Reactions Criticality Noted Date Comments Tree Nut Hives,Itching,Rash,Swelling Medium 10/24/20 21 [place] Rash Medium 10/24/2021 Medications simvastatin (ZOCOR) 40 mg tablet 1 Active losartan (COZAAR) 25 mg tablet 1 Active aspirin 81 MG oral suspension Acti ve alendronate (FOSAMAX) 70 mg tablet alendronate 70 mg tablet Active Dexcom G6 [employer] Assistant misc USE DIRECTED TO MONITOR GLUCOSE 2 [...] DAY for 10 days Active influenza quadrivalent [id number] (FLULAVAL,FLUARI X,FLUZONE) 60 mcg (15 mcg x [...] 1 tablet (25 mg total) by mouth warble saw operator before breakfast 90 tablet 2 4 Active [...] long-term current use of insulin ([facility]) Inject 3 Units under the skin 2 (two) times a day with meals 15 mL 6 4 Active LANTUS 100 unit/mL (3 mL) pen for injectionIndicat ions:Type 2 diabetes mellitus with hyperglycemia, with long-term current use of insulin ([facility]) Inject 14 Units under the skin warble saw operator before breakfast 15 mL 6 4 Active zinc acetate (Galzin) 25 mg (zinc) capsule Take 1 capsule by mouth daily Active Active Problems Problem Noted Date Diagnosed Date Hypertension associated with type 2 diabetes rayray litus 10/19/2024 Assessment & Plan (10/20/2024 11:54 AM AIRCRAFT ENGINE CYLINDER MECHANIC): Chronic problem. Controlled on current losartan 25mg daily. Will update labs. Verified that she uses [employer]. Aware to check results/results letter in mychart. Will contact by phone if needed. Hyperlipidemia associated with type 2 diabetes chapo guerin 10/19/2024 Assessment & Plan (10/20/2024 11:53 AM AIRCRAFT ENGINE CYLINDER MECHANIC): Chronic problem. No labs on file. Currently taking Simvastatin 40mg daily Will update labs. Verified that she uses mychart. Aware to check results/results letter in [employer]. Will contact by phone if needed. COVID-19 09/29/2023 Dyslipidemia 05/10/2022 Type 2 diabetes mellitus 05/10/2022 Assessment & Plan (10/20/2024 12:10 PM AIRCRAFT ENGINE CYLINDER MECHANIC): Chronic problem. A1c near goal but worsened [...] mychart. Aware to check results/results letter in [email or web address]. Will contact by phone if needed. Discussed [...] Alzheimer's disease 12/03/2021 Overview (07/15/2024): seeing neuro [facility] Memory impairment 08/28/2021 Bilateral hearing loss 02/05/2021 Osteoporosis 10/04/2020 Impacted cerumen of right ear 01/11/2020 Hyperlipidemia 01/11/2020 Fatigue 01/11/2020 Essential hypertension 01/11/2020 Resolved Problems Problem Noted Date Diagnosed Date Resolved Date Type 2 diabetes mellitus wit hout complication (CMS/HCC) 06/15/2021 10/19/2024 Type 1 diabetes mellitus 01/11/2020 Encounters Date Type Department Care Team Description 12/17/2024 Telephone [facility] [id number] [place] [phone] Quintin Akins MD 12/14/2024 Telephone [facility] Medical [facility] Diabetes and Endocrinology [address] [place] [phone] Mary Alice Muro NP Forms/questionnaires (Home Care Delivered) 10/26/2024 Orders Only [facility] Diabetes and Endocrinology [address] [place] [phone] Mary Alice Muro NP Type 2 diabetes mellitus with hyperglycemia, with long-term current use of insulin (HCC) (Primary Dx) 10/20/2024 12:15 PM AIRCRAFT ENGINE CYLINDER MECHANIC Lab [facility] Outpatient Lab at [address] [phone] Hyperlipidemia associated with type 2 diabetes mellitus (HCC) (Primary Dx); Bilateral hearing loss; Essential hypertension 10/20/2024 11:30 AM AIRCRAFT ENGINE CYLINDER MECHANIC Office Visit [facility] Medical [facility] Diabetes and Endocrinology [address] [place] [phone] Mary Alice Muro NP Type 2 diabetes mellitus with hyperglycemia, with long-term current use of insulin (HCC) (Primary Dx); Hypertension associated with type 2 diabetes mellitus (HCC); Hyperlipidemia associated with type 2 diabetes mellitus (HCC) 10/20/2024 11:27 AM AIRCRAFT ENGINE CYLINDER MECHANIC - 10/20/2024 11:59 PM AIRCRAFT ENGINE CYLINDER MECHANIC Hospital Encounter [facility] [id number] [place] [phone] Type 2 diabetes mellitus with hyperglycemia, with long-term current use of insulin (HCC); Hypertension associated with type 2 diabetes mellitus (HCC); Hyperlipidemia associated with type 2 diabetes mellitus (HCC) Discharge Disposition: Discharge to home or self care 10/20/2024 Telephone [facility] Diabetes and Endocrinology [address] [place] [phone] Mary Alice Muro NP Home Care Delivered from Last 3 Months Immunizations Name Administration [...] Comments Blood Pressure 104/64 10/20/2024 11:27 AM AIRCRAFT ENGINE CYLINDER MECHANIC Pulse 70 10/20/2024 11:27 AM AIRCRAFT ENGINE CYLINDER MECHANIC Temperature - - Respiratory Rate 16 10/20/2024 11:27 AM AIRCRAFT ENGINE CYLINDER MECHANIC Oxygen Saturation 96% 01/14/2024 10:16 AM AIRCRAFT ENGINE CYLINDER MECHANIC Inhaled Oxygen Concentration - - Weight 68.5 kg (151 lb) 10/20/2024 11:27 AM AIRCRAFT ENGINE CYLINDER MECHANIC Height 165.1 cm (5' 5 ) 10/20/2024 11:27 AM AIRCRAFT ENGINE CYLINDER MECHANIC Body Mass Index 25.13 10/20/2024 11:27 AM AIRCRAFT ENGINE CYLINDER MECHANIC Plan of Treatment Health Maintenance Due Date [...] Diagnosis Comments EGFR Routine 10/20/2024 12:22 PM AIRCRAFT ENGINE CYLINDER MECHANIC Type 2 diabetes mellitus with hyperglycemia, with long-term current use of insulin (HCC) Hypertension associated with type 2 diabetes mellitus (HCC) LIPID PANEL Routine 10/20/2024 12:22 PM AIRCRAFT ENGINE CYLINDER MECHANIC Type 2 diabetes mellitus with hyperglycemia, with long-term current use of insulin (HCC) Hyperlipidemia associated with type 2 diabetes mellitus (HCC) COMPREHENSIVE METABOLIC PANEL Routine 10/20/2024 12:22 PM AIRCRAFT ENGINE CYLINDER MECHANIC Type 2 diabetes mellitus with hyperglycemia, with long-term current use of insulin (HCC) Hypertension associated with type 2 diabetes mellitus (HCC) POCT GLUCOSE Routine 10/20/2024 11:31 AM AIRCRAFT ENGINE CYLINDER MECHANIC Type 2 diabetes mellitus with hyperglycemia, with long-term current use of insulin (HCC) POCT HEMOGLOBIN A1C Routine 10/20/2024 1 1:31 AM AIRCRAFT ENGINE CYLINDER MECHANIC Type 2 diabetes mellitus with hyperglycemia, with long-term current use of insulin ([facility]) from Last 3 Months Results * eGFR (10/20/2024 12:22 PM AIRCRAFT ENGINE CYLINDER MECHANIC) Pathologist [facility] eGFR >90 >=60 mL/min/1. 73 m2 Comment: Interpretive Data Reference Interval Normal >/= 90 mL/min/1.73m2 Mildly decreased* 60 - 89 mL/min/1.73m2 Mildly to moderately decreased 45 - 59 mL/min/1.73m2 Moderately to severely decreased 30 - 44 mL/min/1.73m2 Severely decreased 15 - 29 mL/min/1.73m2 Kidney Failure < 15 mL/min/1.73m2 *Relative to young adult level Estimated glomerular [...] reviewed 2021. Blood 10/20/2024 12:2 2 PM AIRCRAFT ENGINE CYLINDER MECHANIC 10/20/2024 8:10 PM AIRCRAFT ENGINE CYLINDER MECHANIC us Mary Alice Muro INSPECTOR BALANCE WHEEL MOTION LAB BLOOD ORDERABLES Sandra [place] Result YASEMIN [id number] Department [place] [address] * (ABNORMAL) Lipid panel (10/20/2024 12:22 PM AIRCRAFT ENGINE CYLINDER MECHANIC) Cholesterol 138 30 - 199 mg/dL Comment: Interpretive Data Ages < or = 19 years Acceptable: <170 mg/dL Borderline high: 170-199 mg/dL High: >or= 200 mg/dL Ages > or = 20 years Desirable: <200 mg/dL Borderline high: 200-239 mg/dL High: >or= 240 mg/dL Literature References: 1. Expert Panel on Integrated Guidelines for Cardiovascular Health and Risk Reduction in Children and Adolescents. Pediatrics 2011;128:S213 2. NCEP Expert Panel. Circulation 2004;110:227 Current Interpretive Data was last revised on 2018. Triglycerides 162(H) <=149 mg/dL YASEMIN OSWALD Comment: Interpretive Data Ages < or = 9 years Acceptable: <75 mg/dL Borderline high: 75-99 mg/dL High: >or= 100 mg/dL Ages 10 to 20 years Acceptable: <90 mg/dL Borderline high: 90-129 mg/dL High: >or= 130 mg/dL Ages > or = 20 years Desirable: <150 mg/dL Borderline high: 150-199 mg/dL High: 200-499 mg/dL Very high: >or= 499 mg/dL Literature References: 1. Expert Panel on Integrated Guidelines for Cardiovascular Health and Risk Reduction in Children and Adolescents. Pediatrics 2011;128:S213 2. NCEP Expert Panel. Circulation 2004;110:227 Current Interpretive Data was last revised on 2018. HDL 63 >=40 mg/dL YASEMIN OSWALD Comment: Interpretive Data Ages < or = 19 years Acceptable: >45 mg/dL Borderline low: 40-45 mg/dL Low: <40 mg/dL Ages > or = 20 years Desirable: >or= 60 mg/dL Low: <40 mg/dL Literature References: 1. Expert Panel on Integrated Guidelines for Cardiovascular Health and Risk Reduction in Children and Adolescents. Pediatrics 2011;128:S213 2. NCEP Expert Panel. Circulation 2004;110:227 Current Interpretive Data was last revised on 2018. LDL, calculated 48 <=129 mg/dL YASEMIN OSWALD Comment: Interpretive Data Ages < or = 19 years Acceptable: <110 mg/dL Borderline high: 110-129 mg/dL High: >or= 130 mg/dL Ages > or = 20 years Optimal: <100 mg/dL Near optimal: 100-129 mg/dL Borderline high: 130-159 mg/dL High: >160 mg/dL Calculated using the Raf LDL-C estimating equation. This equation was implemented on 2024. Prior to this date LDL-C was estimated using the Friedewald equation. Literature References: 1. Expert Panel on Integrated Guidelines for Cardiovascular Health and Risk Reduction in Children and Adolescents. Pediatrics 2011;128:S213 2. NCEP Expert Panel. Circulation 2004;110:227 3. aRf Weir et al. EDGAR Cardiol. 2019March 24;5(5):540-548. doi: 10.1001/jamacardio.2020.0013 Current Interpretive Data was last revised on 2024. Non-HDL Cholesterol 75 mg/dL YASEMIN OSWALD Comment: Interpretive Data Ages < or = 19 years Acceptable: <120 mg/dL Borderline high: 120-144 mg/dL High: >145 mg/dL Ages > or = 20 years When triglycerides are >200 mg/dL, Non-HDL cholesterol is a secondary target of therapy with treatment goals that are 30 mg/dL greater than the LDL cholesterol target. Literature References: 1. Expert Panel on Integrated Guidelines for Cardiovascular Health and Risk Reduction in Children and Adolescents. Pediatrics 2011;128:S213 2. NCEP Expert Panel. Circulation 2004;110:227 Current Interpretive Data was last revised on 2018. Chol/HDL ratio 2 YASEMIN OSWALD Blood 10/20/2024 12:2 2 PM AIRCRAFT ENGINE CYLINDER MECHANIC 10/20/2024 8:10 PM AIRCRAFT ENGINE CYLINDER MECHANIC us Mary Alice Muro NP LAB BLOOD ORDERABLES Sandra l Result YASEMIN OSWALD [id number] Department [place] [address] * Comprehensive metabolic panel (10/20/2024 12:22 PM AIRCRAFT ENGINE CYLINDER MECHANIC) Sodium 140 135 - 145 mmol/L Potassium, [...] >/= 126 mg/dl is diagnostic for diabetes. Fasting is defined as no caloric intake [...] CERNER CH Blood 10/20/2024 12:2 2 PM AIRCRAFT ENGINE CYLINDER MECHANIC 10/20/2024 8:10 PM AIRCRAFT ENGINE CYLINDER MECHANIC us Mary Alice Muro NP LAB BLOOD ORDERABLES Sandra [place] Result YASEMIN OSWALD [id number] Department [place] [address] * (ABNORMAL) POCT hemoglobin A1c (10/20/2024 11:31 AM AIRCRAFT ENGINE CYLINDER MECHANIC) Hemoglobin A1C, POC 7.3 4.0 - 5.6 % Blood 10/20/2024 11:3 1 AM AIRCRAFT ENGINE CYLINDER MECHANIC us Mary Alicemirella Muro INSPECTOR BALANCE WHEEL MOTION POINT OF CARE TEST ORDERA BLES Final Result * (ABNORMAL) POCT glucose (10/20/2024 11:31 AM AIRCRAFT ENGINE CYLINDER MECHANIC) Glucose Blood, POC 179 mg/dL Blood 10/20/2024 11:3 1 AM AIRCRAFT ENGINE CYLINDER MECHANIC us Mary Alice Muro INSPECTOR BALANCE WHEEL MOTION POINT OF CARE TEST ORDERA BLES Final Result from Last 3 Months Insurance MEDICARE [facility] [employer] Care Teams Career Manager Relationship Specialty Start Date End Date Kvng Ulloa MD [address] [place] [address] PCP - General Family Medicine 07/15/24
--- OUTSIDE RECORDS SUMMARY | 2025-01-03 12:09 | XMS_ITS | Referral Summary ---
Author Organization [facility] Physician Office Building [address] [place] [phone] Care Team Providers Care Member Of Congress Name Role Phone Kvng Ulloa MD Primary Care Provider [phone] Encounters Date Type Department Care Team Description 12/17/[address] [facility] [address] [place] [address] [address], [place] [address] Quintin Akins MD 12/14/2024 Telephone [facility] Group Diabetes and Endocrinology [address] [place] [phone] Mary Alice Muro NP Forms/questionnaires (Home Care Delivered) 10/26/2024 Orders Only [facility] Medical [facility] Diabetes and Endocrinology [address] [place] [phone] Mary Alice Muro NP Type 2 diabetes mellitus with hyperglycemia, with long-term current use of insulin (HCC) (Primary Dx) 10/20/2024 11:27 AM DIGITAL IMAGING SPECIALIST - 10/20/2024 11:59 PM DIGITAL IMAGING SPECIALIST Hospital Encounter [address] [address] Type 2 diabetes mellitus with hyperglycemia, with long-term current use of insulin (HCC); Hypertension associated with type 2 diabetes mellitus (HCC); Hyperlipidemia associated with type 2 diabetes mellitus (HCC) Discharge Disposition: Discharge to home or self care 10/20/2024 Telephone [facility] Medical [facility] Diabetes and Endocrinology [address] [place] [phone] Mary Alice Muro NP Home Care Delivered 10/20/2024 12:15 PM DIGITAL IMAGING SPECIALIST Lab [facility] Medical [facility] Outpatient Lab at [address] [phone] Hyperlipidemia associated with type 2 diabetes mellitus (HCC) (Primary Dx); Bilateral hearing loss; Essential hypertension 10/20/2024 11:30 AM DIGITAL IMAGING SPECIALIST Office Visit [facility] Diabetes and Endocrinology [address] [place] [phone] Mary Alice Muro NP Type 2 diabetes mellitus with hyperglycemia, with long-term current use of insulin (HCC) (Primary Dx); Hypertension associated with type 2 diabetes mellitus (HCC); Hyperlipidemia associated with type 2 diabetes mellitus (HCC) from Last 3 Months Allergies Active Allergy Reactions Criticality Noted Date Comments Tree Nut Hives,Itching,Rash,Swelling Medium 10/24/20 21 [place] Rash Medium 10/24/2021 Medications simvastatin (ZOCOR) 40 mg tablet 1 Active losartan (COZAAR) 25 mg tablet 1 Active aspirin 81 MG oral suspension Acti ve alendronate (FOSAMAX) 70 mg tablet alendronate 70 mg tablet Active Dexcom G6 Suppository Molding Machine Operator misc USE DIRECTED TO MONITOR GLUCOSE 2 [...] DAY for 10 days Active influenza quadrivalent [id number] (FLULAVAL,FLUARI X,FLUZONE) 60 mcg (15 mcg x [...] 1 tablet (25 mg total) by mouth welding pantograph operator before breakfast 90 tablet 2 4 [...] CENTER) Inject 14 Units under the skin welding pantograph operator before breakfast 15 mL 6 4 Active zinc acetate (Galzin) 25 mg (zinc) capsule Take 1 capsule by mouth daily Active Active Problems Problem Noted Date Diagnosed Date Hypertension associated with type 2 diabetes rayray parra 10/19/2024 Assessment & Plan (10/20/2024 11:54 AM DIGITAL IMAGING SPECIALIST): Chronic problem. Controlled on current losartan 25mg daily. Will update labs. Verified that she uses mychart. Aware to check results/results letter in [employer]. Will contact by phone if needed. Hyperlipidemia associated with type 2 diabetes chapo guerin 10/19/2024 Assessment & Plan (10/20/2024 11:53 AM DIGITAL IMAGING SPECIALIST): Chronic problem. No labs on file. Currently taking Simvastatin 40mg daily Will update labs. Verified that she uses [employer]. Aware to check results/results letter in [employer]. Will contact by phone if needed. COVID-19 09/29/2023 Dyslipidemia 05/10/2022 Type 2 diabetes mellitus 05/10/2022 Assessment & Plan (10/20/2024 12:10 PM DIGITAL IMAGING SPECIALIST): Chronic problem. A1c near goal but worsened [...] Will update labs. Verified that she uses [employer]. Aware to check results/results letter in [employer]. Will contact by phone if needed. Discussed [...] Type 2 diabetes mellitus wit hout complication ([facility]) 06/15/2021 10/19/2024 Type 1 diabetes [...] Comments Blood Pressure 104/64 10/20/2024 11:27 AM DIGITAL IMAGING SPECIALIST Pulse 70 10/20/2024 11:27 AM DIGITAL IMAGING SPECIALIST Temperature - - Respiratory Rate 16 10/20/2024 11:27 AM DIGITAL IMAGING SPECIALIST Oxygen Saturation 96% 01/14/2024 10:16 AM DIGITAL IMAGING SPECIALIST Inhaled Oxygen Concentration - - Weight 68.5 kg (151 lb) 10/20/2024 11:27 AM DIGITAL IMAGING SPECIALIST Height 165.1 cm (5' 5 ) 10/20/2024 11:27 AM DIGITAL IMAGING SPECIALIST Body Mass Index 25.13 10/20/2024 11:27 AM DIGITAL IMAGING SPECIALIST Plan of Treatment Not on file Procedures Procedure Name Priority Date/Time Associated Diagnosis Comments EGFR Routine 10/20/2024 12:22 PM DIGITAL IMAGING SPECIALIST Type 2 diabetes mellitus with hyperglycemia, with long-term current use of insulin ([facility]) Hypertension associated with type 2 diabetes mellitus (HCC) LIPID PANEL Routine 10/20/2024 12:22 PM DIGITAL IMAGING SPECIALIST Type 2 diabetes mellitus with hyperglycemia, with long-term current use of insulin ([facility]) Hyperlipidemia associated with type 2 diabetes mellitus (HCC) COMPREHENSIVE METABOLIC PANEL Routine 10/20/2024 12:22 PM DIGITAL IMAGING SPECIALIST Type 2 diabetes mellitus with hyperglycemia, with long-term current use of insulin ([facility]) Hypertension associated with type 2 diabetes mellitus (HCC) POCT GLUCOSE Routine 10/20/2024 11:31 AM DIGITAL IMAGING SPECIALIST Type 2 diabetes mellitus with hyperglycemia, with long-term current use of insulin ([facility]) POCT HEMOGLOBIN A1C Routine 10/20/2024 1 1:31 AM DIGITAL IMAGING SPECIALIST Type 2 diabetes mellitus with hyperglycemia, with long-term current use of insulin ([facility]) from Last 3 Months Results * eGFR (10/20/2024 12:22 PM DIGITAL IMAGING SPECIALIST) eGFR >90 >=60 mL/min/1. 73 m2 Comment: [...] reviewed 2021. Blood 10/20/2024 12:2 2 PM DIGITAL IMAGING SPECIALIST 10/20/2024 8:10 PM DIGITAL IMAGING SPECIALIST us Mary Alice Muro NP LAB BLOOD ORDERABLES Sandra [place] Result YASEMIN OSWALD [address] Department [place] [address] * (ABNORMAL) Lipid panel (10/20/2024 12:22 PM DIGITAL IMAGING SPECIALIST) Cholesterol 138 30 - 199 mg/dL Comment: [...] revised on 2024. Non-HDL Cholesterol 75 mg/dL YASEIMN OSWALD Comment: Interpretive Data Ages < or [...] CERNER CH Blood 10/20/2024 12:2 2 PM DIGITAL IMAGING SPECIALIST 10/20/2024 8:10 PM DIGITAL IMAGING SPECIALIST us Mary Alice Muro SILVER SERVICE WAITER LAB BLOOD ORDERAB[place] [id number] [address] Department [place] [address] * Comprehensive metabolic panel (10/20/2024 12:22 PM DIGITAL IMAGING SPECIALIST) Sodium 140 135 - 145 mmol/L Potassium, [...] classification and Diagnosis of Diabetes Diabetes Care 202; 46: S19-S40. Current interpretive data was last [...] CERNER CH Blood 10/20/2024 12:2 2 PM DIGITAL IMAGING SPECIALIST 10/20/2024 8:10 PM DIGITAL IMAGING SPECIALIST us Mary Alicemirella Muro SILVER SERVICE WAITER LAB BLOOD ORDERABLES Sandra l Result YASEMIN OSWALD [address] Department [place] [address] * (ABNORMAL) POCT hemoglobin A1c (10/20/2024 11:31 AM DIGITAL IMAGING SPECIALIST) Hemoglobin A1C, POC 7.3 4.0 - 5.6 % Blood 10/20/2024 11:3 1 AM DIGITAL IMAGING SPECIALIST us Mary Alicemirella Muro SILVER SERVICE WAITER POINT OF CARE TEST ORDERA BLES Final Result * (ABNORMAL) POCT glucose (10/20/2024 11:31 AM DIGITAL IMAGING SPECIALIST) Glucose Blood, POC 179 mg/dL Blood 10/20/2024 11:3 1 AM DIGITAL IMAGING SPECIALIST us Mary Alicemirella Muro SILVER SERVICE WAITER POINT OF CARE TEST ORDERA BLES Final Result from Last 3 Months Insurance MEDICARE [employer] Care Teams Member Of Congress Relationship Specialty Start Date End Date Kvng Ulloa MD [address] [place] [address] PCP - General Family Medicine 07/15/24
--- NOTE | 2025-01-03 12:24 | ED.URI ---
HPI - URI/Sore Throat General Chief Complaint: Upper Respiratory Infection Stated Complaint: fever and cough Time Seen by Provider: 01/03/25 12:24 Source: patient Mode of arrival: ambulatory Limitations: no limitations History of Present Illness HPI Narrative: 74-year-old female presents with complaint of cough, fatigue, fever starting yesterday. Patient lives in assisted living. Has had exposure to influenza A. Was recommended by assisted living staff that patient be seen in urgent care today for influenza test. They recommend she start on Tamiflu. Per assisted living staff patient seemed more confused today. Patient's daughter is here with her and reports no change from patient's baseline mental status. Patient is alert and answering questions appropriately. Does appear fatigued. All systems reviewed and negative except as noted above. Related Data Home Medications ?Medication ?Instructions ?Recorded ?Confirmed ?Last Taken ?Type aspirin 81 mg tablet,delayed 81 mg PO DAILY 10/06/20 11/16/24 11/15/24 History release empagliflozin 25 mg tablet 25 mg PO BID 10/06/20 11/16/24 11/15/24 History (Jardiance) insulin aspart U-100 100 unit/mL 2 unit subcut DAILY 10/06/20 11/16/24 11/15/24 History (3 mL) subcutaneous pen (Novolog FlexPen U-100 Insulin aspart) simvastatin 40 mg tablet 40 mg PO DAILY 10/06/20 11/16/24 11/15/24 History sitagliptin phos 50 mg-metformin 1 tablet PO BID 10/06/20 11/16/24 11/15/24 History ER 1,000 mg tablet,extend rel 24h mp (Janumet XR) donepezil 10 mg tablet 10 mg PO DAILY 04/12/24 11/16/24 11/15/24 History insulin glargine 100 unit/mL (3 See Rx Instructions subcut HS 04/12/24 11/16/24 11/15/24 History mL) subcutaneous pen (Lantus Solostar U-100 Insulin) losartan 25 mg tablet 25 mg PO DAILY 04/12/24 11/16/24 11/16/24 History memantine 10 mg tablet 10 mg PO BID 04/12/24 11/16/24 11/15/24 History Allergies Allergy/AdvReac Type Severity Reaction Status Date / Time Penicillins Allergy Intermediate Hives Verified 01/03/25 12:12 Sulfa (Sulfonamide Allergy Intermediate Hives Verified 01/03/25 12:12 Antibiotics) tree nut Allergy Intermediate Hives Verified 01/03/25 12:12 walnut Allergy Intermediate Hives Verified 01/03/25 12:12 Review of Systems Review of Systems: CONSTITUTIONAL: reports fever, chills, or sweats. EYES: Denies visual changes, redness, or discharge. ENT: Reports rhinorrhea, congestion. Denies sore throat, or otalgia. CARDIOVASCULAR: Denies chest pain, palpitations, or edema. RESPIRATORY: reports cough. Denies dyspnea. GASTROINTESTINAL: Denies abdominal pain, nausea, vomiting, or diarrhea. GENITOURINARY: Denies dysuria or hematuria. SKIN: Denies rash or itching. MUSCULOSKELETAL: Denies back pain, joint pain, or myalgia. NEUROLOGIC: Denies headache, numbness, or weakness. PSYCHIATRIC: Denies anxiety or depression. All other systems reviewed are negative, except as documented in HPI. [facility] Past Medical History Medical History Dementia Hyperlipidemia Hypertension Insulin dependent type 2 diabetes mellitus Surgical History Surgical History History of tubal ligation History of vein stripping History of cataract extraction Family History Family History Father Diabetes mellitus Hypertension Family history of alcoholism Social History Social History Social History: Surrogate medical decision maker: Jennifer Robertson, daughter. Code status: Full code. Smoking packs per day: 0.25 Smoking cigarettes per day: 5.0 Years smoked: 30 Smoking pack-years: 7.50 Smoking status: Never smoker Tobacco type: cigarettes Second hand tobacco smoke exposure: No Alcohol intake: never Substance use: never Substance use type: does not use Do You Feel Safe in your Home?: Yes Lack of Transportation: No Lack of Food: Never True Current Housing: I Have Housing Concerned About Future Housing: No Difficulty Paying Gas/Electric Bills: No Difficulty Paying for Meds: No Currently Unemployed: No Education: Don't Know Difficulty w/ Childcare or Family Care: No Living arrangements: detention [facility] Additional living arrangements comments: [facility] in [place]. Spiritual care concerns: No Comments At time of signature, agree with nursing past medical, surgical, social and family history. There is no relevant family history pertinent to the presenting complaint. Exam Narrative: GENERAL: This is a well-nourished, well-developed patient, ill-appearing but in no acute distress HEAD: normocephalic, atraumatic. EYES: PERRL. Sclera clear/white. Vision is grossly intact. EARS: External ears normal, auditory canals clear and without drainage, TMs normal without perforation. Hearing grossly intact. NOSE: External nose normal with no obvious nasal discharge, nares without redness, no rhinorrhea. THROAT: Mucous membranes moist, posterior pharynx clear. NECK: Neck supple, non-tender without lymphadenopathy, masses or thyromegaly. CARDIOVASCULAR: Regular rate and rhythm without murmurs, gallops, or rubs. RESPIRATORY: Clear to auscultation. Breath sounds equal bilaterally. No wheezes, rales, or rhonchi. SKIN: warm, Dry, intact with no suspicious lesions or rash, good texture and turgor. NEURO: awake, alert, and oriented to person, place and time. There were no obvious focal neurologic abnormalities. EXTREMITIES: No joint tenderness, effusion, or edema noted. Course Course Level of Care: Express Care Visit Vital Signs Vital signs: Vital Signs Temperature 36.3 C L 01/03/25 11:41 Pulse Rate 65 01/03/25 11:41 Respiratory Rate 18 01/03/25 11:41 Blood Pressure 107/46 L 01/03/25 11:41 Pulse Oximetry 97 01/03/25 11:41 Oxygen Delivery Room Air 01/03/25 11:41 Temperature 36.3 C L 01/03/25 11:41 Pulse Rate 65 01/03/25 11:41 Respiratory Rate 18 01/03/25 11:41 Blood Pressure 107/46 L 01/03/25 11:41 Pulse Oximetry 97 01/03/25 11:41 Oxygen Delivery Room Air 01/03/25 11:41 reviewed MDM - URI/Sore Throat MDM Narrative Medical decision making narrative: negative COVID and influenza test. Could be a false negative due to early onset symptoms. lungs clear to auscultation. Vital Signs hemodynamically stable. Patient is alert, nontoxic. Will prescribe Tamiflu today at daughter's request. Please be advised this is a medical document. It is intended for [id number]-ioyz communication. It is written in medical language and may contain unfamiliar abbreviations or verbiage. Medical documents are intended to carry relevant information, facts as evident, and the clinical opinion of the practitioner at the time of the encounter. This report may have been done utilizing a voice recognition system. Attempts have been made to correct errors. However, there may be uncorrected grammatical, spelling, and recognition errors present. The file time of this note does not necessarily represent the time of service. Lab Data Labs: Lab Results 01/03/25 Range/Units 12:37 POC Influenza A Ag Negative (Negative) POC Influenza B Ag Negative (Negative) POC SARS CoV-2 Ag Negative (Negative) Discharge Plan Discharge Clinical Impression: Acute viral syndrome, Exposure to influenza Patient Disposition: Home, Self-Care Condition: Stable Instructions: Influenza (ED) Additional Instructions: Rosa Elena's influenza test was negative today. I recommend waiting at least 48-72 hours prior to testing, this could be a false negative. Due to her symptoms and recent influenza exposure I am prescribing Tamiflu today. This medication is an antiviral. Take Tamiflu as prescribed. Continue to given [id number] medication to treat cough and congestion such as DayQuil NyQuil cold and flu. Drink plenty of water and rest. Follow-up with primary care physician if symptoms not improving. Patient Language: Greenlandic Prescriptions: New oseltamivir [Tamiflu] 75 mg capsule 75 mg PO Q12H 5 Days Qty: 10 0RF No Action donepezil 10 mg tablet 10 mg PO DAILY losartan 25 mg tablet 25 mg PO DAILY memantine 10 mg tablet 10 mg PO BID insulin glargine [Lantus Solostar U-100 Insulin] 100 unit/mL (3 mL) insulin pen See Rx Instructions SUBCUT HS Rx Instructions: 12 subcutaneously bedtime; 10 units subcutaneously at breakfast aspirin 81 mg tablet,delayed release (DR/EC) 81 mg PO DAILY simvastatin 40 mg tablet 40 mg PO DAILY insulin aspart U-100 [Novolog FlexPen U-100 Insulin] 100 unit/mL (3 mL) insulin pen 2 unit SUBCUT DAILY Rx Instructions: with breakfast and lunch Janumet XR 50-1,000 mg tablet, ER multiphase 24 hr 1 tablet PO BID Jardiance 25 mg tablet 25 mg PO BID ascorbate calcium (vitamin C) 500 mg tablet 500 mg PO BID Qty: 14 0RF ciprofloxacin HCl 250 mg tablet 250 mg PO Q12H 2 Days Qty: 4 0RF Follow-up/Referrals: Artemio,MD Kvng [Primary Care Provider] - Time of Disposition: 12:40
[2025-01-03 12:39] LABS: EDCOVIDSCREEN Negative (Negative); EDINFLUASCREEN Negative (Negative); EDINFLUBSCREEN Negative (Negative)
== END 2025-01-03 12:55 | disposition home or self-care (01) ==
PROVIDERS: Emergency Provider Nurse Practitioner Family; PCP Family Medicine
DX: B34.9 Viral infection, unspecified (principal); Z20.828 Contact with and (suspected) exposure to other viral communicable diseases; Z20.822 Contact with and (suspected) exposure to COVID-19; F17.210 Nicotine dependence, cigarettes, uncomplicated; F03.90 Unspecified dementia, unspecified severity, without behavioral disturbance, psychotic disturbance, mood disturbance, and anxiety; I10 Essential (primary) hypertension; E11.9 Type 2 diabetes mellitus without complications; Z79.4 Long term (current) use of insulin; E78.5 Hyperlipidemia, unspecified; Z79.82 Long term (current) use of aspirin
CPT/HCPCS: 87426; 87804; 99213; G0463

== ENCOUNTER 2025-03-21 19:56 | Emergency (ER) | payer MEDICARE, OTHER, SELFPAY ==
[2025-03-21] VITALS (24 sets, daily range): BP systolic 109–133; BP diastolic 48–73; PULSE 69–70; RESP 14–16; TEMP 36.6–37.1; O2SAT 94–98
--- NOTE | ~2025-03-21 | XR_ITS ---
EXAM: XR shoulder LT min 2V DATE: 03/21/2025 20:50 HISTORY: fall yesterday, prox fx? . COMPARISON: None available. FINDINGS: Osteopenia. Oblique proximal left humeral shaft fracture, with 7 mm lateral displacement a nd 8 degrees lateral angulation, and minimal overlap of 4 mm. No lytic or blastic lesion. Mild degene rative change at the glenohumeral joint. Calcific tendinitis of rotator cuff. No erosion or periostea l change. Soft tissues within normal limits. IMPRESSION: Oblique mildly displaced and angulated proximal left humeral shaft fracture with minimal overlap. Reviewed, dictated and finalized at location K.
--- NOTE | 2025-03-21 20:43 | ED.UPPEXIN ---
HPI - Extremity Injury (Upper) General Chief Complaint: Extremity Injury, Upper Stated Complaint: ZEYNEP Rudolph S/P FALL THIS AM. Time Seen by Provider: 03/21/25 20:30 History of Present Illness HPI narrative: 74-year-old female with a past medical history including dementia, hypertension. She presents from her memory care facility with her daughter present at bedside for collateral formation. Yesterday around 2 in the morning she had a ground level fall without any head trauma. She landed onto her left upper extremity. Nursing staff was able to help the patient up and checked her out. This morning she has complained of left shoulder pain so a portable x-ray was done at the facility that showed a potential proximal humeral fracture and she was sent to the emergency department for further evaluation. Patient denies any pain at rest and she has full mobility at the elbow and wrist. Good product mgmt dev manager strength. Pain with manipulation or movement of left upper extremity near the shoulder joint. No back pain, headache or vision changes. She is at her baseline mentation according to the daughter. She has not had any worsening mental status, nausea, vomiting or any other concerns since the fall yesterday morning. Does not take any blood thinners. No chest pain or shortness a breath. Related Data Home Medications ?Medication ?Instructions ?Recorded ?Confirmed ?Last Taken ?Type aspirin 81 mg tablet,delayed 81 mg PO DAILY 10/06/20 11/16/24 11/15/24 History release empagliflozin 25 mg tablet 25 mg PO BID 10/06/20 11/16/24 11/15/24 History (Jardiance) insulin aspart U-100 100 unit/mL 2 unit subcut DAILY 10/06/20 11/16/24 11/15/24 History (3 mL) subcutaneous pen (Novolog FlexPen U-100 Insulin aspart) simvastatin 40 mg tablet 40 mg PO DAILY 10/06/20 11/16/24 11/15/24 History sitagliptin phos 50 mg-metformin 1 tablet PO BID 10/06/20 11/16/24 11/15/24 History ER 1,000 mg tablet,extend rel 24h mp (Janumet XR) donepezil 10 mg tablet 10 mg PO DAILY 04/12/24 11/16/24 11/15/24 History insulin glargine 100 unit/mL (3 See Rx Instructions subcut HS 04/12/24 11/16/24 11/15/24 History mL) subcutaneous pen (Lantus Solostar U-100 Insulin) losartan 25 mg tablet 25 mg PO DAILY 04/12/24 11/16/24 11/16/24 History memantine 10 mg tablet 10 mg PO BID 04/12/24 11/16/24 11/15/24 History Allergies Allergy/AdvReac Type Severity Reaction Status Date / Time Penicillins Allergy Intermediate Hives Verified 01/03/25 12:12 Sulfa (Sulfonamide Allergy Intermediate Hives Verified 01/03/25 12:12 Antibiotics) tree nut Allergy Intermediate Hives Verified 01/03/25 12:12 walnut Allergy Intermediate Hives Verified 01/03/25 12:12 Review of Systems Review of Systems: As reviewed above in [facility] Past Medical History Medical History Dementia Hyperlipidemia Hypertension Insulin dependent type 2 diabetes mellitus Surgical History Surgical History History of tubal ligation History of vein stripping History of cataract extraction Family History Family History Father Diabetes mellitus Hypertension Family history of alcoholism Social History Social History Social History: Surrogate medical decision maker: Jennifer Robertson, daughter. Code status: Full code. Smoking packs per day: 0.25 Smoking cigarettes per day: 5.0 Years smoked: 30 Smoking pack-years: 7.50 Smoking status: Never smoker Tobacco type: cigarettes Second hand tobacco smoke exposure: No Alcohol intake: never Substance use: never Substance use type: does not use Do You Feel Safe in your Home?: Yes Lack of Transportation: No Lack of Food: Never True Current Housing: I Have Housing Concerned About Future Housing: No Difficulty Paying Gas/Electric Bills: No Difficulty Paying for Meds: No Currently Unemployed: No Education: Don't Know Difficulty w/ Childcare or Family Care: No [facility] arrangements: [facility] Additional living arrangements comments: [facility] in [place]. Spiritual care concerns: No Exam Narrative: GENERAL: [Well-appearing, well-nourished, and in no acute distress.] HEAD: [Normocephalic, atraumatic.] EYES: [PERRLA and EOMI.] ENT: Nares clear, no rhinorrhea or epistaxis. Mucous membranes moist. NECK: Supple. CHEST: [Clear to auscultation. No respiratory distress.] HEART: [Regular rate and rhythm]. No murmur heard. [Normal peripheral pulses.] ABDOMEN: [Soft, nondistended], [nontender], [No rigidity or guarding] EXTREMITIES: Limited range of motion of the shoulder secondary to pain. Good distal range at the elbow and wrist. Good product mgmt dev manager strength 5/5. SKIN: Bruising to left upper extremity in the proximal humeral region. NEURO: [No focal deficits]. Alert and oriented x1 which is her baseline. Neurovascular intact with good strength and sensation throughout both arms and legs. PSYCH: [Normal mood and affect.] Course Vital Signs Vital signs: Vital Signs Temperature 37.1 C 03/21/25 20:01 Pulse Rate 69 03/21/25 20:01 Respiratory Rate 14 03/21/25 20:01 Blood Pressure 133/55 L 03/21/25 20:01 Pulse Oximetry 96 03/21/25 20:01 Oxygen Delivery Room Air 03/21/25 20:01 Temperature 37.1 C 03/21/25 20:01 Pulse Rate 69 03/21/25 20:01 Respiratory Rate 14 03/21/25 20:01 Blood Pressure 109/53 L 03/21/25 21:46 Pulse Oximetry 97 03/21/25 22:02 Oxygen Delivery Room Air 03/21/25 20:01 MDM - Extremity Injury (Upper) MDM Narrative Medical decision making narrative: 74-year-old female presenting with potential left upper extremity fracture. She fell yesterday at approximately 2:00 a.m.. Did not strike her head or lose consciousness. Does not take any blood thinners. She was complaining of some shoulder pain this morning and an x-ray was done at her facility that showed a potential fracture. She was sent to the ER for evaluation. She has good distal neuro vasculature, 2+ radial pulses, warm extremities and able to move the elbow and wrist. Good product mgmt dev manager strength bilaterally. Some tenderness and limited range of motion along the left shoulder with some bruising. Suspicion presently is for left proximal humerus fracture versus displaced fracture versus shoulder dislocation although less likely. Two-view x-ray was obtained and she was given oxycodone for pain and re-evaluated. When not moving or at rest she is at 0/10 pain and otherwise well-appearing. Does not need any advanced imaging of her head or neck at this time as she did not have any neck pain, central tenderness or neurological complaints, and has had no mental status changes or blood thinner use. The injury was 18+ hours ago without any concern at this time for intracranial process. Shoulder x-ray shows mildly displaced oblique fracture of the proximal left humerus. Minimal overlap. Patient is not in any discomfort at rest. Shoulder immobilizer was applied to left upper extremity without difficulty. I discussed this finding with the patient's family at bedside and plan of care at this time will be for Orthopedics outpatient referral and pain control medication regimen for discharge. Family was comfortable this plan and EMS was arranged to transport the patient back home secondary to her dementia. They will follow-up with orthopedics or return with any new or worsening concerns. Medical Records Attestation: I reviewed the patient's medical records. Imaging Data Attestation: I personally reviewed and interpreted this imaging study as follows: My impression: Impressions Shoulder X-Ray 03/21/25 21:24 IMPRESSION: Oblique mildly displaced and angulated proximal left humeral shaft fracture with minimal overlap. Discharge Plan Discharge Clinical Impression: Fracture of proximal humerus Patient Disposition: Home Condition: Stable Instructions: Antibiotic Form, Arm Fracture in Adults (ED), Shoulder Immobilizer (ED) Additional Instructions: Call the provided orthopedics office for outpatient follow-up and evaluation. We will send her home with pain control medications. Return with any new or worsening concerns at any time. Patient Language: Latvian Prescriptions: New oxycodone 5 mg tablet 2.5 mg PO Q8H PRN (Reason: pain) Qty: 10 0RF acetaminophen [Tylenol Extra Strength] 500 mg tablet 1,000 mg PO TID PRN (Reason: pain) Qty: 30 0RF No Action donepezil 10 mg tablet 10 mg PO DAILY losartan 25 mg tablet 25 mg PO DAILY memantine 10 mg tablet 10 mg PO BID insulin glargine [Lantus Solostar U-100 Insulin] 100 unit/mL (3 mL) insulin pen See Rx Instructions SUBCUT HS Rx Instructions: 12 subcutaneously bedtime; 10 units subcutaneously at breakfast oseltamivir [Tamiflu] 75 mg capsule 75 mg PO Q12H 5 Days Qty: 10 0RF ondansetron 4 mg tablet,disintegrating 4 mg PO Q8H PRN (Reason: nausea and vomiting) Qty: 12 0RF aspirin 81 mg tablet,delayed release (DR/EC) 81 mg PO DAILY simvastatin 40 mg tablet 40 mg PO DAILY insulin aspart U-100 [Novolog FlexPen U-100 Insulin] 100 unit/mL (3 mL) insulin pen 2 unit SUBCUT DAILY Rx Instructions: with breakfast and lunch Janumet XR 50-1,000 mg tablet, ER multiphase 24 hr 1 tablet PO BID Jardiance 25 mg tablet 25 mg PO BID ascorbate calcium (vitamin C) 500 mg tablet 500 mg PO BID Qty: 14 0RF ciprofloxacin HCl 250 mg tablet 250 mg PO Q12H 2 Days Qty: 4 0RF Follow-up/Referrals: Artemio,MD Kvng [Primary Care Provider] - Brian Shelby MD [Physician] - 1 Week (Proximal left humerus fracture) Time of Disposition: 22:28
[2025-03-21] MEDS: oxyCODONE HCL (*CRX) 2.5 MG TAB IR PO (20:50)
--- OUTSIDE RECORDS SUMMARY | 2025-03-21 21:38 | XMS_ITS | Referral Summary ---
Author Organization [facility] [address] [place] [phone] Care Team Providers Care Bookmobile Driver Name Role Phone Kvng Ulloa MD Primary Care Provider [phone] Encounters Date Type Department Care Team Description 03/04/2025 Orders Only [facility] Diabetes and Endocrinology [address] [place] [phone] Mary Alice Muro NP Type 2 diabetes mellitus with hyperglycemia, with long-term current use of insulin (HCC) 02/28/2025 Orders Only [facility] Diabetes and Endocrinology [address] [place] [address] [phone] Mary Alice Muro NP 01/24/2025 2:30 PM JAVA J2EE TECHNICAL LEAD Office [place] [facility] [place] [facility] [id number] [place] [phone] Yossi Nam II, MD Alzheimer's disease with late onset (HCC) (Primary Dx); Alzheimer's disease (HCC) 01/10/2025 Results Follow-Up [facility] Diabetes and Endocrinology [address] [place] [phone] Mary Alice Muro NP 01/07/2025 1:35 PM JAVA J2EE TECHNICAL LEAD - 01/07/2025 11:59 PM JAVA J2EE TECHNICAL LEAD Hospital Encounter [address] [address] Type 2 diabetes mellitus with hyperglycemia, with long-term current use of insulin (HCC) Discharge Disposition: Discharge to home or self care 01/07/2025 1:30 PM JAVA J2EE TECHNICAL LEAD Lab [facility] Outpatient Lab at [address] [phone] 01/06/2025 2:30 PM JAVA J2EE TECHNICAL LEAD Office Visit [facility] Diabetes and Endocrinology [address] [place] [phone] Mary Alice Muro, MATT Type 2 diabetes mellitus with hyperglycemia, with long-term current use of insulin (HCC) (Primary Dx); Hypertension associated with type 2 diabetes mellitus (HCC); Hyperlipidemia associated with type 2 diabetes mellitus (HCC) from Last 3 Months Allergies Active Allergy Reactions Criticality Noted Date Comments Penicillins Unknown 01/06/2025 [place] Nut Hives,Itching,Rash,Swelling Medium 10/24/20 21 [place] Rash Medium 10/24/2021 Medications simvastatin (ZOCOR) 40 mg tablet 09/18/20 21 Active losartan (COZAAR) 25 mg tablet 09/18/20 21 Active aspirin 81 MG oral suspension Active alendronate (FOSAMAX) 70 mg tablet alendronate 70 mg tablet Active Dexcom G6 Injection Molding Machine Operator misc USE DIRECTED TO MONITOR GLUCOSE 03/12/20 22 Active Dexcom G6 Sensor device USE DIRECTED TO TEST GLUCOSE 05/06/20 22 Active Dexcom G6 Transmitter device as directed 03/12/20 22 Active carbamide peroxide (Ear Drops, carbamide peroxide,) 6.5 % otic solution INSTILL 5 DROPS INTO AFFECTED right EAR(S) BY OTIC ROUTE 2 TIMES PER DAY for 10 days Active influenza quadrivalent (FLULAVAL,FLUARIX, FLUZONE) 60 mcg (15 mcg x 4)/0.5 mL syringe Active pneumococcal 23-valent (Pneumovax-23) 25 mcg/0.5 mL vaccine ADM 0.5ML IM UTD Active triamcinolone (KENALOG) 0.1 % cream APPLY A THIN LAYER TO THE AFFECTED AREA(S) BY TOPICAL ROUTE 2 TIMES PER DAY to areas on arms/legs Active empagliflozin (JARDIANCE) 25 mg tabletIndications: Type 2 diabetes mellitus with hyperglycemia, with long-term current use of insulin (HCC) Take 1 tablet (25 mg total) by mouth diesel power 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) Take 50-1,000 mg by mouth 2 (two) times a day 180 tablet 2 07/15/20 24 Active insulin aspart (NovoLOG) 100 unit/mL (3 mL) pen for injectionIndicatio ns:Type 2 diabetes mellitus with hyperglycemia, with long-term current use of insulin ([facility]) Inject 3 Units under the skin 2 (two) times a day with meals 15 mL 6 07/15/20 24 Active LANTUS 100 unit/mL (3 mL) pen for injectionIndicatio ns:Type 2 diabetes mellitus with hyperglycemia, with long-term current use of insulin ([facility]) Inject 14 Units under the skin diesel power shovel operator before breakfast 15 mL 6 07/16/20 24 Active zinc acetate (Galzin) 25 mg (zinc) capsule Take 1 capsule by mouth daily Active ondansetron ODT (ZOFRAN-ODT) 4 mg disintegrating tablet DISSOLVE 1 TABLET ON THE TONGUE EVERY 8 HOURS NEEDED FOR NAUSEA OR VOMITING 01/03/20 25 Active oseltamivir (TAMIFLU) 75 mg capsule 01/03/20 25 Active BD Elva 2nd Gen Pen Needle 32 gauge x 5/32 needleIndications: Type 2 diabetes mellitus with hyperglycemia, with long-term current use of insulin ([facility]) Use to inject insulin three times daily 100 each 11 01/06/20 25 Active donepeziL (ARICEPT) 10 mg tabletIndications: Mild to Moderate Alzheimer's Type Dementia Take 1 tablet (10 mg total) by mouth nightly 90 tablet 3 01/25/20 25 025 Active memantine (NAMENDA) 10 mg tabletIndications: Moderate to Severe Alzheimer's Type Dementia Take 1 tablet (10 mg total) by mouth 2 (two) times a day 60 tablet 3 01/25/20 25 025 Active dulaglutide (Trulicity) 0.75 mg/0.5 mL pen injectorIndication s:type 2 diabetes mellitus Inject 0.5 mL (0.75 mg total) under the skin once a week 2 mL 02/29/20 25 025 Active empagliflozin (Jardiance) 25 mg tabletIndications: type 2 diabetes mellitus Take 1 tablet (25 mg total) by mouth daily for 7 days 7 tablet 03/04/20 25 Active dulaglutide (Trulicity) 0.75 mg/0.5 mL pen injectorIndication s:type 2 diabetes mellitus Inject 0.5 mL (0.75 mg total) under the skin once a week 2 mL 01/29/20 25 025 Discontin ued(Reord er) Active Problems Problem Noted Date Diagnosed Date Hypertension associated with type 2 diabetes rayray osman 10/19/2024 Assessment & Plan (01/06/2025 2:51 PM JAVA J2EE TECHNICAL LEAD): Chronic problem. Controlled on current losartan 25mg daily. Assessment & Plan (10/20/2024 11:54 AM JAVA J2EE TECHNICAL LEAD): Chronic problem. Controlled on current losartan 25mg daily. Will update labs. Verified that she uses [facility]. Aware to check results/results letter in Paradial. Will contact by phone if needed. Hyperlipidemia associated with type 2 diabetes chapo guerin 10/19/2024 Assessment & Plan (01/06/2025 3:24 PM JAVA J2EE TECHNICAL LEAD): Chronic problem. Currently taking Simvastatin 40mg daily Last lipid panel: 10/20/24 LDL=48, DM=980. Assessment & Plan (10/20/2024 11:53 AM JAVA J2EE TECHNICAL LEAD): Chronic problem. No labs on file. Currently taking Simvastatin 40mg daily Will update labs. Verified that she uses [facility]. Aware to check results/results letter in [facility]ial. Will contact by phone if needed. COVID-19 09/29/2023 Dyslipidemia 05/10/2022 Type 2 diabetes mellitus 05/10/2022 Assessment & Plan (01/06/2025 3:31 PM JAVA J2EE TECHNICAL LEAD): Chronic problem. A1c improved from 7.3% 10/20/24 to now 01/06/25. Will try to decrease her injection burden. Will send in Trulicity 0.75mg weekly. May need to start to decrease novolog with meals and/or Lantus. (Novolog if lows after meals, lantus if lows overnight). To send me a Paradial message in 2-3 weeks (before refill of trulicity is needed) with update on blood sugars & how she's doing. To watch out for weight loss--don't want her to lose weight. Switch Lantus to evening for your convenience. Current medications: Janumet XR 50-1000mg twice daily with meals Jardiance 25mg daily Trulicity 0.75mg weekly Lantus 14 units every morning Novolog 3 units before lunch/dinner DM eye exam: never. To call to schedule. Will update MA/Cr today. Verified that she uses [facility]. Aware to check results/results letter in [facility]ial. Will contact by phone if needed. Discussed with Rosa Elena Khari Fisher: Strive for regular exercise (30min most days) and diet (get at least 4-5 servings of fruit and veggies daily, avoid processed foods, increase lean protein intake and decrease carb portions as well as fruit juices, regular soda & desserts). Watch carbs and simple sugars. Check the blood sugar: Dexcom G6. Check the feet daily for skin breakdown and infection. Assessment & Plan (10/20/2024 12:10 PM JAVA J2EE TECHNICAL LEAD): Chronic problem. A1c near goal but worsened [...] [facility]. Aware to check results/results letter in Paradial. Will contact by phone if needed. Discussed [...] Alzheimer's disease 12/03/2021 Overview (07/15/2024): seeing neuro C Memory impairment 08/28/2021 Bilateral hearing loss 02/05/2021 Osteoporosis 10/04/2020 Impacted cerumen of right ear 01/11/2020 Hyperlipidemia 01/11/2020 Fatigue 01/11/2020 Essential hypertension 01/11/2020 Resolved Problems Problem Noted Date Diagnosed Date Resolved Date Type 2 diabetes mellitus without complication 06/15/20 21 10/19/2024 Type 1 diabetes mellitus 01/11/2020 Immunizations Immunization Administration Dates Next Due Influenza, Quadrivalent, Hig [...] Sign Reading Time Taken Comments Blood Pressure 106/66 01/24/2025 2:36 PM JAVA J2EE TECHNICAL LEAD Pulse 76 01/24/2025 2:36 PM JAVA J2EE TECHNICAL LEAD Temperature - - Respiratory Rate 18 01/24/2025 2:36 PM JAVA J2EE TECHNICAL LEAD Oxygen Saturation 96% 01/24/2025 2:36 PM JAVA J2EE TECHNICAL LEAD Inhaled Oxygen Concentration - - Weight 64.4 kg (142 lb) 01/24/2025 2:36 PM JAVA J2EE TECHNICAL LEAD Height 165.1 cm (5' 5 ) 01/24/2025 2:36 PM JAVA J2EE TECHNICAL LEAD Body Mass Index 23.63 01/24/2025 2:36 PM JAVA J2EE TECHNICAL LEAD Plan of Treatment Not on file Procedures Procedure Name Priority Date/Time Associated Diagnosis Comments ALBUMIN CREATININE RATIO, URINE Routine 01/07/2025 12:00 AM JAVA J2EE TECHNICAL LEAD Type 2 diabetes mellitus with hyperglycemia, with long-term current use of insulin ([facility]) POCT GLUCOSE Routine 01/06/2025 2:36 PM JAVA J2EE TECHNICAL LEAD Type 2 diabetes mellitus with hyperglycemia, with long-term current use of insulin ([facility]) POCT HEMOGLOBIN A1C Routine 01/06/2025 2 :36 PM JAVA J2EE TECHNICAL LEAD Type 2 diabetes mellitus with hyperglycemia, with long-term current use of insulin ([facility]) EGFR Routine 10/20/2024 12:22 PM JAVA J2EE TECHNICAL LEAD Type 2 diabetes mellitus with hyperglycemia, with long-term current use of insulin ([facility]) Hypertension associated with type 2 diabetes mellitus (HCC) LIPID PANEL Routine 10/20/2024 12:22 PM JAVA J2EE TECHNICAL LEAD Type 2 diabetes mellitus with hyperglycemia, with long-term current use of insulin ([facility]) Hyperlipidemia associated with type 2 diabetes mellitus (HCC) from Last 3 Months or Most Recently Relevant to Health Maintenance Results * (ABNORMAL) Albumin Creatinine Ratio, Urine (01/07/2025 12:00 AM JAVA J2EE TECHNICAL LEAD) Albumin Ur 41.3 mg/L Comment: Interpretive Data No reference range established. Current interpretive data was last revised 2019. Creatinine Ur 73.9 mg/dL YASEMIN Comment: Interpretive Data No reference range established. Current interpretive data was last revised 2019. Albumin Creatinine Ratio, Ur 56(H) 1 - 29 mg/g YASEMIN Urine 01/07/2025 01/07/2025 7:3 0 PM JAVA J2EE TECHNICAL LEAD us Mary Alice Muro NP LAB URINE ORDERABLES Sandra l Result YASEMIN [id number] [place] [address] * (ABNORMAL) POCT hemoglobin A1c (01/06/2025 2:36 PM JAVA J2EE TECHNICAL LEAD) Hemoglobin A1C, POC 6.8 4.0 - 5.6 % Blood 01/06/2025 2:36 PM JAVA J2EE TECHNICAL LEAD us Mary Alice Muro NP POINT OF CARE TEST ORDERA BLES Final Result * (ABNORMAL) POCT glucose (01/06/2025 2:36 PM JAVA J2EE TECHNICAL LEAD) Glucose Blood, POC 129 mg/dL Blood 01/06/2025 2:36 PM JAVA J2EE TECHNICAL LEAD us Mary Alice Muro NP POINT OF CARE TEST ORDERA BLES Final Result * eGFR (10/20/2024 12:22 PM JAVA J2EE TECHNICAL LEAD) eGFR >90 >=60 mL/min/1. 73 m2 Comment: [...] reviewed 2021. Blood 10/20/2024 12:2 2 PM JAVA J2EE TECHNICAL LEAD 10/20/2024 8:10 PM JAVA J2EE TECHNICAL LEAD us Mary Alice Muro NP LAB BLOOD ORDERABLES Sandra [place] Result YASEMIN OSWALD [id number] [place] [address] * (ABNORMAL) Lipid panel (10/20/2024 12:22 PM JAVA J2EE TECHNICAL LEAD) Cholesterol 138 30 - 199 mg/dL Comment: [...] on 2024. Non-HDL Cholesterol 75 mg/dL YASEMIN OSWADL Comment: Interpretive Data Ages < or = [...] YASEMIN OSWALD Blood 10/20/2024 12:2 2 PM JAVA J2EE TECHNICAL LEAD 10/20/2024 8:10 PM JAVA J2EE TECHNICAL LEAD us Mary Alice Muro NP LAB BLOOD ORDERABLES Sandra [place] Result YASEMIN OSWALD [id number] [place] [address] from Last 3 Months or Most Recently Relevant to Health Maintenance Insurance [facility]IC[facility] Address[address] [address] [place] [address] [employer] Care Teams Bookmobile Driver Relationship Specialty Start Date End Date Kvng Ulloa MD [address] [facility] [id number] PCP - General Family Medicine 07/15/24
--- OUTSIDE RECORDS SUMMARY | 2025-03-21 21:38 | XMS_ITS | Clinical Summary ---
Author Organization [facility] Physician [facility] Building [address] [place] [id number] Care Team Providers Care Printing Press Machine Operator Name Role Phone Kvng Ulloa MD Primary Care Provider [phone] Allergies Active Allergy Reactions Criticality Noted Date Comments Penicillins Unknown 01/06/2025 Tree Nut Hives,Itching,Rash,Swelling Medium 10/24/20 21 Jenera Rash Medium 10/24/2021 Medications simvastatin (ZOCOR) 40 mg tablet 09/18/20 21 Active losartan (COZAAR) 25 mg tablet 09/18/20 21 Active aspirin 81 MG oral suspension Active alendronate (FOSAMAX) 70 mg tablet alendronate 70 mg tablet Active Dexcom G6 Bulk Clerk misc USE DIRECTED TO MONITOR GLUCOSE 03/12/20 22 Active Dexcom G6 Sensor device USE DIRECTED TO TEST GLUCOSE 05/06/20 22 Active Dexcom G6 Transmitter device as directed 03/12/20 22 Active carbamide peroxide (Ear Drops, carbamide peroxide,) 6.5 % otic solution INSTILL 5 DROPS INTO AFFECTED right EAR(S) BY OTIC ROUTE 2 TIMES PER DAY for 10 days Active influenza quadrivalent [id number] (FLULAVAL,FLUARIX, FLUZONE) 60 mcg (15 mcg x [...] with long-term current use of insulin ([facility]) Take 1 tablet (25 mg total) by mouth director instructional material before breakfast 90 tablet 2 07/15/20 24 Active Janumet XR 50-1,000 mg tablet, ER multiphase 24 hrIndications:Type 2 diabetes mellitus with hyperglycemia, with long-term current use of insulin ([facility]) Take 50-1,000 mg by mouth 2 (two) times a day 180 tablet 2 07/15/20 24 Active insulin aspart (NovoLOG) 100 unit/mL (3 mL) pen for injectionIndicatio ns:Type 2 diabetes mellitus with hyperglycemia, with long-term current use of insulin ([facility]) Inject 3 Units under the skin 2 (two) times a day with meals 15 mL 6 07/15/20 24 Active LANTUS 100 unit/mL (3 mL) pen for injectionIndicatio ns:Type 2 diabetes mellitus with hyperglycemia, with long-term current use of insulin ([facility]) Inject 14 Units under the skin director instructional material before breakfast 15 mL 6 07/16/20 24 [...] with long-term current use of insulin ([facility]) Use to inject insulin three times daily [...] Hypertension associated with type 2 diabetes rayray parraus 10/19/2024 Assessment & Plan (01/06/2025 2:51 PM MATH INTERVENTIONIST): Chronic problem. Controlled on current losartan 25mg daily. Assessment & Plan (10/20/2024 11:54 AM MATH INTERVENTIONIST): Chronic problem. Controlled on current losartan 25mg daily. Will update labs. Verified that she uses [employer]. Aware to check results/results letter in [employer]. Will contact by phone if needed. Hyperlipidemia associated with type 2 diabetes chapo guerin 10/19/2024 Assessment & Plan (01/06/2025 3:24 PM MATH INTERVENTIONIST): Chronic problem. Currently taking Simvastatin 40mg daily Last lipid panel: 10/20/24 LDL=48, NH=403. Assessment & Plan (10/20/2024 11:53 AM MATH INTERVENTIONIST): Chronic problem. No labs on file. Currently taking Simvastatin 40mg daily Will update labs. Verified that she uses [facility]. Aware to check results/results letter in [employer]. Will contact by phone if needed. COVID-19 09/29/2023 Dyslipidemia 05/10/2022 Type 2 diabetes mellitus 05/10/2022 Assessment & Plan (01/06/2025 3:31 PM MATH INTERVENTIONIST): Chronic problem. A1c improved from 7.3% 10/20/24 to now 01/06/25. Will try to decrease her injection burden. Will send in Trulicity 0.75mg weekly. May need to start to decrease novolog with meals and/or Lantus. (Novolog if lows after meals, lantus if lows overnight). To send me a [employer] message in 2-3 weeks (before refill of [...] update MA/Cr today. Verified that she uses [facility]. Aware to check results/results letter in [employer]. Will contact by phone if needed. Discussed [...] infection. Assessment & Plan (10/20/2024 12:10 PM MATH INTERVENTIONIST): Chronic problem. A1c near goal but worsened [...] mychart. Aware to check results/results letter in [employer]. Will contact by phone if needed. Discussed with Rosa Elena Padmini Fisher: Strive for regular exercise (30min most [...] Alzheimer's disease 12/03/2021 Overview (07/15/2024): seeing neuro [facility] Memory impairment 08/28/2021 Bilateral hearing loss 02/05/2021 Osteoporosis 10/04/2020 Impacted cerumen of right ear 01/11/2020 Hyperlipidemia 01/11/2020 Fatigue 01/11/2020 Essential hypertension 01/11/2020 Resolved Problems Problem Noted Date Diagnosed Date Resolved Date Type 2 diabetes mellitus without complication 06/15/20 21 10/19/2024 Type 1 diabetes mellitus 01/11/2020 Encounters Date Type Department Care Team Description 03/04/[address] [facility] Diabetes and Endocrinology [address] [place] [phone] Mary Alice Muro NP Type 2 diabetes mellitus with hyperglycemia, with long-term current use of insulin (HCC) 02/28/[address] [facility] Diabetes [facility] Endocrinology [address] [place] [phone] Mary Alice Muro NP 01/24/2025 2:30 PM MATH INTERVENTIONIST [facility] [address] [phone] Yossi Nam II, MD Alzheimer's disease with late onset (HCC) (Primary Dx); Alzheimer's disease (HCC) 01/10/2025 Results Follow-Up [facility] Diabetes [facility] Endocr[facility] [address] [place] [phone] Mary Alice Muro NP 01/07/2025 1:35 PM MATH INTERVENTIONIST - 01/07/2025 11:59 PM MATH INTERVENTIONIST Hospital Encounter [address] [address] Type 2 diabetes mellitus with hyperglycemia, with long-term current use of insulin (HCC) Discharge Disposition: Discharge to home or self care 01/07/2025 1:30 PM MATH INTERVENTIONIST Lab [facility] Outpatient Lab at [address] [phone] 01/06/2025 2:30 PM MATH INTERVENTIONIST Office Visit [facility] Diabetes [facility] Endocrinology [address] [place] [phone] Mary Alice Muro NP Type 2 diabetes mellitus with hyperglycemia, with long-term current use of insulin (HCC) (Primary Dx); Hypertension associated with type 2 diabetes mellitus (HCC); Hyperlipidemia associated with type 2 diabetes mellitus (HCC) from Last 3 Months Immunizations Immunization Administration Dates Next Due Influenza, [...] Comments Blood Pressure 106/66 01/24/2025 2:36 PM MATH INTERVENTIONIST Pulse 76 01/24/2025 2:36 PM MATH INTERVENTIONIST Temperature - - Respiratory Rate 18 01/24/2025 2:36 PM MATH INTERVENTIONIST Oxygen Saturation 96% 01/24/2025 2:36 PM MATH INTERVENTIONIST Inhaled Oxygen Concentration - - Weight 64.4 kg (142 lb) 01/24/2025 2:36 PM MATH INTERVENTIONIST Height 165.1 cm (5' 5 ) 01/24/2025 2:36 PM MATH INTERVENTIONIST Body Mass Index 23.63 01/24/2025 2:36 PM MATH INTERVENTIONIST Plan of Treatment Health Maintenance Due Date Last Done Comments Breast Cancer Screening-Mammogram 1950 Colon Cancer Screening-Colonoscopy 1950 Hepatitis C Screening 1950 Osteoporosis Screening-Bone Density Scan 1950 Dilated Eye Exam 1950 Hepatitis B Screening 1968 Well Visit 65+ 2015 Pneumococcal vaccine 65+ (2 of 2 - PCV) 03/14/2022 03/14/2021, 10/17/2020 Covid-19 Vaccine (2023-2 5 season) 2024 09/28/2021, 08/24/2021, 02/06/2021, Additional history exists Hemoglobin A1C 07/06/2025 01/06/2025, 09/25, 07/15/2024 Depression Screening 07/15/2025 07/15/2024 Fall Risk Assessment 07/15/2025 07/15/2024, 07/09/2023, 12/17/2022 Influenza Vaccine (Season Ended) 2025 09/09/2022, 07/17/2021, 08/23/2020, Additional history exists Foot Exam 10/20/2025 10/20/2024 Lipid Panel 10/20/2025 10/20/2024 eGFR 10/20/2025 10/20/2024 Albumin Creatinine Ratio, Urine 01/07/2026 DTaP/Tdap/Td Vaccine (2 - Td or Tdap) 01/12/2030 01/12/2020 Zoster Vaccine Completed 12/25/2020, 11/24, 10/27/2020 Procedures Procedure Name Priority Date/Time Associated Diagnosis Comments ALBUMIN CREATININE RATIO, URINE Routine 01/07/2025 12:00 AM MATH INTERVENTIONIST Type 2 diabetes mellitus with hyperglycemia, with long-term current use of insulin (HCC) POCT GLUCOSE Routine 01/06/2025 2:36 PM MATH INTERVENTIONIST Type 2 diabetes mellitus with hyperglycemia, with long-term current use of insulin (HCC) POCT HEMOGLOBIN A1C Routine 01/06/2025 2 :36 PM MATH INTERVENTIONIST Type 2 diabetes mellitus with hyperglycemia, with long-term current use of insulin (HCC) EGFR Routine 10/20/2024 12:22 PM MATH INTERVENTIONIST Type 2 diabetes mellitus with hyperglycemia, with long-term current use of insulin (HCC) Hypertension associated with type 2 diabetes mellitus (HCC) LIPID PANEL Routine 10/20/2024 12:22 PM MATH INTERVENTIONIST Type 2 diabetes mellitus with hyperglycemia, with long-term current use of insulin (HCC) Hyperlipidemia associated with type 2 diabetes mellitus (HCC) from Last 3 Months or Most Recently Relevant to Health Maintenance Results * (ABNORMAL) Albumin Creatinine Ratio, Urine (01/07/2025 12:00 AM MATH INTERVENTIONIST) Albumin Ur 41.3 mg/L Comment: Interpretive Data No reference range established. Current interpretive data was last revised 2019. Creatinine Ur 73.9 mg/dL YASEMIN OSWALD Comment: Interpretive Data No reference range established. Current interpretive data was last revised 2019. Albumin Creatinine Ratio, Ur 56(H) 1 - 29 mg/g YASEMIN OSWALD Urine 01/07/2025 01/07/2025 7:3 0 PM MATH INTERVENTIONIST us Mary Alicemirella Muro GUN SEALING MACHINE OPERATOR LAB URINE ORDERABLES Sandra l Result YASEMIN [id number] Department [place] [address] * (ABNORMAL) POCT hemoglobin A1c (01/06/2025 2:36 PM MATH INTERVENTIONIST) Hemoglobin A1C, POC 6.8 4.0 - 5.6 % Blood 01/06/2025 2:36 PM MATH INTERVENTIONIST us Mary Alice Muro GUN SEALING MACHINE OPERATOR POINT OF CARE TEST ORDERA BLES Final Result * (ABNORMAL) POCT glucose (01/06/2025 2:36 PM MATH INTERVENTIONIST) Glucose Blood, POC 129 mg/dL Blood 01/06/2025 2:36 PM MATH INTERVENTIONIST us Mary Alicemirella Muro GUN SEALING MACHINE OPERATOR POINT OF CARE TEST ORDERA BLES Final Result * eGFR (10/20/2024 12:22 PM MATH INTERVENTIONIST) eGFR >90 >=60 mL/min/1. 73 m2 Comment: [...] reviewed 2021. Blood 10/20/2024 12:2 2 PM MATH INTERVENTIONIST 10/20/2024 8:10 PM MATH INTERVENTIONIST us Mary Alice Muro GUN SEALING MACHINE OPERATOR LAB BLOOD ORDERABLES Sandra [place] Result YASEMIN OSWALD [id number] Department [place] [address] * (ABNORMAL) Lipid panel (10/20/2024 12:22 PM MATH INTERVENTIONIST) Cholesterol 138 30 - 199 mg/dL Comment: [...] NCEP Expert Panel. Circulation 2004;110:227 3. Raf M et al. EDGAR Cardiol. 2019March 24;5(5):540-548. doi: [...] revised on 2018. Chol/HDL ratio 2 YASEMIN Blood 10/20/2024 12:2 2 PM MATH INTERVENTIONIST 10/20/2024 8:10 PM MATH INTERVENTIONIST Mary Alice Muro GUN SEALING MACHINE OPERATOR LAB BLOOD ORDERABLES Sadnra padmini Result YASEMIN OSWALD [id number] Department [place] [address] from Last 3 Months or Most Recently Relevant to Health Maintenance Insurance MEDICARE [employer] Care Teams Printing Press Machine Operator Relationship Specialty Start Date End Date Kvng Ulloa MD [address] DEPT [facility] [id number] PCP - General Family Medicine 07/15/24
--- OUTSIDE RECORDS SUMMARY | 2025-03-21 21:38 | XMS_ITS | Data Portability ---
Author Organization [facility] [employer], Main Office Address [address] [place] [address] Care Team Providers Care Manager Pet Name Role Phone KVNG ULLOA Primary Care Provider [phone] Assessment Encounter Date Assessment Date Assessment LastModified by Organization Details LastModified Time 02/09/2025 02/09/2025 D/w pt and her daughter about her findings, recent labs & imagines and further plan of care. Forms filled out and given to daughter. They don't want to do any testing here. Pt is f/u with Endo for her routine labs. All meds verified with them. Meds as directed. Diet and exercise explained. Fall risk precautions explained. Cont f/u with Neuro at [facility] as per schedule. Cont f/u with Endo at [facility] as per schedule. Cont f/u with Replenishment Analyst and Ophtho as per schedule. HM: WWE - Pt declined. Mammo - 07/03/22, normal. Ordered. DEXA - Pt declined. Colonoscopy - Pt declined. Flu - 10/17. Tdap, Pneumo, Shingrix - At pharmacy/HD. F/u PRN/Annually. Annual visit in 02/16. [email or web address] Not available 02/09/2025 16:17:00 Plan of Treatment Reminders Order Date Submit Date Provider Last Modified By Organization Details Last Modified Time Details Appointments None recorded. Lab None recorded. 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 Surgeries None recorded. Imaging MAMMO, screening, bilateral 2024 025 [email or web address] [facility], [address], [place], [address], 5 15:36:59 MAMMO, screening, bilateral 2023 024 [email or web address] 256 Not available 4 09:29:59 LDCT, chest, for lung cancer screening - *Please call pt to schedule* 2023 024 [email or web address] 256 [facility], [address], [address] [address], [place], [address], 4 09:18:33 DEXA - *Please call pt to schedule* 2022 023 [email or web address] 256 [facility], [address], [place], [address], 3 09:20:14 Medication Orders losartan 25 mg tablet [address] [facility], [address] [place] [address], [address], 5 15:42:06 doxycycline hyclate 100 mg capsule 2024 025 [id number], [address] [facility], [place], [place], [id number], 5 15:44:13 simvastatin 40 mg tablet 2024 025 [email or web address] [facility], [address] [place] [address], [address], 5 15:42:47 Adult Low Dose Aspirin 81 mg tablet,gabriele yed release [address] [facility], [address] [place] [address], [place], [address], 5 15:42:06 losartan 25 mg tablet [address] [facility], [address] [place] [address], [place], [address], 4 09:16:48 nicotine 14 mg/24 hr daily transdermal patch [address] [facility], [address] [place] [address], [place], [address], 4 09:16:49 Lantus Solostar U-100 Insulin 100 unit/mL (3 mL) subcutaneou s pen [address] [facility], [address] [place] [address], [place], [address], 4 09:16:49 Novolog FlexPen U-100 Insulin aspart 100 unit/mL (3 mL) subcutaneou s [address] [facility], [address] [place] [address], [place], [address], 4 09:16:49 Janumet 50 mg-1,000 mg tablet [address] [facility], [address] [place] [address], [place], [address], 4 09:16:48 Jardiance 25 mg tablet [address] [facility], [address] [place] [address], [place], [address], 4 09:16:50 simvastatin 40 mg tablet [address] [facility], [address] [place] [address], [place], [address], 4 09:16:50 Adult Low Dose Aspirin 81 mg tablet,gabriele yed release [address] [facility], [address] [place] [address], [place], [address], 4 09:16:49 losartan 25 mg tablet [address] [facility], [address] [place] [address], [address], 4 14:53:54 nicotine 14 mg/24 hr daily transdermal patch [address] [facility], [address] [place] [address], [address], 4 14:55:14 simvastatin 40 mg tablet [address] [facility], [address] [place] [address], [address], 4 14:53:55 Adult Low Dose Aspirin 81 mg tablet,gabriele yed release [address] [facility], [address] [place] [address], [address], 4 14:53:56 cephalexin 500 mg capsule 2023 024 [email or web address] [facility], [address] [place] [address], [address], 4 09:18:18 Lantus Solostar U-100 Insulin 100 unit/mL (3 mL) subcutaneou s pen [address] [facility], [address] [place] [address], [address], 4 14:53:54 Novolog FlexPen U-100 Insulin aspart 100 unit/mL (3 mL) subcutaneou s 2023 024 [facility], [address] [place] [address], [address], 4 14:24:41 Janumet 50 mg-1,000 mg tablet [address] [facility], [address] [place] [address], [place], [address], 4 14:53:56 Jardiance 25 mg tablet [address] [facility], [address] [place] [address], [place], [address], 4 14:53:53 Novolog FlexPen U-100 Insulin aspart 100 unit/mL (3 mL) subcutaneou s [address], [address] [place] [address], [place], [address], 4 14:20:09 Novolog FlexPen U-100 Insulin aspart 100 unit/mL (3 mL) subcutaneou s [address], [address] [place] [address], [address], 4 14:20:09 Patient TargetsNo targets recorded. Patient Instructions Encounter Date Encounter Id Patient Instructions Last Modified By Organization Details Last Modified Time 11/05/2023 [id number] 11/05/23 pt Tessa mascorro. Encouraged her to schedule with heena for Dec. Has endo in Dec . Not available 11/05/2023 11:16:40 01/20/2024 [id number] dementia rating scale-2* [email or web address] Not available 01/20/2024 16:08:57 alcohol misuse* Not available 01/20/2024 16:08:57 multi-dimensiona l health assessment questionnaire* [email or web address] Not available 01/20/2024 16:08:57 depression screening* [email or web address] Not available 01/20/2024 16:08:57 Personalized a lt Plan and Screening Recommendations Advance Directives - Do you have one? Yes Advance Directives - Do we have your advance directive on file in your health record? No, please bring in a copy at your earliest convenience Primary Prevention/Interven tion (prevents or decreases the chance of common diseases from occurring) Smoking Risk: Smoker Alcohol Misuse Screening: Negative Weight: Appropriate continue your current weight loss efforts Physical activity: Appropriate physical activity minimum of 10-20 minutes of activity that causes mild breathlessness/day Nutrition: Good Fall Risk (screened today): Low Vaccines Pneumococcal: Ordered Recommended today Recommended today, but you have declined No further needed Influenza: Your next one in the fall of this year Chronic Disease Risks Stroke: Low Risk Intermediate Risk I have no recommendations Act leticia diagnosis, Continue current treatment plan Heart Attack: Low risk Intermediate Risk I have no recommendations Act leticia diagnosis, Continue current treatment plan Clogging of the Arteries: Low risk Intermediate Risk I have no recommendations Act leticia diagnosis, Continue current treatment plan Diabetes: Low Risk Intermediate Risk Active diagnosis, Continue current treatment plan Secondary Prevention/Interven tion (detects treatable diseases before they may cause symptoms, disability, or ) Breast Cancer Screening with mammogram: No screening necessary Cervical/Uterine/Ov oscar Cancer Screening: No screening necessary Osteoporosis Screening: Your next DEXA in: Ordered Recomme nded today Date Screening Last Performed: Colon Cancer Screening: No screening necessary Date Screening Last Performed: Eye Disease Screening: Ordered Recommended today Dementia Risk: High Depression Screening: Negative Active diagnosis, Continue current treatment plan Not available 01/20/2024 15:18:39 Reason for Referral Replenishment Analyst Referral for Type 2 diabetes mellitus without complication Please call patient to schedule an appointment Referring Physician: Kvng Ulloa, Family Medicine, Encounter Date: 01/20/2024 Results Created Date Observation Date Name Description Value Unit Range Abnormal Flag Note LastModifiedBy Organization Detail LastModifiedTime 06/25/20 24 06/25/2024 CT, brain , w/o contr ast No observ ation record ed. [email or web address] [address], [address], 02/09/2025 15:37:30 06/25/20 24 06/25/2024 XR, chest No observ ation record ed. [email or web address] [address], [address], 02/09/2025 15:37:30 03/21/20 25 03/21/2025 imagi ng/di agnos tic resul t No observ ation record ed. [facility] [address], [place], [address], 03/21/2025 22:29:47 Result Notes None recorded. Problems Name Problem SNOMED Code Status Onset Date Resolution Date Notes Provider Name and Address Organization Details Recorded Time Impacted cerumen in right ear 878870222234 9103 Active 2019 Not Available [facility] 3 17:47:57 Tobacco user 899490241 Active 2019 Not Available [facility] 3 17:47:57 Immunizati on due 904815303 Active 2019 Not Available [facility] 3 17:47:57 Alzheimer' s disease 23875104 Active 2021 seeing neuro [facility] Not Available [facility] 3 17:47:58 Dyslipidem ia 451872184 Active 2021 Not Available [facility] 3 17:47:58 Memory impairment 510271655 Active 2020 Not Available [facility] 3 17:47:58 Type 2 diabetes mellitus 59176743 Active 2021 Not Available [facility] 3 17:47:58 Uncontroll ed type 2 diabetes mellitus 001457582 Active 2020 Not Available [facility] 3 17:47:58 Hyperlipid emia 72723783 Active 2019 Not Available [facility] 3 17:47:58 Essential hypertensi on 67364743 Active 2019 Not Available [facility] 3 17:47:58 Osteoporos is 49008025 Active 2019 Not Available [facility] 3 17:47:58 Diabetes mellitus 71096622 Active 2019 Not Available [facility] 3 17:47:58 Fatigue 78192871 Active 2019 Not Available [facility] 3 17:47:58 Bilateral hearing loss 86162403 Active 2020 Not Available [facility] 3 17:47:58 Well controlled type 2 diabetes mellitus 907810545 Active 2022 Not Available [facility] 3 17:47:58 Type 1 diabetes mellitus 14959988 Active 2022 Not Available [facility] 3 17:47:58 COVID-19 539567053 Active 2022 Not Available [facility] 3 17:47:58 Hypertensi ve disorder 92707402 Active 2023 Kvng Ulloa MD [address], [place], [address] , [facility] 4 14:38:14 Type 2 diabetes mellitus without complicati on 345700653 Active 2023 Kvng Ulloa MD [address], [place], [address] , [employer] [facility] 4 14:38:25 Dementia 06712528 Active 2023 Kvng Ulloa MD [address], [place], [address] , [facility] 4 14:38:58 Impaired mobility 71280327 Active 2023 Kvng Ulloa MD [address], [place], [address] , [facility] 4 14:39:53 Smoker 58551304 Active 2023 Kvng Ulloa MD [address], [place], [address] , [facility] 4 14:40:53 Cellulitis of right foot 276744503999 60083 Active 2023 Kvng Ulloa MD [address], [place], [address] , [facility] 4 14:58:24 Ulcer of foot 23510643 Active 2023 Kvng Ulloa MD [address], [place], [address] , [facility] 4 14:51:26 Paronychia of toe of right foot 962270895355 07358 Active 2024 Kvng Ulloa MD [address], [place], [address] , [employer] [facility] [facility] 15:42:58 Problem Notes None recorded. Procedures Surgical History Date Name Laterality Status Provider Name and Address Organization Details Recorded Time 02/10/20 25 Smoking Cessation completed Kvng Ulloa MD [address], [place], [address], [employer] 02/09/2025 16:15:32 06/21/20 24 Smoking Cessation completed Kvng Ulloa MD [address], [place], [address], [employer] [facility] [employer] 06/21/2024 09:25:11 01/20/20 24 Medicare Wellness CPT Code, subsequent completed February JORDAN Reddy [facility] 01/20/2024 15:05:55 01/20/20 24 Smoking Cessation completed Kvng Ulloa MD [address], [place], [address], [employer] 01/20/2024 14:54:05 10/11/20 20 Date of Last Colonoscopy completed Not Available [facility] 01/22/2023 21:48:18 Rotator cuff surgery completed Not Available [facility] 01/22/2023 21:48:18 Unlisted px femur/knee completed Not Available [facility] 01/22/2023 21:48:18 Cataract Surgery completed Not Available [facility] 01/22/2023 21:48:18 Imaging Results Imaging Date Name Status LastModified by Organiz ation Details LastModified Time 06/25/2024 CT, brain, w/o contrast completed [email or web address] [address], [place], [address], 02/09/2025 15:37:30 06/25/2024 XR, chest completed [email or web address] [facility] [address] [facility] [address], [place], [address], 02/09/2025 15:37:30 03/21/2025 imaging/diagn ostic result active [facility] [address] [facility] [address], [place], [address], 03/21/2025 22:29:47 Procedure Notes None recorded. Medical Equipment None Reported. Allergies Allergen ID Allergen Name Allergen Category Reaction Reaction Severity Criticality Documentation Date Start Date Code Code System Note Provider Name and Address Organization Details Recorded Time 69283 walnut allergeni c extract food Not available Not available Not available 01/22/2023 32324 0 RxNorm Not Available [facility] 3 21:49:40 98476 Product containin g penicilli n (product) medicatio n rash moderate Not available 01/22/2023 65824 8001 SNOMED Not Available [facility] 3 21:49:41 Medications Name Sig Start Date Stop Date Status Note LastModified by Organization Details LastModified Time doxycycli ne hyclate 100 mg capsule TAKE 1 CAPSULE BY MOUTH TWICE DAILY FOR 7 DAYS DIRECTED active Not Available Not Available No t Available nicotine 14 mg/24 hr daily transderm al [...] completed Not Available Not Available Not Available ciproflox acin 250 mg tablet 02/09 completed Not Available Not Available Not Available triamcino lone acetonide 0.1 % topical cream APPLY A THIN LAYER TO THE AFFECTED AREA(S) BY TOPICAL ROUTE 2 TIMES PER DAY to areas on arms/leg s 01/20 completed Not Available Not Available Not Available simvastat in 40 mg tablet TAKE 1 TABLET BY MOUTH EVERY DAY 2024 active Not Available Not Available Not Avai lable losartan 100 mg-hydroc hlorothia zide 25 mg [...] completed Not Available Not Available Not Available oseltamiv ir 75 mg capsule TAKE 1 CAPSULE BY MOUTH EVERY 12 HOURS FOR 5 DAYS 02/09 completed Not Available Not Available Not Available losartan 25 mg tablet TAKE 1 TABLET BY MOUTH EVERY DAY 2024 active Not Available Not Available Not Avai lable nicotine 21 mg/24 hr daily transderm al [...] completed Not Available Not Available Not Available ondansetr on 4 mg disintegr ating tablet DISSOLVE 1 TABLET ON THE TONGUE EVERY 8 HOURS NEEDED FOR NAUSEA OR VOMITING 02/09 completed Not Available Not Available Not Available Galzin 25 mg (zinc) capsule TAKE 1 CAPSULE BY MOUTH DAILY active Not Available Not Available No t Available Adult Low Dose Aspirin 81 mg tablet,de layed release Take 1 tablet every day by oral route. 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 DIRECTED TO MONITOR GLUCOSE active Not [...] saturation in Arterial blood by Pulse oximetry Pain severity - 0-10 verbal numeric rating [Score] - Reported Systolic blood pressure Diastolic blood pressure Provider Name and Address Organization Details Last Updated DateTime 3 167.64 cm 25.9 kg/m2 38784.2 3 g 95.7 [degF] 67 /min 20 /min 95 % 95 % 0 136 mm[Hg] 70 mm[Hg] Desiree Preston RN [facility] [employer] [facility] 3 11:32:24 Date Recorded Body height Body mass index (BMI) Body weight Body temperature Respiratory rate Heart rate Oxygen saturation Oxygen saturation in Arterial blood by Pulse oximetry Pain severity - 0-10 verbal numeric rating [Score] - Reported Systolic blood pressure Diastolic blood pressure Provider Name and Address Organization Details Last Updated DateTime 3 167.64 cm 25.2 kg/m2 52649.5 1 g 96 [degF] 20 /min 65 /min 94 % 94 % 0 130 mm[Hg] 68 mm[Hg] Desiree Preston RN [facility] [employer] [facility] 3 10:42:18 Date Recorded Body height Body mass index (BMI) Body weight Body temperature Respiratory rate Heart rate Oxygen saturation Oxygen saturation in Arterial blood by Pulse oximetry Systolic blood pressure Diastolic blood pressure Provider Name and Address Organization Details Last Updated DateTime 4 167.64 cm 25.1 kg/m2 07810.2 2 g 97.9 [degF] 20 /min 86 /min 96 % 96 % 110 mm[Hg] 62 mm[Hg] Alphonso Vasques [facility] [employer] [facility] 4 14:33:06 Date Recorded Pain severity - 0-10 verbal numeric rating [Score] - Reported Provider Name and Address Organization Details Last Updated DateTime 01/20/2024 0 February JORDAN Reddy [facility] 01/20/2024 15:06:56 Date Recorded Body height Body mass index (BMI) Body weight Body temperature Heart rate Respiratory rate Oxygen saturation Oxygen saturation in Arterial blood by Pulse oximetry Systolic blood pressure Diastolic blood pressure Provider Name and Address Organization Details Last Updated DateTime 4 167.64 cm 24.4 kg/m2 11368.8 g 98.1 [degF] 76 /min 16 /min 98 % 98 % 122 mm[Hg] 78 mm[Hg] Alphonso Vasques [facility] [employer] [address] 4 09:07:01 Date Recorded Body height Body mass index (BMI) Body weight Body temperature Heart rate Systolic blood pressure Diastolic blood pressure Provider Name and Address Organization Details Last Updated DateTime 5 167.64 cm 22.8 kg/m2 25066.9 2 g 97.3 [degF] 74 /min 110 mm[Hg] 64 mm[Hg] Gosia Salcido RN [facility] [employer] [facility] 5 15:33:40 Date Recorded Oxygen saturation Oxygen saturation in Arterial blood by Pulse oximetry Provider Name and Address Organization Details Last Updated DateTime 02/09/2025 96 % 96 % Kvng Ulloa MD [address] [place] [address], [address], [facility] [address] 02/09/2025 15:41:45 Social History Question Answer Notes LastModified by Organizat ion Details LastModified Time Tobacco Smoking Status Former Smoker quit 2023 Gosia Salcido RN [facility], [facility] [address] 02/09/2025 15:36:03 Do You Have An Advance Directive? Yes Information not available 08/06/2023 What Is Your Level Of Alcohol Consumption? None [id number] Information not available 01/22/2023 Are You Blind Or Do You Have Difficulty Seeing? No MIGRATION.13745 [id number] Information not available 01/22/2023 Is Blood Transfusion Acceptable In An Emergency? Yes Information not available 08/06/2023 What Is Your Level Of Caffeine Consumption? None [email or web address] Information not available 02/09/2025 How Much Tobacco Do You Chew? None MIGRATION.[id number] Information not available 01/22/2023 What Is Your Code Status? Full Code Information not available 08/06/2023 In The 14 Days Before Symptom Onset, Have You Had Close Contact With A Laboratory-confi rmed COVID-19 While That Case Was Ill? No MIGRATION.56324 [id number] Information not available 01/22/2023 In The 14 Days Before Symptom Onset, Have You Had Close Contact With A Person Who Is Under Investigation For COVID-19 While That Person Was Ill? No MIGRATION.[id number] Information not available 01/22/2023 Are You Deaf Or Do You Have Serious Difficulty Hearing? No MIGRATION.70671 07360 Information not available 01/22/2023 What Type Of Diet Are You Following? REGULAR MIGRATION.43208 [id number] Information not available 01/22/2023 Which Illicit Or Recreational Drugs Have You Used? None MIGRATION.[id number] 40165 Information not available 01/22/2023 Do You Or Have You Ever Used E-cigarettes Or Vape? Never Used Electronic Cigarettes MIGRATION.23216 [id number] Information not available 01/22/2023 What Is Your Occupation? Retired MIGRATION.82050 31514 Information not available 01/22/2023 How Many Days [...] To Your Family Or Social Situation? No MIGRATION.79510 [id number] Information not available 01/22/2023 When Did You Quit Smoking? 1-5yearssinemma boykin Quit 2023 Information not available 02/09/2025 Do You Use Insect Repellent Routinely? Yes MIGRATION.02806 14304 Information not available 01/22/2023 Where Do You Live? [facility] Information not available 08/06/2023 Do You Have A Medical Power Of Stamp Collector? Yes Jennifer Robertson Information not available 08/06/2023 What Was The Date Of Your Most Recent Tobacco Screening? 01/20/2024 Information not available 01/20/2024 What Is Your Current Pack Years? 30ormorepackye ars [email or web address] Information not available 02/09/2025 Do You Have Any Pets? No Information not available 08/06/2023 What Is Your Relationship Status? MIGRATION.59871 95240 Information not available 01/22/2023 Do You Use Your Seat Belt Or Car Seat Routinely? Yes MIGRATION.70971 58525 Information not available 01/22/2023 Do You Have Smoke And Carbon Monoxide Detectors In Your Home? Yes Information not available 08/06/2023 At What Age Did You Start Smoking Tobacco? 20 [email or web address] Information not available 02/09/2025 Are You Passively Exposed To Smoke? No MIGRATION.81023 97088 Information not available 01/22/2023 Do You Or Have You Ever Used Smokeless Tobacco? Never Used Smokeless Tobacco MIGRATION.44719 [id number] Information not available 01/22/2023 Are There Any Smokers In Your House? Yes MIGRATION.52751 29073 Information not available 01/22/2023 How Much Tobacco Do You Smoke? 0.5 PPD MIGRATION.68695 25629 Information not available 01/22/2023 Do You Participate In Social Media? No MIGRATION.81913 79729 Information not available 01/22/2023 What Types Of Sporting Activities Do You Participate In? Walk Information not available 08/06/2023 Do You Feel Stressed (tense, Restless, Nervous, Or Anxious, Or Unable To Sleep At Night)? [id number] Information not available 08/06/2023 Do You Use Sunscreen Routinely? Yes MIGRATION.83868 50478 Information not available 01/22/2023 Has Tobacco Cessation Counseling Been Provided? No MIGRATION.16378 16810 Information not available 01/22/2023 How Many Years Have You Smoked Tobacco? 50 Information not available 02/09/2025 Have You Recently Traveled Abroad? No MIGRATION.92233 07840 Information not available 01/22/2023 Do You Have Any Dietary Restrictions? No MIGRATION.69551 71698 Information not available 01/22/2023 Do You Or Have You Ever Used Any Other Forms Of Tobacco Or Nicotine? No [email or web address] Information not available 02/09/2025 Sex: Female Functional Status Question Answer Note LastModified by Organizat ion Details LastModified Time Do you have difficulty walking or climbing stairs? No [id number] Information not available 01/22/2023 Do you have transportation difficulties? No [id number] Information not available 01/22/2023 Are you able to walk? YESWOREST [id number] Information not available 01/22/2023 Do you have difficulty doing errands alone? No [id number] Information not available 01/22/2023 Are you able to care for yourself? Yes [id number] Information not available 01/22/2023 Do you have difficulty dressing or bathing? No [id number] Information not available 01/22/2023 What is your exercise level? Moderate Walk Information not available 08/06/2023 Mental Status Question Answer Note LastModified by Organizat ion Details LastModified Time Do you have difficulty concentrating, remembering or making decisions? Yes short term [id number].[id number] [id number] Information not available 01/22/2023 Family History Nothing Reported. Medical History Condition Response DIABETES, TYPE Y KIDNEY STONES Y ANEMIA/BLOOD DISORDER Y DEMENTIA Y Gynecological History Statement/Question Response Date of Last Mammogram 08/20/2023 Date of Last Colonoscopy 10/11/2020 Obstetrics History GPAL:G 0 P 0 0 0 0 Immunizations Vaccine Type Date Status Note Provider Nam e and Address Organization Details Recorded Time SARS-COV-2 (COVID-19) vaccine, UNSPECIFIED 1 completed Not Available [facility] 10/06/2023 17:47:58 pneumococcal polysaccharide PPV23 1 completed Not Available [facility] 10/06/2023 17:47:58 SARS-COV-2 (COVID-19) vaccine, UNSPECIFIED 1 completed Not Available [facility] 10/06/2023 17:47:58 SARS-COV-2 (COVID-19) vaccine, UNSPECIFIED 1 completed Not Available [facility] 10/06/2023 17:47:58 zoster recombinant 1 completed Not Available [facility] 10/06/2023 17:47:58 influenza, unspecified formulation 2 completed Not Available [facility] 10/06/2023 17:47:58 Influenza, high-dose, quadrivalent, PF 1 completed Not Available [facility] 10/06/2023 17:47:58 Influenza, split virus, quadrivalent, preservative 0 completed Not Available [facility] 10/06/2023 17:47:58 Influenza, high-dose, quadrivalent, PF 9 completed Not Available [facility] 10/06/2023 17:47:58 Tdap 0 completed Not Available [facility] 10/06/2023 17:47:58 Past Encounters Encounter ID Performer Location Encounter Start Date Encounter Closed Date Diagnosis/Indication Diagnosis SNOMED-CT Code Diagnosis ICD10 Code Diagnosis Note [id number] [facility] [place] [address] [place] [address] 02/20/2021 00:00:00 02/20/2021 10:25:01 [id number] [facility] [place] [address] [place] [address] 03/14/2021 00:00:00 03/14/2021 09:02:27 [id number] [facility] [place] [address] [place] [address] 06/13/2021 00:00:00 06/13/2021 08:42:26 [id number] [facility] [place] [address] [place] [address] 06/21/2021 00:00:00 06/21/2021 11:50:02 [id number] [facility] [place] [address] [place] [address] 08/28/2021 00:00:00 08/28/2021 10:42:17 [id number] [facility] [place] [address] [place] [address] 01/02/2022 00:00:00 01/02/2022 10:07:35 [id number] [facility] [place] [address] [place] [address] 01/03/2022 00:00:00 01/03/2022 14:52:03 [id number] [facility] [place] [address] [place] [address] 04/03/2022 00:00:00 04/03/2022 08:56:55 [id number] [facility] [place] [address] [place] [address] 05/10/2022 00:00:00 05/10/2022 14:19:27 [id number] [facility] [place] [address] [place] [address] 06/14/2022 00:00:00 06/14/2022 13:59:34 [id number] [facility] [place] [address] [place] [address] 07/05/2022 00:00:00 07/05/2022 15:55:53 [id number] [facility] [place] [address] [place] [address] 07/16/2022 00:00:00 07/17/2022 11:51:41 [id number] [facility] [place] [address] [place] [address] 11/07/2022 00:00:00 11/07/2022 16:31:52 [id number] [facility] [place] [address] [place] [address] 01/15/2023 00:00:00 01/15/2023 19:04:25 [id number] [facility] [address] [address] 01/21/2023 00:00:00 01/21/2023 13:39:18 [id number] Nova Pereyra MD [facility] [place] [address] [place] [address] 02/14/2023 15:30:45 02/14/2023 16:39:13 Well controlled type 2 diabetes mellitus 018015533 E11.9 A1C of 7.5% from Dec- insurance will / [employer] will no longer carry bydureon. Will add jardiance 10 mg daily - patient advised to drink adequate water up to 64 ozs per day due to loss of calories and sugar through renal excretion- she was advised to contact clinic with any concern of dizziness, lightheade dness, flank pain or urinary pain or discomfort that might suggest the need for a urinalysis . She voiced understand ing. Will transition to twice daily lantus 6 units in morning and 8 units at bedtime and patient aware to increase by 2 units every 3 days until fasting glucose 90 -130 mg/dL. continue novolog 10 units before meals along with correction . Will provide samples of dexcom- dexcom has been integral part of her control- she started at 12% a1c last year and now 7.5%- she is very compliant with dexcom use and wishes to continue. She is familiar with use and wants to continue therapy. Dyslipidemia 342983267 E 78.5 Continue simvastati n as LDL in range. Spent up to 28 minutes preparing to see the patient (eg, review of tests), obtaining and/or reviewing separately obtained history, performing a medically appropriat e examinatio n and evaluation , counseling and educating the patient, ordering medication s, tests, along with documentin g clinical informatio n in the electronic health record, independen tly interpreti ng results and communicat ing results to the patient. RTC in 6 months. Patient was provided a handwritte n lab order which contains our fax number. If she chooses to go outside of the [facility] system to obtain labwork she was advised to provide our fax number and my informatio n to the lab she will be obtaining labwork from in order to have her labs properly forwarded over for me to review so there is no loss of follow up due to use of outside network. She was also advised to contact our clinic informing us that she has completed her labwork so we are aware we will need to reach out to the appropriat e laboratory to request her results be forwarded to us so I might have the ability to review and make further medical decision making in her case. She voiced understand ing. [id number] Kvng Ulloa MD [facility] [address] [address] 06/30/2023 09:31:12 06/30/2023 10:42:10 [id number] [facility] [place] [address] [place] [address] 07/01/2023 13:48:11 07/01/2023 15:20:45 Well controlled type 2 diabetes mellitus [id number] E11.9 A1C of 7.9% up from 7.2%- continue on jardiance 10 mg daily as patient tolerating well. we had patient split to twice daily lantus 6 units in morning and 8 units at bedtime and patient aware to increase by 2 units every 3 days until fasting glucose 90 -130 mg/dL.cont inued novolog but drop to 6 units for large meals/3 units for small meals and 2 units for snacks along with correction of 1U:50>150 mg/dL on premeal sugars. Refill dexcom for CGM and to allow for close monitoring and adjustment of insulin. She is compliant with use. Spent up to 25 minutes preparing to see the patient (eg, review of tests), obtaining and/or reviewing separately obtained history, performing a medically appropriat e examinatio n and evaluation , counseling and educating the patient, ordering medication s, tests, along with documentin g clinical informatio n in the electronic health record, independen tly interpreti ng results and communicat ing results to the patient. Patient can be followed by PCP - she/he is aware of my resignatio n and last day of September 05. If needed his/her PCP can refer patient to another endocrinol ogist in the area. All questions /concerns answered and refills necessary at visit today. [id number] Desiree Todd NP [facility] [address] [address] 08/06/2023 10:14:20 08/06/2023 11:17:14 Alzheimer's disease 69765007 G30.9 Memantine 10 mg po bid.Donepe zil 10 mg po daily[address]Dr. Yossi Nam. Hyperlipidemia 45014628 E78.5 Simvastati n 40 mg po nightly.Lo w fat diet. Diabetes mellitus 477748 09 E11.[address] Pereyra, but referred to [facility].Novol og 10 units tid prn with meals.Lant us 6 units in morning and 8 units at bedtime, fasting 90-130 goal.Jardi ance 10 mg po daily.Chi met XR 50 mg-1000mg po bid.Dexcom G6A1C jun 2023 7.9y 08/06/23 Lantus dose needs to be a fixed dose. Will increase to 12 units lantus at night due to fasting morning 200-300. Call in1-2 weeks with fasting glucose log for eval. Schedule appt with dhiraj banegas for appt and I will cover until that time. Goal 120-140 fasting glucose. Osteoporosis 71460184 M8 1.0 DEXA discussed. Vit d and calcium. Essential hypertension 72706835 I10 Losartan 25 mg po daily Tobacco user 230577428 Z 72.0 1/2 ppd Screening for malignant neoplasm of breast 682857256 Z12.39 Mammogram last 07/03/22, ordered 08/06/23 [id number] Desiree Todd NP [facility] [address] [address] 09/24/2023 11:22:38 09/24/2023 15:15:03 Osteoporosis 90351653 M81.0 DEXA discussed. Vit d and calcium. Essential hypertension 90121170 I10 Losartan 25 mg po daily Hyperlipidemia 69230753 E78.5 Simvastati n 40 mg po nightly.Lo w fat diet. Alzheimer's disease 4324 9004 G30.9 Memantine 10 mg po bid.Donepe zil 10 mg po [address]Dr[address] Yossi Nam. Tobacco user 934861568 Z 72.0 1/2 ppd Diabetes mellitus 653616 09 E11.[address] Pereyra, but referred to [facility].Novol og 10 units tid prn with meals.Lant us 6 units in morning and 8 units at bedtime, fasting 90-130 goal.Jardi ance 10 mg po daily.Chi met XR 50 mg-1000mg po bid.Dexcom G6A1C jun 2023 7.9 08/06/23 Lantus dose needs to be a fixed dose. Will increase to 12 units lantus at night due to fasting morning 200-300. Call in1-2 weeks with fasting glucose log for eval. Schedule appt with dhiraj banegas for appt and I will cover until that time. Goal 120-140 fasting glucose. 09/09/23 changed lantus to 10 units in morning and 12 units in evening. Endo appt for Dhiraj is Dec 2023. 09/24/23 Continue Lantus 10 units in the morning and 12 units in the evening. Add on Novolog 5 units sq at lunchtime for preprandia l blood sugar over 200, but hold if pt not eating. [id number] Desiree Todd NP [address] [address] 11/05/2023 10:22:38 11/05/2023 11:19:47 Osteoporosis 73386001 M81.0 DEXA discussed. Vit d and calcium. Essential hypertension 88797576 I10 Losartan 25 mg po daily Hyperlipidemia 67120173 E78.5 Simvastati n 40 mg po nightly.Lo w fat diet. Alzheimer's disease 2692 9004 G30.9 Memantine 10 mg po bid.Donepe zil [address] po [address] Yossi Nam. Tobacco user 749911409 Z 72.0 1/2 ppd Diabetes mellitus 774572 09 E11.[address] Pereyra, but referred to [facility] Endo.Novol og 10 units tid prn with meals.Lant us 6 units in morning and 8 units at bedtime, fasting 90-130 goal.Jardi ance 10 mg po daily.Chi met XR 50 mg-1000mg po bid.Dexcom G6A1C jun 2023 7.9 08/06/23 Lantus dose needs to be a fixed dose. Will increase to 12 units lantus at night due to fasting morning 200-300. Call in1-2 weeks with fasting glucose log for eval. Schedule appt with dhiraj banegas for appt and I will cover until that time. Goal 120-140 fasting glucose. 09/09/23 changed lantus to 10 units in morning and 12 units in evening. Endo appt for Dhiraj is Dec 2023. 09/24/23 Continue Lantus 10 units in the morning and 12 units in the evening. Add on Novolog 5 units sq at lunchtime for preprandia l blood sugar over 200, but hold if pt not eating. 11/05/23 Continue Lantus 10 units in the morning and 12 units in the evening. Add on Novolog 5 units sq at lunchtime and dinner for preprandia l blood sugar over 200, but hold if pt not eating. Type 2 per betes mellitus 76523092 E11.9 [id number] Kvng Ulloa MD [address] [address] 01/20/2024 14:27:31 01/20/2024 16:12:01 Hypertensive disorder 62452988 I10 Hyperlipidemia 48264747 E78.5 Type 2 per betes mellitus without complication 090235632 E11.9 Pt is f/u with Endo at [place]. Dementia 66883839 F03.93 Impaired mobility 422448 05 Z74.09 Bilateral hearing loss 94618736 H91.93 Chronic Smoker 18378981 F17.200 Cellulitis of right foot 8789219604 7312343 L03.115 Adult heal th examination 381630880 Z00.00 Screening for disorder 662616812 Z13.9 [id number] Kvng Ulloa MD [address] [address] 06/21/2024 09:00:13 06/21/2024 09:31:24 Hypertensive disorder 74378112 I10 Hyperlipidemia 43363371 E78.5 Type 2 per betes mellitus without complication 635600830 E11.9 Pt is f/u with Endo at [place]. Dementia 07446360 F03.93 Impaired mobility 468635 05 Z74.09 Bilateral hearing loss 68914071 H91.93 Chronic Smoker 73384809 F17.200 Cellulitis of right foot 4995225611 5071284 L03.115 resolved Screening mammography 24 213919 Z12.31 [id number] Kvng Ulloa MD [address] [address] 02/09/2025 15:15:51 02/09/2025 16:22:28 Type 2 diabetes mellitus without complication 972297990 E11.9 Pt is f/u with Endo at [place]. Hyperlipidemia 27910301 E78.5 Hypertensive disorder 38 756322 I10 Dementia 17568472 F03.93 Impaired mobility 133994 05 Z74.09 Bilateral hearing loss 79316891 H91.93 Chronic Smoker 64437199 F17.200 Screening mammography 24 902698 Z12.31 Paronychia of toe of right foot 3497916529 6240455 L03.031 Great toe Health Concerns Section Related Observation LastModified by Organization Detai ls LastModified Time None Recorded Concern Status LastModified by Organization Details LastModified Time None Recorded Advance Directives Directive Y: Payers Encounter Date Sequence Insurance Name Policy Number Policy Louis Covered Member ID Louis Member ID Guarantor Name 09/24/2023 1 [place] Rosa Elena Fisher [id number] Rosa Elena Fisher 09/24/2023 2 WPS - FOR LIFE (SECONDARY TO MEDICARE) Rosa Elena Fisher [id number] Rosa Elena Fisher 11/05/2023 1 [place] Rosa Elena Fisher [id number] Rosa Elena Fisher 11/05/2023 2 WPS - FOR LIFE (SECONDARY TO MEDICARE) Rosa Elena Fisher [id number] Rosa Elena Fisher 01/20/2024 1 [place] Rosa Elena Fisher [id number] Rosa Elena Fisher 01/20/2024 2 [employer]PS - FOR LIFE (SECONDARY TO MEDICARE) Rosa Elena Fisher [id number] Rosa Elena Fisher 06/21/2024 1 [place] Rosa Elena Fisher [id number] Rosa Elena Fisher 06/21/2024 2 [employer]PS - FOR LIFE (SECONDARY TO MEDICARE) Rosa Elena Fisher [id number] Rosa Elena Fisher 02/09/2025 1 [place] Rosa Elena Fisher [id number] Rosa Elena Fisher 02/09/2025 2 [employer]PS - FOR LIFE (SECONDARY TO MEDICARE) Rosa Elena Fisher [id number] Rosa Elena Fisher Notes Date Note Type Note Provider Name and Address Organization Details Recorded Time 09/24/2023 text/html Here with Daught er for [...] Todd NP [address], [address], [place], [address], [employer] 09/24/2023 15:11:14 11/05/2023 text/html Here with Daught [...] is feeling good. Desiree Todd NP [address] [facility], [place], [address], [employer] 11/05/2023 11:17:03 01/20/2024 text/html Pt is here [...] Ulloa MD [address], [place], [address], [employer] 01/20/2024 16:10:21 06/21/2024 text/html Pt is here [...] Ulloa MD [address], [place], [address], [employer] 06/21/2024 09:25:40 02/09/2025 text/html Pt is here with her daughter () for f/u her annual exam. Pt lives in an assisted living facility and family helps her with appointments. Pt is planning to move to a newer place in [place] and she needs forms to be filled out for it. C/o Rt great toe area pain and swelling for last few days. Denies any fall/trauma. Pt has not gone for LDCT chest yet. Pt is feeling overall well. Denies any problem with meds. Pt is f/u with Endo at [place] and is getting labs done with them. So they don't want me to do any labs here. Pt is f/u with Neuro for her dementia and is on meds by them. Kvng Ulloa MD [address] [facility] [address], [place], [address], [employer] 02/09/2025 16:18:26 OBGyn Episode No OBEpisode recorded.
== END 2025-03-21 23:00 | disposition home or self-care (01) ==
PROVIDERS: Emergency Provider Student in an Organized Health Care Education/Training Program; PCP Family Medicine
DX: S42.332A Displaced oblique fracture of shaft of humerus, left arm, initial encounter for closed fracture (principal); F03.90 Unspecified dementia, unspecified severity, without behavioral disturbance, psychotic disturbance, mood disturbance, and anxiety; E78.5 Hyperlipidemia, unspecified; I10 Essential (primary) hypertension; E11.9 Type 2 diabetes mellitus without complications; Z79.4 Long term (current) use of insulin; W19.XXXA Unspecified fall, initial encounter
CPT/HCPCS: 73030; 99284; A9270

== ENCOUNTER 2025-04-02 10:38 | Emergency (ER) | payer MEDICARE, OTHER, SELFPAY ==
[2025-04-02] VITALS (7 sets, daily range): BP systolic 110–140; BP diastolic 45–79; PULSE 64–85; RESP 15–19; TEMP 36.7; O2SAT 96–100
--- NOTE | ~2025-04-02 | XR_ITS ---
EXAMINATION: XR shoulder LT min 2V DATE: 04/02/2025 10:58 INDICATION: Left shoulder pain and swelling post recent fracture TECHNIQUE: AP internally and externally rotated and Grashey views of the left shoulder were obtained. COMPARISON: None FINDINGS: Again seen is an oblique fracture of the metaphyseal region of the proximal left humerus with no sign ificant change in 8mm lateral displacement. No productive changes of healing yet apparent. No new fra ctures identified. Mild left glenohumeral and acromioclavicular osteoarthritis. Tiny focus of calcifi cation along the greater tuberosity consistent with rotator cuff calcific tendinitis. Visualized port ion of the left lung remains clear. IMPRESSION: 1. No significant change in 8 mm lateral displacement of an oblique fracture at the surgical neck of the proximal left humerus. 2. Left rotator cuff calcific tendinitis. Reviewed, dictated and finalized at location A.
--- NOTE | ~2025-04-02 | US_ITS ---
EXAMINATION: US venous doppler [facility] DATE: 04/02/2025 11:46 INDICATION: Increased left upper limb pain and swelling TECHNIQUE: Grayscale images without and with compression and Doppler images of the left upper extremi ty veins were obtained. COMPARISON: None. FINDINGS: The left internal jugular vein, subclavian vein, axillary vein, brachial vein, basilic vein, cephalic vein, radial vein, and ulnar vein are patent. IMPRESSION: 1. Patent left upper extremity veins. No evidence of venous thrombosis. Reviewed, dictated and finalized at location A.
--- OUTSIDE RECORDS SUMMARY | 2025-04-02 11:15 | XMS_ITS | Data Portability ---
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 Cont f/u with Strategic Development Manager and Ophtho as per schedule. HM: WWE - Pt declined. Mammo - 07/03/22, normal. Ordered. DEXA - Pt declined. Colonoscopy - Pt declined. Flu - 10/17. Tdap, Pneumo, Shingrix - At pharmacy/HD. F/u PRN/Annually. Annual visit in 02/16. [email or web address] Not available 02/09/2025 16:17:00 Plan of Treatment Reminders Order Date Submit Date Provider Last Modified By Organization Details Last Modified Time Details Appointments None recorded. Lab None recorded. Referral pharmaceutical botanist referral - Please call patient to schedule an appointment 2023 024 [email or web address] Maldonado BARRERAM, [address], [place], [address], 09:17:57 Procedures None recorded. Surgeries None recorded. Imaging MAMMO, screening, bilateral 2024 025 [email or web address] [facility], [address], [place], [address], 5 15:36:59 MAMMO, screening, bilateral 2023 024 [email or web address] 256 Not available 4 09:29:59 LDCT, chest, for lung cancer screening - *Please call pt to schedule* 2023 024 [email or web address] 256 [facility], [address], [address] [place] [address], [place], [address], 4 09:18:33 DEXA - *Please call pt to schedule* 2022 023 [email or web address] 256 [facility], [address], [place], [address], 3 09:20:14 Medication Orders losartan 25 mg tablet 2024 025 [facility], [address] [place] [address], [address], 5 15:42:06 doxycycline hyclate 100 mg capsule 2024 025 [id number], [address] [facility], [place], [place], [id number], 5 15:44:13 simvastatin 40 mg tablet 2024 025 [email or web address] [facility], [address] [place] [address], [address], 5 15:42:47 Adult Low Dose Aspirin 81 mg tablet,gabriele yed release 2024 025 [facility], [address] [place] [address], [place], [address], 5 15:42:06 losartan 25 mg tablet 2023 024 [facility], [address] [place] [address], [place], [address], 4 09:16:48 nicotine 14 mg/24 hr daily transdermal patch 2023 024 [facility], [address] [place] [address], [place], [address], 4 09:16:49 Lantus Solostar U-100 Insulin 100 unit/mL (3 mL) subcutaneou s pen 2023 024 [facility], [address] [place] [address], [place], [address], 4 09:16:49 Novolog FlexPen U-100 Insulin aspart 100 unit/mL (3 mL) subcutaneou s 2023 024 [facility], [address] [place] [address], [place], [address], 4 09:16:49 Janumet 50 mg-1,000 mg tablet 2023 024 [facility], [address] [place] [address], [place], [address], 4 09:16:48 Jardiance 25 mg tablet 2023 024 [facility], [address] [place] [address], [place], [address], 4 09:16:50 simvastatin 40 mg tablet 2023 024 [facility], [address] [place] [address], [place], [address], 4 09:16:50 Adult Low Dose Aspirin 81 mg tablet,gabriele yed release 2023 024 [facility], [address] [place] [address], [place], [address], 4 09:16:49 losartan 25 mg tablet 2023 024 [facility], [address] [place] [address], [address], 4 14:53:54 nicotine 14 mg/24 hr daily transdermal patch 2023 024 [facility], [address] [place] [address], [address], 4 14:55:14 simvastatin 40 mg tablet 2023 024 [facility], [address] [place] [address], [address], 4 14:53:55 Adult Low Dose Aspirin 81 mg tablet,gabriele yed release 2023 024 [facility], [address] [place] [address], [address], 4 14:53:56 cephalexin 500 mg capsule 2023 024 [email or web address] [facility], [address] [place] [address], [address], 4 09:18:18 Lantus Solostar U-100 Insulin 100 unit/mL (3 mL) subcutaneou s pen 2023 024 [facility], [address] [place] [address], [address], 4 14:53:54 Novolog FlexPen U-100 Insulin aspart 100 unit/mL (3 mL) subcutaneou s 2023 024 [facility], [address] [place] [address], [address], 4 14:24:41 Janumet 50 mg-1,000 mg tablet 2023 024 [facility], [address] [place] [address], [place], [address], 4 14:53:56 Jardiance 25 mg tablet 2023 024 [facility], [address] [place] [address], [place], [address], 4 14:53:53 Novolog FlexPen U-100 Insulin aspart 100 unit/mL (3 mL) subcutaneou s [address], [address] [place] [address], [place], [address], 4 14:20:09 Novolog FlexPen U-100 Insulin aspart 100 unit/mL (3 mL) subcutaneou s [address], [address] [place] [address], [address], 4 14:20:09 Patient TargetsNo targets recorded. Patient Instructions Encounter Date Encounter Id Patient Instructions Last Modified By Organization Details Last Modified Time 11/05/2023 [id number] 11/05/23 pt Tessa mascorro. Encouraged her to schedule with heena for Dec. Has endo in Dec . Not available 11/05/2023 11:16:40 01/20/2024 [id number] dementia rating scale-2* [email or web address] Not available 01/20/2024 16:08:57 alcohol misuse* [email or web address] Not available 01/20/2024 16:08:57 multi-dimensiona l health assessment questionnaire* [email or web address] Not available 01/20/2024 16:08:57 depression screening* Not available 01/20/2024 16:08:57 Personalized a lt [...] Not available 01/20/2024 15:18:39 Reason for Referral Strategic Development Manager Referral for Type 2 diabetes mellitus without complication Please call patient to schedule an appointment Referring Physician: Kvng Ulloa, Family Medicine, Encounter Date: 01/20/2024 Results Created Date Observation Date Name Description Value Unit Range Abnormal Flag Note LastModifiedBy Organization Detail LastModifiedTime 06/25/20 24 06/25/2024 CT, brain , w/o contr ast No observ ation record ed. [email or web address] [address], [address], 02/09/2025 15:37:30 06/25/20 24 06/25/2024 XR, chest No observ ation record ed. [email or web address] [address], [address], 02/09/2025 15:37:30 03/21/20 25 03/21/2025 XR, shoul oni, 2 or more view No observ ation record ed. [email or web address] [facility] [address], [place], [address], 03/22/2025 09:12:51 04/02/2004/02/2025 imagi ng/di agnos tic resul t No observ ation record ed. [facility] [address], [place], [address], 04/02/2025 12:07:06 Result Notes None recorded. Problems Name Problem SNOMED Code Status Onset Date Resolution Date Notes Provider Name and Address Organization Details Recorded Time Impacted cerumen in right ear 194945300614 9103 Active 2019 Not Available [facility] 3 17:47:57 Tobacco user 829604202 Active 2019 Not Available [facility] 3 17:47:57 Immunizati on due 918116447 Active 2019 Not Available [facility] 3 17:47:57 Alzheimer' s disease 97755889 Active 2021 seeing neuro BJC Not Available [facility] 3 17:47:58 Dyslipidem ia 080782369 Active 2021 Not Available [facility] 3 17:47:58 Memory impairment 080937720 Active 2020 Not Available [facility] 3 17:47:58 Type 2 diabetes mellitus 33722370 Active 2021 Not Available [facility] 3 17:47:58 Uncontroll ed type 2 diabetes mellitus 802460960 Active 2020 Not Available [facility] 3 17:47:58 Hyperlipid emia 50483430 Active 2019 Not Available [facility] 3 17:47:58 Essential hypertensi on 10389032 Active 2019 Not Available [facility] 3 17:47:58 Osteoporos is 56729395 Active 2019 Not Available [facility] 3 17:47:58 Diabetes mellitus 90224149 Active 2019 Not Available [facility] 3 17:47:58 Fatigue 79189020 Active 2019 Not Available [facility] 3 17:47:58 Bilateral hearing loss 44160282 Active 2020 Not Available [facility] 3 17:47:58 Well controlled type 2 diabetes mellitus 194671727 Active 2022 Not Available [facility] 3 17:47:58 Type 1 diabetes mellitus 46020402 Active 2022 Not Available [facility] 3 17:47:58 COVID-19 230167080 Active 2022 Not Available [facility] 3 17:47:58 Hypertensi ve disorder 44860922 Active 2023 Kvng Ulloa MD [address], [place], [address] , [employer] 4 14:38:14 Type 2 diabetes mellitus without complicati on 580449434 Active 2023 Kvng Ulloa MD [address], [place], [address] , [employer] 4 14:38:25 Dementia 85065636 Active 2023 Kvng Ulloa MD [address], [place], [address] , [employer] [facility] 4 14:38:58 Impaired mobility 97023896 Active 2023 Kvng Ulloa MD [address], [place], [address] , [employer] 4 14:39:53 Smoker 76190936 Active 2023 Kvng Ulloa MD [address], [place], [address] , [employer] [facility] 4 14:40:53 Cellulitis of right foot 583829795635 89114 Active 2023 Kvng Ulloa MD [address], [place], [address] , [employer] 4 14:58:24 Ulcer of foot 34537707 Active 2023 Kvng Ulloa MD [address], [place], [address] , [employer] 4 14:51:26 Paronychia of toe of right foot 177397597118 34534 Active 2024 Kvng Ulloa MD [address], [place], [address] , [employer] 5 15:42:58 Problem Notes None recorded. Procedures Surgical History Date Name Laterality Status Provider Name and Address Organization Details Recorded Time 02/10/20 25 Smoking Cessation completed Kvng Ulloa MD [address], [place], [address], [employer] 02/09/2025 16:15:32 06/21/20 24 Smoking Cessation completed Kvng Ulloa MD [address], [place], [address], [employer] 06/21/2024 09:25:11 01/20/20 24 Medicare Wellness CPT Code, subsequent completed February JORDAN Reddy [employer] 01/20/2024 15:05:55 01/20/20 24 Smoking Cessation completed Kvng Ulloa MD [address], [place], [address], [employer] 01/20/2024 14:54:05 10/11/20 20 Date of Last Colonoscopy completed Not Available [facility] 01/22/2023 21:48:18 Rotator cuff surgery completed Not Available [facility] 01/22/2023 21:48:18 Unlisted px femur/knee completed Not Available [facility] 01/22/2023 21:48:18 Cataract Surgery completed Not Available [facility] 01/22/2023 21:48:18 Imaging Results Imaging Date Name Status LastModified by Organiz ation Details LastModified Time 06/25/2024 CT, brain, w/o contrast completed [address] [place] [address], [address], 02/09/2025 15:37:30 06/25/2024 XR, chest completed [address], [address], 02/09/2025 15:37:30 03/21/2025 XR, shoulder, 2 or more view completed [address], [address], 03/22/2025 09:12:51 04/02/2025 imaging/diagn ostic result active [address], [address], 04/02/2025 12:07:06 Procedure Notes None recorded. Medical Equipment None Reported. Allergies Allergen ID Allergen Name Allergen Category Reaction Reaction Severity Criticality Documentation Date Start Date Code Code System Note Provider Name and Address Organization Details Recorded Time 29147 walnut allergeni c extract food Not available Not available Not available 01/22/2023 12183 0 RxNorm Not Available [facility] 3 21:49:40 50108 Product containin g penicilli n (product) medicatio n rash moderate Not available 01/22/2023 74406 8001 SNOMED Not Available [facility] 3 21:49:41 Medications Name Sig Start Date [...] (50,000 unit) capsule Take by oral route. 04/21/ 2021 04/21 /2021 completed Not Available Not Available Not Available [...] Not Available Not Available Not Available [employer] [place] Lite kit 07/05 completed Not Available Not [...] Not Available No t Available Dexcom G6 Athletic Coach USE DIRECTED TO MONITOR GLUCOSE active Not Available Not Available No t Available Dexcom G6 Transmitt er device USE DIRECTED active Not Available Not Available No t Available BD Elva 2nd Gen Pen Needle 32 gauge x USE DIRECTED WITH LANTUS AND NOVOLOG active [...] Updated DateTime 3 167.64 cm 25.9 kg/m2 65251.2 3 g 95.7 [degF] 67 /min 20 /min 95 % 95 % 0 136 mm[Hg] 70 mm[Hg] Desiree Preston RN [facility] [employer] [facility] 3 11:32:24 Date Recorded Body height Body mass index (BMI) Body weight Body temperature Respiratory rate Heart rate Oxygen saturation Oxygen saturation in Arterial blood by Pulse oximetry Pain severity - 0-10 verbal numeric rating [Score] - Reported Systolic blood pressure Diastolic blood pressure Provider Name and Address Organization Details Last Updated DateTime 3 167.64 cm 25.2 kg/m2 43664.5 1 g 96 [degF] 20 /min 65 /min 94 % 94 % 0 130 mm[Hg] 68 mm[Hg] Desiree Preston RN [facility] [employer] [facility] 3 10:42:18 Date Recorded Body height Body mass index (BMI) Body weight Body temperature Respiratory rate Heart rate Oxygen saturation Oxygen saturation in Arterial blood by Pulse oximetry Systolic blood pressure Diastolic blood pressure Provider Name and Address Organization Details Last Updated DateTime 4 167.64 cm 25.1 kg/m2 60185.2 2 g 97.9 [degF] 20 /min 86 /min 96 % 96 % 110 mm[Hg] 62 mm[Hg] Alphonso Vasques [facility] [employer] [facility] 4 14:33:06 Date Recorded Pain severity - 0-10 verbal numeric rating [Score] - Reported Provider Name and Address Organization Details Last Updated DateTime 01/20/2024February JORDAN Reddy [facility] [employer] [facility] 01/20/2024 15:06:56 Date Recorded Body height Body mass index (BMI) Body weight Body temperature Heart rate Respiratory rate Oxygen saturation Oxygen saturation in Arterial blood by Pulse oximetry Systolic blood pressure Diastolic blood pressure Provider Name and Address Organization Details Last Updated DateTime 4 167.64 cm 24.4 kg/m2 03755.8 g 98.1 [degF] 76 /min 16 /min 98 % 98 % 122 mm[Hg] 78 mm[Hg] Alphonso Vasques [facility] [employer] [facility] 4 09:07:01 Date Recorded Body height Body mass index (BMI) Body weight Body temperature Heart rate Systolic blood pressure Diastolic blood pressure Provider Name and Address Organization Details Last Updated DateTime 5 167.64 cm 22.8 kg/m2 45315.9 2 g 97.3 [degF] 74 /min 110 mm[Hg] 64 mm[Hg] Gosia Salcido RN [facility] [employer] [facility] 5 15:33:40 Date Recorded Oxygen saturation Oxygen saturation in Arterial blood by Pulse oximetry Provider Name and Address Organization Details Last Updated DateTime 02/09/2025 96 % 96 % Kvng Ulloa MD [address] [place] [address], [address], [facility] [employer] [facility] 02/09/2025 15:41:45 Social History Question Answer Notes LastModified by Organizat ion Details LastModified Time Tobacco Smoking Status Former Smoker quit 2023 Gosia Salcido RN [facility], [facility] [employer] [facility] 02/09/2025 15:36:03 Do You Have An Advance Directive? Yes Information not available 08/06/2023 What Is Your Level Of Alcohol Consumption? None MIGRATION.69381 [id number] Information not available 01/22/2023 Are You Blind Or Do You Have Difficulty Seeing? No MIGRATION.47950 15894 Information not available 01/22/2023 Is Blood Transfusion Acceptable In An Emergency? Yes Information not available 08/06/2023 What Is Your Level Of Caffeine Consumption? None [email or web address] Information not available 02/09/2025 How Much Tobacco Do You Chew? None MIGRATION.03197 31580 Information not available 01/22/2023 What Is Your Code Status? Full Code Information not available 08/06/2023 In The 14 Days Before Symptom Onset, Have You Had Close Contact With A Laboratory-confi rmed COVID-19 While That Case Was Ill? No MIGRATION.85816 90810 Information not available 01/22/2023 In The 14 Days Before Symptom Onset, Have You Had Close Contact With A Person Who Is Under Investigation For COVID-19 While That Person Was Ill? No MIGRATION.76357 58227 Information not available 01/22/2023 Are You Deaf Or Do You Have Serious Difficulty Hearing? No MIGRATION.72024 47806 Information not available 01/22/2023 What Type Of Diet Are You Following? REGULAR MIGRATION.02215 48111 Information not available 01/22/2023 Which Illicit Or Recreational Drugs Have You Used? None MIGRATION.62865 41314 Information not available 01/22/2023 Do You Or Have You Ever Used E-cigarettes Or Vape? Never Used Electronic Cigarettes MIGRATION.80039 81360 Information not available 01/22/2023 What Is Your Occupation? Retired MIGRATION.40698 81537 Information not available 01/22/2023 How Many Days [...] To Your Family Or Social Situation? No MIGRATION.71375 64186 Information not available 01/22/2023 When Did You Quit Smoking? 1-5yearssincel astcigarette Quit 2023 [email or web address] Information not available 02/09/2025 Do You Use Insect Repellent Routinely? Yes MIGRATION.67538 55169 Information not available 01/22/2023 Where Do You Live? [facility] Information not available 08/06/2023 Do You Have A Medical Power Of Pals Nurse? Yes Jennifer Robertson Information not available 08/06/2023 What Was The Date Of Your Most Recent Tobacco Screening? 01/20/2024 Information not available 01/20/2024 What Is Your Current Pack Years? [email or web address] Information not available 02/09/2025 Do You Have Any Pets? No Information not available 08/06/2023 What Is Your Relationship Status? MIGRATION.05620 31805 Information not available 01/22/2023 Do You Use Your Seat Belt Or Car Seat Routinely? Yes MIGRATION.19646 70844 Information not available 01/22/2023 Do You Have Smoke And Carbon Monoxide Detectors In Your Home? Yes Information not available 08/06/2023 At What Age Did You Start Smoking Tobacco? 20 [email or web address] Information not available 02/09/2025 Are You Passively Exposed To Smoke? No MIGRATION.05237 14185 Information not available 01/22/2023 Do You Or Have You Ever Used Smokeless Tobacco? Never Used Smokeless Tobacco MIGRATION.55542 59816 Information not available 01/22/2023 Are There Any Smokers In Your House? Yes MIGRATION.12452 62980 Information not available 01/22/2023 How Much Tobacco Do You Smoke? 0.5 PPD MIGRATION.54297 77067 Information not available 01/22/2023 Do You Participate In Social Media? No MIGRATION.76887 34300 Information not available 01/22/2023 What Types Of Sporting Activities Do You Participate In? Walk Information not available 08/06/2023 Do You Feel Stressed (tense, Restless, Nervous, Or Anxious, Or Unable To Sleep At Night)? [id number] Information not available 08/06/2023 Do You Use Sunscreen Routinely? Yes MIGRATION.20788 81340 Information not available 01/22/2023 Has Tobacco Cessation Counseling Been Provided? No MIGRATION.62452 62642 Information not available 01/22/2023 How Many Years Have You Smoked Tobacco? 50 [email or web address] Information not available 02/09/2025 Have You Recently Traveled Abroad? No MIGRATION.91799 37326 Information not available 01/22/2023 Do You Have Any Dietary Restrictions? No MIGRATION.86878 90489 Information not available 01/22/2023 Do You Or Have You Ever Used Any Other Forms Of Tobacco Or Nicotine? No [email or web address] Information not available 02/09/2025 Sex: Female Functional Status Question Answer Note LastModified by Organizat ion Details LastModified Time Do you have difficulty walking or climbing stairs? No MIGRATION.[id number] 026 Information not available 01/22/2023 Do you have transportation difficulties? No MIGRATION.4273318 026 Information not available 01/22/2023 Are you able to walk? YESWOREST MIGRATION.0326784 026 Information not available 01/22/2023 Do you have difficulty doing errands alone? No MIGRATION.3490573 026 Information not available 01/22/2023 Are you able to care for yourself? Yes MIGRATION.1699507 026 Information not available 01/22/2023 Do you have difficulty dressing or bathing? No MIGRATION.3805288 026 Information not available 01/22/2023 What is your exercise level? Moderate Walk Information not available 08/06/2023 Mental Status Question Answer Note LastModified by Organizat ion Details LastModified Time Do you have difficulty concentrating, remembering or making decisions? Yes short term MIGRATION.[id number] 026 Information not available 01/22/2023 Family History [...] (COVID-19) vaccine, UNSPECIFIED 1 completed Not Available [facility] 10/06/2023 17:47:58 pneumococcal polysaccharide PPV23 1 completed Not Available [facility] 10/06/2023 17:47:58 SARS-COV-2 (COVID-19) vaccine, UNSPECIFIED 1 completed Not Available [facility] 10/06/2023 17:47:58 SARS-COV-2 (COVID-19) vaccine, UNSPECIFIED 1 completed Not Available [facility] 10/06/2023 17:47:58 zoster recombinant 1 completed Not Available [facility] 10/06/2023 17:47:58 influenza, unspecified formulation 2 completed Not Available [facility] 10/06/2023 17:47:58 Influenza, high-dose, quadrivalent, PF 1 completed Not Available [facility] 10/06/2023 17:47:58 Influenza, split virus, quadrivalent, preservative 0 completed Not Available [facility] 10/06/2023 17:47:58 Influenza, high-dose, quadrivalent, PF 9 completed Not Available [facility] 10/06/2023 17:47:58 Tdap 0 completed Not Available [facility] 10/06/2023 17:47:58 Past Encounters Encounter ID Performer Location Encounter Start Date Encounter Closed Date Diagnosis/Indication Diagnosis SNOMED-CT Code Diagnosis ICD10 Code Diagnosis Note [id number] [facility] [place] [address] [place] [address] 02/20/2021 00:00:00 02/20/2021 10:25:01 [id number] Kvng Ulloa MD [address] [address] 03/14/2021 00:00:00 03/14/2021 09:02:27 [id number] Kvng Ulloa MD [address] [address] 06/13/2021 00:00:00 06/13/2021 08:42:26 [id number] Kvng Ulloa MD [address] [address] 06/21/2021 00:00:00 06/21/2021 11:50:02 [id number] Kvng Ulloa MD [address] [address] 08/28/2021 00:00:00 08/28/2021 10:42:17 [id number] Kvng Ulloa MD [address] [place] [address] 01/02/2022 00:00:00 01/02/2022 10:07:35 [id number] Kvng Ulloa MD [facility] [address] [place] [address] 01/03/2022 00:00:00 01/03/2022 14:52:03 [id number] Kvng Ulloa MD [facility] [address] [place] [address] 04/03/2022 00:00:00 04/03/2022 08:56:55 [id number] [facility] [address] [place] [address] 05/10/2022 00:00:00 05/10/2022 14:19:27 [id number] Desiree Todd NP [facility] [address] [place] [address] 06/14/2022 00:00:00 06/14/2022 13:59:34 [id number] Desiree Todd NP [facility] [address] [place] [address] 07/05/2022 00:00:00 07/05/2022 15:55:53 [id number] [facility] [place] [address] [place] [address] 07/16/2022 00:00:00 07/17/2022 11:51:41 [id number] Kvng Ulloa MD [facility] [address] [place] [address] 11/07/2022 00:00:00 11/07/2022 16:31:52 [id number] Kvng Ulloa MD [facility] [address] [place] [address] 01/15/2023 00:00:00 01/15/2023 19:04:25 [id number] Kvng Ulloa MD [facility] [address] [place] [address] 01/21/2023 00:00:00 01/21/2023 13:39:18 [id number] Nova Pereyra MD [facility] Endo Kike Enriquez [address] [place] [address] 02/14/2023 15:30:45 02/14/2023 16:39:13 Well controlled type 2 diabetes mellitus [id number] E11.9 A1C of 7.5% from Dec- insurance will / [employer] will no longer carry bydureon. Will add [...] use and wants to continue therapy. Dyslipidemia 130949423 E 78.5 Continue simvastati n as LDL [...] she chooses to go outside of the [facility] to obtain labwork she was [...] in her case. She voiced understand ing. [id number] Kvng Ulloa MD [facility] [place] [place] [address] 06/30/2023 09:31:12 06/30/2023 10:42:10 [id number] Nova Pereyra MD [facility] [address] [place] [address] 07/01/2023 13:48:11 07/01/2023 15:20:45 Well controlled type 2 diabetes mellitus [id number] E11.9 A1C of 7.9% up from 7.2%- [...] answered and refills necessary at visit today. [id number] Desiree Todd NP [address] [address] 08/06/2023 10:14:20 08/06/2023 11:17:14 Alzheimer's disease 69815108 G30.9 Memantine 10 mg po bid.Donepe zil 10 mg po daily.Dr. Yossi Nam. Hyperlipidemia 50610897 E78.5 Simvastati n 40 mg po nightly.Lo w fat diet. Diabetes mellitus 473574 09 E11.[address] Pereyra, but referred to [facility] Daniela.Novol og 10 units tid prn with meals.Lant [...] that time. Goal 120-140 fasting glucose. Osteoporosis 08895682 M8 1.0 DEXA discussed. Vit d and calcium. Essential hypertension 47216501 I10 Losartan 25 mg po daily Tobacco user 114808896 Z 72.0 1/2 ppd Screening for malignant neoplasm of breast 986327576 Z12.39 Mammogram last 07/03/22, ordered 08/06/23 [id number] Desiree Todd NP [address] [address] 09/24/2023 11:22:38 09/24/2023 15:15:03 Osteoporosis 59905099 M81.0 DEXA discussed. Vit d and calcium. Essential hypertension 78870106 I10 Losartan 25 mg po daily Hyperlipidemia 86239632 E78.5 Simvastati n 40 mg po nightly.Lo w fat diet. Alzheimer's disease 2692 9004 G30.9 Memantine 10 mg po bid.Donepe zil 10 mg po daily.Dr. Yossi Nam. Tobacco user 250885427 Z 72.0 1/2 ppd Diabetes mellitus 395580 09 E11.[address] Pereyra, but referred to [facility] Endo.Novol og 10 units tid prn with [...] 200, but hold if pt not eating. [id number] Desiree [place] [address] 11/05/2023 10:22:38 11/05/2023 11:19:47 Osteoporosis 99454364 M81.0 DEXA discussed. Vit d and calcium. Essential hypertension 63060667 I10 Losartan 25 mg po daily Hyperlipidemia 14481999 E78.5 Simvastati n 40 mg po nightly.Lo w fat diet. Alzheimer's disease 5347 5590 G30.9 Memantine 10 mg po bid.Donepe zil 10 mg po daily.Dr. Yossi Nam. Tobacco user 901683129 Z 72.0 1/2 ppd Diabetes mellitus 636676 09 E11.[address] Pereyra, but referred to [facility] Endo.Novol og 10 units tid prn with [...] not eating. Type 2 per betes mellitus 84512421 E11.9 [id number] Kvng Ulloa MD [address] [address] 01/20/2024 14:27:31 01/20/2024 16:12:01 Hypertensive disorder 72614303 I10 Hyperlipidemia 97362281 E78.5 Type 2 per betes mellitus without complication 881869384 E11.9 Pt is f/u with Endo at [place]. Dementia 26177481 F03.93 Impaired mobility 921565 05 Z74.09 Bilateral hearing loss 43616804 H91.93 Chronic Smoker 97118302 F17.200 Cellulitis of right foot [id number] 3071072 L03.115 Adult [facility] examination 657975010 Z00.00 Screening for disorder 497462800 Z13.9 [id number] Kvng Ulloa MD [address] [address] 06/21/2024 09:00:13 06/21/2024 09:31:24 Hypertensive disorder 87023534 I10 Hyperlipidemia 86102267 E78.5 Type 2 per betes mellitus without complication 938403757 E11.9 Pt is f/u with Endo at [place]. Dementia 06563586 F03.93 Impaired mobility 260063 05 Z74.09 Bilateral hearing loss 74204847 H91.93 Chronic Smoker 83196503 F17.200 Cellulitis of right foot 6192585859 9530700 L03.115 resolved Screening mammography 24 266181 Z12.31 [id number] Kvng Ulloa MD [facility] [address] [address] 02/09/2025 15:15:51 02/09/2025 16:22:28 Type 2 diabetes mellitus without complication 675379754 E11.9 Pt is f/u with Endo at [place]. Hyperlipidemia 97844680 E78.5 Hypertensive disorder 38 028705 I10 Dementia 20648084 F03.93 Impaired mobility 797143 05 Z74.09 Bilateral hearing loss 57815819 H91.93 Chronic Smoker 47661988 F17.200 Screening mammography 24 383765 Z12.31 Paronychia of toe of right foot 3467196758 8918236 L03.031 Great toe Health Concerns Section Related Observation LastModified by Organization Detai ls LastModified Time None Recorded Concern Status LastModified by Organization Details LastModified Time None Recorded Advance Directives Directive Y: Payers Encounter Date Sequence Insurance Name Policy Number Policy Louis Covered Member ID Louis Member ID Guarantor Name 09/24/2023 1 [place] Rosa Elena Lucia Phillip [id number] Rosa Elena Lucia Phillip 09/24/2023 2 WPS - FOR LIFE (SECONDARY TO MEDICARE) Rosa Elena Fisher [id number] Rosa Elena Lucia Phillip 11/05/2023 1 [place] Rosa Elena Lucia Phillip [id number] Rosa Elena Lucia Phillip 11/05/2023 2 WPS - FOR LIFE (SECONDARY TO MEDICARE) Rosa Elena Phillip [id number] Rosa Elena Lucia Phillip 01/20/2024 1 [place] Rosa Elena Lucia Phillip [id number] Rosa Elena Lucia Phillip 01/20/2024 2 WPS - FOR LIFE (SECONDARY TO MEDICARE) Rosa Elena Phillip [id number] Rosa Elena Lucia Phillip 06/21/2024 1 [place] Rosa Elena Lucia Phillip [id number] Rosa Elena Lucia Phillip 06/21/2024 2 [employer]PS - FOR LIFE (SECONDARY TO MEDICARE) Rosa Elena Fisher [id number] Rosa Elena Fisher 02/09/2025 1 [place] Rosa Elena Fisher [id number] Rosa Elena Fisher 02/09/2025 2 WPS - FOR LIFE (SECONDARY TO MEDICARE) Rosa Elena Fisher [id number] Rosa Elena Fisher Notes Date Note Type [...] tid with meals. Desiree Todd NP [address], [place], [address], [employer] 09/24/2023 15:11:14 11/05/2023 text/html Here with Daught [...] is feeling good. Desiree Todd NP [address], [place], [address], [employer] 11/05/2023 11:17:03 01/20/2024 text/html Pt is here [...] Ulloa MD [address], [place], [address], [employer] 01/20/2024 16:10:21 06/21/2024 text/html Pt is here [...] on meds by them. Kvng Ulloa MD [address], [place], [address], [employer] 06/21/2024 09:25:40 02/09/2025 text/html Pt is here [...] on meds by them. Kvng Ulloa MD [address], [place], [address], [employer] 02/09/2025 16:18:26 OBGyn Episode No OBEpisode recorded.
--- OUTSIDE RECORDS SUMMARY | 2025-04-02 11:15 | XMS_ITS | Clinical Summary ---
Author Organization [facility] [address] [place] [address] Care Team Providers Care Leather Dresser Name Role Phone Kvng Ulloa MD Primary Care Provider [phone] Allergies Active Allergy Reactions Criticality Noted Date Comments Penicillins Unknown 01/06/2025 Tree Nut Hives,Itching,Rash,Swelling Medium 10/24/20 21 Woodbine Rash Medium 10/24/2021 Medications simvastatin (ZOCOR) 40 mg tablet 09/18/20 21 Active losartan (COZAAR) 25 mg tablet 09/18/20 21 Active aspirin 81 MG oral suspension Active alendronate (FOSAMAX) 70 mg tablet alendronate 70 mg tablet Active Dexcom G6 Encoding Clerk misc USE DIRECTED TO MONITOR GLUCOSE 03/12/20 22 Active Dexcom G6 Sensor device USE DIRECTED TO TEST GLUCOSE 05/06/20 22 Active Dexcom G6 Transmitter device as directed 03/12/20 22 Active carbamide peroxide (Ear Drops, carbamide peroxide,) 6.5 % otic solution INSTILL 5 DROPS INTO AFFECTED right EAR(S) BY OTIC ROUTE 2 TIMES PER DAY for 10 days Active influenza quadrivalent 9197-1003 (FLULAVAL,FLUARIX, FLUZONE) 60 mcg (15 mcg x [...] long-term current use of insulin ([facility]) Take 1 tablet (25 mg total) by mouth photolithographer before breakfast 90 tablet 2 07/15/20 24 Active Janumet XR 50-1,000 mg tablet, ER multiphase 24 hrIndications:Type 2 diabetes mellitus with hyperglycemia, with long-term current use of insulin ([facility]) Take 50-1,000 mg by mouth 2 (two) times a day 180 tablet 2 07/15/20 24 Active insulin aspart (NovoLOG) 100 unit/mL (3 mL) pen for injectionIndicatio ns:Type 2 diabetes mellitus with hyperglycemia, with long-term current use of insulin ([facility]) Inject 3 Units under the skin 2 (two) times a day with meals 15 mL 6 07/15/20 24 Active LANTUS 100 unit/mL (3 mL) pen for injectionIndicatio ns:Type 2 diabetes mellitus with hyperglycemia, with long-term current use of insulin ([facility]) Inject 14 Units under the skin photolithographer before breakfast 15 mL 6 07/16/20 24 [...] long-term current use of insulin ([facility]) Use to inject insulin three times daily [...] 60 tablet 3 01/25/20 25 025 Active empagliflozin (Jardiance) 25 mg tabletIndications: type 2 diabetes mellitus Take 1 tablet (25 mg total) by mouth daily for 7 days 7 tablet 03/04/20 25 Active dulaglutide (Trulicity) 0.75 mg/0.5 mL pen injectorIndication s:type 2 diabetes mellitus Inject 0.5 mL (0.75 mg total) under the skin once a week 2 mL 3 03/31/20 25 Active dulaglutide (Trulicity) 0.75 mg/0.5 mL pen injectorIndication s:type 2 diabetes mellitus Inject 0.5 mL (0.75 mg total) under the skin once a week 2 mL 02/29/20 25 025 Discontin ued(Reord er) Active Problems Problem Noted Date Diagnosed Date Hypertension associated with type 2 diabetes rayray litus 10/19/2024 Assessment & Plan (01/06/2025 2:51 PM PHOTOGRAPHIC PROCESS WORKER): Chronic problem. Controlled on current losartan 25mg daily. Assessment & Plan (10/20/2024 11:54 AM PHOTOGRAPHIC PROCESS WORKER): Chronic problem. Controlled on current losartan 25mg daily. Will update labs. Verified that she uses mychart. Aware to check results/results letter in [employer]. Will contact by phone if needed. Hyperlipidemia associated with type 2 diabetes chapo guerin 10/19/2024 Assessment & Plan (01/06/2025 3:24 PM PHOTOGRAPHIC PROCESS WORKER): Chronic problem. Currently taking Simvastatin 40mg daily Last lipid panel: 10/20/24 LDL=48, SG=727. Assessment & Plan (10/20/2024 11:53 AM PHOTOGRAPHIC PROCESS WORKER): Chronic problem. No labs on file. Currently taking Simvastatin 40mg daily Will update labs. Verified that she uses mychart. Aware to check results/results letter in [employer]. Will contact by phone if needed. COVID-19 09/29/2023 Dyslipidemia 05/10/2022 Type 2 diabetes mellitus 05/10/2022 Assessment & Plan (01/06/2025 3:31 PM PHOTOGRAPHIC PROCESS WORKER): Chronic problem. A1c improved from 7.3% 10/20/24 to now 01/06/25. Will try to decrease her injection burden. Will send in Trulicity 0.75mg weekly. May need to start to decrease novolog with meals and/or Lantus. (Novolog if lows after meals, lantus if lows overnight). To send me a [employer] message in 2-3 weeks (before refill of [...] update MA/Cr today. Verified that she uses [employer]. Aware to check results/results letter in [employer]. Will contact by phone if needed. Discussed with Rosa Elena Lucia Phillip: Strive for regular exercise (30min most [...] infection. Assessment & Plan (10/20/2024 12:10 PM PHOTOGRAPHIC PROCESS WORKER): Chronic problem. A1c near goal but worsened [...] mychart. Aware to check results/results letter in [employer]. Will contact by phone if needed. Discussed [...] disease 12/03/2021 Overview (07/15/2024): seeing neuro [facility] Memory impairment 08/28/2021 Bilateral hearing loss 02/05/2021 Osteoporosis 10/04/2020 Impacted cerumen of right ear 01/11/2020 Hyperlipidemia 01/11/2020 Fatigue 01/11/2020 Essential hypertension 01/11/2020 Resolved Problems Problem Noted Date Diagnosed Date Resolved Date Type 2 diabetes mellitus without complication 06/15/20 21 10/19/2024 Type 1 diabetes mellitus 01/11/2020 Encounters Date Type Department Care Team Description 03/23/[address] [facility] Diabetes and Endocrinology [address] [place] [phone] Mary Alice Muro NP Home Care Delivered request OV 03/04/[address] [facility] Diabetes and Endocrinology [address] [place] [phone] Mary Alice Muro NP Type 2 diabetes mellitus with hyperglycemia, with long-term current use of insulin ([facility]) 02/28/2025 Orders Only [facility] Diabetes and Endocrinology [address] [place] [phone] Mary Alice Muro NP 01/24/2025 2:30 PM PHOTOGRAPHIC PROCESS WORKER [facility] [address] [address] Yossi Nam II, MD Alzheimer's disease with late onset (HCC) (Primary Dx); Alzheimer's disease (HCC) 01/10/2025 Results Follow-Up [facility] Diabetes and Endocrinology [address] [place] [phone] Mary Alice Muro NP 01/07/2025 1:35 PM PHOTOGRAPHIC PROCESS WORKER - 01/07/2025 11:59 PM PHOTOGRAPHIC PROCESS WORKER Hospital Encounter [facility] [address] [place] [address] Type 2 diabetes mellitus with hyperglycemia, with long-term current use of insulin (HCC) Discharge Disposition: Discharge to home or self care 01/07/2025 1:30 PM PHOTOGRAPHIC PROCESS WORKER Lab [facility] Outpatient Lab at [address] [phone] 01/06/2025 2:30 PM PHOTOGRAPHIC PROCESS WORKER Office Visit [facility] Diabetes and Endocrinology [address] [place] [phone] Mary Alice Muro NP Type 2 diabetes [...] Comments Blood Pressure 106/66 01/24/2025 2:36 PM PHOTOGRAPHIC PROCESS WORKER Pulse 76 01/24/2025 2:36 PM PHOTOGRAPHIC PROCESS WORKER Temperature - - Respiratory Rate 18 01/24/2025 2:36 PM PHOTOGRAPHIC PROCESS WORKER Oxygen Saturation 96% 01/24/2025 2:36 PM PHOTOGRAPHIC PROCESS WORKER Inhaled Oxygen Concentration - - Weight 64.4 kg (142 lb) 01/24/2025 2:36 PM PHOTOGRAPHIC PROCESS WORKER Height 165.1 cm (5' 5 ) 01/24/2025 2:36 PM PHOTOGRAPHIC PROCESS WORKER Body Mass Index 23.63 01/24/2025 2:36 PM PHOTOGRAPHIC PROCESS WORKER Plan of Treatment Health Maintenance Due Date [...] CREATININE RATIO, URINE Routine 01/07/2025 12:00 AM PHOTOGRAPHIC PROCESS WORKER Type 2 diabetes mellitus with hyperglycemia, with long-term current use of insulin (HCC) POCT GLUCOSE Routine 01/06/2025 2:36 PM PHOTOGRAPHIC PROCESS WORKER Type 2 diabetes mellitus with hyperglycemia, with long-term current use of insulin (HCC) POCT HEMOGLOBIN A1C Routine 01/06/2025 2 :36 PM PHOTOGRAPHIC PROCESS WORKER Type 2 diabetes mellitus with hyperglycemia, with long-term current use of insulin (HCC) EGFR Routine 10/20/2024 12:22 PM PHOTOGRAPHIC PROCESS WORKER Type 2 diabetes mellitus with hyperglycemia, with long-term current use of insulin (HCC) Hypertension associated with type 2 diabetes mellitus (HCC) LIPID PANEL Routine 10/20/2024 12:22 PM PHOTOGRAPHIC PROCESS WORKER Type 2 diabetes mellitus with hyperglycemia, with long-term current use of insulin (HCC) Hyperlipidemia associated with type 2 diabetes mellitus (HCC) from Last 3 Months or Most Recently Relevant to Health Maintenance Results * (ABNORMAL) Albumin Creatinine Ratio, Urine (01/07/2025 12:00 AM PHOTOGRAPHIC PROCESS WORKER) Albumin Ur 41.3 mg/L Comment: Interpretive Data No reference range established. Current interpretive data was last revised 2019. Creatinine Ur 73.9 mg/dL YASEMIN Comment: Interpretive Data No reference range established. Current interpretive data was last revised 2019. Albumin Creatinine Ratio, Ur 56(H) 1 - 29 mg/g YASEMIN OSWALD Urine 01/07/2025 01/07/2025 7:3 0 PM PHOTOGRAPHIC PROCESS WORKER Mary Alice Muro NP LAB URINE ORDERABLES Sandra l Result YASEMIN [id number] [place] [address] * (ABNORMAL) POCT hemoglobin A1c (01/06/2025 2:36 PM PHOTOGRAPHIC PROCESS WORKER) Hemoglobin A1C, POC 6.8 4.0 - 5.6 % Blood 01/06/2025 2:36 PM PHOTOGRAPHIC PROCESS WORKER Mary Alice Muro NP POINT OF CARE TEST ORDERA BLES Final Result * (ABNORMAL) POCT glucose (01/06/2025 2:36 PM PHOTOGRAPHIC PROCESS WORKER) Glucose Blood, POC 129 mg/dL Blood 01/06/2025 2:36 PM PHOTOGRAPHIC PROCESS WORKER Mary Alice Muro NP POINT OF CARE TEST ORDERA BLES Final Result * eGFR (10/20/2024 12:22 PM PHOTOGRAPHIC PROCESS WORKER) eGFR >90 >=60 mL/min/1. 73 m2 Comment: [...] reviewed 2021. Blood 10/20/2024 12:2 2 PM PHOTOGRAPHIC PROCESS WORKER 10/20/2024 8:10 PM PHOTOGRAPHIC PROCESS WORKER us Mary Alice Muro VICE PRESIDENT CONSULTING SERVICES LAB BLOOD ORDERABLES Sandra padmini Result YASEMIN OSWALD [address] Department of Laboratories [place], [place] [phone] * (ABNORMAL) Lipid panel (10/20/2024 12:22 PM PHOTOGRAPHIC PROCESS WORKER) Cholesterol 138 30 - 199 mg/dL Comment: [...] 2004;110:227 3. Raf Aparicio al. EDGAR Cardiol. 2019March 24;5(5):540-548. doi: [email or web address] [...] YASEMIN OSWALD Blood 10/20/2024 12:2 2 PM PHOTOGRAPHIC PROCESS WORKER 10/20/2024 8:10 PM PHOTOGRAPHIC PROCESS WORKER us Mary Alice Muro VICE PRESIDENT CONSULTING SERVICES LAB BLOOD ORDERABLES Sandra padmini Result YASEMIN [address] [place] [address] from Last 3 Months or Most Recently Relevant to Health Maintenance Insurance MEDICARE Buy buy tea Care Teams Leather Dresser Relationship Specialty Start Date End Date Kvng Ulloa MD [address] [place] [address] PCP - General Family Medicine 07/15/24
--- OUTSIDE RECORDS SUMMARY | 2025-04-02 11:15 | XMS_ITS | Referral Summary ---
Author Organization [facility] Physician Office Building [address] [place] [phone] Care Team Providers Care Instructional Designer Name Role Phone Kvng Ulloa MD Primary Care Provider [phone] Encounters Date Type Department Care Team Description 03/23/2025 Telephone [facility] Medical Group Diabetes and Endocrinology [address] [place] [phone] Mary Alice Muro NP Home Care Delivered request OV 03/04/2025 Orders Only [facility] Medical Group Diabetes and Endocrinology [address] [place] [phone] Mary Alice Muro NP Type 2 diabetes mellitus with hyperglycemia, with long-term current use of insulin (HCC) 02/28/2025 Orders Only [facility] Medical [facility] Diabetes and Endocrinology [address] [place] [phone] Mary Alice Muro NP 01/24/2025 2:30 PM METEOROLOGICAL EQUIPMENT REPAIRER Office Visit [facility] Specialists [facility] [id number] [place] [phone] Yossi Nam II, MD Alzheimer's disease with late onset (HCC) (Primary Dx); Alzheimer's disease (HCC) 01/10/2025 Results Follow-Up [facility] Medical [facility] Diabetes and Endocrinology [address] [place] [phone] Mary Alice Muro NP 01/07/2025 1:35 PM METEOROLOGICAL EQUIPMENT REPAIRER - 01/07/2025 11:59 PM METEOROLOGICAL EQUIPMENT REPAIRER Hospital Encounter [facility] [address] [place] [address] Type 2 diabetes mellitus with hyperglycemia, with long-term current use of insulin (HCC) Discharge Disposition: Discharge to home or self care 01/07/2025 1:30 PM METEOROLOGICAL EQUIPMENT REPAIRER Lab [facility] Medical Group Outpatient Lab at [address] [phone] 01/06/2025 2:30 PM METEOROLOGICAL EQUIPMENT REPAIRER Office Visit [facility] Medical Group Diabetes and Endocrinology [address] [place] [phone] Mary Alice Muro, MATT Type 2 diabetes mellitus with hyperglycemia, with long-term current use of insulin (HCC) (Primary Dx); Hypertension associated with type 2 diabetes mellitus (HCC); Hyperlipidemia associated with type 2 diabetes mellitus (HCC) from Last 3 Months Allergies Active Allergy Reactions Criticality Noted Date Comments Penicillins Unknown 01/06/2025 Tree Nut Hives,Itching,Rash,Swelling Medium 10/24/20 21 [place] Rash Medium 10/24/2021 Medications simvastatin (ZOCOR) 40 mg tablet 09/18/20 21 Active losartan (COZAAR) 25 mg tablet 09/18/20 21 Active aspirin 81 MG oral suspension Active alendronate (FOSAMAX) 70 mg tablet alendronate 70 mg tablet Active Dexcom G6 Liner Replacer misc USE DIRECTED TO MONITOR GLUCOSE 03/12/20 22 Active Dexcom G6 Sensor device USE DIRECTED TO TEST GLUCOSE 05/06/20 22 Active Dexcom G6 Transmitter device as directed 03/12/20 22 Active carbamide peroxide (Ear Drops, carbamide peroxide,) 6.5 % otic solution INSTILL 5 DROPS INTO AFFECTED right EAR(S) BY OTIC ROUTE 2 TIMES PER DAY for 10 days Active influenza quadrivalent [id number] (FLULAVAL,FLUARIX, FLUZONE) 60 mcg (15 mcg x [...] 1 tablet (25 mg total) by mouth steam setter before breakfast 90 tablet 2 07/15/20 24 [...] [facility]) Inject 14 Units under the skin steam setter before breakfast 15 mL 6 07/16/20 24 [...] 10/19/2024 Assessment & Plan (01/06/2025 2:51 PM METEOROLOGICAL EQUIPMENT REPAIRER): Chronic problem. Controlled on current losartan 25mg daily. Assessment & Plan (10/20/2024 11:54 AM METEOROLOGICAL EQUIPMENT REPAIRER): Chronic problem. Controlled on current losartan 25mg daily. Will update labs. Verified that she uses mychart. Aware to check results/results letter in [employer]. Will contact by phone if needed. Hyperlipidemia associated with type 2 diabetes chapo guerin 10/19/2024 Assessment & Plan (01/06/2025 3:24 PM METEOROLOGICAL EQUIPMENT REPAIRER): Chronic problem. Currently taking Simvastatin 40mg daily Last lipid panel: 10/20/24 LDL=48, GF=194. Assessment & Plan (10/20/2024 11:53 AM METEOROLOGICAL EQUIPMENT REPAIRER): Chronic problem. No labs on file. Currently taking Simvastatin 40mg daily Will update labs. Verified that she uses mychart. Aware to check results/results letter in [employer]. Will contact by phone if needed. COVID-19 09/29/2023 Dyslipidemia 05/10/2022 Type 2 diabetes mellitus 05/10/2022 Assessment & Plan (01/06/2025 3:31 PM METEOROLOGICAL EQUIPMENT REPAIRER): Chronic problem. A1c improved from 7.3% 10/20/24 to now 01/06/25. Will try to decrease her injection burden. Will send in Trulicity 0.75mg weekly. May need to start to decrease novolog with meals and/or Lantus. (Novolog if lows after meals, lantus if lows overnight). To send me a [employer] message in 2-3 weeks (before refill of [...] update MA/Cr today. Verified that she uses [employer]. Aware to check results/results letter in [employer]. Will contact by phone if needed. Discussed [...] infection. Assessment & Plan (10/20/2024 12:10 PM METEOROLOGICAL EQUIPMENT REPAIRER): Chronic problem. A1c near goal but worsened [...] mychart. Aware to check results/results letter in [employer]. Will contact by phone if needed. Discussed [...] Alzheimer's disease 12/03/2021 Overview (07/15/2024): seeing neuro [facility] Memory impairment 08/28/2021 Bilateral hearing loss [...] Comments Blood Pressure 106/66 01/24/2025 2:36 PM METEOROLOGICAL EQUIPMENT REPAIRER Pulse 76 01/24/2025 2:36 PM METEOROLOGICAL EQUIPMENT REPAIRER Temperature - - Respiratory Rate 18 01/24/2025 2:36 PM METEOROLOGICAL EQUIPMENT REPAIRER Oxygen Saturation 96% 01/24/2025 2:36 PM METEOROLOGICAL EQUIPMENT REPAIRER Inhaled Oxygen Concentration - - Weight 64.4 kg (142 lb) 01/24/2025 2:36 PM METEOROLOGICAL EQUIPMENT REPAIRER Height 165.1 cm (5' 5 ) 01/24/2025 2:36 PM METEOROLOGICAL EQUIPMENT REPAIRER Body Mass Index 23.63 01/24/2025 2:36 PM METEOROLOGICAL EQUIPMENT REPAIRER Plan of Treatment Not on file Procedures Procedure Name Priority Date/Time Associated Diagnosis Comments ALBUMIN CREATININE RATIO, URINE Routine 01/07/2025 12:00 AM METEOROLOGICAL EQUIPMENT REPAIRER Type 2 diabetes mellitus with hyperglycemia, with long-term current use of insulin ([facility]) POCT GLUCOSE Routine 01/06/2025 2:36 PM METEOROLOGICAL EQUIPMENT REPAIRER Type 2 diabetes mellitus with hyperglycemia, with long-term current use of insulin ([facility]) POCT HEMOGLOBIN A1C Routine 01/06/2025 2 :36 PM METEOROLOGICAL EQUIPMENT REPAIRER Type 2 diabetes mellitus with hyperglycemia, with long-term current use of insulin ([facility]) EGFR Routine 10/20/2024 12:22 PM METEOROLOGICAL EQUIPMENT REPAIRER Type 2 diabetes mellitus with hyperglycemia, with long-term current use of insulin ([facility]) Hypertension associated with type 2 diabetes mellitus ([facility]) LIPID PANEL Routine 10/20/2024 12:22 PM METEOROLOGICAL EQUIPMENT REPAIRER Type 2 diabetes mellitus with hyperglycemia, with long-term current use of insulin (HCC) Hyperlipidemia associated with type 2 diabetes mellitus (HCC) from Last 3 Months or Most Recently Relevant to Health Maintenance Results * (ABNORMAL) Albumin Creatinine Ratio, Urine (01/07/2025 12:00 AM METEOROLOGICAL EQUIPMENT REPAIRER) Albumin Ur 41.3 mg/L Comment: Interpretive Data No reference range established. Current interpretive data was last revised 2019. Creatinine Ur 73.9 mg/dL [facility] Comment: Interpretive Data No reference range established. Current interpretive data was last revised 2019. Albumin Creatinine Ratio, Ur 56(H) 1 - 29 mg/g [facility] Urine 01/07/2025 01/07/2025 7:3 0 PM METEOROLOGICAL EQUIPMENT REPAIRER Mary Alice Muro NP LAB URINE ORDERABLES Sandra l Result [facility] [id number] [address] Department of Laboratories [place] [id number] * (ABNORMAL) POCT hemoglobin A1c (01/06/2025 2:36 PM METEOROLOGICAL EQUIPMENT REPAIRER) Pathologist [facility] Hemoglobin A1C, POC 6.8 4.0 - 5.6 % Blood 01/06/2025 2:36 PM METEOROLOGICAL EQUIPMENT REPAIRER us Mary Alice Muro NP POINT OF CARE TEST ORDERA BLES Final Result * (ABNORMAL) POCT glucose (01/06/2025 2:36 PM METEOROLOGICAL EQUIPMENT REPAIRER) Pathologist [facility] Glucose Blood, POC 129 mg/dL Blood 01/06/2025 2:36 PM METEOROLOGICAL EQUIPMENT REPAIRER us Mary Alice Muro NP POINT OF CARE TEST ORDERA BLES Final Result * eGFR (10/20/2024 12:22 PM METEOROLOGICAL EQUIPMENT REPAIRER) eGFR >90 >=60 mL/min/1. 73 m2 Comment: [...] reviewed 2021. Blood 10/20/2024 12:2 2 PM METEOROLOGICAL EQUIPMENT REPAIRER 10/20/2024 8:10 PM METEOROLOGICAL EQUIPMENT REPAIRER us Mary Alice Muro NP LAB BLOOD ORDERABLES Sandra l Result [facility] [id number] Department of Laboratories [place], [place] [phone] * (ABNORMAL) Lipid panel (10/20/2024 12:22 PM METEOROLOGICAL EQUIPMENT REPAIRER) Cholesterol 138 30 - 199 mg/dL Comment: [...] [facility] Blood 10/20/2024 12:2 2 PM METEOROLOGICAL EQUIPMENT REPAIRER 10/20/2024 8:10 PM METEOROLOGICAL EQUIPMENT REPAIRER us Mary Alice Muro NP LAB BLOOD ORDERABLES [place] Result [facility] [id number] Department [place] [address] from Last 3 Months or Most Recently Relevant to Health Maintenance Insurance MEDICARE [facility] Address: [facility] [address] [place] [address] [employer] Care Teams Instructional Designer Relationship Specialty Start Date End Date Kvng Ulloa MD [address] [place] [address] PCP - General Family Medicine 07/15/24
[2025-04-02] MEDS: ACETAMINOPHEN 500 MG TABLET 1000 MG PO (11:31)
[2025-04-02 11:51] LABS: Basophils Percent Auto 0.3 % (0.2-1.2); Eosinophils Absolute Auto 0.1 K/mm3 (0-0.3); Eosinophils Percent Auto 1.5 % (0-4.4); Hematocrit 35.7 % (37.0-47.0); Immature Granulocyte Absolute 0.03 K/mm3 (0.00-0.031); Immature Granulocyte Percent A 0.4 % (0-0.5); Lymphocytes Absolute Auto 1.83 K/mm3 (0.9-3.2); Lymphocytes Percent Auto 23.1 % (18.3-44.2); Mean Corpuscular HGB Conc 30.8 g/dl (32-36); Mean Corpuscular Volume 94.2 fl (80-100); Mean Platelet Volume 10.6 fl (7.4-10.4); Monocytes Absolute Auto 0.6 K/mm3 (0.1-0.6); Monocytes Percent Auto 7.3 % (2.6-8.5); Neutrophils Absolute Auto 5.3 K/mm3 (1.3-6.7); Neutrophils Percent Auto 67.4 % (45.5-73.1); Platelet Count Result 307 k/mm3 (150-375); Red Blood Count 3.79 M/mm3 (4.2-5.4); Red Cell Distribution Width 14.6 % (11.5-14.5); White Blood Count 7.9 K/mm3 (4.5-10.0)
--- NOTE | 2025-04-02 12:03 | ED.UPPEXIN ---
HPI - Extremity Injury (Upper) General Chief Complaint: Extremity Injury, Upper Stated Complaint: swelling to left arm, fractured 2 weeks ago Time Seen by Provider: 04/02/25 11:11 History of Present Illness HPI narrative: 74-year-old female presenting to the emergency department for evaluation of left upper extremity swelling. Patient has a history of dementia and hypertension. She resides at a memory care facility with nursing support. Patient has been using her shoulder immobilizer well and getting Tylenol for analgesia. Yesterday patient was not in her shoulder immobilizer for showering purposes and had a prolonged period where she was not wearing it and laying her arm dangling to the left side. She recently sustained a left proximal humerus fracture and [facility] outpatient for this. Plan for non operative interventions and follow-up in 4 weeks. Patient's next appointment is in approximately 2 weeks time. Patient is not in any pain at this time but senior living staff were concerned about the swelling in her left arm so they sent her to the hospital for evaluation. Patient's power of consumer attorney and family members at bedside and spoken to. Patient has not had any new injuries or falls and otherwise is in good spirits, acting appropriately at her baseline self without any new complaints. Related Data Home Medications ?Medication ?Instructions ?Recorded ?Confirmed ?Last Taken ?Type aspirin 81 mg tablet,delayed 81 mg PO DAILY 10/06/20 11/16/24 11/15/24 History release empagliflozin 25 mg tablet 25 mg PO BID 10/06/20 11/16/24 11/15/24 History (Jardiance) insulin aspart U-100 100 unit/mL 2 unit subcut DAILY 10/06/20 11/16/24 11/15/24 History (3 mL) subcutaneous pen (Novolog FlexPen U-100 Insulin aspart) simvastatin 40 mg tablet 40 mg PO DAILY 10/06/20 11/16/24 11/15/24 History sitagliptin phos 50 mg-metformin 1 tablet PO BID 10/06/20 11/16/24 11/15/24 History ER 1,000 mg tablet,extend rel 24h mp (Janumet XR) donepezil 10 mg tablet 10 mg PO DAILY 04/12/24 11/16/24 11/15/24 History losartan 25 mg tablet 25 mg PO DAILY 04/12/24 11/16/24 11/16/24 History memantine 10 mg tablet 10 mg PO BID 04/12/24 11/16/24 11/15/24 History insulin glargine 100 unit/mL (3 See Rx Instructions subcut HS 03/23/25 03/27/25 Unknown History mL) subcutaneous pen (Lantus Solostar U-100 Insulin) Allergies Allergy/AdvReac Type Severity Reaction Status Date / Time Penicillins Allergy Intermediate Hives Verified 04/02/25 10:45 Sulfa (Sulfonamide Allergy Intermediate Hives Verified 04/02/25 10:45 Antibiotics) tree nut Allergy Intermediate Hives Verified 04/02/25 10:45 walnut Allergy Intermediate Hives Verified 04/02/25 10:45 Review of Systems Review of Systems: As reviewed above in HPI [facility] Past Medical History Medical History Dementia Hyperlipidemia Hypertension Insulin dependent type 2 diabetes mellitus Surgical History Surgical History History of tubal ligation History of vein stripping History of cataract extraction Family History Family History Father Diabetes mellitus Hypertension Family history of alcoholism Social History Social History Social History: Surrogate medical decision maker: Jennifer Robertson, daughter. Code status: Full code. Smoking packs per day: 0.25 Smoking cigarettes per day: 5.0 Years smoked: 30 Smoking pack-years: 7.50 Smoking status: Never smoker Tobacco type: cigarettes Second hand tobacco smoke exposure: No Alcohol intake: never Substance use: never Substance use type: does not use Current Housing: Decline to Answer Concerned About Future Housing: Decline to Answer Difficulty Paying Gas/Electric Bills: Decline to Answer Difficulty Paying for Meds: Decline to Answer Currently Unemployed: Decline to Answer Education: Decline to Answer Difficulty w/ Childcare or Family Care: Decline to Answer Living arrangements: [facility] Additional living arrangements comments: [facility] in [place]. Spiritual care concerns: No Exam Narrative: GENERAL: [Well-appearing, well-nourished, and in no acute distress.] HEAD: [Normocephalic, atraumatic.] EYES: [PERRLA and EOMI.] ENT: Nares clear, no rhinorrhea or epistaxis. Mucous membranes moist. NECK: Supple. CHEST: [Clear to auscultation. No respiratory distress.] HEART: [Regular rate and rhythm]. No murmur heard. [Normal peripheral pulses.] ABDOMEN: [Soft, nondistended], [nontender], [No rigidity or guarding] EXTREMITIES: Shoulder immobilizer in the left upper extremity in place, scattered bruising over the left upper extremity from previous injury, moderate nonpitting swelling in the left upper extremity compared to the right. Knot Cutter strength 5/5, full range of motion at the elbow and wrist. Able to shrug the shoulders. No significant tenderness reproducible with palpation of the previous fracture site. SKIN: Warm, dry, no rash. NEURO: [No focal deficits]. Alert and oriented [x3.] PSYCH: [Normal mood and affect.] Course Vital Signs Vital signs: Vital Signs Temperature 36.7 C 04/02/25 10:35 Pulse Rate 70 04/02/25 10:35 Respiratory Rate 18 04/02/25 10:35 Blood Pressure 140/47 L 04/02/25 10:35 Pulse Oximetry 96 04/02/25 10:35 Oxygen Delivery Room Air 04/02/25 10:35 Temperature 36.7 C 04/02/25 10:35 Pulse Rate 85 04/02/25 12:01 Respiratory Rate 18 04/02/25 12:01 Blood Pressure 115/46 L 04/02/25 12:01 Pulse Oximetry 97 04/02/25 12:01 Oxygen Delivery Room Air 04/02/25 10:35 MDM - Extremity Injury (Upper) MDM Narrative Medical decision making narrative: 74-year-old female with history of dementia, hypertension, diabetes. Patient presents to the emergency department for evaluation of left upper extremity swelling. Last month she sustained a proximal humerus fracture that was seen by Orthopedics and will be treated non operatively with conservative therapy. Next follow-up appoint with or those in 2 weeks time. Patient remains in a shoulder immobilizer. Patient was not using her immobilizer yesterday after being showered and left her hand and arm dangling and the family was concerned that her swelling was caused by that rather than keeping it elevated like they were usually. Shoulder immobilizer in the left upper extremity is currently in place, there is scattered bruising over the left upper extremity from previous injury, moderate nonpitting swelling in the left upper extremity compared to the right. Knot Cutter strength 5/5, full range of motion at the elbow and wrist. Able to shrug the shoulders. No significant tenderness reproducible with palpation of the previous fracture site. Given patient's increased swelling in that side considerations are for dependent edema from not using her sling/shoulder immobilizer versus thromboembolic event such as a blood clot given her recent fracture site and immobility. Blood was obtained including CBC, CMP, PT, PTT and an ultrasound left upper extremity an x-ray of the left upper extremity were ordered for further evaluation. Patient's workup shows no leukocytosis or anemia worse than baseline. Normal platelet count. Electrolytes are unremarkable. Normal renal function. Slightly hyperglycemic at 2:08 a.m. but not severe. Normal LFTs. Normal PT and PTT. X-ray of the left shoulder shows no significant oval change compared to previous proximal left humerus fracture. Ultrasound of left upper extremity shows patent veins with no evidence thrombosis which is reassuring. Patient likely has dependent edema from her recent fracture and there are no red flag signs on her workup or imaging studies. She will be followed up with orthopedics on her follow-up appointment in 2 more weeks and safely discharged home at this time. Family comfortable with the plan. Medical Records Attestation: I reviewed the patient's medical records. Lab Data Attestation: I reviewed the patient's lab results. 04/02/25 11:46 04/02/25 11:46 Labs: Lab Results 04/02/25 Range/Units 11:46 WBC 7.9 (4.5-10.0) K/mm3 RBC 3.79 L (4.2-5.4) M/mm3 Hgb 11.0 L (12.0-15.0) g/dL Hct 35.7 L (37.0-47.0) % MCV 94.2 (80-100) fl MCH 29.0 (26-34) pg MCHC 30.8 L (32-36) g/dl RDW 14.6 H (11.5-14.5) % Plt Count 307 (150-375) k/mm3 MPV 10.6 H (7.4-10.4) fl Immature Gran % (Auto) 0.4 (0-0.5) % Neut % (Auto) 67.4 (45.5-73.1) % Lymph % (Auto) 23.1 (18.3-44.2) % [place] % (Auto) 7.3 (2.6-8.5) % Eos % (Auto) 1.5 (0-4.4) % Baso % (Auto) 0.3 (0.2-1.2) % Lymph # (Auto) 1.83 (0.9-3.2) K/mm3 [place] # (Auto) 0.6 (0.1-0.6) K/mm3 Eos # (Auto) 0.1 (0-0.3) K/mm3 Baso # (Auto) 0.0 (0.0-0.1) K/mm3 Abs Immat Gran (auto) 0.03 (0.00-0.031) K/mm3 Absolute Neuts (auto) 5.3 (1.3-6.7) K/mm3 Absolute Nucleated RBC 0.000 (0.0-0.012) K/mm3 Nucleated RBC % 0.0 (0.0-0.2) % PT 13.4 (11.1-14.7) Seconds INR 1.0 APTT 24.7 (22.3-36.8) Seconds Sodium 144 (137-145) mmol/L Potassium 3.8 (3.4-5.0) mmol/L Chloride 107 (98-107) mmol/L Carbon Dioxide 29 (22-30) mmol/L Anion Gap 8 (4-12) mmol/L BUN 9 (7-17) mg/dL Creatinine 0.50 L (0.7-1.0) mg/dL Estim Creat Clear Calc 68 ml/min Estimated GFR > 60 (59 - ) Glucose 208 H (65-110) mg/dL Calcium 9.4 (8.4-10.2) mg/dL Imaging Data Attestation: I personally reviewed and interpreted this imaging study as follows: My impression: Impressions Shoulder X-Ray 04/02/25 11:01 IMPRESSION: 1. No significant change in 8 mm lateral displacement of an oblique fracture at the surgical neck of the proximal left humerus. 2. Left rotator cuff calcific tendinitis. Venous Doppler Study 04/02/25 11:53 IMPRESSION: 1. Patent left upper extremity veins. No evidence of venous thrombosis. Discharge Plan Discharge Clinical Impression: Left upper extremity swelling, Fracture of proximal end of left humerus Patient Disposition: Home Condition: Stable Instructions: Antibiotic Form Additional Instructions: Your ultrasound does not show any blood clots or acute vascular concerns. X-ray shows no interval changes or concerning new fractures or displacement. Laboratory studies are all reassuring. Glucose mildly elevated 200 but not severe or causing any injury to the your organs. Talk to your regular doctors about changing her insulin regimen and this could be related to your acute injury and pain control. 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 Return with any emergent concerns. Patient Language: Montserratian Prescriptions: No Action donepezil 10 mg tablet 10 mg PO DAILY losartan 25 mg tablet 25 mg PO DAILY memantine 10 mg tablet 10 mg PO BID insulin glargine [Lantus Solostar U-100 Insulin] 100 unit/mL (3 mL) insulin pen See Rx Instructions SUBCUT HS Rx Instructions: 14 subcutaneously bedtime; 10 units subcutaneously at breakfast ondansetron 4 mg tablet,disintegrating 4 mg PO Q8H PRN (Reason: nausea and vomiting) Qty: 12 0RF aspirin 81 mg tablet,delayed release (DR/EC) 81 mg PO DAILY simvastatin 40 mg tablet 40 mg PO DAILY insulin aspart U-100 [Novolog FlexPen U-100 Insulin] 100 unit/mL (3 mL) insulin pen 2 unit SUBCUT DAILY Rx Instructions: with breakfast and lunch Janumet XR 50-1,000 mg tablet, ER multiphase 24 hr 1 tablet PO BID Jardiance 25 mg tablet 25 mg PO BID oxycodone 5 mg tablet 2.5 mg PO Q8H PRN (Reason: pain) Qty: 10 0RF acetaminophen [Tylenol Extra Strength] 500 mg tablet 1,000 mg PO TID PRN (Reason: pain) Qty: 30 0RF Follow-up/Referrals: Artemio,MD Kvng [Primary Care Provider] - Time of Disposition: 13:19
[2025-04-02 12:14] LABS: Anion Gap 8 mmol/L (4-12); Blood Urea Nitrogen 9 mg/dL (7-17); Calcium 9.4 mg/dL (8.4-10.2); Carbon Dioxide 29 mmol/L (22-30); Chloride 107 mmol/L (98-107); Estimated CRCL calculation 68 ml/min; Estimated Glomerular Filt Rate > 60; Glucose 208 mg/dL (65-110); Potassium 3.8 mmol/L (3.4-5.0); Sodium 144 mmol/L (137-145)
[2025-04-02 12:17] LABS: Prothrombin Time 13.4 Seconds (11.1-14.7)
[2025-04-02 12:18] LABS: Partial Thromboplastin Time 24.7 Seconds (22.3-36.8)
== END 2025-04-02 14:27 ==
PROVIDERS: Emergency Provider Student in an Organized Health Care Education/Training Program; PCP Family Medicine
DX: R22.32 Localized swelling, mass and lump, left upper limb (principal); S42.212D Unspecified displaced fracture of surgical neck of left humerus, subsequent encounter for fracture with routine healing; F03.90 Unspecified dementia, unspecified severity, without behavioral disturbance, psychotic disturbance, mood disturbance, and anxiety; I10 Essential (primary) hypertension; E78.5 Hyperlipidemia, unspecified; E11.9 Type 2 diabetes mellitus without complications; F17.210 Nicotine dependence, cigarettes, uncomplicated; Z98.49 Cataract extraction status, unspecified eye; M75.102 Unspecified rotator cuff tear or rupture of left shoulder, not specified as traumatic; Z79.899 Other long term (current) drug therapy; Z79.4 Long term (current) use of insulin; Z79.84 Long term (current) use of oral hypoglycemic drugs; Z79.82 Long term (current) use of aspirin; X58.XXXD Exposure to other specified factors, subsequent encounter
CPT/HCPCS: 36415; 73030; 80048; 85025; 85610; 85730; 93971; 99284; A9270

== ENCOUNTER 2025-05-26 14:04 | Emergency (ER) | payer MEDICARE, OTHER, SELFPAY ==
--- NOTE | ~2025-05-26 | CT_ITS ---
History: Altered mental status PROCEDURE: CT head without contrast. COMPARISON: 11/16/2024 TECHNIQUE: Axial imaging of the head performed from the skull base to the vertex without IV contrast. Sagittal FINDINGS: The ventricles are normal in size, shape and position. There is no mass, mass effect or midline shift. There is no abnormal extra-axial fluid collection or intracranial hemorrhage. Visualized paranasal sinuses are clear. The mastoid air cells are well aerated. No acute displaced fractures within the overlying cranium. Impression: No acute intracranial hemorrhage or suspicious mass effect. Reviewed, dictated and finalized at location A. Impression: No acute intracranial hemorrhage or suspicious mass effect.
--- NOTE | ~2025-05-26 | CT_ITS ---
CT chest abdomen pelvis w con Ordering provider: Alan Romo MD History: 74 years Female with . INFECTION OF UNKNOWN ETIOLOGY . Comparison: None. Technique: CT chest with IV contrast. CT abdomen and pelvis CT abdomen and pelvis with IV and with or al contrast. Radiation reduction technique utilized.The dose-length product was 560.09 mGy-cm. 100 mL Omnipaque 350 was given IV. FINDINGS: CHEST: --VISUALIZED THORACIC INLET: Normal. --MEDIASTINUM: Aorta/coronary arteries: Mild atheromatous disease. Heart/other: The heart is not enlarged. Lymph nodes: No mediastinal or hilar adenopathy. Precarinal lymph node is seen measuring 1.1 cm. --LUNGS: Underlying emphysematous changes. Dependent atelectatic changes. No pulmonary nodules or mas ses. No infiltrates or effusions. No pneumothorax. --MUSCULOSKELETAL: Soft tissues: The superficial soft tissues are normal. Bones: Age appropriate degenerative changes of the spine. No suspicious bony lytic or sclerotic lesio ns. Healing rib fractures are seen in the right seventh and eighth ribs. Healing rib fractures seen i n the left third and fourth ribs. ABDOMEN/PELVIS: --MUSCULOSKELETAL: Bones: Age appropriate degenerative changes of the spine. No suspicious bony lytic or sclerotic lesio ns. Bilateral sacroiliacs. Bilateral hip osteoarthritic changes. Superficial soft tissues: The superficial soft tissues are normal. --UPPER ABDOMINAL ORGANS: Liver: Hypodensity in the right lobe of the liver measuring 1.1 most likely a small cyst. Mild fat in filtration. Gallbladder: Normal. Spleen: Normal. Stomach/duodenum: Normal. Pancreas: Normal. Adrenals: Left adrenal mass measuring 2.7 cm. Further evaluation advised. Kidneys: Large renal cyst seen in the left kidney upper pole measuring 3.3 cm. Tiny stones in the right kidney mid and lower poles. Early contrast excretion cannot be excluded. Linear hypodensity seen in the right kidney upper pole which may be focal infection or a cyst or scar . Calcification seen in the right renal hilum most likely vascular. --PELVIC ORGANS: The bladder shows slightly thickened wall. Evaluation for cystitis advised.. No blad oni stones. --BOWEL AND MESENTERY: Colon: No evidence of diverticulitis. The appendix is not demonstrated. Small Bowel: Normal. No obstruction. Peritoneum/mesentery: No free air or free fluid. No mesenteric lymphadenopathy. --RETROPERITONEUM: Mild atheromatous disease of the abdominal aorta. No retroperitoneal lymphadenop athy. IMPRESSION: CHEST: 1. No acute cardiopulmonary pathology. 2. Healing rib fractures seen bilaterally. ABDOMEN/PELVIS: 1. No evidence of appendicitis, diverticulitis or intestinal obstruction. 2. Left adrenal mass. Further evaluation advised. 3. Highly suggestive right kidney tiny stones. Early contrast excretion is not excluded. 4. Left renal cyst. 5. Small hypodensity in the liver most likely a tiny cyst. Reviewed, dictated and finalized at location A.
--- NOTE | ~2025-05-26 | XR_ITS ---
XR chest 1V portable Ordering provider: Alan Romo MD History: 74 years Female with . DECREASED LEVEL OF CONSCIOUSNESS . Comparison: November 16, 2024 FINDINGS: MEDIASTINUM: The cardiac silhouette is not enlarged. LUNGS: No infiltrates, effusions or pneumothorax. Fibrotic changes seen in both lungs. OTHER: No free air under the diaphragm. Fracture in the proximal left humerus. Clinical evaluation ad vised. IMPRESSION: No acute cardiopulmonary pathology. Fibrotic changes of the lungs. Healing fracture in the proximal left humerus. Reviewed, dictated and finalized at location A.
[2025-05-26 14:05] VITALS: BP 104/40; PULSE 82; RESP 15; TEMP 36.8; O2SAT 93
[2025-05-26 14:28] LABS: Add Urine Microscopic? NO; Appearance Urine Clear (Clear); Glucose Urine UA 3+ mg/dL (Negative); Leukocyte Esterase Ur Negative LEU/UL (Negative); Nitrate Urine Negative (Negative); Specific Grav Ur 1.036 (1.001-1.035)
--- NOTE | 2025-05-26 15:32 | ED_ITS ---
HPI - Female Genitourinary General Chief complaint: Urogenital-Female Stated complaint: n/v Time Seen by Provider: 05/26/25 15:31 Source: patient Mode of arrival: ambulatory Limitations: no limitations History of Present Illness HPI Narrative: 74 YEARS OLD WHITE FEMALE [facility] WITH VOMITING ONCE AND LOOSE STOOL 1 ACCORDING TO HER DAUGHTER THAT THE PATIENT TODAY LOOKS SMALL WEAK MORE LETHARGIC THAN USUAL. THERE IS NO FEVER OR CHILLS OR COUGHING OR ANY PAIN. PATIENT IS ORIENTED TO HER NAME ONLY DENYING ANY SYMPTOMS Related Data Home Medications ?Medication ?Instructions ?Recorded ?Confirmed ?Last Taken ?Type aspirin 81 mg tablet,delayed 81 mg PO DAILY 10/06/20 05/11/25 11/15/24 History release empagliflozin 25 mg tablet 25 mg PO BID 10/06/20 05/11/25 11/15/24 History (Jardiance) simvastatin 40 mg tablet 40 mg PO DAILY 10/06/20 05/11/25 11/15/24 History sitagliptin phos 50 mg-metformin 1 tablet PO BID 10/06/20 05/11/25 11/15/24 History ER 1,000 mg tablet,extend rel 24h mp (Janumet XR) donepezil 10 mg tablet 10 mg PO DAILY 04/12/24 05/11/25 11/15/24 History losartan 25 mg tablet 25 mg PO DAILY 04/12/24 05/11/25 11/16/24 History memantine 10 mg tablet 10 mg PO BID 04/12/24 05/11/25 11/15/24 History insulin aspart U-100 100 unit/mL 5 unit subcut DAILY 04/25/25 05/11/25 Unknown History (3 mL) subcutaneous pen (Novolog FlexPen U-100 Insulin aspart) insulin glargine 100 unit/mL (3 See Rx Instructions subcut HS 04/25/25 05/11/25 Unknown History mL) subcutaneous pen (Lantus Solostar U-100 Insulin) Allergies Allergy/AdvReac Type Severity Reaction Status Date / Time Penicillins Allergy Intermediate Hives Verified 05/11/25 15:06 Sulfa (Sulfonamide Allergy Intermediate Hives Verified 05/11/25 15:06 Antibiotics) tree nut Allergy Intermediate Hives Verified 05/11/25 15:06 walnut Allergy Intermediate Hives Verified 05/11/25 15:06 Review of Systems 2 Review of Systems: All systems reviewed & are unremarkable except as noted in HPI and below PMFSH Past Medical History Medical History Dementia Hyperlipidemia Hypertension Insulin dependent type 2 diabetes mellitus Surgical History Surgical History History of tubal ligation History of vein stripping History of cataract extraction Family History Family History Father Diabetes mellitus Hypertension Family history of alcoholism Social History Social History Social History: Surrogate medical decision maker: Jennifer Robertson, daughter. Code status: Full code. Smoking packs per day: 0.25 Smoking cigarettes per day: 5.0 Years smoked: 30 Smoking pack-years: 7.50 Smoking status: Former smoker Tobacco type: cigarettes Second hand tobacco smoke exposure: No Alcohol intake: never Substance use: never Substance use type: does not use Current Housing: Decline to Answer Concerned About Future Housing: Decline to Answer Difficulty Paying Gas/Electric Bills: Decline to Answer Difficulty Paying for Meds: Decline to Answer Currently Unemployed: Decline to Answer Education: Decline to Answer Difficulty w/ Childcare or Family Care: Decline to Answer Living arrangements: [facility] Additional living arrangements comments: [facility] in [place]. Spiritual care concerns: No Exam 2 Narrative: GENERAL APPEARANCE: WELL-DEVELOPED, WELL-NOURISHED, AROUSABLE SKIN: NORMAL COLOR HEAD: NORMOCEPHALIC, NONTRAUMATIC EYES: CLEAR CONJUNCTIVA ENT: OROPHARYNX NORMAL, EARS NORMAL, NOSE NORMAL NECK: SUPPLE, NONTENDER CHEST AND RESPIRATORY: AIRWAY PATENT, NO RESPIRATORY DISTRESS, NO ACCESSORY MUSCLE USE HEART: REGULAR RATE/RHYTHM ABDOMEN: SOFT, NONTENDER, NO ORGANOMEGALY, QUIET BOWEL SOUNDS VASCULAR: NORMAL PERIPHERAL PULSES, NORMAL CAPILLARY REFILL. MUSCULOSKELETAL: LEFT UPPER EXTREMITY IN SHOULDER IMMOBILIZER NEUROLOGIC: ALERT AND ORIENTED TO HER NAME ONLY Course Vital Signs Vital signs: Vital Signs Temperature 36.8 C 05/26/25 14:05 Pulse Rate 82 05/26/25 14:05 Respiratory Rate 15 05/26/25 14:05 Blood Pressure 104/40 L 05/26/25 14:05 Pulse Oximetry 93 05/26/25 14:05 Oxygen Delivery Room Air 05/26/25 14:05 Temperature 36.8 C 05/26/25 14:05 Pulse Rate 78 05/26/25 16:08 Respiratory Rate 14 05/26/25 16:08 Blood Pressure 108/47 L 05/26/25 16:08 Pulse Oximetry 95 05/26/25 16:08 Oxygen Delivery Room Air 05/26/25 14:05 MDM - Female Genitourinary MDM Narrative Medical decision making narrative: PATIENT CAME WITH GENERAL WEAKNESS AND LETHARGY VITAL SIGNS SHOWING BLOOD PRESSURE 104/40, HEART RATE 82, RESPIRATION 15, SATURATION ON ROOM AIR 93, TEMPERATURE 36.8? PHYSICAL EXAMINATION SHOWING A LETHARGIC PATIENT, AROUSABLE, ORIENTED TO HER NAME ONLY, WEARING LEFT SHOULDER IMMOBILIZER DIFFERENTIAL DIAGNOSIS INCLUDE URINARY TRACT INFECTION, ELECTROLYTE IMBALANCE, DEHYDRATION, PNEUMONIA, METABOLIC ENCEPHALOPATHY BLOOD WORKUP TODAY INCLUDES CBC, CMP, CPK, SHOWED WBC 17.8, HEMOGLOBIN 10.6, BUN 19, CREATININE 0.5, GLUCOSE 171, AMMONIA LEVEL IS A 9, CPK LESS THAN 20, TSH 0220 CT HEAD WITHOUT CONTRAST SHOWED NO ACUTE ABNORMALITY CHEST X-RAY SHOWED NO ACUTE ABNORMALITIES CT CHEST ABDOMEN AND PELVIS WITH IV CONTRAST SHOWED NO ACUTE ABNORMALITY TO EXPLAIN PATIENT CONDITIONE CURRENTLY PATIENT IS MORE AWAKE, MORE ALERT, DECLINED TO BE HOSPITALIZED SHE IS TELLING ME THAT I DO NOT HAVE SYMPTOMS AND WOULD LIKE TO GO BACK HOME. PATIENT'S DAUGHTER AT THE BEDSIDE WHO AGREED WITH DISCHARGE HOME. DIAGNOSIS ALTERED MENTAL STATUS, IMPROVED, PATIENT CURRENTLY ON HYDROCODONE FOR LEFT SHOULDER FRACTURE. LEUKOCYTOSIS PROBABLY REACTIVE. THE PT WAS DISCHARGED TO HOME.THE PT,S CONDITION UPON DISCHARGE WAS FAIR,EDUCATION WAS PROVIDED TO THE PT IN REFERENCE TO THE FINAL IMPRESSION,DISCHARGE STUDY RESULTS,TREATMENT,PROGNOSIS AND NEED FOR FOLLOW UP . Differential Diagnosis Differential diagnosis: Likely other ( ABOVE) Medical Records Attestation: I reviewed the patient's medical records. Lab Data Attestation: I reviewed the patient's lab results. 05/26/25 16:06 05/26/25 16:06 Labs: Lab Results 05/26/25 05/26/25 05/26/25 Range/Units 14:21 16:05 16:06 WBC 17.8 H (4.5-10.0) K/mm3 RBC 3.68 L (4.2-5.4) M/mm3 Hgb 10.6 L (12.0-15.0) g/dL Hct 32.8 L (37.0-47.0) % MCV 89.1 (80-100) fl MCH 28.8 (26-34) pg MCHC 32.3 (32-36) g/dl RDW 14.9 H (11.5-14.5) % Plt Count 336 (150-375) k/mm3 MPV 10.7 H (7.4-10.4) fl Immature Gran % (Auto) 0.6 H (0-0.5) % Neut % (Auto) 85.4 H (45.5-73.1) % Lymph % (Auto) 8.5 L (18.3-44.2) % [place] % (Auto) 5.4 (2.6-8.5) % Eos % (Auto) 0.0 (0-4.4) % Baso % (Auto) 0.1 L (0.2-1.2) % Lymph # (Auto) 1.51 (0.9-3.2) K/mm3 Randolph # (Auto) 1.0 H (0.1-0.6) K/mm3 Eos # (Auto) 0.0 (0-0.3) K/mm3 Baso # (Auto) 0.0 (0.0-0.1) K/mm3 Abs Immat Gran (auto) 0.10 H (0.00-0.031) K/mm3 Absolute Neuts (auto) 15.2 H (1.3-6.7) K/mm3 Absolute Nucleated RBC 0.000 (0.0-0.012) K/mm3 Nucleated RBC % 0.0 (0.0-0.2) % PT 14.0 (11.1-14.7) Seconds INR 1.1 APTT 26.3 (22.3-36.8) Seconds Sodium 139 (137-145) mmol/L Potassium 4.1 (3.4-5.0) mmol/L Chloride 105 (98-107) mmol/L Carbon Dioxide 25 (22-30) mmol/L Anion Gap 9 (4-12) mmol/L BUN 19 H D (7-17) mg/dL Creatinine 0.56 L (0.7-1.0) mg/dL Estim Creat Clear Calc Not Reportable Estimated GFR > 60 (59 - ) Glucose 171 H (65-110) mg/dL POC Capillary Glucose (65-105) mg/dl Lactic Acid (0.7-2.0) mmol/L Calcium 9.2 (8.4-10.2) mg/dL Total Bilirubin 0.2 (0.2-1.3) mg/dL AST 36 (14-36) U/L ALT 27 (6-35) U/L Alkaline Phosphatase 78 (38-126) U/L Ammonia < 9 L (9-30) umol/L Total Creatine Kinase < 20 L (30-135) U/L Troponin I < 0.012 (0.000-0.034) ng/mL C-Reactive Protein 2.3 H (<1.0) mg/dL Total Protein 7.0 (6.3-8.2) g/dL Albumin 3.8 (3.5-5.1) g/dL TSH 0.220 L (0.465-4.680) uIU/mL Urine Color Yellow (Yellow) Urine Appearance Clear (Clear) Urine pH 5.0 (5.0-9.0) Ur Specific [place] 1.036 H (1.001-1.035) Urine Protein Negative (Negative) mg/dL Urine Glucose (UA) 3+ H (Negative) mg/dL Urine Ketones 2+ H (Negative) mg/dL Ur Blood (Man) Negative (Negative) Urine Nitrate Negative (Negative) Urine Bilirubin Negative (Negative) Urine Urobilinogen 0.2 (<2.0) mg/dL Leukocyte Esterase Rfl Negative (Negative) MEAGHAN/UL Influenza A (RT-PCR) (Negative) Influenza B (RT-PCR) (Negative) RSV (RT-PCR) (Negative) SARS-CoV-2 RNA (RT-PCR) (Negative) 05/26/25 05/26/25 Range/Units 16:12 18:36 WBC (4.5-10.0) K/mm3 RBC (4.2-5.4) M/mm3 Hgb (12.0-15.0) g/dL Hct (37.0-47.0) % MCV (80-100) fl MCH (26-34) pg MCHC (32-36) g/dl RDW (11.5-14.5) % Plt Count (150-375) k/mm3 MPV (7.4-10.4) fl Immature Gran % (Auto) (0-0.5) % Neut % (Auto) (45.5-73.1) % Lymph % (Auto) (18.3-44.2) % Randolph % (Auto) (2.6-8.5) % Eos % (Auto) (0-4.4) % Baso % (Auto) (0.2-1.2) % Lymph # (Auto) (0.9-3.2) K/mm3 [place] # (Auto) (0.1-0.6) K/mm3 Eos # (Auto) (0-0.3) K/mm3 Baso # (Auto) (0.0-0.1) K/mm3 Abs Immat Gran (auto) (0.00-0.031) K/mm3 Absolute Neuts (auto) (1.3-6.7) K/mm3 Absolute Nucleated RBC (0.0-0.012) K/mm3 Nucleated RBC % (0.0-0.2) % PT (11.1-14.7) Seconds INR APTT (22.3-36.8) Seconds Sodium (137-145) mmol/L Potassium (3.4-5.0) mmol/L Chloride (98-107) mmol/L Carbon Dioxide (22-30) mmol/L Anion Gap (4-12) mmol/L BUN (7-17) mg/dL Creatinine (0.7-1.0) mg/dL Estim Creat Clear Calc Estimated GFR (59 - ) Glucose (65-110) mg/dL POC Capillary Glucose 164 H (65-105) mg/dl Lactic Acid 1.9 (0.7-2.0) mmol/L Calcium (8.4-10.2) mg/dL Total Bilirubin (0.2-1.3) mg/dL AST (14-36) U/L ALT (6-35) U/L Alkaline Phosphatase (38-126) U/L Ammonia (9-30) umol/L Total Creatine Kinase (30-135) U/L Troponin I (0.000-0.034) ng/mL C-Reactive Protein (<1.0) mg/dL Total Protein (6.3-8.2) g/dL Albumin (3.5-5.1) g/dL TSH (0.465-4.680) uIU/mL Urine Color (Yellow) Urine Appearance (Clear) Urine pH (5.0-9.0) Ur Specific [place] (1.001-1.035) Urine Protein (Negative) mg/dL Urine Glucose (UA) (Negative) mg/dL Urine Ketones (Negative) mg/dL Ur Blood (Man) (Negative) Urine Nitrate (Negative) Urine Bilirubin (Negative) Urine Urobilinogen (<2.0) mg/dL Leukocyte Esterase Rfl (Negative) MEAGHAN/UL Influenza A (RT-PCR) Negative (Negative) Influenza B (RT-PCR) Negative (Negative) RSV (RT-PCR) Negative (Negative) SARS-CoV-2 RNA (RT-PCR) Negative (Negative) Imaging Data Radiologist's impression: Impressions Chest X-Ray 05/26/25 16:35 IMPRESSION: No acute cardiopulmonary pathology. Fibrotic changes of the lungs. Healing fracture in the proximal left humerus. Head CT 05/26/25 16:54 Impression: No acute intracranial hemorrhage or suspicious mass effect. Chest/Abdomen/Pelvis CT 05/26/25 18:21 IMPRESSION: CHEST: 1. No acute cardiopulmonary pathology. 2. Healing rib fractures seen bilaterally. ABDOMEN/PELVIS: 1. No evidence of appendicitis, diverticulitis or intestinal obstruction. 2. Left adrenal mass. Further evaluation advised. 3. Highly suggestive right kidney tiny stones. Early contrast excretion is not excluded. 4. Left renal cyst. 5. Small hypodensity in the liver most likely a tiny cyst. ECG Data EKG #1: Attestation: I personally reviewed and interpreted this ECG as follows: ECG completion date: 05/26/25 Interpretation: NORMAL SINUS RHYTHM AT 75 BEATS PER MINUTE WITH FIRST-DEGREE HEART BLOCK, ANTERIOR MYOCARDIAL INFARCTION OF INDETERMINATE AGE, COMPARED TO EKG ON NOVEMBER 16 FIRST-DEGREE AV BLOCK NOW PRESENT, MYOCARDIAL INFARCTION FINDING STILL PRESENT Critical Care Time Critical Care Time Critical Care Time: No Discharge Plan Discharge Clinical Impression: Acute alteration in mental status Patient Disposition: NH Residential/Asst Living Condition: Stable Instructions: Altered Mental Status (ED) Additional Instructions: RETURN IF SYMPTOMS ARE WORSENING , CALL YOUR FAMILY PHYSICIAN FOR APPOINTMENT, TAKE TYLENOL NEEDED FOR ACHES AND PAIN, CONTINUE HOME MEDICATIONS. Patient Language: Omani Prescriptions: No Action donepezil 10 mg tablet 10 mg PO DAILY losartan 25 mg tablet 25 mg PO DAILY memantine 10 mg tablet 10 mg PO BID insulin glargine [Lantus Solostar U-100 Insulin] 100 unit/mL (3 mL) insulin pen See Rx Instructions SUBCUT HS Rx Instructions: 12 subcutaneously bedtime; 10 units subcutaneously at breakfast ondansetron 4 mg tablet,disintegrating 4 mg PO Q8H PRN (Reason: nausea and vomiting) Qty: 12 0RF aspirin 81 mg tablet,delayed release (DR/EC) 81 mg PO DAILY simvastatin 40 mg tablet 40 mg PO DAILY Janumet XR 50-1,000 mg tablet, ER multiphase 24 hr 1 tablet PO BID Jardiance 25 mg tablet 25 mg PO BID insulin aspart U-100 [Novolog FlexPen U-100 Insulin] 100 unit/mL (3 mL) insulin pen 5 unit SUBCUT DAILY Rx Instructions: with breakfast and lunch oxycodone 5 mg tablet 2.5 mg PO Q8H PRN (Reason: pain) Qty: 10 0RF acetaminophen [Tylenol Extra Strength] 500 mg tablet 1,000 mg PO TID PRN (Reason: pain) Qty: 30 0RF Follow-up/Referrals: Artemio,MD Kvng [Primary Care Provider] -
--- NOTE | 2025-05-26 15:50 | ECG_ITS ---
Test Date: 2025-05-26 16:02:45 Measurements Intervals [place] Rate: 75 P: 54 DC: 213 QRS: 69 QRSD: 85 T: 66 QT: 413 QTc: 464 Interpretive Statements SINUS RHYTHM WITH FIRST DEGREE AV BLOCK POSSIBLE ANTERIOR MYOCARDIAL INFARCTION , OF INDETERMINATE AGE [30 ms Q WAVE IN V3/V4, OR R < 0.2 mV IN V4] Compared to ECG 11/16/2024 08:57:07 First degree AV block now present Myocardial infarct finding still present Electronically Signed On 05-26-2025 16:54:01 CDT by Paola Jose
--- OUTSIDE RECORDS SUMMARY | 2025-05-26 15:51 | XMS_ITS | Referral Summary ---
Author Organization [facility] Physician Office Building [address] [place] [phone] Care Team Providers Care Director Corporate Security Name Role Phone Kvng Ulloa MD Primary Care Provider [phone] Encounters Date Type Department Care Team Description 04/22/2025 10:00 AM CDT Office Visit [facility] Medical Group Diabetes and Endocrinology [address] [place] [phone] Mary Alice Muro NP Type 2 diabetes mellitus with hyperglycemia, with long-term current use of insulin (HCC) (Primary Dx); Hypertension associated with type 2 diabetes mellitus (HCC); Hyperlipidemia associated with type 2 diabetes mellitus (HCC) 03/23/2025 Telephone [facility] Medical Group Diabetes and Endocrinology [address] [place] [phone] Mary Alice Muro NP Home Care Delivered request OV 03/04/2025 Orders Only [facility] Diabetes and Endocrinology [address] [place] [phone] Mary Alice Muro NP Type 2 diabetes mellitus with hyperglycemia, with long-term current use of insulin (HCC) 02/28/2025 Orders Only [facility] Diabetes and Endocrinology [address] [place] [phone] Mary Alice Muro NP from Last 3 Months Allergies Active Allergy Reactions Criticality Noted Date Comments Penicillins Unknown 01/06/2025 Tree Nut Hives,Itching,Rash,Swelling Medium 10/24/20 21 [place] Rash Medium 10/24/2021 Medications simvastatin (ZOCOR) 40 mg tablet 09/18/20 21 Active losartan (COZAAR) 25 mg tablet 09/18/20 21 Active aspirin 81 MG oral suspension Active alendronate (FOSAMAX) 70 mg tablet alendronate 70 mg tablet Active Dexcom G6 Shower Maid misc USE DIRECTED TO MONITOR GLUCOSE 03/12/20 22 Active Dexcom G6 Transmitter device as directed 03/12/20 22 Active carbamide peroxide (Ear Drops, carbamide peroxide,) 6.5 % otic solution INSTILL 5 DROPS INTO AFFECTED right EAR(S) BY OTIC ROUTE 2 TIMES PER DAY for 10 days Active influenza quadrivalent [id number] (FLULAVAL,FLUARIX, FLUZONE) 60 mcg (15 mcg x 4)/0.5 mL syringe Active pneumococcal 23-valent (Pneumovax-23) 25 mcg/0.5 mL vaccine ADM 0.5ML IM UTD Active triamcinolone (KENALOG) 0.1 % cream APPLY A THIN LAYER TO THE AFFECTED AREA(S) BY TOPICAL ROUTE 2 TIMES PER DAY to areas on arms/legs Active insulin aspart (NovoLOG) 100 unit/mL (3 mL) pen for injectionIndicatio ns:Type 2 diabetes mellitus with hyperglycemia, with long-term current use of insulin (HCC) Inject 3 Units under the skin 2 (two) times a day with meals 15 mL 07/15/20 24 Active LANTUS 100 unit/mL (3 mL) pen for injectionIndicatio ns:Type 2 diabetes mellitus with hyperglycemia, with long-term current use of insulin (HCC) Inject 14 Units under the skin creel hand before breakfast 15 mL 6 07/16/20 24 [...] hyperglycemia, with long-term current use of insulin ([facility]) Use to inject insulin three times daily [...] a day 60 tablet 3 01/25/20 25 Active empagliflozin (Jardiance) 25 mg tabletIndications: type 2 diabetes mellitus Take 1 tablet (25 mg total) by mouth daily for 7 days 7 tablet 03/04/20 25 Active Janumet XR 50-1,000 mg tablet, ER multiphase 24 hrIndications:Type 2 diabetes mellitus with hyperglycemia, with long-term current use of insulin (HCC) Take 50-1,000 mg by mouth 2 (two) times a day 180 tablet 3 05/03/20 25 Active empagliflozin (JARDIANCE) 25 mg tabletIndications: Type 2 diabetes mellitus with hyperglycemia, with long-term current use of insulin (HCC) Take 1 tablet (25 mg total) by mouth creel hand before breakfast 90 tablet 2 05/17/20 25 Active empagliflozin (JARDIANCE) 25 mg tabletIndications: Type 2 diabetes mellitus with hyperglycemia, with long-term current use of insulin (HCC) Take 1 tablet (25 mg total) by mouth creel hand before breakfast 90 tablet 2 07/15/20 24 025 Discontin ued(Dupli deidra order) Janumet XR 50-1,000 mg tablet, ER multiphase 24 hrIndications:Type 2 diabetes mellitus with hyperglycemia, with long-term current use of insulin (HCC) Take 50-1,000 mg by mouth 2 (two) times a day 180 tablet 2 07/15/20 24 025 Discontin ued(Reord er) Active Problems Problem Noted Date Diagnosed Date Hypertension associated with type 2 diabetes rayray litus 10/19/2024 Assessment & Plan (04/22/2025 10:13 AM CDT): Chronic problem. Controlled on current losartan 25mg daily. Assessment & Plan (01/06/2025 2:51 PM COUNTRY DIRECTOR): Chronic problem. Controlled on current losartan 25mg daily. Assessment & Plan (10/20/2024 11:54 AM COUNTRY DIRECTOR): Chronic problem. Controlled on current losartan 25mg daily. Will update labs. Verified that she uses mychart. Aware to check results/results letter in [employer] Will contact by phone if needed. Hyperlipidemia associated with type 2 diabetes chapo guerin 10/19/2024 Assessment & Plan (04/22/2025 10:13 AM CDT): Chronic problem. Currently taking Simvastatin 40mg daily Last lipid panel: 10/20/24 LDL=48, BG=927. Assessment & Plan (01/06/2025 3:24 PM COUNTRY DIRECTOR): Chronic problem. Currently taking Simvastatin 40mg daily Last lipid panel: 10/20/24 LDL=48, PH=261. Assessment & Plan (10/20/2024 11:53 AM COUNTRY DIRECTOR): Chronic problem. No labs on file. Currently taking Simvastatin 40mg daily Will update labs. Verified that she uses mychart. Aware to check results/results letter in [employer] Will contact by phone if needed. COVID-19 09/29/2023 Dyslipidemia 05/10/2022 Type 2 diabetes mellitus 05/10/2022 Assessment & Plan (04/22/2025 10:56 AM CDT): Chronic problem. A1c improved from 6.8% to now 6.6%. now moved to facility that can do injections. -will stop Trulicity due to weight loss & very low appetite. -change Novolog from twice daily to 3 times daily. Will increase from 3 units to 5 units per meal. Hold for blood sugars less thank 120. Current medications: Janumet XR 50-1000mg twice daily with meals Jardiance 25mg daily Lantus 12 units every morning Novolog 5 units 3 times daily with meals. Hold for blood sugars less than 120. DM eye exam: never. To call to schedule. UTD on labs. Discussed with Rosa Elena Fisher: Strive for [...] skin breakdown and infection. Assessment & Plan (01/06/2025 3:31 PM COUNTRY DIRECTOR): Chronic problem. A1c improved from 7.3% 10/20/24 to now 01/06/25. Will try to decrease her injection burden. Will send in Trulicity 0.75mg weekly. May need to start to decrease novolog with meals and/or Lantus. (Novolog if lows after meals, lantus if lows overnight). To send me a [employer] message in 2-3 weeks (before refill of [...] update MA/Cr today. Verified that she uses [employer]. Aware to check results/results letter in [employer]. Will contact by phone if needed. Discussed [...] infection. Assessment & Plan (10/20/2024 12:10 PM COUNTRY DIRECTOR): Chronic problem. A1c near goal but worsened [...] mychart. Aware to check results/results letter in [employer]. Will contact by phone if needed. Discussed [...] Alzheimer's disease 12/03/2021 Overview (07/15/2024): seeing neuro [facility] Memory impairment 08/28/2021 Bilateral hearing [...] Sign Reading Time Taken Comments Blood Pressure 110/72 04/22/2025 10:14 AM CDT Pulse 76 01/24/2025 2:36 PM COUNTRY DIRECTOR Temperature - - Respiratory Rate 18 01/24/2025 2:36 PM COUNTRY DIRECTOR Oxygen Saturation 96% 01/24/2025 2:36 PM COUNTRY DIRECTOR Inhaled Oxygen Concentration - - Weight 62.6 kg (138 lb) 04/22/2025 10:14 AM CDT Height 165.1 cm (5' 5) 04/22/2025 10:14 AM CDT Body Mass Index 22.96 04/22/2025 10:14 AM CDT Plan of Treatment Not on file Procedures Procedure Name Priority Date/Time Associated Diagnosis Comments POCT HEMOGLOBIN A1C Routine 04/22/2025 1 0:21 AM CDT Type 2 diabetes mellitus with hyperglycemia, with long-term current use of insulin (HCC) POCT GLUCOSE Routine 04/22/2025 10:17 AM CDT Type 2 diabetes mellitus with hyperglycemia, with long-term current use of insulin (HCC) ALBUMIN CREATININE RATIO, URINE Routine 01/07/2025 12:00 AM COUNTRY DIRECTOR Type 2 diabetes mellitus with hyperglycemia, with long-term current use of insulin (HCC) EGFR Routine 10/20/2024 12:22 PM COUNTRY DIRECTOR Type 2 diabetes mellitus with hyperglycemia, with long-term current use of insulin (HCC) Hypertension associated with type 2 diabetes mellitus (HCC) LIPID PANEL Routine 10/20/2024 12:22 PM COUNTRY DIRECTOR Type 2 diabetes mellitus with hyperglycemia, with long-term current use of insulin (HCC) Hyperlipidemia associated with type 2 diabetes mellitus (HCC) from Last 3 Months or Most Recently Relevant to Health Maintenance Results * (ABNORMAL) POCT hemoglobin A1c (04/22/2025 10:21 AM CDT) Hemoglobin A1C, POC 6.6(A) 4.0 - 5.6 % Blood 04/22/2025 10:2 1 AM CDT Mary Alice Muro NP POINT OF CARE TEST ORDERA BLES Final Result * POCT glucose (04/22/2025 10:17 AM CDT) [facility] Glucose Blood, POC 131 Normal Fasting 70 - 100, Random <200 mg/dL Blood 04/22/2025 10:1 7 AM CDT us Mary Alice Muro NP POINT OF CARE TEST ORDERA BLES Final Result * (ABNORMAL) Albumin Creatinine Ratio, Urine (01/07/2025 12:00 AM COUNTRY DIRECTOR) Albumin Ur 41.3 mg/L Comment: Interpretive Data No reference range established. Current interpretive data was last revised 2019. Creatinine Ur 73.9 mg/dL YASEMIN OSWALD Comment: Interpretive Data No reference range established. Current interpretive data was last revised 2019. Albumin Creatinine Ratio, Ur 56(H) 1 - 29 mg/g [facility] Urine 01/07/2025 01/07/2025 7:3 0 PM COUNTRY DIRECTOR us Mary Alicemirella Muro FUNERAL HOME LOCATION MANAGER LAB URINE ORDERABLES Sandra l Result Performing Organization Address City/[facility] Co de Phone Number YASEMIN OSWALD [id number] [address] * eGFR (10/20/2024 12:22 PM COUNTRY DIRECTOR) eGFR >90 >=60 mL/min/1. 73 m2 Comment: [...] reviewed 2021. Blood 10/20/2024 12:2 2 PM COUNTRY DIRECTOR 10/20/2024 8:10 PM COUNTRY DIRECTOR us Mary Alice Muro FUNERAL HOME LOCATION MANAGER LAB BLOOD ORDERABLES Sandra l Result Performing Organization Address City/[facility]/ZIP Co de Phone Number YASEMIN OSWALD [id number] [address] * (ABNORMAL) Lipid panel (10/20/2024 12:22 PM COUNTRY DIRECTOR) Cholesterol 138 30 - 199 mg/dL Comment: [...] mg/dL High: >160 mg/dL Calculated using the Carbone LDL-C estimating equation. This equation was implemented on 2024. Prior to this date LDL-C was estimated using the Friedewald equation. Literature References: 1. Expert Panel on Integrated Guidelines for Cardiovascular Health and Risk Reduction in Children and Adolescents. Pediatrics 2011;128:S213 2. NCEP Expert Panel. Circulation 2004;110:227 3. Raf M et al. EDGAR Cardiol. 2020 March 24;5(5):540-548. [...] YASEMIN OSWALD Blood 10/20/2024 12:2 2 PM COUNTRY DIRECTOR 10/20/2024 8:10 PM COUNTRY DIRECTOR Mary Alice Muro NP LAB BLOOD ORDERABLES Sandra washington Result YASEMIN OSWALD [id number] [place] [address] from Last 3 Months or Most Recently Relevant to Health Maintenance Insurance MEDICARE FOR LIFE Care Teams Director Corporate Security Relationship Specialty Start Date End Date Kvng Ulloa MD [address] [place] [address] PCP - General Family Medicine 07/15/24
--- OUTSIDE RECORDS SUMMARY | 2025-05-26 15:51 | XMS_ITS | Clinical Summary ---
Author Organization [facility] Physician Office Building [address] [place] [phone] Care Team Providers Care Patrol Sergeant Sheriff'S Office Name Role Phone Kvng Ulloa MD Primary Care Provider [phone] Allergies Active Allergy Reactions Criticality Noted Date Comments Penicillins Unknown 01/06/2025 Tree Nut Hives,Itching,Rash,Swelling Medium 10/24/20 21 [place] Rash Medium 10/24/2021 Medications simvastatin (ZOCOR) 40 mg tablet 09/18/20 21 Active losartan (COZAAR) 25 mg tablet 09/18/20 21 Active aspirin 81 MG oral suspension Active alendronate (FOSAMAX) 70 mg tablet alendronate 70 mg tablet Active Dexcom G6 Housekeeping Associate misc USE DIRECTED TO MONITOR GLUCOSE 03/12/20 22 Active Dexcom G6 Transmitter device as directed 03/12/20 22 Active carbamide peroxide (Ear Drops, carbamide peroxide,) 6.5 % otic solution INSTILL 5 DROPS INTO AFFECTED right EAR(S) BY OTIC ROUTE 2 TIMES PER DAY for 10 days Active influenza quadrivalent [id number] (FLULAVAL,FLUARIX, FLUZONE) 60 mcg (15 mcg x [...] with long-term current use of insulin ([facility]) Inject 3 Units under the skin 2 (two) times a day with meals 15 mL 6 07/15/20 24 Active LANTUS 100 unit/mL (3 mL) pen for injectionIndicatio ns:Type 2 diabetes mellitus with hyperglycemia, with long-term current use of insulin ([facility]) Inject 14 Units under the skin field operations technician before 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 15 mL 6 07/16/20 24 [...] with long-term current use of insulin ([facility]) Use to inject insulin three times [...] with long-term current use of insulin ([facility]) Take 50-1,000 mg by mouth 2 (two) times a day 180 tablet 3 05/03/20 25 Active empagliflozin (JARDIANCE) 25 mg tabletIndications: Type 2 diabetes mellitus with hyperglycemia, with long-term current use of insulin ([facility]) Take 1 tablet (25 mg total) by mouth field operations technician before breakfast 90 tablet 2 05/17/20 25 Active empagliflozin (JARDIANCE) 25 mg tabletIndications: Type 2 diabetes mellitus with hyperglycemia, with long-term current use of insulin (HCC) Take 1 tablet (25 mg total) by mouth field operations technician before breakfast 90 tablet 2 07/15/20 24 [...] diabetes rayray osman 10/19/2024 Assessment & Plan (04/22/2025 10:13 AM CDT): Chronic problem. Controlled on current losartan 25mg daily. Assessment & Plan (01/06/2025 2:51 PM CARE TRANSITION MGR): Chronic problem. Controlled on current losartan 25mg daily. Assessment & Plan (10/20/2024 11:54 AM CARE TRANSITION MGR): Chronic problem. Controlled on current losartan 25mg daily. Will update labs. Verified that she uses [employer]. Aware to check results/results letter in [employer] Will contact by phone if needed. Hyperlipidemia associated with type 2 diabetes chapo guerin 10/19/2024 Assessment & Plan (04/22/2025 10:13 AM CDT): Chronic problem. Currently taking Simvastatin 40mg daily Last lipid panel: 10/20/24 LDL=48, CA=028. Assessment & Plan (01/06/2025 3:24 PM CARE TRANSITION MGR): Chronic problem. Currently taking Simvastatin 40mg daily Last lipid panel: 10/20/24 LDL=48, TD=384. Assessment & Plan (10/20/2024 11:53 AM CARE TRANSITION MGR): Chronic problem. No labs on file. Currently taking Simvastatin 40mg daily Will update labs. Verified that she uses mychart. Aware to check results/results letter in [employer]chart. Will contact by phone if needed. COVID-19 [...] infection. Assessment & Plan (01/06/2025 3:31 PM CARE TRANSITION MGR): Chronic problem. A1c improved from 7.3% 10/20/24 to now 01/06/25. Will try to decrease her injection burden. Will send in Trulicity 0.75mg weekly. May need to start to decrease novolog with meals and/or Lantus. (Novolog if lows after meals, lantus if lows overnight). To send me a [employer] message in 2-3 weeks (before refill of [...] mychart. Aware to check results/results letter in [employer] Will contact by phone if needed. Discussed [...] infection. Assessment & Plan (10/20/2024 12:10 PM CARE TRANSITION MGR): Chronic problem. A1c near goal but worsened [...] mychart. Aware to check results/results letter in [employer] Will contact by phone if needed. Discussed [...] Alzheimer's disease 12/03/2021 Overview (07/15/2024): seeing neuro [facility] Memory impairment 08/28/2021 Bilateral hearing loss 02/05/2021 Osteoporosis 10/04/2020 Impacted cerumen of right ear 01/11/2020 Hyperlipidemia 01/11/2020 Fatigue 01/11/2020 Essential hypertension 01/11/2020 Resolved Problems Problem Noted Date Diagnosed Date Resolved Date Type 2 diabetes mellitus without complication 06/15/20 21 10/19/2024 Type 1 diabetes mellitus 01/11/2020 Encounters Date Type Department Care Team Description 04/22/2025 10:00 AM CDT Office Visit [facility] Medical Group Diabetes and Endocrinology [address] [place] [phone] Mary Alice Muro, MATT Type 2 diabetes mellitus with hyperglycemia, with long-term current use of insulin (HCC) (Primary Dx); Hypertension associated with type 2 diabetes mellitus (HCC); Hyperlipidemia associated with type 2 diabetes mellitus (HCC) 03/23/2025 Telephone [facility] Medical [facility] Diabetes and Endocrinology [address] [place] [phone] Mary Alice Muro, MATT Home Care Delivered request OV 03/04/2025 Orders Only [facility] Diabetes and Endocrinology [address] [place] [phone] Mary Alice Muro, MATT Type 2 diabetes mellitus with hyperglycemia, with long-term current use of insulin (HCC) 02/28/2025 Orders Only [facility] Diabetes and Endocrinology [address] [place] [phone] Mary Alice Muro 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 Last 3 Months Immunizations Immunization Administration [...] AM CDT Pulse 76 01/24/2025 2:36 PM CARE TRANSITION MGR Temperature - - Respiratory Rate 18 01/24/2025 2:36 PM CARE TRANSITION MGR Oxygen Saturation 96% 01/24/2025 2:36 PM CARE TRANSITION MGR Inhaled Oxygen Concentration - - Weight 62.6 kg (138 lb) 04/22/2025 10:14 AM CDT Height 165.1 cm (5' 5) 04/22/2025 10:14 AM CDT Body Mass Index 22.96 04/22/2025 10:14 AM CDT Plan of Treatment Health Maintenance Due Date Last Done Comments Breast Cancer Screening-Mammogram 1950 Colon Cancer Screening-Colonoscopy 1950 Hepatitis C Screening 1950 Osteoporosis Screening-Bone Density Scan 1950 Dilated Eye Exam 1950 Hepatitis B Screening 1968 Well Visit 65+ 2015 Pneumococcal vaccine 65+ (2 of 2 - PCV) 03/14/2022 03/14/2021, 10/17/2020 Covid-19 Vaccine (2023-2 5 season) 2024 09/28/2021, 08/24/2021, 02/06/2021, Additional history exists Depression Screening 07/15/2025 07/15/2024 Fall Risk Assessment 07/15/2025 07/15/2024, 07/09/2023, 12/17/2022 Influenza Vaccine (Season Ended) 2025 09/09/2022, 07/17/2021, 08/23/2020, Additional history exists Lipid Panel 10/20/2025 10/20/2024 eGFR 10/20/2025 10/20/2024 Hemoglobin A1C 10/23/2025 04/22/2025, 12/25, 10/20/2024, Additional history exists Albumin Creatinine Ratio, Urine 01/07/2026 Foot Exam 04/22/2026 04/22/2025, 10/20/2024 DTaP/Tdap/Td Vaccine (2 - Td or [...] CREATININE RATIO, URINE Routine 01/07/2025 12:00 AM CARE TRANSITION MGR Type 2 diabetes mellitus with hyperglycemia, with long-term current use of insulin (HCC) EGFR Routine 10/20/2024 12:22 PM CARE TRANSITION MGR Type 2 diabetes mellitus with hyperglycemia, with long-term current use of insulin (HCC) Hypertension associated with type 2 diabetes mellitus (HCC) LIPID PANEL Routine 10/20/2024 12:22 PM CARE TRANSITION MGR Type 2 diabetes mellitus with hyperglycemia, with long-term current use of insulin (HCC) Hyperlipidemia associated with type 2 diabetes mellitus (HCC) from Last 3 Months or Most Recently Relevant to Health Maintenance Results * (ABNORMAL) POCT hemoglobin A1c (04/22/2025 10:21 AM CDT) Hemoglobin A1C, POC 6.6(A) 4.0 - 5.6 % Blood 04/22/2025 10:2 1 AM CDT us Mary Alicemirella Muro NP POINT OF CARE TEST ORDERA BLES Final Result * POCT glucose (04/22/2025 10:17 AM CDT) Glucose Blood, POC 131 Normal Fasting 70 - 100, Random <200 mg/dL Blood 04/22/2025 10:1 7 AM CDT us Mary Alicemirella Muro NP POINT OF CARE TEST ORDERA BLES Final Result * (ABNORMAL) Albumin Creatinine Ratio, Urine (01/07/2025 12:00 AM CARE TRANSITION MGR) Albumin Ur 41.3 mg/L Comment: Interpretive Data No reference range established. Current interpretive data was last revised 2019. Creatinine Ur 73.9 mg/dL YASEMIN OSWALD Comment: Interpretive Data No reference range established. Current interpretive data was last revised 2019. Albumin Creatinine Ratio, Ur 56(H) 1 - 29 mg/g YASEMIN OSWALD Urine 01/07/2025 01/07/2025 7:3 0 PM CARE TRANSITION MGR us Mary Alice Muro NP LAB URINE ORDERABLES Sandra l Result YASEMIN OSWALD [id number] Department [place] [address] * eGFR (10/20/2024 12:22 PM CARE TRANSITION MGR) eGFR >90 >=60 mL/min/1. 73 m2 Comment: [...] reviewed 2021. Blood 10/20/2024 12:2 2 PM CARE TRANSITION MGR 10/20/2024 8:10 PM CARE TRANSITION MGR us Mary Alice Muro NP LAB BLOOD ORDERABLES Sandra [place]ton Result YASEMIN [id number] Department [place] [address] * (ABNORMAL) Lipid panel (10/20/2024 12:22 PM CARE TRANSITION MGR) Cholesterol 138 30 - 199 mg/dL Comment: [...] on 2018. Triglycerides 162(H) <=149 mg/dL YASEMIN Comment: Interpretive Data Ages < or = [...] on 2018. HDL 63 >=40 mg/dL YASEMIN Comment: Interpretive Data Ages < or = [...] 2018. LDL, calculated 48 <=129 mg/dL YASEMIN Comment: Interpretive Data Ages < or = [...] YASEMIN OSWALD Blood 10/20/2024 12:2 2 PM CARE TRANSITION MGR 10/20/2024 8:10 PM CARE TRANSITION MGR us Mary Alice Muro NP LAB BLOOD ORDERABLES Sandra washington Result YASEMIN [address] Department [place] [address] from Last 3 Months or Most Recently Relevant to Health Maintenance Insurance MEDICARE [employer] Care Teams Patrol Sergeant Sheriff'S Office Relationship Specialty Start Date End Date Kvng Ulloa MD [address] [place] [address] PCP - General Family Medicine 07/15/24
--- OUTSIDE RECORDS SUMMARY | 2025-05-26 15:52 | XMS_ITS | Data Portability ---
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 Cont f/u with Neuro at [facility] as per schedule. Cont f/u with Endo at [facility] as per schedule. Cont f/u with [facility] and Ophtho as per schedule. HM: WWE - Pt declined. Mammo - 07/03/22, normal. Ordered. DEXA - Pt declined. Colonoscopy - Pt declined. Flu - 10/17. Tdap, Pneumo, Shingrix - At pharmacy/HD. F/u PRN/Annually. Annual visit in 02/16. [email or web address] Not available 02/09/2025 16:17:00 Plan of Treatment Reminders Order Date Submit Date Provider Last Modified By Organization Details Last Modified Time Details Appointments None recorded. Lab None recorded. Referral director statistical programming referral - Please call patient to schedule an appointment 2023 024 [email or web address] Maldonado Yuan DPM, [address], [place], [address], 09:17:57 Procedures None recorded. Surgeries None recorded. Imaging MAMMO, screening, bilateral 2024 025 [email or web address] [facility], [address], [place], [address], 5 17:29:37 MAMMO, screening, bilateral 2023 024 [email or web address] 256 Not available 4 09:29:59 LDCT, chest, for lung cancer screening - *Please call pt to schedule* 2023 024 [email or web address] 256 [facility], [address], [address] [address], [place], [address], 4 09:18:33 DEXA - *Please call pt to schedule* 2022 [email or web address] [place] [address], [address], [place], [address], 3 09:20:14 Medication Orders losartan 25 mg tablet [address] [facility], [address] [place] [address], [address], 5 15:42:06 doxycycline hyclate 100 mg capsule 2024 025 [id number], [address] [facility], [place], [place], [id number], 5 15:44:13 simvastatin 40 mg tablet 2024 025 [email or web address] [facility], [address] [place] [address], [address], 5 15:42:47 Adult Low Dose Aspirin 81 mg tablet,gabriele yed release [address] [facility], [address] [place] [address], [address], 5 15:42:06 losartan 25 mg tablet [address] [facility], [address] [place] [address], [address], 4 09:16:48 nicotine 14 mg/24 hr daily transdermal patch [address]23 [facility], [address] [place] [address], [address], 4 09:16:49 Lantus Solostar U-100 Insulin 100 unit/mL (3 mL) subcutaneou s pen [address] [facility], [address] [place] [address], [address], 4 09:16:49 Novolog FlexPen U-100 Insulin aspart 100 unit/mL (3 mL) subcutaneou s [address] [facility], [address] [place] [address], [place], [address], 4 09:16:49 Janumet 50 mg-1,[address] [facility], [address] [place] [address], [address], 4 09:16:48 Jardiance 25 mg tablet [address] [facility], [address] [place] [address], [place], [address], 4 09:16:50 simvastatin 40 mg tablet [address] [facility], [address] [place] [address], [place], [address], 4 09:16:50 Adult Low Dose Aspirin 81 mg tablet,gabriele yed release [address]23 [facility], [address] [place] [address], [place], [address], 4 09:16:49 losartan 25 mg tablet [address] [facility], [address] [place] [address], [address], 4 14:53:54 nicotine 14 mg/24 hr daily transdermal patch [address] [facility], [address] [place] [address], [address], 4 14:55:14 simvastatin 40 mg tablet [address] [facility], [address] [place] [address], [address], 4 14:53:55 Adult Low Dose Aspirin 81 mg tablet,gabriele yed release [address] [facility], [address] [place] [address], [address], 4 14:53:56 cephalexin 500 mg capsule 2023 024 [email or web address] [facility], [address] [place] [address], [address], 4 09:18:18 Lantus Solostar U-100 Insulin 100 unit/mL (3 mL) subcutaneou s pen [address] [facility], [address] [place] [address], [address], 4 14:53:54 Novolog FlexPen U-100 Insulin aspart 100 unit/mL (3 mL) subcutaneou s 2023 024 [facility], [address] [place] [address], [address], 4 14:24:41 Janumet 50 mg-1,[address] [facility], [address] [place] [address], [place], [address], 4 14:53:56 Jardiance 25 mg tablet 2023 024 [facility], [address] [place] [address], [place], [address], 4 14:53:53 Novolog FlexPen U-100 Insulin aspart 100 unit/mL (3 mL) subcutaneou s [address], [address] [place] [address], [place], [address], 4 14:20:09 Novolog FlexPen U-100 Insulin aspart 100 unit/mL (3 mL) subcutane s [address], [address] [place] [address], [place], [address], 4 14:20:09 Patient TargetsNo targets recorded. Patient Instructions Encounter Date Encounter Id Patient Instructions Last Modified By Organization Details Last Modified Time 11/05/2023 [id number] 11/05/23 pt Tessa mascorro. Encouraged her to schedule with heena for Dec. Has endo in Dec . Not available 11/05/2023 11:16:40 01/20/2024 [id number] dementia rating scale-2* [email or web address] Not available 01/20/2024 16:08:57 alcohol misuse* [email or web address] Not available 01/20/2024 16:08:57 multi-dimensiona l health assessment questionnaire* [email or web address] Not available 01/20/2024 16:08:57 depression screening* [email or web address] Not available 01/20/2024 16:08:57 Personalized a [facility] Plan and Screening Recommendations Advance Directives - Do you have one? Yes Advance Directives - Do we have your advance directive on file in your health record? No, please bring in a copy at your earliest convenience Primary Prevention/Interven tion (prevents or decreases the chance of common diseases from occurring) Smoking Risk: Smoker I have no recommendations: Lives in assisted living with supervison Alcohol Misuse Screening: Negative I have no recommendations Weight: Appropriate continue your current weight loss efforts Physical activity: Appropriate physical activity minimum of 10-20 minutes of activity that causes mild breathlessness/day Nutrition: Good Eat Heart Healthy Diet Fall Risk (screened today): Low I have no recommendations Vaccines Pneumococcal: No further needed Influenza: Your next one in the fall of this year Chronic Disease Risks Stroke: Intermediate Risk Active diagnosis, Continue current treatment plan Heart Attack: Intermediate Risk Active diagnosis, Continue current treatment plan Clogging of the Arteries: Intermediate Risk Active diagnosis, Continue current treatment plan Diabetes: Intermediate Risk Active diagnosis, Continue current treatment plan Secondary Prevention/Interven tion (detects treatable diseases before they may cause symptoms, disability, or ) Breast Cancer Screening with mammogram: No screening necessary Cervical/Uterine/Ov oscar Cancer Screening: No screening necessary Osteoporosis Screening: Recommended today Date Screening Last Performed: Colon Cancer Screening: No screening necessary Daughter reports patient had colonoscopy 2 years ago. Date Screening Last Performed: Eye Disease Screening: Recommended today Dementia Risk: High Active Diagnosis Depression Screening: Negative Active diagnosis, Continue current treatment plan [email or web address] Not available 01/20/2024 15:18:39 Reason for Referral [facility] Referral for Type 2 diabetes mellitus without complication Please call patient to schedule an appointment Referring Physician: Kvng Ulloa, Family Medicine, Encounter Date: 01/20/2024 Results Created Date Observation Date Name Description Value Unit Range Abnormal Flag Note LastModifiedBy Organization Detail LastModifiedTime 06/25/20 24 06/25/2024 CT, brain , w/o contr ast No observ ation record ed. [email or web address] [place] [address], [address], 02/09/2025 15:37:30 06/25/20 24 06/25/2024 XR, chest No observ ation record ed. [email or web address] [address], [place], [address], 02/09/2025 15:37:30 04/28/03/21/2025 XR, shoul oni, 2 or more view No observ ation record ed. [email or web address] [address], [place], [address], 03/22/2025 09:12:51 04/02/2004/02/2025 XR, shoul oni, 2 or more view No observ ation record ed. [address], [place], [address], 04/05/2025 13:13:17 04/02/2004/02/2025 US, duple x, venou s, upper extre mity No observ ation record ed. [address], [place], [address], 04/05/2025 13:14:17 Result Notes None recorded. Problems Name Problem SNOMED Code Status Onset Date Resolution Date Notes Provider Name and Address Organization Details Recorded Time Impacted cerumen in right ear 482438745370 9103 Active 2019 Not Available [facility] 3 17:47:57 Tobacco user 858488944 Active 2019 Not Available [facility] 3 17:47:57 Immunizati on due 170470408 Active 2019 Not Available [facility] 3 17:47:57 Alzheimer' s disease 65087888 Active 2021 seeing neuro [facility] Not Available [facility] 3 17:47:58 Dyslipidem ia 813707700 Active 2021 Not Available [facility] 3 17:47:58 Memory impairment 768944271 Active 2020 Not Available [facility] 3 17:47:58 Type 2 diabetes mellitus 21358812 Active 2021 Not Available [facility] 3 17:47:58 Uncontroll ed type 2 diabetes mellitus 711593368 Active 2020 Not Available [facility] 3 17:47:58 Hyperlipid emia 85691743 Active 2019 Not Available [facility] 3 17:47:58 Essential hypertensi on 87714167 Active 2019 Not Available [facility] 3 17:47:58 Osteoporos is 99942862 Active 2019 Not Available [facility] 3 17:47:58 Diabetes mellitus 27522296 Active 2019 Not Available [facility] 3 17:47:58 Fatigue 29121214 Active 2019 Not Available [facility] 3 17:47:58 Bilateral hearing loss 29939013 Active 2020 Not Available [facility] 3 17:47:58 Well controlled type 2 diabetes mellitus 882530180 Active 2022 [facility] Available [facility] 3 17:47:58 Type 1 diabetes mellitus 39819832 Active 2022 Not Available [facility] 3 17:47:58 COVID-19 594798125 Active 2022 Not Available [facility] 3 17:47:58 Hypertensi ve disorder 64922778 Active 2023 Kvng Ulloa MD [address] [facility], [place], [address] , [employer] [facility] [employer] [facility] 4 14:38:14 Type 2 diabetes mellitus without complicati on 898025781 Active 2023 Kvng Ulloa MD [address], [place], [address] , [employer] [facility] [employer] [facility] 4 14:38:25 Dementia 44655921 Active 2023 Kvng Ulloa MD [address], [place], [address] , [employer] [facility] [employer] [facility] 4 14:38:58 Impaired mobility 25382472 Active 2023 Kvng Ulloa MD [address], [place], [address] , [employer] [facility] [employer] [facility] 4 14:39:53 Smoker 45109509 Active 2023 Kvng Ulloa MD [address], [place], [address] , [employer] 4 14:40:53 Cellulitis of right foot 518619169911 94465 Active 2023 Kvng Ulloa MD [address], [place], [address] , [employer] 4 14:58:24 Ulcer of foot 66596552 Active 2023 Kvng Ulloa MD [address], [place], [address] , [employer] 4 14:51:26 Paronychia of toe of right foot 134153460369 15851 Active 2024 Kvng Ulloa MD [address], [place], [address] , [employer] 5 15:42:58 Problem Notes None recorded. Procedures Surgical History Date Name Laterality Status Provider Name and Address Organization Details Recorded Time 02/10/20 25 Smoking Cessation completed Kvng Ulloa MD [address], [place], [address], [employer] 02/09/2025 16:15:32 06/21/20 24 Smoking Cessation completed Kvng Ulloa MD [address], [place], [address], [email or web address] 06/21/2024 09:25:11 01/20/20 24 Medicare Wellness CPT Code, subsequent completed February JORDAN Reddy [place] [employer] 01/20/2024 15:05:55 01/20/20 24 Smoking Cessation completed Kvng Ulloa MD [address], [place], [address], [employer] 01/20/2024 14:54:05 10/11/20 20 Date of Last Colonoscopy completed Not Available [facility] 01/22/2023 21:48:18 Rotator cuff surgery completed Not Available [facility] 01/22/2023 21:48:18 Unlisted px femur/knee completed Not Available [facility] 01/22/2023 21:48:18 Cataract Surgery completed Not Available [facility] 01/22/2023 21:48:18 Imaging Results None recorded. Procedure Notes None recorded. Medical Equipment None Reported. Allergies Allergen ID Allergen Name Allergen Category Reaction Reaction Severity Criticality Documentation Date Start Date Code Code System Note Provider Name and Address Organization Details Recorded Time 10131 walnut allergeni c extract food Not available Not available Not available 01/22/2023 72647 0 RxNorm Not Available [facility] 21:49:40 56644 Product containin g penicilli n (product) medicatio n rash moderate Not available 01/22/2023 38980 8001 SNOMED Not Available [facility] 21:49:41 Medications Name Sig Start Date Stop [...] Sure Comfort Pen Needle 31 gauge x /16 01/02 completed Not Available Not Available Not [...] Not Available Not Available Not Available [employer] [place] Lite kit 07/05 completed Not Available Not [...] Not Available No t Available Dexcom G6 Inside Barrel Lathe Operator USE DIRECTED TO MONITOR GLUCOSE active Not Available Not Available No t Available Dexcom G6 Transmitt er device USE DIRECTED active Not Available Not Available No t Available BD Elva 2nd Gen Pen Needle 32 gauge x 5/32 USE DIRECTED WITH LANTUS AND NOVOLOG active Not Available Not Available No t Available Fluzone High-Dose 2018- (PF) 180 mcg/0.5 mL intramusc ular syringe [...] in Arterial blood by Pulse oximetry Systolic And Diastolic Provider Name and Address Organization Details Last Updated DateTime 4 167.64 cm 25.1 kg/m2 58442.2 2 g 97.9 [degF] 20 /min 86 /min 96 % 96 % 110/62 mm[Hg] Alphonso Vasques [facility] Everywhere [facility] 4 14:33:06 Date Recorded Oxygen saturation Oxygen saturation in Arterial blood by Pulse oximetry Provider Name and Address Organization Details Last Updated DateTime 02/09/2025 96 % 96 % Kvng Ulloa MD [address] [place] [address], [facility] [address], [place], [address], [facility] 02/09/2025 15:41:45 Date Recorded Body height Body mass index (BMI) Body weight Body temperature Heart rate Systolic And Diastolic Provider Name and Address Organization Details Last Updated DateTime 5 167.64 cm 22.8 kg/m2 67433.9 2 g 97.3 [degF] 74 /min 110/64 mm[Hg] Gosia Salcido RN [facility] Everywhere [facility] 5 15:33:40 Date Recorded Body height Body mass index (BMI) Body weight Body temperature Heart rate Respiratory rate Oxygen saturation Oxygen saturation in Arterial blood by Pulse oximetry Systolic And Diastolic Provider Name and Address Organization Details Last Updated DateTime 4 167.64 cm 24.4 kg/m2 07536.8 g 98.1 [degF] 76 /min 16 /min 98 % 98 % 122/78 mm[Hg] Alphonso Vasques [facility] Everywhere [facility] 4 09:07:01 Date Recorded Body height Body mass index (BMI) Body weight Body temperature Heart rate Respiratory rate Oxygen saturation Oxygen saturation in Arterial blood by Pulse oximetry Systolic And Diastolic Provider Name and Address Organization Details Last Updated DateTime 3 167.64 cm 25.9 kg/m2 52098.2 3 g 95.7 [degF] 67 /min 20 /min 95 % 95 % 136/70 mm[Hg] Desiree Preston RN [facility] Everywhere [facility] 3 11:32:24 Date Recorded Body height Body mass index (BMI) Body weight Body temperature Respiratory rate Heart rate Oxygen saturation Oxygen saturation in Arterial blood by Pulse oximetry Systolic And Diastolic Provider Name and Address Organization Details Last Updated DateTime 3 167.64 cm 25.2 kg/m2 03061.5 1 g 96 [degF] 20 /min 65 /min 94 % 94 % 130/68 mm[Hg] Desiree Preston RN [place] [employer] [facility] [employer] 10:42:18 Social History Question Answer Notes LastModified by Organizat ion Details LastModified Time Tobacco Smoking Status Former Smoker quit 2023 Gosia Salcido RN [facility] [place] [employer] 02/09/2025 15:36:03 Do You Have An Advance Directive? Yes Information not available 08/06/2023 Are You Blind Or Do You Have Difficulty Seeing? No MIGRATION.34572 [id number] Information not available 01/22/2023 Is Blood Transfusion Acceptable In An Emergency? Yes Information not available 08/06/2023 What Is Your Level Of Caffeine Consumption? None [email or web address] Information not available 02/09/2025 How Much Tobacco Do You Chew? None MIGRATION.56571 81204 Information not available 01/22/2023 What Is Your Code Status? Full Code Information not available 08/06/2023 In The 14 Days Before Symptom Onset, Have You Had Close Contact With A Laboratory-confi rmed COVID-19 While That Case Was Ill? No MIGRATION.98275 87396 Information not available 01/22/2023 In The 14 Days Before Symptom Onset, Have You Had Close Contact With A Person Who Is Under Investigation For COVID-19 While That Person Was Ill? No MIGRATION.05106 46771 Information not available 01/22/2023 Are You Deaf Or Do You Have Serious Difficulty Hearing? No MIGRATION.46276 33547 Information not available 01/22/2023 What Type Of Diet Are You Following? REGULAR MIGRATION.66595 43262 Information not available 01/22/2023 Which Illicit Or Recreational Drugs Have You Used? None MIGRATION.25802 16602 Information not available 01/22/2023 How Many Days [...] To Your Family Or Social Situation? No MIGRATION.02538 40476 Information not available 01/22/2023 When Did You Quit Smoking? 1-5yearssinemma lucretia Quit 2023 [email or web address] Information not available 02/09/2025 Do You Use Insect Repellent Routinely? Yes MIGRATION.57812 17598 Information not available 01/22/2023 [facility] Information not available 08/06/2023 Do You Have A Medical Power Of Pad Hand? Yes Jennifer Robertson Information not available 08/06/2023 What Was The Date Of Your Most Recent Tobacco Screening? 01/20/2024 [email or web address] Information not available 01/20/2024 What Is Your Current Pack Years? [email or web address] yang Information not available 02/09/2025 Do You Have Any Pets? No Information not available 08/06/2023 What Is Your Relationship Status? MIGRATION.32368 07822 Information not available 01/22/2023 Do You Use Your Seat Belt Or Car Seat Routinely? Yes MIGRATION.96332 46695 Information not available 01/22/2023 Do You Have Smoke And Carbon Monoxide Detectors In Your Home? Yes Information not available 08/06/2023 At What Age Did You Start Smoking Tobacco? 20 [email or web address] Information not available 02/09/2025 Are You Passively Exposed To Smoke? No MIGRATION.04454 36721 Information not available 01/22/2023 Are There Any Smokers In Your House? Yes MIGRATION.87062 47415 Information not available 01/22/2023 How Much Tobacco Do You Smoke? 0.5 PPD MIGRATION.88510 17058 Information not available 01/22/2023 Do You Participate In Social Media? No MIGRATION.38068 02970 Information not available 01/22/2023 What Types Of Sporting Activities Do You Participate In? Walk Information not available 08/06/2023 Do You Use Sunscreen Routinely? Yes MIGRATION.37408 60690 Information not available 01/22/2023 Has Tobacco Cessation Counseling Been Provided? No MIGRATION.92917 98709 Information not available 01/22/2023 How Many Years Have You Smoked Tobacco? 50 [email or web address] Information not available 02/09/2025 Have You Recently Traveled Abroad? No MIGRATION.85404 41176 Information not available 01/22/2023 Do You Have Difficulty Walking Or Climbing Stairs? No MIGRATION.42161 07444 Information not available 01/22/2023 Do You Have Any Dietary Restrictions? No MIGRATION.91133 32802 Information not available 01/22/2023 Sex: Female Functional Status Question Answer Note LastModified by [employer] ion Details LastModified Time Do you or have you ever used any other forms of tobacco or nicotine? No [email or web address] Information not available 02/09/2025 What is your level of alcohol consumption? None MIGRATION.048968 8404 Information not available 01/22/2023 Do you or have you ever used smokeless tobacco? Never used smokeless tobacco MIGRATION.718782 1188 Information not available 01/22/2023 Do you have transportation difficulties? No MIGRATION.554053 7942 Information not available 01/22/2023 Are you able to walk? YESWOREST MIGRATION.501506 4126 Information not available 01/22/2023 Do you have difficulty doing errands alone? No MIGRATION.004567 2314 Information not available 01/22/2023 Are you able to care for yourself? Yes MIGRATION.954841 5733 Information not available 01/22/2023 What is your occupation? Retired MIGRATION.890398 4031 Information not available 01/22/2023 Do you have difficulty dressing or bathing? No MIGRATION.648667 0738 Information not available 01/22/2023 Do you or have you ever used e-cigarettes or vape? Never used electronic cigarettes MIGRATION.379692 2469 Information not available 01/22/2023 What is your exercise level? Moderate Walk Information not available 08/06/2023 Mental Status Question Answer Note LastModified by Shnergle ion Details LastModified Time Do you feel stressed (tense, restless, nervous, or anxious, or unable to sleep at night)? [id number] Information not available 08/06/2023 Do you have difficulty concentrating, remembering or making decisions? Yes short term MIGRATION.0513508 026 Information not available 01/22/2023 Family History [...] (COVID-19) vaccine, UNSPECIFIED 1 completed Not Available [facility] 10/06/2023 17:47:58 pneumococcal polysaccharide PPV23 1 completed Not Available [facility] 10/06/2023 17:47:58 SARS-COV-2 (COVID-19) vaccine, UNSPECIFIED 1 completed Not Available [facility] 10/06/2023 17:47:58 SARS-COV-2 (COVID-19) vaccine, UNSPECIFIED 1 completed Not Available [facility] 10/06/2023 17:47:58 zoster recombinant 1 completed Not Available [facility] 10/06/2023 17:47:58 influenza, unspecified formulation 2 completed Not Available [facility] 10/06/2023 17:47:58 Influenza, high-dose, quadrivalent, PF 1 completed Not Available [facility] 10/06/2023 17:47:58 Influenza, split virus, quadrivalent, preservative 0 completed Not Available [facility] 10/06/2023 17:47:58 Influenza, high-dose, quadrivalent, PF 9 completed Not Available [facility] 10/06/2023 17:47:58 Tdap 0 completed Not Available [facility] 10/06/2023 17:47:58 Past Encounters Encounter ID Performer Location Encounter Start Date Encounter Closed Date Diagnosis/Indication Diagnosis SNOMED-CT Code Diagnosis ICD10 Code Diagnosis Note [id number] [facility] [place] [address] [place] [address] 02/20/2021 00:00:00 02/20/2021 10:25:01 [id number] Kvng Ulloa MD [facility]_[address] [address] 03/14/2021 00:00:00 03/14/2021 09:02:27 [id number] Kvng Ulloa MD [facility] [address] [place] [address] 06/13/2021 00:00:00 06/13/2021 08:42:26 [id number] Kvng Ulloa MD [facility] [address] [place] [address] 06/21/2021 00:00:00 06/21/2021 11:50:02 [id number] Kvng Ulloa MD [facility] [address] [place] [address] 08/28/2021 00:00:00 08/28/2021 10:42:17 [id number] Kvng Ulloa MD [facility] [address] [place] [address] 1 01/02/2022 00:00:00 01/02/2022 10:07:35 [id number] Kvng Ulloa MD [facility] [address] [place] [address] 1 01/03/2022 00:00:00 01/03/2022 14:52:03 [id number] Kvng Ulloa MD [facility] [address] [place] [address] 1 04/03/2022 00:00:00 04/03/2022 08:56:55 [id number] [facility] [address] [place] [address] 05/10/2022 00:00:00 05/10/2022 14:19:27 [id number] Desiree Todd NP [facility] [address] [place] [address] 1 06/14/2022 00:00:00 06/14/2022 13:59:34 [id number] Desiree Todd NP [address] [address] 1 07/05/2022 00:00:00 07/05/2022 15:55:53 [id number] [facility] [address] [place] [address] 1 07/16/2022 00:00:00 07/17/2022 11:51:41 [id number] Kvng Ulloa MD [address] [address] 1 11/07/2022 00:00:00 11/07/2022 16:31:52 [id number] Kvng Ulloa MD [address] [address] 1 01/15/2023 00:00:00 01/15/2023 19:04:25 [id number] Kvng Ulloa MD [address] [address] 1 01/21/2023 00:00:00 01/21/2023 13:39:18 [id number] Nova Pereyra MD [facility] [address] [place] [phone] 1 02/14/2023 15:30:45 02/14/2023 16:39:13 Well controlled type 2 diabetes mellitus [id number] E11.9 A1C of 7.5% from Dec- insurance [...] use and wants to continue therapy. Dyslipidemia 512044662 E 78.5 Continue simvastati n as LDL [...] she chooses to go outside of the [facility] [employer] [facility] to obtain labwork she was [...] in her case. She voiced understand ing. [id number] Kvng Ulloa MD [facility] [address] [address] 06/30/2023 09:31:12 06/30/2023 10:42:10 [id number] Nova Pereyra MD [facility] [address] [place] [address] 07/01/2023 13:48:11 07/01/2023 15:20:45 Well controlled type 2 diabetes mellitus 076690070 E11.9 A1C of 7.9% up from 7.2%- [...] answered and refills necessary at visit today. [id number] Desiree Todd NP [facility] [place] [phone] 1 08/06/2023 10:14:20 08/06/2023 11:17:14 Alzheimer's disease 05732954 G30.9 Memantine 10 mg po bid.Donepe zil 10 mg po daily[address]Dr. Yossi Nam. Hyperlipidemia 71741909 E78.5 Simvastati n 40 mg po nightly.Lo w fat diet. Diabetes mellitus 321964 09 E11.[address] Pereyra, but referred to [facility].Novol og 10 units tid prn with meals.Lant [...] glucose log for eval. Schedule appt with carlos suarez for appt and I will cover until that time. Goal 120-140 fasting glucose. Osteoporosis 99683743 M8 1.0 DEXA discussed. Vit d and calcium. Essential hypertension 02864690 I10 Losartan 25 mg po daily Tobacco user [id number] Z 72.0 1/2 ppd Screening for malignant neoplasm of breast 889164506 Z12.39 Mammogram last 07/03/22, ordered 08/06/23 [id number] Desiree Todd NP [address] [address] 09/24/2023 11:22:38 09/24/2023 15:15:03 Osteoporosis 09759600 M81.0 DEXA discussed. Vit d and calcium. Essential hypertension 98874810 I10 Losartan 25 mg po daily Hyperlipidemia 00251503 E78.5 Simvastati n 40 mg po nightly.Lo w fat diet. Alzheimer's disease 2692 9004 G30.9 Memantine 10 mg po bid.Donepe zil 10 mg po daily[address]Dr[address] Yossi Nam. Tobacco user 420763282 Z 72.0 1/2 ppd Diabetes mellitus 690488 09 E11.[address] Pereyra, but referred to [facility].Novol og 10 units tid [...] glucose log for eval. Schedule appt with carlos suarez for appt and I will cover until that time. Goal 120-140 fasting glucose. 09/09/23 changed lantus to 10 units in morning and 12 units in evening. Endo appt for [facility] is Dec 2023. 09/24/23 Continue Lantus 10 units in the morning and 12 units in the evening. Add on Novolog 5 units sq at lunchtime for preprandia l blood sugar over 200, but hold if pt not eating. [id number] Desiree oTdd NP [address] [address] 11/05/2023 10:22:38 11/05/2023 11:19:47 Osteoporosis 69539298 M81.0 DEXA discussed. Vit d and calcium. Essential hypertension 70086778 I10 Losartan 25 mg po daily Hyperlipidemia 63403686 E78.5 Simvastati n 40 mg po nightly.Lo w fat diet. Alzheimer's disease 6392 9004 G30.9 Memantine 10 mg po bid.Donepe zil 10 mg po daily[address]Dr[address] Yossi Nam. Tobacco user 849296715 Z 72.0 1/2 ppd Diabetes mellitus 205759 09 E11.[address] Pereyra, but referred to [facility].Novol og 10 units tid prn [...] glucose log for eval. Schedule appt with carlos suarez for appt and I will cover until that time. Goal 120-140 fasting glucose. 09/09/23 changed lantus to 10 units in morning and 12 units in evening. Endo appt for [facility] is Dec 2023. 09/24/23 Continue Lantus 10 [...] not eating. Type 2 per betes mellitus 65688800 E11.9 [id number] Kvng Ulloa MD [facility] [address] [place] [address] 01/20/2024 14:27:31 01/20/2024 16:12:01 Hypertensive disorder 66338507 I10 Hyperlipidemia 43131118 E78.5 Type 2 per betes mellitus without complication 337994905 E11.9 Pt is f/u with Endo at [place]. Dementia 20283591 F03.93 Impaired mobility 689842 05 Z74.09 Bilateral hearing loss 34604190 H91.93 Chronic Smoker 80042998 F17.200 Cellulitis of right foot [id number] 8636202 L03.115 Adult heal th examination 061648270 Z00.00 Screening for disorder 552143984 Z13.9 [id number] Kvng Ulloa MD [place] [phone] 1 06/21/2024 09:00:13 06/21/2024 09:31:24 Hypertensive disorder 15649543 I10 Hyperlipidemia 74484783 E78.5 Type 2 per betes mellitus without complication 770427772 E11.9 Pt is f/u with Endo at [place]. Dementia 92214645 F03.93 Impaired mobility 943569 05 Z74.09 Bilateral hearing loss 49826804 H91.93 Chronic Smoker 15054883 F17.200 Cellulitis of right foot 2801925207 3848101 L03.115 resolved Screening mammography 24 378528 Z12.31 [id number] Kvng Ulloa MD [place] [phone] 1 02/09/2025 15:15:51 02/09/2025 16:22:28 Type 2 diabetes mellitus without complication 068220085 E11.9 Pt is f/u with Endo at [place]. Hyperlipidemia 02571650 E78.5 Hypertensive disorder 38 393641 I10 Dementia 52364813 F03.93 Impaired mobility 840063 05 Z74.09 Bilateral hearing loss 76989752 H91.93 Chronic Smoker 54627123 F17.200 Screening mammography 24 386911 Z12.31 Paronychia of toe of right foot [id number] 9384433 L03.031 Great toe Health Concerns Section Related Observation LastModified by Organization Detai ls LastModified Time None Recorded Concern Status LastModified by Organization Details LastModified Time None Recorded Advance Directives Directive Y: Payers Insurance Date Sequence Insurance Name Policy Number Policy Louis Covered Member ID Louis Member ID Guarantor Name 02/09/2025 1 [place] Rosa Elena Fisher [id number] Rosa Elena Fisher 02/09/2025 2 FOR LIFE ( - MEDICARE SUPPLEMENT) Rosa Elena Fisher [id number] Rosa Elena Fisher Notes Date Note Type [...] tid with meals. Desiree Todd NP [address], [place], [address], [email or web address] 09/24/2023 15:11:14 11/05/2023 text/html Here with [facility] [...] is feeling good. Desiree Todd NP [address], [place], [address], [employer] 11/05/2023 11:17:03 01/20/2024 text/html Pt is here [...] by them. Kvng Ulloa MD [address], [place], [address], [employer] 01/20/2024 16:10:21 06/21/2024 text/html Pt is here [...] by them. Kvng Ulloa MD [address], [place], [address], [employer] 06/21/2024 09:25:40 02/09/2025 text/html Pt is here [...] Ulloa MD [address], [place], [address], [employer] [facility] [employer] 02/09/2025 16:18:26 OBGyn Episode No OBEpisode recorded.
[2025-05-26 16:08] VITALS: BP 108/47; PULSE 78; RESP 14; O2SAT 95
[2025-05-26 16:13] LABS: Hematocrit 32.8 % (37.0-47.0); Hemoglobin 10.6 g/dL (12.0-15.0); Immature Granulocyte Percent A 0.6 % (0-0.5); Lymphocytes Absolute Auto 1.51 K/mm3 (0.9-3.2); Mean Corpuscular HGB Conc 32.3 g/dl (32-36); Mean Corpuscular Hemoglobin 28.8 pg (26-34); Mean Corpuscular Volume 89.1 fl (80-100); Nucleated Red Blood Cells Absolute Auto 0.000 K/mm3 (0.0-0.012); Nucleated Red Blood Cells Perc 0.0 % (0.0-0.2); Platelet Count Result 336 k/mm3 (150-375); Red Blood Count 3.68 M/mm3 (4.2-5.4); White Blood Count 17.8 K/mm3 (4.5-10.0)
[2025-05-26 16:23] LABS: Ammonia < 9 umol/L (9-30)
[2025-05-26 16:24] LABS: INR 1.1; Partial Thromboplastin Time 26.3 Seconds (22.3-36.8); Prothrombin Time 14.0 Seconds (11.1-14.7)
[2025-05-26 16:26] LABS: Alanine Aminotransferase 27 U/L (6-35); Albumin Level 3.8 g/dL (3.5-5.1); Alkaline Phosphatase 78 U/L (38-126); Anion Gap 9 mmol/L (4-12); Aspartate Amino Transferase 36 U/L (14-36); Bilirubin,Total 0.2 mg/dL (0.2-1.3); Blood Urea Nitrogen 19 mg/dL (7-17); Calcium 9.2 mg/dL (8.4-10.2); Carbon Dioxide 25 mmol/L (22-30); Chloride 105 mmol/L (98-107); Creatine Kinase < 20 U/L (30-135); Estimated Glomerular Filt Rate > 60; Glucose 171 mg/dL (65-110); Potassium 4.1 mmol/L (3.4-5.0); Sodium 139 mmol/L (137-145); Total Protein 7.0 g/dL (6.3-8.2)
[2025-05-26 16:38] LABS: Troponin I < 0.012 ng/mL (0.000-0.034)
[2025-05-26 17:00] LABS: Thyroid Stimulating Hormone 0.220 uIU/mL (0.465-4.680)
[2025-05-26 17:35] LABS: CRP 2.3 mg/dL (<1.0)
[2025-05-26] MEDS: ERTAPENEM 1 GM/NS 50 ML 1 GM/50 ML BAG IVPB (18:38)
[2025-05-26] MEDS: SODIUM CHLORIDE 0.9% IV 1,000 ML 999 ML IV CONT (18:38)
[2025-05-26] MEDS: SODIUM CHLORIDE 0.9% IV 900 ML 999 ML IV CONT (18:39)
[2025-05-26 19:20] LABS: Influenza A QL RT-PCR Negative (Negative); Influenza B QL RT-PCR Negative (Negative); RSV RNA, RT-PCR Negative (Negative); SARS-CoV-2 RNA PCR Negative (Negative)
== END 2025-05-26 20:00 ==
PROVIDERS: Emergency Provider Emergency Medicine; PCP Family Medicine
DX: R41.82 Altered mental status, unspecified (principal); F03.90 Unspecified dementia, unspecified severity, without behavioral disturbance, psychotic disturbance, mood disturbance, and anxiety; E78.5 Hyperlipidemia, unspecified; I10 Essential (primary) hypertension; E11.9 Type 2 diabetes mellitus without complications; Z87.891 Personal history of nicotine dependence; Z20.822 Contact with and (suspected) exposure to COVID-19; Z79.899 Other long term (current) drug therapy
CPT/HCPCS: 36415; 70450; 71045; 71260; 74177; 80053; 81003; 82140; 82550; 82948; 83605; 84443; 84484; 85025; 85610; 85730; 86140; 87040; 87637; 93005; 96365; 99284; J1335; J7030; Q9967

== ENCOUNTER 2025-08-04 11:12 | Emergency (ER) | payer MEDICARE, OTHER, SELFPAY ==
[2025-08-04] VITALS (17 sets, daily range): BP systolic 84–125; BP diastolic 44–107; PULSE 71; RESP 18; TEMP 36.9; O2SAT 95–100
--- NOTE | ~2025-08-04 | CT_ITS ---
EXAMINATION: CT brain wo con DATE: 08/04/2025 11:54 INDICATION: Fall. TECHNIQUE: Computed tomography (CT) of the head was performed without intravenous contrast. The dose-length product was 605.33 mGy-cm. COMPARISON: 05/26/2025 FINDINGS: No acute intracranial hemorrhage. No mass effect. No midline shift. No hydrocephalus. There are several low density regions scattered throughout the periventricular and deep white matter which are favored to represent chronic ischemic white matter change. No skull fracture. Visualized paranasal sinuses and mastoid air cells are clear. Cerebral atrophy appropriate for the patient's age. IMPRESSION: 1. No acute intracranial hemorrhage. No mass effect. 2. Probable chronic ischemic white matter change. Reviewed, dictated and finalized at location Q.
--- NOTE | ~2025-08-04 | XR_ITS ---
EXAMINATION: XR wrist RT min 3V, 08/04/2025 11:55 CDT HISTORY: fall COMPARISON: No comparisons available. Findings: Nondisplaced fractures of the distal radius and ulnar styloid process with mild angulation of the distal radial fracture toward the dorsal aspect. No significant degenerative changes. Soft tissue swelling. Impression: Fractures detailed above Reviewed, dictated and finalized at location A. Impression: Fractures detailed above
--- NOTE | 2025-08-04 11:38 | ED.FALL ---
HPI - Fall General Chief Complaint: Fall Stated Complaint: fall Time Seen by Provider: 08/04/25 11:13 History of Present Illness HPI Narrative: Pt was walking down [place] in OR and fell against wall striking head on wall and then slid down wall. Pt denies LOC. Hx is per EMS as pt has dementia and does not recall. Pt also told EMS she had some wrist pain. Fall was witness per EMS and pt did not lose consciusness. Related Data Home Medications ?Medication ?Instructions ?Recorded ?Confirmed ?Last Taken ?Type aspirin 81 mg tablet,delayed 81 mg PO DAILY 10/06/20 07/20/25 11/15/24 History release empagliflozin 25 mg tablet 25 mg PO BID 10/06/20 07/20/25 11/15/24 History (Jardiance) simvastatin 40 mg tablet 40 mg PO DAILY 10/06/20 07/20/25 11/15/24 History sitagliptin phos 50 mg-metformin 1 tablet PO BID 10/06/20 07/20/25 11/15/24 History ER 1,000 mg tablet,extend rel 24h mp (Janumet XR) donepezil 10 mg tablet 10 mg PO DAILY 04/12/24 07/20/25 11/15/24 History losartan 25 mg tablet 25 mg PO DAILY 04/12/24 07/20/25 11/16/24 History memantine 10 mg tablet 10 mg PO BID 04/12/24 07/20/25 11/15/24 History insulin aspart U-100 100 unit/mL 3 unit subcut DAILY 07/20/25 07/20/25 Unknown History (3 mL) subcutaneous pen (Novolog FlexPen U-100 Insulin aspart) insulin glargine 100 unit/mL (3 See Rx Instructions subcut HS 07/20/25 07/20/25 Unknown History mL) subcutaneous pen (Lantus Solostar U-100 Insulin) Allergies Allergy/AdvReac Type Severity Reaction Status Date / Time Penicillins Allergy Intermediate Hives Verified 07/20/25 07:32 Sulfa (Sulfonamide Allergy Intermediate Hives Verified 07/20/25 07:32 Antibiotics) tree nut Allergy Intermediate Hives Verified 07/20/25 07:32 walnut Allergy Intermediate Hives Verified 07/20/25 07:32 Review of Systems Review of Systems: All systems reviewed & are unremarkable except as noted in HPI and below PMFSH Past Medical History Medical History Dementia Hyperlipidemia Hypertension Insulin dependent type 2 diabetes mellitus Surgical History Surgical History History of tubal ligation History of vein stripping History of cataract extraction Family History Family History Father Diabetes mellitus Hypertension Family history of alcoholism Social History Social History Social History: Surrogate medical decision maker: Jennifer Robertson, daughter. Code status: Full code. Smoking packs per day: 0.25 Smoking cigarettes per day: 5.0 Years smoked: 30 Smoking pack-years: 7.50 Smoking status: Former smoker Tobacco type: cigarettes Second hand tobacco smoke exposure: No Alcohol intake: never Substance use: never Substance use type: does not use Current Housing: Decline to Answer Concerned About Future Housing: Decline to Answer Difficulty Paying Gas/Electric Bills: Decline to Answer Difficulty Paying for Meds: Decline to Answer Currently Unemployed: Decline to Answer Education: Decline to Answer Difficulty w/ Childcare or Family Care: Decline to Answer Living arrangements: [facility] Additional living arrangements comments: [facility] in [place]. Spiritual care concerns: No Exam Const: General: healthy appearing and no acute distress Nutritional Appearance: well nourished Limitations: altered mental status HENMT: Head: laceration (samll laceratin right eyebrow steri stripped and approximated) Eyes: Conjunctivae: conjunctivae normal EOM: EOMs intact bilaterally Neck: Neck: normal visual inspection and no meningeal signs Other: no midline pain Chest: Chest palpation & inspection: normal inspection of the chest Resp: Effort & Inspection: normal respiratory effort Auscultation: clear to auscultation bilaterally Cardio: Rate: regular rate Rhythm: regular rhythm GI: GI Palp: Yes Soft to palpation Auscultation: normal bowel sounds Back/Spine/Pelvis: Back: no CVA tenderness Cervical Spine: collar present Skin: General skin exam: normal color Wounds: wounds noted Neuro: General: moves all extremities, no meningeal signs and no focal motor deficits Speech: normal speech Extrem: General: normal to inspection Other: mild tenderness right wrist minimal swelling no snuff box tenderness Psych: Attitude: cooperative Course Vital Signs Vital signs: Vital Signs Temperature 98.4 F 08/04/25 11:13 Pulse Rate 71 08/04/25 11:13 Respiratory Rate 18 08/04/25 11:13 Blood Pressure 107/61 08/04/25 11:13 Pulse Oximetry 99 08/04/25 11:13 Oxygen Delivery Room Air 08/04/25 11:13 Temperature 98.4 F 08/04/25 11:13 Pulse Rate 71 08/04/25 11:13 Respiratory Rate 18 08/04/25 11:13 Blood Pressure 120/55 L 08/04/25 13:15 Pulse Oximetry 100 08/04/25 12:33 Oxygen Delivery Room Air 08/04/25 11:13 Procedures Orthopedic Fracture Reduction Fracture #1: Fracture Reduction date: 08/04/25 Fracture Reduction time: 12:38 Time Out Performed: Yes Side: right Fracture Reduction Location: radius Analgesia: other (dilaudid 0.5 mg) Pre-Procedure Neuro Vascular Exam: normal Technique: direct manipulation Post-reduction neuro exam: intact Post-reduction vascular exam: intact Splint Applied: Yes Patient Tolerated Procedure: well MDM - Fall MDM Narrative Medical decision making narrative: Pt lost balance and fell into wall striking head on wall and sliding down wall. Witnessed and no LOC. Will CT brain and x ray wrist to rule out fx and intracranial bleed or injury. discussed with Dr Kapadia asked for us to try a reduction. no real movement with reductin attempt Discharge Plan Discharge Clinical Impression: Fracture of wrist Patient Disposition: NH Snf/Asst Living Condition: Stable Instructions: Antibiotic Form, Wrist Fracture in Adults (ED) Patient Language: Wolof Prescriptions: No Action donepezil 10 mg tablet 10 mg PO DAILY losartan 25 mg tablet 25 mg PO DAILY memantine 10 mg tablet 10 mg PO BID insulin glargine [Lantus Solostar U-100 Insulin] 100 unit/mL (3 mL) insulin pen See Rx Instructions SUBCUT HS Rx Instructions: 12 subcutaneously bedtime; 12 units subcutaneously at breakfast aspirin 81 mg tablet,delayed release (DR/EC) 81 mg PO DAILY simvastatin 40 mg tablet 40 mg PO DAILY Janumet XR 50-1,000 mg tablet, ER multiphase 24 hr 1 tablet PO BID Jardiance 25 mg tablet 25 mg PO BID insulin aspart U-100 [Novolog FlexPen U-100 Insulin] 100 unit/mL (3 mL) insulin pen 3 unit SUBCUT DAILY Rx Instructions: with breakfast and lunch acetaminophen [Tylenol Extra Strength] 500 mg tablet 1,000 mg PO TID PRN (Reason: pain) Qty: 30 0RF ergocalciferol (vitamin D2) 1,250 mcg (50,000 unit) capsule 1,250 mcg PO WEEKLY Qty: 8 0RF Follow-up/Referrals: Artemio,MD Kvng [Primary Care Provider, Unknown] Micah Kapadia MD [Physician, Orthopedics]
[2025-08-04] MEDS: HYDROmorphone HCL INJ (*CRX) 1 MG/ML SYR 0.5 MG IV PUSH (12:33)
--- OUTSIDE RECORDS SUMMARY | 2025-08-04 13:49 | XMS_ITS | Clinical Summary ---
Author Organization [facility] [address] [place] [id number] Care Team Providers Care Stock Broker Name Role Phone Kvng Ulloa MD Primary Care Provider [phone] Allergies Active Allergy Reactions Criticality Noted Date Comments Penicillins Unknown 01/06/2025 Tree Nut Hives,Itching,Rash,Swelling Medium 10/24/20 21 Felton Rash Medium 10/24/2021 Medications simvastatin (ZOCOR) 40 mg tablet 09/18/20 21 Active losartan (COZAAR) 25 mg tablet 09/18/20 21 Active aspirin 81 MG oral suspension Active alendronate (FOSAMAX) 70 mg tablet alendronate 70 mg tablet Active Dexcom G6 Security Manager misc USE DIRECTED TO MONITOR GLUCOSE 03/12/20 22 Active Dexcom G6 Transmitter device as directed 03/12/20 22 Active carbamide peroxide (Ear Drops, carbamide peroxide,) 6.5 % otic solution INSTILL 5 DROPS INTO AFFECTED right EAR(S) BY OTIC ROUTE 2 TIMES PER DAY for 10 days Active influenza quadrivalent [id number] (FLULAVAL,FLUARIX, FLUZONE) 60 mcg (15 mcg x [...] hyperglycemia, with long-term current use of insulin ([facility]) Inject 3 Units under the skin 2 (two) times a day with meals 15 mL 6 07/15/20 24 Active LANTUS 100 unit/mL (3 mL) pen for injectionIndicatio ns:Type 2 diabetes mellitus with hyperglycemia, with long-term current use of insulin ([facility]) Inject 14 Units under the skin pole framer machine before breakfast 15 mL 6 07/16/20 24 [...] hyperglycemia, with long-term current use of insulin ([facility]) Use to inject insulin three times daily 100 each 11 01/06/20 25 Active donepeziL (ARICEPT) 10 mg tabletIndications: Mild to Moderate Alzheimer's Type Dementia Take 1 tablet (10 mg total) by mouth nightly 90 tablet 3 01/25/20 25 Active memantine (NAMENDA) 10 mg tabletIndications: Moderate [...] hyperglycemia, with long-term current use of insulin ([facility]) Take 50-1,000 mg by mouth 2 (two) times a day 180 tablet 3 05/03/20 25 Active empagliflozin (JARDIANCE) 25 mg tabletIndications: Type 2 diabetes mellitus with hyperglycemia, with long-term current use of insulin ([facility]) Take 1 tablet (25 mg total) by mouth pole framer machine before breakfast 90 tablet 2 05/17/20 25 Active fluconazole (Diflucan) 150 mg tablet 1 tablet, one time only, may repeat once after 4 days 2 tablet 06/18/20 25 Active Active Problems Problem Noted Date Diagnosed Date Hypertension associated with type 2 diabetes rayray osman 10/19/2024 Assessment & Plan (04/22/2025 10:13 AM CDT): Chronic problem. Controlled on current losartan 25mg daily. Assessment & Plan (01/06/2025 2:51 PM INSURANCE CLAIM APPROVER): Chronic problem. Controlled on current losartan 25mg daily. Assessment & Plan (10/20/2024 11:54 AM INSURANCE CLAIM APPROVER): Chronic problem. Controlled on current losartan 25mg daily. Will update labs. Verified that she uses [employer]. Aware to check results/results letter in [employer]. Will contact by phone if needed. Hyperlipidemia associated with type 2 diabetes chapo guerin 10/19/2024 Assessment & Plan (04/22/2025 10:13 AM CDT): Chronic problem. Currently taking Simvastatin 40mg daily Last lipid panel: 10/20/24 LDL=48, RT=659. Assessment & Plan (01/06/2025 3:24 PM INSURANCE CLAIM APPROVER): Chronic problem. Currently taking Simvastatin 40mg daily Last lipid panel: 10/20/24 LDL=48, UT=857. Assessment & Plan (10/20/2024 11:53 AM INSURANCE CLAIM APPROVER): Chronic problem. No labs on file. Currently taking Simvastatin 40mg daily Will update labs. Verified that she uses [employer]. Aware to check results/results letter in [employer]. Will contact by phone if needed. COVID-19 [...] infection. Assessment & Plan (01/06/2025 3:31 PM INSURANCE CLAIM APPROVER): Chronic problem. A1c improved from 7.3% 10/20/24 to now 01/06/25. Will try to decrease her injection burden. Will send in Trulicity 0.75mg weekly. May need to start to decrease novolog with meals and/or Lantus. (Novolog if lows after meals, lantus if lows overnight). To send me a [employer] message in 2-3 weeks (before refill of [...] update MA/Cr today. Verified that she uses [employer]. Aware to check results/results letter in [employer]. Will contact by phone if needed. Discussed [...] infection. Assessment & Plan (10/20/2024 12:10 PM INSURANCE CLAIM APPROVER): Chronic problem. A1c near goal but worsened [...] Will update labs. Verified that she uses [employer]. Aware to check results/results letter in [employer]. Will contact by phone if needed. Discussed [...] Encounters Date Type Department Care Team Description 07/21/2025 Telephone [facility] Diabetes and Endocrinology [address] [place] [address] Mary Alice Muro NP Forms/questionnaire s (Home Care Delivered) 06/18/2025 2:10 PM CDT E-Visit [facility] Virtual Care [address] [place] [address] Aurora Trivedi NP Your Medications 06/18/2025 Patient Self-Triage [facility] [address] [place] [address] Mychart, Generic Provider 06/06/2025 Telephone [facility] [id number] [place] [address] [address], [place] [address] Mirna Manzanares LPN from Last 3 Months Immunizations Immunization Administration [...] AM CDT Pulse 76 01/24/2025 2:36 PM INSURANCE CLAIM APPROVER Temperature - - Respiratory Rate 18 01/24/2025 2:36 PM INSURANCE CLAIM APPROVER Oxygen Saturation 96% 01/24/2025 2:36 PM INSURANCE CLAIM APPROVER Inhaled Oxygen Concentration - - Weight 62.6 [...] Assessment 07/15/2025 07/15/2024, 07/09/2023, 12/17/2022 Influenza Vaccine (#1) 2025 2, 07/17/2021, 08/23/2020, Additional history exists Lipid Panel [...] CREATININE RATIO, URINE Routine 01/07/2025 12:00 AM INSURANCE CLAIM APPROVER Type 2 diabetes mellitus with hyperglycemia, with long-term current use of insulin (HCC) EGFR Routine 10/20/2024 12:22 PM INSURANCE CLAIM APPROVER Type 2 diabetes mellitus with hyperglycemia, with long-term current use of insulin (HCC) Hypertension associated with type 2 diabetes mellitus (HCC) LIPID PANEL Routine 10/20/2024 12:22 PM INSURANCE CLAIM APPROVER Type 2 diabetes mellitus with hyperglycemia, with long-term current use of insulin (HCC) Hyperlipidemia associated with type 2 diabetes mellitus (HCC) from Last 3 Months or Most Recently Relevant to Health Maintenance Results * (ABNORMAL) POCT hemoglobin A1c (04/22/2025 10:21 AM CDT) Hemoglobin A1C, POC 6.6(A) 4.0 - 5.6 % Blood 04/22/2025 10:2 1 AM CDT us Mary Alice Muro NP POINT OF CARE TEST ORDERA BLES Final Result * (ABNORMAL) Albumin Creatinine Ratio, Urine (01/07/2025 12:00 AM INSURANCE CLAIM APPROVER) Albumin Ur 41.3 mg/L Comment: Interpretive Data No reference range established. Current interpretive data was last revised 2019. Creatinine Ur 73.9 mg/dL YASEMIN Comment: Interpretive Data No reference range established. Current interpretive data was last revised 2019. Albumin Creatinine Ratio, Ur 56(H) 1 - 29 mg/g YASEMIN Urine 01/07/2025 01/07/2025 7:3 0 PM INSURANCE CLAIM APPROVER us Mary Alicemirella Muro HOTEL SUPPLIES SALESPERSON LAB URINE ORDERABLES Sandra l Result Performing Organization Address [facility] Co de Phone Number SYLVIADANIELA [address] [place] [address] * eGFR (10/20/2024 12:22 PM INSURANCE CLAIM APPROVER) eGFR >90 >=60 mL/min/1. 73 m2 Comment: [...] reviewed 2021. Blood 10/20/2024 12:2 2 PM INSURANCE CLAIM APPROVER 10/20/2024 8:10 PM INSURANCE CLAIM APPROVER us Mary Alice Muro HOTEL SUPPLIES SALESPERSON LAB BLOOD ORDERABLES Sandra l Result Performing Organization Address [facility]/ZIP Co de Phone Number [facility] [address] [place] [address] * (ABNORMAL) Lipid panel (10/20/2024 12:22 PM INSURANCE CLAIM APPROVER) Cholesterol 138 30 - 199 mg/dL Comment: [...] YASEMIN OSWALD Blood 10/20/2024 12:2 2 PM INSURANCE CLAIM APPROVER 10/20/2024 8:10 PM INSURANCE CLAIM APPROVER us Mary Alice Muro NP LAB BLOOD ORDERABLES Sandra [place] Result YASEMIN OSWALD [id number] Department [place] [address] from Last 3 Months or Most Recently Relevant to Health Maintenance Insurance MEDICARE FOR LIFE Care Teams Stock Broker Relationship Specialty Start Date End Date Kvng Ulloa MD [address] [place] [address] PCP - General Family Medicine 07/15/24
== END 2025-08-04 13:52 ==
PROVIDERS: Emergency Provider Emergency Medicine; PCP Family Medicine
DX: S52.501A Unspecified fracture of the lower end of right radius, initial encounter for closed fracture (principal); E78.5 Hyperlipidemia, unspecified; E11.9 Type 2 diabetes mellitus without complications; I10 Essential (primary) hypertension; F03.90 Unspecified dementia, unspecified severity, without behavioral disturbance, psychotic disturbance, mood disturbance, and anxiety; Z87.891 Personal history of nicotine dependence; W18.39XA Other fall on same level, initial encounter
CPT/HCPCS: 25605; 70450; 73110; 96374; 99285; J1171